=== PATIENT | male | born 1990 ===

== ENCOUNTER 2024-11-03 12:43 | Outpatient (CLI) | payer MEDICARE, SELFPAY ==
--- OUTSIDE RECORDS SUMMARY | 2024-10-11 09:17 | XMS_ITS | Encounter Summary ---
Author Organization [facility] Address [address] [id number] Care Team Providers Care Edge Cutting Machine Operator Name Role Phone Saul Mejia MD Primary Care Provider [phone] Reason for Referral * Consultation (Routine) - Authorized Specialty Diagnoses / Procedures Referred By Contact Referred To Contact Plastic Surgery / [facility] Diagnoses Decubitus ulcer of right ischium, stage IV (CMS/HCC) Noemí Ni MD [address] [place] [phone] Phone: tel: fax: Noemí Ni MD [address] [place] [phone] Phone: tel: fax: Referral ID Status Reason Start Date Expiration Date Visits Requested Visits Authorized [id number] Authorized Specialty Services Required 10/30/2024 05/01/2026 1 1 * Home Health (Routine) - Authorized Specialty Diagnoses / Procedures Referred By Contac t Referred To Contact Home Health Services / Plastic Surgery Diagnoses Decubitus ulcer of right ischium, stage IV (CMS/HCC) Noemí Ni MD [address] [place] [phone] Phone: tel: fax: Referral ID Status Reason Start Date Expiration Date Visits Requested Visits Authorized [id number] Authorized Specialty Services Required 10/27/2024 04/28/2026 999 999 * Home Health (Routine) - Authorized Specialty Diagnoses / Procedures Referred By Contac t Referred To Contact Home Health Services / Plastic Surgery Diagnoses Decubitus ulcer of right ischium, stage IV (CMS/HCC) Noemí Ni MD [address] [phone] Phone: tel: fax: Referral ID Status Reason Start Date Expiration Date Visits Requested Visits Authorized [id number] Authorized Specialty Services Required 10/26/2024 04/27/2026 999 999 * Home Health (Routine) - Authorized Specialty Diagnoses / Procedures Referred By Alonso t Referred To Contact Home Health Services Diagnoses Decubitus ulcer of right ischium, stage IV (CMS/HCC) Noemí Ni MD [address] [place] [phone] Phone: tel: fax: Referral ID Status Reason Start Date Expiration Date Visits Requested Visits Authorized [id number] Authorized Specialty Services Required 10/20/2024 2026 999 999 Reason for Visit * Auth/Cert (Routine) Specialty Diagnoses / Procedures Referred By Alonso t Referred To Contact Diagnoses Decubitus ulcer of right ischium, stage IV (CMS/HCC) Decubitus ulcer of right ischium, stage IV (CMS/HCC) [L89.314] Procedures [place] MUSCLE-SKIN FLAP,TRUNK [place] EXC ISCH PRES ULC BONE MYOCUT FLAP Debridement Pressure right ischium, fasciocutneous flap closure Noemí Ni MD [address] [place] [phone] Phone: tel: fax: [facility] [address] [place] [phone] Phone: tel: Referral ID Status Reason Start Date Expiration Date Visits Re quested Visits Authorized [id number] 1 1 Encounter Details Date Type Department Care Team (Late st Contact Info) Description 10/11/2024 9:17 AM EDT - 10/30/2024 4:07 PM EDT Hospital Encounter [facility] [address] [place] [address] Noemí Ni MD [address] [place] [phone] Decubitus ulcer of right ischium, stage IV (CMS/HCC) Discharge Disposition: Home-Health Care Svc Social History Tobacco Use Types Packs/Day Years Used Date Smoking Tobacco: Former Cigarettes 0.5 5 0 04/12/2006 - 04/12/2011 Passive Smoke Exposure: Never Smokeless Tobacco: Never Alcohol Use Standard Drinks/Week Comments Yes 0 (1 standard drink = 0.6 oz pur e alcohol) Occasional PHQ-2 Answer Date Recorded Patient Health Questionnaire-2 Score 0 07/01/2023 Housing Stability Vital Sign Answer Shiva e Recorded In the last 12 months, was t here a time when you were not able to pay the mortgage or rent on time? No 02/08/2023 Number of Places Lived in the Last Year Not on f ile 02/08/2023 In the last 12 months, was t here a time when you did not have a steady place to sleep or slept in a senior care (including now)? No 02/08/2023 Humiliation, Afraid, Rape, and Kick questionnair e Answer Date Recorded Within the last year, have y ou been afraid of your partner or ex-partner? No 10/12/2024 Within the last year, have y ou been humiliated or emotionally abused in other ways by your partner or ex-partner? No Within the last year, have y ou been kicked, hit, slapped, or otherwise physically hurt by your partner or ex-partner? No 10/12/2024 Within the last year, have y ou been raped or forced to have any kind of sexual activity by your partner or ex-partner? No 10/12/2024 Overall Financial Resource Strain (CARDIA) Answe r Date Recorded How hard is it for you to pa y for the very basics like food, housing, medical care, and heating? Not very hard 10/12/2024 Hunger Vital Sign Answer Date Recorded Within the past 12 months, y ou worried that your food would run out before you got the money to buy more. Never true 10/13/19 25 Within the past 12 months, t he food you bought just didn't last and you didn't have money to get more. Never true 10/12/2024 PRAPARE - Transportation Answer Date Re corded In the past 12 months, has l ack of transportation kept you from medical appointments or from getting medications? No 06/2024 In the past 12 months, has l ack of transportation kept you from meetings, work, or from getting things needed for daily living? No 10/12/2024 Housing Stability Vital Sign Answer Shiva e Recorded In the last 12 months, was t here a time when you were not able to pay the mortgage or rent on time? No 10/12/2024 In the past 12 months, how m any times have you moved where you were living? 0 10/12/2024 At any time in the past 12 m [facility], were you homeless or living in a senior care (including now)? No 10/12/2024 CAGE ASSESSMENT Answer Date Recorded Cage unable to access Not on file 08/25/2022 Cage max number of drinks Not on file 2022 Cage Beverages a week Not on file 08/25/2022 Have you ever felt you should CUT down on your d rinking? 0 08/25/2022 Have you been ANNOYED by people criticizing your drinking? 0 08/25/2022 Have you felt GUILTY about your drinking? 0 08/25/2022 Have you had a drink first t osito in the morning ([employer]) to steady your nerves or to get rid of a hangover? 0 08/25/2022 CAGE Questionnaire Score 0 023 Utilities Answer Date Recorded In the past 12 months has th e electric, gas, oil, or water company threatened to shut off services in your home? No 10/12/2024 PHQ-2A Answer Date Recorded Patient Health Questionnaire-2 Score 0 03/09/2023 Sex and Gender Information Value Date Recorded Sex Assigned at Not on file Legal Sex Male 8:00 PM EDT Gender Identity Not on file Sexual Orientation Not on file documented as of this encounter Last Filed Vital Signs Vital Sign Reading Time Taken Comments Blood Pressure 103/69 10/30/2024 7:50 AM EDT Pulse 97 10/30/2024 7:50 AM EDT Temperature 36.9 C (98.5 F) 10/30/2024 7:50 AM EDT Respiratory Rate 16 10/30/2024 7:50 AM EDT Oxygen Saturation 96% 10/30/2024 7:50 AM EDT Inhaled Oxygen Concentration - - Weight 86.6 kg (190 lb 14.7 oz) 10/30/2024 3:00 AM EDT Height 157.5 cm (5' 2 ) 10/11/2024 10:4 5 AM EDT Body Mass Index 34.92 10/11/2024 10:45 AM EDT documented in this encounter Functional Status * Are you deaf or do you have serious difficulty hearing? Answer Date of Assessment Author No 02/09/2023 5:28 PM EDT America Gil * Are you blind or do you have serious difficulty seeing, even when wearing glasses? Answer Date of Assessment Author No 02/09/2023 5:28 PM EDT America Gil * Do you have serious difficulty walking or climbing stairs? Answer Date of Assessment Author Yes 02/09/2023 5:28 PM EDT America Gil * Do you have serious difficulty dressing or bathing? Answer Date of Assessment Author No 02/09/2023 5:28 PM EDT America Gil * Because of a physical, mental, or emotional condition, do you have serious difficulty doing errandsalone such as visiting the doctor? Answer Date of Assessment Author Yes 02/09/2023 5:28 PM EDT America Gil * Calculated C-SSRS Risk Score (Lifetime/Recent) Answer Date of Assessment Author No Risk Indicated 10/29/2024 5:43 PM EDT Parul Perry * Question Answer Date of Assessment Author 1. Wish to be (Past 1 Month) No 025 5:43 PM EDT Parul Larios 2. Non-Specific Active Suici greyson Thoughts (Past 1 Month) No 10/29/2024 5:43 PM EDT Kiera Larios 6. Suicidal Behavior (Lifetime) No 5 5:43 PM EDT Parul Larios documented as of this encounter Mental Status * Because of a physical, mental, or emotional condition, do you have serious difficulty concentrating, remembering, or making decisions? (5 years old or older) Answer Entry Date Author No 02/09/2023 5:28 PM EDT America Gil documented in this encounter Discharge Instructions * Discharge Instructions* Kadi Galeano MD - 10/30/2024 7:59 AM EDT Discharge instructions Medications: - You should alternate taking Tylenol and ibuprofen every 3 hours for mild - moderate pain. Do not exceed 4,000mg tylenol total in 24 hours. Do not take ibuprofen if you are not supposed to take NSAIDs. - You have been prescribed pain medications to be taken as needed for severe pain. - You should take the stool softener prescribed as long as you are taking narcotics. - You may resume your previous medications unless otherwise instructed. Nutrition: - Drink plenty of fluids - You may resume your normal diet as tolerated, focusing on liquids to keep yourself hydrated. Activity: - Keep pressure off flap at all times. Do not lay on your right side. Dressing: - You should do twice daily dressing changes with wet-to-dry dressing to open areas and dry gauze/abd pads elsewhere. - Be diligent about hygiene and keep incisions clean and dry, especially after bowel movements. - You should try to keep your incisions as clean and dry as possible - You may shower. Let the soapy water run over your incisions. Do not scrub at your incisions. After you shower, pat your incisions dry with a clean towel. - Do NOT soak your incisions, or take a tub bath for 2 weeks. Potential Issues: - It is normal to have some pain and soreness, especially around the incisions - A small amount of clear drainage from the incision may be expected, call the office if the drainage becomes bloody, purulent (pus), or foul-smelling - Call the office if you start to have increased redness, drainage, swelling, or increased pain around your incision - Call the office if you have a fever greater than 101 F - Call the office if you have severe abdominal discomfort, nausea and vomiting, or feeling unwell Follow Up: - You will be contacted by the clinic for a follow up appointment on 11[facility]. Please contact your local EMS to arrange ambulance transport to this appointment. If you have any issues arranging this, please give us a call. documented in this encounter Medications at Time of Discharge bisacodyl (Dulcolax) 10 MG suppository Insert 1 suppository into the rectum every other day. 12 suppository 5 clindamycin (Clindagel) 1 % gel Apply 1 Application topically 2 (two) times a day. 30 g 1 4 lamoTRIgine (LaMICtal) 100 MG tablet Take 1 tablet by mouth daily. omeprazole (PriLOSEC) [address] capsule Take 1 capsule by mouth daily. Do not crush or chew. ondansetron ODT (Zofran-ODT) 4 MG disintegrating tablet Dissolve 1 tablet on the tongue every 6 hours as needed for nausea or vomiting. 20 tablet 5 oxybutynin XL (Ditropan-XL) 15 MG 24 hr tablet Take 1 tablet by mouth nightly. 2 documented as of this encounter Miscellaneous Notes * Nursing Note - Parul Larios - 10/30/2024 11:54 AM EDT This RN reviewed discharge paperwork with patient, patient expressed understanding. Patient given supplies as requested by . Meds to beds delivered to bedside, patient bathed, wounds cleansed and redressed. Patient awaiting ambulance transport. * Care Plan - Parul Larios - 10/30/2024 10:39 AM EDT Problem: Adult Inpatient Plan of Care Goal: Plan of Care Review Outcome: Adequate for Care Transition Flowsheets Taken 10/30/2024 003 by Terra Shaikh Progress: improving Taken 10/30/2024 0022 by Terra Shaikh Plan of Care Reviewed With: patient Goal: Patient-Specific Goal (Individualized) Outcome: Adequate for Care Transition Goal: Absence of Hospital-Acquired Illness or Injury Outcome: Adequate for Care Transition Intervention: Identify and Manage Fall Risk Flowsheets (Taken 10/30/2024 003 by Terra Shaikh) Safety Promotion/Fall Prevention: lighting adjusted activity supervised clutter-free environment maintained fall prevention program maintained safety round/check completed room organization consistent toileting scheduled Intervention: Prevent Skin Injury Flowsheets Taken 10/30/2024 0600 by Terra Shaikh Body Position: side-lying left Taken 10/30/2024 003 by Terra Shaikh Skin Protection: incontinence pads utilized Intervention: Prevent and Manage VTE (Venous Thromboembolism) Risk Flowsheets (Taken 10/30/2024 0756) VTE Prevention/Management: medication Intervention: Prevent Infection Flowsheets (Taken 10/30/2024 003 by Terra Shaikh) Infection Prevention: environmental surveillance performed equipment surfaces disinfected hand hygiene promoted rest/sleep promoted Goal: Optimal Comfort and Wellbeing Outcome: Adequate for Care Transition Intervention: Monitor Pain and Promote Comfort Flowsheets (Taken 10/29/2024 0405 by Yelena Deleon) Pain Management Interventions: care clustered position adjusted pillow support provided quiet environment facilitated rest Intervention: Provide Person-Centered Care Flowsheets (Taken 10/30/2024 003 by Terra Shaikh) Trust Relationship/Rapport: emotional support provided empathic listening provided reassurance provided thoughts/feelings acknowledged Goal: Readiness for Transition of Care Outcome: Adequate for Care Transition Intervention: Mutually Develop Transition Plan Flowsheets Taken 10/30/2024 1020 by Yahaira Beavers surgical processor Facility/Level of Care Needs: 1-Home or Self Care 4-[facility] S[facility] Equipment Needed After Discharge: (speciality air fluidized bed) other (see comments) Anticipated Changes Related to Illness: none Transportation Anticipated: medical transport Outpatient/Agency/Support Group Needs: DME homecare agency Transportation Concerns: none Concerns to be Addressed: discharge planning Patient/Family Anticipated Services at Transition: supportive employment case manager durable medical equipment home health care Patient/Family Anticipates Transition to: home with family Taken 10/12/2024 1327 by An Humphrey Equipment Currently Used at Home: wheelchair, manual Problem: Infection Goal: Absence of Infection Signs and Symptoms Outcome: Adequate for Care Transition Intervention: Prevent or Manage Infection Flowsheets (Taken 10/30/202434 by DTT P[employer]) Infection Management: aseptic technique maintained Fever Reduction/Comfort Measures: lightweight clothing lightweight bedding Isolation Precautions: precautions maintained Problem: Wound Goal: Optimal Coping Outcome: Adequate for Care Transition Intervention: Support Patient and Family Response Flowsheets (Taken 10/30/202434 by GeriXcalar [employer]) Supportive Measures: active listening utilized verbalization of feelings encouraged Family/Support System Care: involvement promoted Goal: Skin Health and Integrity Outcome: Adequate for Care Transition Intervention: Optimize Skin Protection Flowsheets Taken 10/30/2024 0600 by Markie Shaikhah Ama Head of Bed (HOB) Positioning: HOB at 15 degrees Taken 10/30/202434 by Neel [employer] Activity Management: activity adjusted per tolerance Pressure Reduction Devices: foam padding utilized heel offloading device utilized Taken 10/29/2024404 by Yelena Deleon Pressure Reduction Techniques: frequent weight shift encouraged heels elevated off bed positioned off wounds weight shift assistance provided Skin Protection: absorbent pad utilized/changed frequent weight shift encouraged weight shift assistance provided Goal: Optimal Wound Healing Outcome: Adequate for Care Transition Intervention: Promote Wound Healing Flowsheets (Taken 10/30/202434 by GeriXcalarMarkie5k Fans) Sleep/Rest Enhancement: awakenings minimized noise level reduced room darkened therapeutic touch utilized Problem: Skin Injury Risk Increased Goal: Skin Health and Integrity Outcome: Adequate for Care Transition Intervention: Optimize Skin Protection Flowsheets Taken 10/30/2024 0600 by Markie Shaikhah Ama Head of Bed (HOB) Positioning: HOB at 15 degrees Taken 10/30/202434 by GeriXcalarMarkieah Ama Activity Management: activity adjusted per tolerance Pressure Reduction Devices: foam padding utilized heel offloading device utilized Skin Protection: incontinence pads utilized Taken 10/29/20245 by Yelena Deleon Pressure Reduction Techniques: frequent weight shift encouraged heels elevated off bed positioned off wounds weight shift assistance provided Intervention: Promote and Optimize Oral Intake Flowsheets Taken 10/30/2024 003 by Terra Shaikh Oral Nutrition Promotion: rest periods promoted Taken 10/29/2024 0405 by Yelena Deleon Nutrition Interventions: meal set-up provided Problem: Fall Injury Risk Goal: Absence of Fall and Fall-Related Injury Outcome: Adequate for Care Transition Intervention: Identify and Manage Contributors Flowsheets (Taken 10/30/202434 by Terra Shaikh) Medication Review/Management: medications reviewed Self-Care Promotion: independence encouraged BADL personal routines maintained BADL personal objects within reach Intervention: Promote Injury-Free Environment Flowsheets (Taken 10/30/2024 003 by Terra Shaikh) Safety Promotion/Fall Prevention: lighting adjusted activity supervised clutter-free environment maintained fall prevention program maintained safety round/check completed room organization consistent toileting scheduled * Progress Notes - Yahaira Beavers RN - 10/30/2024 10:29 AM EDT Case Management Discharge Note Naga Padgett 34 y.o. male CSN: [id number] Admission: 10/11/2024 9:17 AM Primary Problem: Decubitus ulcer of right ischium, stage IV (CMS/HCC) Primary Parliamentary Counsel: Primary Caregiver: Family Assistance Available at Discharge: Availability of Care Givers (#Hours): 24 hours Family/Parliamentary Counsel(s) Willingness Assessed to care for patient at home: Yes Family/Parliamentary Counsel(s) Readiness Assessed to care for patient at home: Yes Housing Circumstances-Z Codes: Patient Referred to Financial or Community Resources: Discharge Facility/Level of Care Needs: Discharge Facility/Level of Care Needs: 1-Home or Self Care, 7-[facility] [place] Choice of Community Agency(s): Patient/Family Anticipated Services at Transition: Patient/Family Anticipated Services at Transition: supportive employment case manager, durable medical equipment, home health care DME/Equipment Needed after Discharge: Equipment Currently Used at Home: wheelchair, manual Equipment Needed After Discharge: other (see comments) (speciality air fluidized bed) Readmission Within the Last 30 Days: Medicare Documentation:per case management staff counsel. Follow-up: Noemí Ni MD [address] [facility] [phone] [facility], [facility]. (2142) [facility], [facility]. (2142) Follow up [facility] [phone] has accepted pt for wound care [facility] [phone] has accepted pt for wound care Follow up [facility], Vazquez with [facility] [phone]. [facility], Vazquez with [facility] [phone]. speciality bed Follow up Discharge Transportation: Transportation Anticipated: medical transport Transportation Home at Discharge: Medical Transport Has discharge transport been arranged?: Yes What day is the transport expected?: 10/30/24 What time is the transport expected?: 1400 Follow Up Transport: Transportation Needed to Follow up Appoinments: Medical Transport Additional Comments: Above agencies were informed patient to dc home today SW has arranged ambulance transport home. Pt will need to self schedule ambulance to follow up appointments per outpatient SW. Pt to dc to his mother's home today-[address] [place] [address] Dr Wilsonn, Ar Yahaira Beavers, RN * Vincent Victor - Reyes Gay RN - 10/30/2024 9:05 AM EDT Images from the original note were not included. [id number] Preventing a Surgical Site Infection A risk of any surgery is an infection at the surgical site. The surgical site is a cut the surgeon makes in the skin to do the surgery. Surgical site infections can range in type. It may be a minor skin infection. Or it may be severe and include tissue under the skin or other organs. In some cases,a severe infection can cause . The information below tells you: ? About surgical site infections. ? What hospitals do to prevent them. ? How they?re treated if they do occur. ? What you can do to prevent an infection. Hand washing reduces the risk of infection. What causes a surgical site infection? Germs are everywhere. They?re on your skin, in the air, and on things you touch. Many germs are good. Some are harmful. Surgical site infections occur when harmful germs enter your body through the incision in your skin. Some infections are caused by germs that are in the air or on objects. But most are caused by germs found on and in your own body. Who is at risk for a surgical site infection? Anyone can have a surgical site infection. Your risk is higher if you: ? Are an older adult. ? Have a weak immune system. ? Have other health conditions such as diabetes. ? Take certain medicines, such as steroids. ? Are a smoker. ? Have certain types of surgery, such as abdominal surgery. ? Have poor nutrition. ? Are very overweight. ? Have a surgery that lasts longer than 2 hours. What are the symptoms of a surgical site infection? An infection often shows up as skin redness, pain, and swelling around the incision that gets worse. Later, a cloudy or greenish-yellow fluid may come from the incision. The fluid may smell bad. The incision may pull apart or open up. You are likely to have a fever and may feel very ill. Symptoms can appear at any time. They may happen from hours to weeks after surgery. Implants such as an artificial knee or hip can become infected at any time after the surgery. How is a surgical site infection treated? ? A surgical site infection is treated with antibiotics. The type of medicine you get will depend on what may be causing the infection. Most serious wound infections need wound care. In some cases, surgery may be needed on the infected wound. ? An infected skin wound may be reopened and cleaned. A deep wound may need to be packed with gauze. The gauze is changed often until the wound starts to heal from the inside out. Your health care provider will decide the best way to treat your infection. ? If an infection occurs where an implant is placed, the implant may be removed. ? If you have an infection deeper in your body, you may need surgery to treat it. What hospitals do to prevent surgical site infections Many hospitals take these steps to help prevent surgical site infections: ? Handwashing. Before the surgery, your surgeon and all surgery staff scrub their hands and arms with an antiseptic soap. ? Clean skin. The site where your incision is made is carefully cleaned with an antiseptic solution. ? Sterile clothing and drapes. The surgical team wears medical uniforms. These are known as scrub suits. They wear long-sleeved surgical gowns, masks, caps, shoe covers, and sterile gloves. Your bodyis fully covered with a large sterile sheet (sterile drape). There is an opening in the sheet wherethe incision is made. ? Clean air. Operating rooms have special air filters. They use positive pressure airflow to prevent unfiltered air from entering the room. ? Careful use of antibiotics. Antibiotics are given no more than 60 minutes before the incision is made. They are generally stopped within 24 hours after surgery. This depends on the type of surgery.This helps kill germs but prevents problems that can occur when antibiotics are taken longer. ? Controlled blood sugar levels. Your blood sugar level may rise. This can be because of the stressof the surgery. Your blood sugar level is watched closely to make sure it stays within a normal range. High blood sugar delays wound healing. This increases the risk of infection. ? Controlled body temperature. A uulfa-gboh-xhliss temperature during or after surgery prevents oxygen from reaching the wound. This makes it harder for your body to fight infection. Hospitals may warm I.V. fluids, and provide warm-air blankets. Your temperature is watched throughout the surgery. ? Safe hair removal. Any hair that must be removed is clipped right before the incision, not shavedwith a razor. This prevents tiny nicks and cuts where germs can enter. ? Wound care. After surgery, a closed wound is covered with a sterile dressing for 1 to 2 days. Open wounds are packed with sterile gauze and covered with a sterile dressing. What you can do to prevent a surgical site infection ? Ask questions. Learn what your hospital is doing to prevent infection. ? If instructed, shower or bathe with plain soap the night before and the day of your surgery. Follow all instructions you're given. You may be asked to use a special cleanser that you don?t rinse off. ? If you smoke, stop as long as possible before and after the surgery. Ask your provider about waysto quit. ? Take antibiotics only when your provider tells you to. Using antibiotics when they?re not needed can create germs that are harder to kill. Finish the entire prescription of your antibiotics even ifyou feel better. ? Ask health care workers to clean their hands with plain soap and water or with an alcohol-based hand spray technician before and after caring for you. Don?t be afraid to remind them. ? After surgery, eat healthy foods. Care for your incision as directed by your health care team. When to contact your doctor Contact your provider or seek medical care right away if: ? The pain at the surgical site gets worse. ? A red streak, worse redness, or puffiness appears near the incision. ? Yellowish, cloudy, or bad-smelling fluid leaks from the incision. ? Your stitches dissolve before the wound heals. ? You have a fever of 100.4?? F ( 38??C ) or higher, or as advised by your provider. ? You have a tired feeling that doesn?t go away. Last Reviewed Date: 2024 00:00:00 ?? [id number] [employer]. All rights reserved. This information is not intended as a substitute for professional medical care. Always follow your healthcare professional's instructions. * [facility] - Reyes Gay RN - 10/30/2024 9:05 AM EDT Images from the original note were not included. [id number] Discharge Instructions: Changing Your Dressing You are going home with stitches, surgical livia, special strips of surgical tape, or surgical skin glue. These items were used to close your incision, help stop bleeding, and speed healing. It's important to follow your doctor's instructions for cleaning your incision. Below are some tips to help your incision heal. Home care ? Clean your work area: o Put pets in another room. o Clean your work area with soap and water. o Spread a clean cloth or paper towel over the surface. o Move away from the clean surface if you need to cough or sneeze. ? Gather your supplies. You'll need: o Packaged dressing for your wound. o Irrigation solutions (if prescribed by your doctor). o Pair of scissors (cleaned with soap and water). o Medical tape. o Disposable gloves (2 pairs). o Clean plastic trash bag (open it before you wash your hands). ? Wash your hands: o Use liquid soap. o Work up a good lather and scrub for 20 seconds. o Be sure to scrub between your fingers and under your nails. o Rinse with clean, running water. o Use a clean paper towel to dry your hands and turn off the faucet. ? Prepare your dressing supplies: o Peel back the edges of the dressing packages. Pour any irrigation solutions into solution cups. o Cut each piece of tape 4 inches longer than the dressing. ? Remove the old dressing: o Put on the first set of disposable gloves. o Loosen the tape on the dressing by pulling gently toward the incision. Remove the dressing 1 layer at a time. Put it in the plastic bag immediately. o Remove your gloves and put them in the plastic bag. Wash your hands. o Put on a new pair of gloves. ? Clean and dress the incision: o Irrigate and clean the incision and apply a new dressing as directed. o Put all used supplies in the plastic bag. Remove your gloves last and put them in the plastic bag. Seal the bag and put it in the trash. o Be sure to wash your hands again. Care for specific closures Follow these guidelines unless your doctor tells you otherwise: ? Stitches or livia. Once you no longer need to keep these dry, clean the wound daily, using the instructions listed above. First remove the bandage using clean hands. Then wash the area gently with soap and clean, running water. Use a wet cotton swab to loosen and remove any blood or crust that forms. After cleaning, put a thin layer of antibiotic ointment on if your doctor instructed you to do so. Then put on a new bandage. ? Skin glue. Don?t put liquid, ointment, or cream on your wound while the glue is in place. Avoid activities that cause heavy sweating. Protect the wound from sunlight. Don't scratch, rub, or pick atthe glue. Don't put tape directly over the glue. The glue should peel off within 5 to 10 days. ? Surgical tape. Keep the area dry. If it gets wet, blot the area dry with a clean towel. Surgical tape usually falls off within 7 to 10 days. If it has not fallen off after 10 days, contact your doctor before taking it off yourself. If you are told to remove the tape, it can be removed by pulling on it gently from the edge. For pieces that are stuck firmly, put mineral oil or petroleum jelly on a cotton ball. Gently rub the tape until it's removed. Follow-up care Follow up with your doctor to ask how long stitches or livia should be left in place. Be sure to return for suture or staple removal as directed. If tape closures were used, remove them yourself when your doctor tells you to, if they have not fallen off on their own. If skin glue was used, the glue will wear off by itself. Call your doctor if you have any questions or concerns about how to carefor your incision at home. When to seek medical care Call your doctor right away if you have: ? More pain, bleeding, redness, or foul-smelling discharge around the incision area. ? A fever of 100.4??F ( 38??C) or higher, or as directed by your doctor. ? Shaking chills. ? Vomiting or nausea that doesn?t go away. ? Numbness, coldness, or tingling around the incision area. ? Opening of the stitches or wound. ? Stitches or livia come apart or fall out. ? Surgical tape falls off before 7 days, or as directed by your doctor. Last Reviewed Date: 2024 00:00:00 ?? [id number] [employer]. All rights reserved. This information is not intended as a substitute for professional medical care. Always follow your healthcare professional's instructions. * [facility] - Reyes Gay RN - 10/30/2024 9:05 AM EDT Images from the original note were not included. [id number] Treating Pressure Injuries: Debridement The goal of treatment for pressure injuries is to create a healing environment. This may require debridement (removing or necrotic tissue) so new cells can form. Various types of debridement areavailable. These are done by healthcare providers and certified specialists. To control pain duringdebridement, pain- relieving medicines may be needed. tissue must be removed for the wound to heal properly. Debridement should only be done when there is good blood flow to the wound. Sharp debridement removes tissue with a scalpel, scissors, or other sharp instrument. Extensive removal may require surgery. Sharp debridement allows for precise removal of tissue and is the preferred method if you have an active infection. This technique can be painful, so it requires adequate pain control medicines. Extensive sharp debridement is done under anesthesia by a surgeon. During this process, the surgeon removes enough and damaged tissue until tissue with a good bleeding capillary base is found. Enzymatic debridement uses topical agents containing enzymes to dissolve tissue. They attack the fibrin and collagen of necrotic tissue and exudate. If eschar is present, tiny cuts may need to be made before applying the enzymes to help ensure their absorption. This ?cross-hatching? is done bya healthcare provider or specialist. Autolytic debridement uses the body?s own enzymes to break down necrotic tissue. Special dressings are used to keep the wound moist, allowing the necrotic skin to slowly separate from healthy tissue.Autolytic debridement can take up to several weeks but is less painful than other methods. It?s also selective in the tissue it removes. Autolytic debridement should not be used if you have an activeinfection. Biologic debridement is the use of sterile larvae (maggots) that produce powerful enzymes that liquefy and then ingest tissue. Mechanical (irrigation, hydrotherapy, ele-go-eymlk, wet-to-dry) debridement may be used to remove debris and tissue. Wet-to-dry involves applying a piece of gauze moistened with saline to the wound and letting it dry. The dried gauze is then removed, taking tissue and debris with it. This is not a favored method because it may remove healthy tissue as well as tissue. Wet-to-dry debridement can also be quite painful. Last Reviewed Date: 2023 00:00:00 ?? [id number] [employer]. All rights reserved. This information is not intended as a substitute for professional medical care. Always follow your healthcare professional's instructions. * Care Plan - Terra Shaikh - 10/30/2024 12:39 AM EDT Problem: Adult Inpatient Plan of Care Goal: Plan of Care Review 10/30/202434 by Terra Shaikh Flowsheets (Taken 10/30/202434) Progress: improving 10/30/202421 by Terra Shaikh Outcome: Ongoing, Progressing Flowsheets (Taken 10/30/202421) Progress: improving Plan of Care Reviewed With: patient Goal: Patient-Specific Goal (Individualized) 10/30/202434 by Terra Shaikh Flowsheets (Taken 10/30/202432) Patient/Family-Specific Goals (Include Timeframe): will be free from injury during the shift Individualized Care Needs: safety and comfort Anxieties, Fears or Concerns: will sleep well tonight 10/30/202421 by Terra Shaikh Outcome: Ongoing, Progressing Goal: Absence of Hospital-Acquired Illness or Injury Outcome: Ongoing, Progressing Intervention: Identify and Manage Fall Risk Flowsheets (Taken 10/30/202434) Safety Promotion/Fall Prevention: lighting adjusted activity supervised clutter-free environment maintained fall prevention program maintained safety round/check completed room organization consistent toileting scheduled Intervention: Prevent Skin Injury Flowsheets (Taken 10/30/202434) Body Position: education provided Skin Protection: incontinence pads utilized Intervention: Prevent and Manage VTE (Venous Thromboembolism) Risk Flowsheets (Taken 10/30/202434) VTE Prevention/Management: medication Intervention: Prevent Infection Flowsheets (Taken 10/30/202434) Infection Prevention: environmental surveillance performed equipment surfaces disinfected hand hygiene promoted rest/sleep promoted Goal: Optimal Comfort and Wellbeing Outcome: Ongoing, Progressing Intervention: Monitor Pain and Promote Comfort Flowsheets (Taken 10/30/202434) Pain Management Interventions: pillow support provided position adjusted Intervention: Provide Person-Centered Care Flowsheets (Taken 10/30/202434) Trust Relationship/Rapport: emotional support provided empathic listening provided reassurance provided thoughts/feelings acknowledged Goal: Readiness for Transition of Care Outcome: Ongoing, Progressing Problem: Infection Goal: Absence of Infection Signs and Symptoms Outcome: Ongoing, Progressing Intervention: Prevent or Manage Infection Flowsheets (Taken 10/30/202434) Infection Management: aseptic technique maintained Fever Reduction/Comfort Measures: lightweight clothing lightweight bedding Isolation Precautions: precautions maintained Problem: Wound Goal: Optimal Coping Outcome: Ongoing, Progressing Intervention: Support Patient and Family Response Flowsheets (Taken 10/30/202434) Supportive Measures: active listening utilized verbalization of feelings encouraged Family/Support System Care: involvement promoted Goal: Skin Health and Integrity Outcome: Ongoing, Progressing Intervention: Optimize Skin Protection Flowsheets (Taken 10/30/202434) Activity Management: activity adjusted per tolerance Pressure Reduction Devices: foam padding utilized heel offloading device utilized Head of Bed (HOB) Positioning: HOB elevated Goal: Optimal Wound Healing Outcome: Ongoing, Progressing Intervention: Promote Wound Healing Flowsheets (Taken 10/30/202434) Sleep/Rest Enhancement: awakenings minimized noise level reduced room darkened therapeutic touch utilized Problem: Skin Injury Risk Increased Goal: Skin Health and Integrity Outcome: Ongoing, Progressing Intervention: Optimize Skin Protection Flowsheets (Taken 10/30/202434) Activity Management: activity adjusted per tolerance Pressure Reduction Devices: foam padding utilized heel offloading device utilized Skin Protection: incontinence pads utilized Head of Bed (HOB) Positioning: HOB elevated Intervention: Promote and Optimize Oral Intake Flowsheets (Taken 10/30/202434) Oral Nutrition Promotion: rest periods promoted Problem: Fall Injury Risk Goal: Absence of Fall and Fall-Related Injury Outcome: Ongoing, Progressing Intervention: Identify and Manage Contributors Flowsheets (Taken 10/30/202434) Medication Review/Management: medications reviewed Self-Care Promotion: independence encouraged BADL personal routines maintained BADL personal objects within reach Intervention: Promote Injury-Free Environment Flowsheets (Taken 10/30/202434) Safety Promotion/Fall Prevention: lighting adjusted activity supervised clutter-free environment maintained fall prevention program maintained safety round/check completed room organization consistent toileting scheduled * Care Plan - Parul Larios - 10/29/2024 12:15 PM EDT Problem: Adult Inpatient Plan of Care Goal: Plan of Care Review Outcome: Ongoing, Progressing Flowsheets (Taken 10/29/2024 0405 by Yelena Deleon) Progress: improving Plan of Care Reviewed With: patient Goal: Patient-Specific Goal (Individualized) Outcome: Ongoing, Progressing Flowsheets (Taken 10/29/2024 1211) Patient/Family-Specific Goals (Include Timeframe): patient will remain free from falls over course of shift. patient will report adequate pain control over course of shift Individualized Care Needs: safety and pain control Anxieties, Fears or Concerns: none expressed Goal: Absence of Hospital-Acquired Illness or Injury Outcome: Ongoing, Progressing Intervention: Identify and Manage Fall Risk Flowsheets (Taken 10/29/2024 0600 by Yelena Deleon) Safety Promotion/Fall Prevention: activity supervised assistive device/personal items within reach clutter-free environment maintained fall prevention program maintained nonskid shoes/slippers when out of bed room organization consistent safety round/check completed Intervention: Prevent Skin Injury Flowsheets Taken 10/29/2024 0900 by Mary Whitt CNA Body Position: weight shifting Taken 10/29/2024 0405 by Yelena Deleon Skin Protection: incontinence pads utilized drying agents applied Intervention: Prevent and Manage VTE (Venous Thromboembolism) Risk Flowsheets (Taken 10/29/2024 0800) VTE Prevention/Management: medication Intervention: Prevent Infection Flowsheets (Taken 10/29/2024 0405 by Yelena Deleon) Infection Prevention: environmental surveillance performed hand hygiene promoted rest/sleep promoted single patient room provided Goal: Optimal Comfort and Wellbeing Outcome: Ongoing, Progressing Intervention: Monitor Pain and Promote Comfort Flowsheets (Taken 10/29/2024 040 by Yelena Deleon) Pain Management Interventions: care clustered position adjusted pillow support provided quiet environment facilitated rest Intervention: Provide Person-Centered Care Flowsheets (Taken 10/29/2024 0405 by Yelena Deleon) Trust Relationship/Rapport: care explained choices provided emotional support provided questions answered thoughts/feelings acknowledged Goal: Readiness for Transition of Care Outcome: Ongoing, Progressing Intervention: Mutually Develop Transition Plan Flowsheets (Taken 10/12/2024 1327 by An Humphrey) Equipment Currently Used at Home: wheelchair, manual * Care Plan - Parul Larios - 10/29/2024 12:14 PM EDT Problem: Adult Inpatient Plan of Care Goal: Plan of Care Review Outcome: Ongoing, Progressing Flowsheets (Taken 10/29/2024 0405 by Yelena Deleon) Progress: improving Plan of Care Reviewed With: patient Goal: Patient-Specific Goal (Individualized) Outcome: Ongoing, Progressing Flowsheets (Taken 10/29/2024 1211) Patient/Family-Specific Goals (Include Timeframe): patient will remain free from falls over course of shift. patient will report adequate pain control over course of shift Individualized Care Needs: safety and pain control Anxieties, Fears or Concerns: none expressed Goal: Absence of Hospital-Acquired Illness or Injury Outcome: Ongoing, Progressing Intervention: Identify and Manage Fall Risk Flowsheets (Taken 10/29/2024 0600 by Yelena Deleon) Safety Promotion/Fall Prevention: activity supervised assistive device/personal items within reach clutter-free environment maintained fall prevention program maintained nonskid shoes/slippers when out of bed room organization consistent safety round/check completed Intervention: Prevent Skin Injury Flowsheets Taken 10/29/2024 0900 by Mary Whitt CNA Body Position: weight shifting Taken 10/29/2024 0405 by Yelena Deleon Skin Protection: incontinence pads utilized drying agents applied Intervention: Prevent and Manage VTE (Venous Thromboembolism) Risk Flowsheets (Taken 10/29/2024 0800) VTE Prevention/Management: medication Intervention: Prevent Infection Flowsheets (Taken 10/29/2024 040 by Yelena Deleon) Infection Prevention: environmental surveillance performed hand hygiene promoted rest/sleep promoted single patient room provided Goal: Optimal Comfort and Wellbeing Outcome: Ongoing, Progressing Intervention: Monitor Pain and Promote Comfort Flowsheets (Taken 10/29/2024 0405 by Yelena Deleon) Pain Management Interventions: care clustered position adjusted pillow support provided quiet environment facilitated rest Intervention: Provide Person-Centered Care Flowsheets (Taken 10/29/2024 0405 by Yelena Deleon) Trust Relationship/Rapport: care explained choices provided emotional support provided questions answered thoughts/feelings acknowledged Goal: Readiness for Transition of Care Outcome: Ongoing, Progressing Intervention: Mutually Develop Transition Plan Flowsheets (Taken 10/12/2024 1327 by An Humphrey) Equipment Currently Used at Home: wheelchair, manual Problem: Surgery Nonspecified Goal: Absence of Bleeding Outcome: Ongoing, Progressing Intervention: Monitor and Manage Bleeding Flowsheets (Taken 10/29/2024 0405 by Yelena Deleon) Bleeding Management: dressing monitored Goal: Effective Bowel Elimination Outcome: Ongoing, Progressing Intervention: Enhance Bowel Motility and Elimination Flowsheets (Taken 10/29/2024 0405 by Yelena Deleon) Bowel Elimination Management: hygiene measures promoted relaxation techniques promoted Bowel Motility Enhancement: fluid intake encouraged oral intake encouraged Goal: Fluid and Electrolyte Balance Outcome: Ongoing, Progressing Intervention: Monitor and Manage Fluid and Electrolyte Balance Flowsheets (Taken 10/29/2024 0405 by Yelena Deleon) Fluid/Electrolyte Management: fluids provided Goal: Blood Glucose Level Within Target Range Outcome: Ongoing, Progressing Intervention: Optimize Glycemic Control Flowsheets (Taken 10/25/2024 1610 by Dallin Nevarez RN) Hypoglycemia Management: blood glucose monitored Goal: Absence of Infection Signs and Symptoms Outcome: Ongoing, Progressing Intervention: Prevent or Manage Infection Flowsheets Taken 10/29/2024 0600 by Yelena Deleon Isolation Precautions: precautions maintained Taken 10/29/2024 0405 by Yelena Deleon Infection Management: aseptic technique maintained Fever Reduction/Comfort Measures: lightweight clothing Problem: Infection Goal: Absence of Infection Signs and Symptoms Outcome: Ongoing, Progressing Intervention: Prevent or Manage Infection Flowsheets Taken 10/29/2024 0600 by Yelena Deleon Isolation Precautions: precautions maintained Taken 10/29/2024 0405 by Yelena Deleon Infection Management: aseptic technique maintained Fever Reduction/Comfort Measures: lightweight clothing Problem: Wound Goal: Optimal Coping Outcome: Ongoing, Progressing Intervention: Support Patient and Family Response Flowsheets (Taken 10/29/2024 0405 by Yelena Deleon) Supportive Measures: active listening utilized decision-making supported self-care encouraged verbalization of feelings encouraged Family/Support System Care: self-care encouraged support provided Goal: Skin Health and Integrity Outcome: Ongoing, Progressing Intervention: Optimize Skin Protection Flowsheets Taken 10/29/2024 0900 by Mary Whitt CNA Activity Management: activity adjusted per tolerance Taken 10/29/2024 0600 by Yelena Deleon Head of Bed (HOB) Positioning: HOB elevated Taken 10/29/2024 0405 by Yelena Deleon Pressure Reduction Techniques: frequent weight shift encouraged heels elevated off bed positioned off wounds weight shift assistance provided Pressure Reduction Devices: heel offloading device utilized positioning supports utilized foam padding utilized Skin Protection: absorbent pad utilized/changed frequent weight shift encouraged weight shift assistance provided Goal: Optimal Wound Healing Outcome: Ongoing, Progressing Intervention: Promote Wound Healing Flowsheets (Taken 10/29/2024404 by Yelena Deleon) Sleep/Rest Enhancement: awakenings minimized noise level reduced regular sleep/rest pattern promoted room darkened Problem: Skin Injury Risk Increased Goal: Skin Health and Integrity Outcome: Ongoing, Progressing Intervention: Optimize Skin Protection Flowsheets Taken 10/29/2024 09 by Mary Whitt CNA Activity Management: activity adjusted per tolerance Taken 10/29/2024 06 by Yelena Deleon Head of Bed (HOB) Positioning: HOB elevated Taken 10/29/2024404 by Yelena Deleon Pressure Reduction Techniques: frequent weight shift encouraged heels elevated off bed positioned off wounds weight shift assistance provided Pressure Reduction Devices: heel offloading device utilized positioning supports utilized foam padding utilized Skin Protection: incontinence pads utilized drying agents applied Intervention: Promote and Optimize Oral Intake Flowsheets (Taken 10/29/2024404 by Yelena Deleon) Oral Nutrition Promotion: rest periods promoted Nutrition Interventions: meal set-up provided Problem: Fall Injury Risk Goal: Absence of Fall and Fall-Related Injury Outcome: Ongoing, Progressing Intervention: Identify and Manage Contributors Flowsheets (Taken 10/29/2024404 by Yelena Deleon) Medication Review/Management: medications reviewed high-risk medications identified Self-Care Promotion: independence encouraged BADL personal objects within reach BADL personal routines maintained Intervention: Promote Injury-Free Environment Flowsheets (Taken 10/29/2024 06 by Yelena Deleon) Safety Promotion/Fall Prevention: activity supervised assistive device/personal items within reach clutter-free environment maintained fall prevention program maintained nonskid shoes/slippers when out of bed room organization consistent safety round/check completed * Care Plan - Yelena Deleon - 10/29/2024 4:05 AM EDT Problem: Adult Inpatient Plan of Care Goal: Plan of Care Review 10/29/2024404 by Yelena Deleon Flowsheets (Taken 10/29/2024404) Progress: improving Plan of Care Reviewed With: patient 10/29/2024404 by Yelena Deleon Outcome: Ongoing, Progressing Problem: Adult Inpatient Plan of Care Goal: Patient-Specific Goal (Individualized) 10/29/2024 0405 by Yelena Deleon Flowsheets (Taken 10/28/20241999) Patient/Family-Specific Goals (Include Timeframe): Patient will remain free from harm this shift Individualized Care Needs: Monitor dressing and wound care Anxieties, Fears or Concerns: None verbalized by patient 10/29/20245 by Yelena Deleon Outcome: Ongoing, Progressing Problem: Adult Inpatient Plan of Care Goal: Absence of Hospital-Acquired Illness or Injury Outcome: Ongoing, Progressing Intervention: Identify and Manage Fall Risk Flowsheets (Taken 10/29/2024 0200) Safety Promotion/Fall Prevention: activity supervised assistive device/personal items within reach clutter-free environment maintained fall prevention program maintained nonskid shoes/slippers when out of bed room organization consistent safety round/check completed Intervention: Prevent Skin Injury Flowsheets Taken 10/29/2024404 Skin Protection: incontinence pads utilized drying agents applied Taken 10/29/2024 020 Body Position: left side-lying Intervention: Prevent and Manage VTE (Venous Thromboembolism) Risk Flowsheets (Taken 10/29/2024 0000) VTE Prevention/Management: SCDs (sequential compression devices) off patient refused intervention Intervention: Prevent Infection Flowsheets (Taken 10/29/2024 0405) Infection Prevention: environmental surveillance performed hand hygiene promoted rest/sleep promoted single patient room provided Problem: Adult Inpatient Plan of Care Goal: Absence of Hospital-Acquired Illness or Injury Intervention: Prevent Skin Injury Flowsheets Taken 10/29/20245 Skin Protection: incontinence pads utilized drying agents applied Taken 10/29/2024 0200 Body Position: left side-lying Problem: Adult Inpatient Plan of Care Goal: Optimal Comfort and Wellbeing Intervention: Monitor Pain and Promote Comfort Flowsheets (Taken 10/29/20245) Pain Management Interventions: care clustered position adjusted pillow support provided quiet environment facilitated rest Problem: Surgery Nonspecified Goal: Absence of Bleeding Intervention: Monitor and Manage Bleeding Flowsheets (Taken 10/29/2024 040) Bleeding Management: dressing monitored * Care Plan - Aureliano Rose RN - 10/28/2024 11:35 AM EDT Problem: Adult Inpatient Plan of Care Goal: Plan of Care Review Flowsheets (Taken 10/28/20241128) Progress: improving Plan of Care Reviewed With: patient Goal: Patient-Specific Goal (Individualized) Outcome: Ongoing, Progressing Flowsheets (Taken 10/28/2024 08) Patient/Family-Specific Goals (Include Timeframe): Remain fall and injury free, able to manage painup to pt own level. Individualized Care Needs: safety and pain control Anxieties, Fears or Concerns: none Goal: Absence of Hospital-Acquired Illness or Injury Intervention: Identify and Manage Fall Risk Flowsheets (Taken 10/28/2024 0800) Safety Promotion/Fall Prevention: activity supervised assistive device/personal items within reach clutter-free environment maintained fall prevention program maintained lighting adjusted room organization consistent safety round/check completed Intervention: Prevent Skin Injury Flowsheets Taken 10/28/20241128 by Aureliano Rose RN Body Position: (pt able to turn himself, education provided) turned other (see comments) Taken 10/28/2024 0053 by Rica Wallace RN Skin Protection: incontinence pads utilized pectin skin barriers applied Intervention: Prevent and Manage VTE (Venous Thromboembolism) Risk Flowsheets (Taken 10/28/20241128) VTE Prevention/Management: medication Intervention: Prevent Infection Flowsheets (Taken 10/28/20241128) Infection Prevention: rest/sleep promoted hand hygiene promoted environmental surveillance performed Goal: Optimal Comfort and Wellbeing Outcome: Ongoing, Progressing Intervention: Monitor Pain and Promote Comfort Flowsheets (Taken 10/28/20241128) Pain Management Interventions: relaxation techniques promoted breathing exercises Problem: Infection Goal: Absence of Infection Signs and Symptoms Outcome: Ongoing, Progressing Intervention: Prevent or Manage Infection Flowsheets (Taken 10/28/20241128) Fever Reduction/Comfort Measures: lightweight clothing lightweight bedding Isolation Precautions: precautions maintained Problem: Wound Goal: Optimal Wound Healing Intervention: Promote Wound Healing Flowsheets (Taken 10/28/20241128) Sleep/Rest Enhancement: regular sleep/rest pattern promoted relaxation techniques promoted Problem: Fall Injury Risk Goal: Absence of Fall and Fall-Related Injury Intervention: Identify and Manage Contributors Flowsheets (Taken 10/28/20241128) Medication Review/Management: medications reviewed Self-Care Promotion: independence encouraged BADL personal routines maintained BADL personal objects within reach Intervention: Promote Injury-Free Environment Flowsheets (Taken 10/28/2024 0800) Safety Promotion/Fall Prevention: activity supervised assistive device/personal items within reach clutter-free environment maintained fall prevention program maintained lighting adjusted room organization consistent safety round/check completed * Care Plan - Rica Wallace RN - 10/28/2024 12:59 AM EDT Problem: Adult Inpatient Plan of Care Goal: Absence of Hospital-Acquired Illness or Injury Intervention: Identify and Manage Fall Risk Flowsheets (Taken 10/27/20241999) Safety Promotion/Fall Prevention: activity supervised assistive device/personal items within reach clutter-free environment maintained fall prevention program maintained mobility aid in reach lighting adjusted nonskid shoes/slippers when out of bed Intervention: Prevent Skin Injury Flowsheets (Taken 10/28/202452) Body Position: turned right Skin Protection: incontinence pads utilized pectin skin barriers applied Intervention: Prevent and Manage VTE (Venous Thromboembolism) Risk Flowsheets (Taken 10/27/20241999) VTE Prevention/Management: SCDs (sequential compression devices) off patient refused intervention previous patient education reinforced Intervention: Prevent Infection Flowsheets (Taken 10/28/202452) Infection Prevention: rest/sleep promoted equipment surfaces disinfected hand hygiene promoted environmental surveillance performed Goal: Optimal Comfort and Wellbeing Intervention: Provide Person-Centered Care Flowsheets (Taken 10/28/202452) Trust Relationship/Rapport: care explained choices provided emotional support provided empathic listening provided questions answered questions encouraged reassurance provided thoughts/feelings acknowledged Problem: Surgery Nonspecified Goal: Absence of Bleeding Intervention: Monitor and Manage Bleeding Flowsheets (Taken 10/28/202452) Bleeding Management: dressing monitored Goal: Effective Bowel Elimination Intervention: Enhance Bowel Motility and Elimination Flowsheets (Taken 10/28/202452) Bowel Elimination Management: hygiene measures promoted relaxation techniques promoted Bowel Motility Enhancement: fluid intake encouraged oral intake encouraged Goal: Fluid and Electrolyte Balance Intervention: Monitor and Manage Fluid and Electrolyte Balance Flowsheets (Taken 10/28/202452) Fluid/Electrolyte Management: fluids provided Goal: Absence of Infection Signs and Symptoms Intervention: Prevent or Manage Infection Flowsheets Taken 10/28/202452 Infection Management: aseptic technique maintained Fever Reduction/Comfort Measures: lightweight bedding lightweight clothing Taken 10/27/20241999 Isolation Precautions: precautions maintained Problem: Infection Goal: Absence of Infection Signs and Symptoms Intervention: Prevent or Manage Infection Flowsheets (Taken 10/28/202452) Infection Management: aseptic technique maintained Fever Reduction/Comfort Measures: lightweight bedding lightweight clothing Problem: Wound Goal: Optimal Coping Intervention: Support Patient and Family Response Flowsheets (Taken 10/28/202452) Supportive Measures: active listening utilized goal-setting facilitated problem-solving facilitated positive reinforcement provided self-care encouraged verbalization of feelings encouraged relaxation techniques promoted Family/Support System Care: involvement promoted self-care encouraged support provided Goal: Skin Health and Integrity Intervention: Optimize Skin Protection Flowsheets Taken 10/28/202452 Pressure Reduction Devices: foam padding utilized positioning supports utilized Skin Protection: frequent weight shift encouraged protective dressing applied skin barriers applied skin sealant/moisture barrier applied specialty mattress utilized absorbent pad utilized/changed Taken 10/27/20241999 Activity Management: activity adjusted per tolerance activity encouraged Goal: Optimal Wound Healing Intervention: Promote Wound Healing Flowsheets (Taken 10/28/202452) Sleep/Rest Enhancement: awakenings minimized consistent schedule promoted regular sleep/rest pattern promoted relaxation techniques promoted Problem: Skin Injury Risk Increased Goal: Skin Health and Integrity Intervention: Optimize Skin Protection Flowsheets Taken 10/28/202452 Pressure Reduction Devices: foam padding utilized positioning supports utilized Skin Protection: incontinence pads utilized pectin skin barriers applied Taken 10/27/20241999 Activity Management: activity adjusted per tolerance activity encouraged Head of Bed (HOB) Positioning: HOB elevated Intervention: Promote and Optimize Oral Intake Flowsheets (Taken 10/28/202452) Oral Nutrition Promotion: rest periods promoted Nutrition Interventions: meal set-up provided supplemental drinks provided Problem: Fall Injury Risk Goal: Absence of Fall and Fall-Related Injury Intervention: Identify and Manage Contributors Flowsheets (Taken 10/28/202452) Medication Review/Management: medications reviewed Self-Care Promotion: independence encouraged BADL personal objects within reach BADL personal routines maintained Intervention: Promote Injury-Free Environment Flowsheets (Taken 10/27/20241999) Safety Promotion/Fall Prevention: activity supervised assistive device/personal items within reach clutter-free environment maintained fall prevention program maintained mobility aid in reach lighting adjusted nonskid shoes/slippers when out of bed * Progress Notes - Shelley Ramirez RN - 10/27/2024 1:22 PM EDT Bradford Jean Baptiste [phone] has accepted pt for wound care. He knows [facility] has accepted pt, he will follow up with primary CM RN on Wednesday. * Care Plan - Leigh Sauer RN - 10/27/2024 12:58 PM EDT Problem: Adult Inpatient Plan of Care Goal: Plan of Care Review Outcome: Ongoing, Progressing Flowsheets Taken 10/27/2024 0512 by Jose Angel Garcia RN Plan of Care Reviewed With: patient Taken 10/25/2024 1610 by Dallin Nevarez RN Progress: improving Problem: Skin Injury Risk Increased Goal: Skin Health and Integrity Outcome: Ongoing, Progressing Problem: Fall Injury Risk Goal: Absence of Fall and Fall-Related Injury Outcome: Ongoing, Progressing * Care Plan - Jose Angel Garcia RN - 10/27/2024 5:12 AM EDT Problem: Adult Inpatient Plan of Care Goal: Plan of Care Review Outcome: Ongoing, Progressing Flowsheets (Taken 10/27/2024 0512) Plan of Care Reviewed With: patient Goal: Patient-Specific Goal (Individualized) Outcome: Ongoing, Progressing Goal: Absence of Hospital-Acquired Illness or Injury Outcome: Ongoing, Progressing Intervention: Identify and Manage Fall Risk Flowsheets (Taken 10/27/2024 0612) Safety Promotion/Fall Prevention: safety round/check completed clutter-free environment maintained lighting adjusted Intervention: Prevent Skin Injury Flowsheets (Taken 10/27/2024 0612) Body Position: turned left Skin Protection: incontinence pads utilized Intervention: Prevent and Manage VTE (Venous Thromboembolism) Risk Flowsheets (Taken 10/27/2024 0612) VTE Prevention/Management: medication Intervention: Prevent Infection Flowsheets (Taken 10/27/2024 06) Infection Prevention: hand hygiene promoted Goal: Optimal Comfort and Wellbeing Outcome: Ongoing, Progressing Intervention: Monitor Pain and Promote Comfort Flowsheets (Taken 10/27/2024 06) Pain Management Interventions: emotional support pillow support provided Goal: Readiness for Transition of Care Outcome: Ongoing, Progressing Problem: Surgery Nonspecified Goal: Absence of Bleeding Outcome: Ongoing, Progressing Goal: Effective Bowel Elimination Outcome: Ongoing, Progressing Goal: Fluid and Electrolyte Balance Outcome: Ongoing, Progressing Goal: Blood Glucose Level Within Target Range Outcome: Ongoing, Progressing Goal: Absence of Infection Signs and Symptoms Outcome: Ongoing, Progressing Problem: Infection Goal: Absence of Infection Signs and Symptoms Outcome: Ongoing, Progressing Problem: Wound Goal: Optimal Coping Outcome: Ongoing, Progressing Goal: Skin Health and Integrity Outcome: Ongoing, Progressing Goal: Optimal Wound Healing Outcome: Ongoing, Progressing Problem: Skin Injury Risk Increased Goal: Skin Health and Integrity Outcome: Ongoing, Progressing Problem: Fall Injury Risk Goal: Absence of Fall and Fall-Related Injury Outcome: Ongoing, Progressing * Progress Notes - An Humphrey P - 10/26/2024 3:18 PM EDT Case Management Adult Progress Note Naga Padgett 34 y.o. male CSN: [id number] Admission: 10/11/2024 9:17 AM Primary Problem: Decubitus ulcer of right ischium, stage IV (CMS/HCC) Anticipated Discharge Date: 10/30/24 Additional Comments: Pt will DC on 10/30/24 to his mothers address at [address] [place] [address] Eddi Ariza via ambulance, SW did not get ambulance time response by the time SW left for the day on 10/26/24. Specialty hospital bed will be delivered between 12-1 pm on 10/30/24 by Vazquez Callejas with [facility] [phone]. Pt was approved this date by insurance after family appeal to go to [facility], ptexpressed that he wished to pursue home with . RN CM sent wound care orders for [facility]. CM will continue to follow pt. An Humphrey, V BELT SKIVER, HOUSEHOLD PERSONAL ASSISTANT Social Work Senior Department of Case Management [facility] * Progress Notes - Kadi Galeano MD - 10/26/2024 1:52 PM EDT Images from the original note were not included. [facility] Department of Surgery Division of Plastic Surgery Surgery Progress Note 10/26/24 Naga Padgett Subjective Subjective: HPI NAEO. Resting comfortably in bed at time of rounds. Pain is controlled. Continues to tolerate diet.WV functioning appropriately. No acute concerns today. Review of Systems: Relevant review of systems was obtained as able and is negative unless stated above in HPI. Objective Objective: Vital signs: Vitals: 10/26/24 1100 BP: 127/80 Pulse: 94 Resp: Temp: 36.9 ??C (98.4 ??F) SpO2: 100% Physical Exam: Physical Exam Constitutional: General: He is not in acute distress. Appearance: He is not ill-appearing. HENT: Head: Normocephalic and atraumatic. Mouth/Throat: Mouth: Mucous membranes are moist. Eyes: Extraocular Movements: Extraocular movements intact. Cardiovascular: Rate and Rhythm: Normal rate and regular rhythm. Pulmonary: Effort: Pulmonary effort is normal. Abdominal: General: There is no distension. Genitourinary: Comments: Montejo in place with CYU Skin: General: Skin is warm and dry. Capillary Refill: Capillary refill takes less than 2 seconds. Comments: Right ischial and posterior thigh incisions with WV in place, functioning appropriately, c/d/I. Flap appears WWP, pink, cap refill 2sec. SATYA drain with SS output Neurological: Mental Status: He is alert and oriented to person, place, and time. Psychiatric: Mood and Affect: Mood normal. Intake/Output Summary (Last 24 hours) at 10/26/2024 1353 Last data filed at 10/26/2024 0600 Gross per 24 hour Intake -- Output 1590 ml Net -1590 ml Lines/Drains/Tubes: Patient Lines/Drains/Airways Status Active Airway None Output by Drain (mL) 10/24/24 0700 - 10/24/24 1859 10/24/24 1900 - 10/25/24 0659 10/25/24 0700 - 10/25/24 1859 10/25/24 1900 - 10/26/24 0659 10/26/24 0700 - 10/26/24 1353 Closed/Suction Drain 1 Right;Posterior Thigh Bulb 19 Fr. 0 20 2 5 Labs in last 18 hours: CBC WBC ?? Hb ?? Plt ?? Hct ?? ANC ?? INR ??, PTT ??, Anti-Xa ?? MCV ?? BMP Na ?? Cl ?? BUN ?? Glu ?? K ?? Co2 ?? Cr ?? Ca ?? iCa ?? Mg ??, Phos ?? Lactate ?? LFT AST ?? AlkPhos ?? T Prot ?? ALK ?? Bili ?? Alb ?? D.Bili ?? Lab Trends: H/H INR Cr Lactate No lab exists for component: LACTTEVEN Radiographic Interpretation: No relevant imaging to review. Medications reviewed. Vital signs reviewed. Labs reviewed. Assessment/Plan Assessment and Plan: Naga Padgett is a 34 y.o. male with history of spina bifida (is paraplegic and bed-bound) and Stage IV right ischial pressure injury who is now s/p right ischial pressure wound excision and posterior thigh rotation flap on 10/11/24. Plan: - Continue pressure offloading --Dolphin bed. Do not sit directly on the flap. We prefer for patient to offload from the right side by laying in left lateral decubitus position. - Diligent hygiene, especially after BM - Nutrition optimization. Boost TID - Continue Montejo - Continue doxycycline until SATYA drain comes out - PT/OT, placement Dispo: Continue Current Level of Care The patient will require a hospital bed for home use. Patient has a condition that requires positioning of the body in ways not feasible with a regular bed. The patient also requires frequent repositioning, which would not be sufficient with an ordinary bed. The patient has a caregiver to assist within the home. Patient has been treated with a course of conservative treatment for their wounds for the past 30 days and the home regiment is being directed by our clinic. Education and employment of frequent repositioning while also on a Low Air Loss mattress has been directed. We have treated the patient for infection and removed devitalized tissue when necessary. He has now since undergone flap reconstruction of his wound and requires continued pressure offloading. Home Health will be responsible for aiding with nutrition intake, proper offloading education and dressing changes which will include an occlusive border. The patient also manages incontinence with a montejo catheter. The patient lives with his mother and will be assisted by her. All other equipment has tried and failed or been ruled out and if not for the Group 3, the patient may not be able to stay at home any longer due to the complex need for pressure relief. Dispo: Continue Current Level of Care Kadi Galeano MD Cosigned by Noemí Ni MD at 10/29/2024 4:33 PM EDT Associated attestation - Noemí Ni MD - 10/29/2024 4:33 PM EDT I saw and evaluated the patient. I discussed the case with the resident/fellow and agree with the findings and plan as documented. * Progress Notes - An Humphrey - 10/26/2024 1:26 PM EDT Case Management Adult Progress Note Naga Padgett 34 y.o. male CSN: [id number] Admission: 10/11/2024 9:17 AM Primary Problem: Decubitus ulcer of right ischium, stage IV (CMS/HCC) Anticipated Discharge Date: TBD Additional Comments: JACK spoke with Vazquez with [facility] [phone] regarding specialty bed. Insurance is unable to cover specialty bed due to no open pressure wounds at this time. DIRK KRUEGER ordered hospital bed andwill order overlay. Still waiting on wound care instructions to be ordered/ written via MD. Update: Vazquez stated [facility] is willing to work with to have the pt set up with specialty bed. Vazquez working with his administration for specialty bed delivery next week. CM will need to follow up with Vazquez to confirm information. An Humphrey, V BELT SKIVER, HOUSEHOLD PERSONAL ASSISTANT Social Work Senior Department of Case Management [facility] * Progress Notes - Mimi Multani RN - 10/26/2024 12:59 PM EDT Case Management Adult Progress Note Naga Padgett 34 y.o. male CSN: [id number] Admission: 10/11/2024 9:17 AM Primary Problem: Decubitus ulcer of right ischium, stage IV (CMS/HCC) Anticipated Discharge Date: tbd Medically Ready for Discharge: Anticipated in 5+ Days Additional Comments CM contacted to assist with DME. Patient will need a hospital bed with and overlay. Team has been notified, but orders for the overlay has not been revealed to CM. [facility]. Once the Team decides on the type of overlay needed. CM can put through an order foe the overlay. Patient will need and ambulance at the time of discharge. CM will continue to follow. Mimi Multani RN * Care Plan - Leigh Sauer RN - 10/26/2024 11:08 AM EDT Problem: Adult Inpatient Plan of Care Goal: Plan of Care Review Outcome: Ongoing, Progressing Flowsheets Taken 10/26/2024 0443 by Jose Angel Garcia RN Plan of Care Reviewed With: patient Taken 10/25/2024 1610 by Dallin Nevarez RN Progress: improving Problem: Wound Goal: Optimal Coping Outcome: Ongoing, Progressing Problem: Pain Acute Goal: Optimal Pain Control and Function Outcome: Met * Consults - Gale Vernon RD - 10/26/2024 9:49 AM EDT Adult Nutrition Evaluation Note Naga Padgett 34 y.o. male CSN: [id number] Room/Bed 221/221A Nutrition evaluation type: follow-up Reason for evaluation: Hospital course: 34 y o M with PMH spinda bifida & stage 4 R ischial PI, admitted 10/11/24 s/p Right ischial pressure wound debridement and excision, Right posterior thigh fasciocutaneous rotation flap, & incisional wound vac placement. (10/20, 10/26): Wound care ongoing. Dispo noted. 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 Reported variable intake overall. Does eat snacks throughout the day and would like toreceive with trays. Denied difficulty chewing or swallowing. Denied unintentional wt loss. Does notthink that he has been receiving the Sukumar supplements. Finds it difficult to eat soup due to body positioning requirements, and would like to not receive. Only likes chocolate Boost; very interestedin trying Gelatein supplements to increase protein intake. Vitals and Basic Assessment: BP: 127/80 Temp: 36.9 ??C (98.4 ??F) Oxygen Therapy: None (Room air) O2 Delivery Method: Face tent Mountain Coma Scale Score: 15 Wu Scale Score: 14 Most Recent BM Date: 10/24/24 GI Symptoms: Other (Comment) Edema: Generalized Skin: wound vac, R ischium PI / surgical wound, Groin wounds CHAD ostomy for colon flushing Allergies: NKFA Medications: Current Scheduled Medications[4] Current Continuous Medications[5] Current PRN Medications[6] Meds were reviewed: Yes Labs: No lab exists for component: ALB No results found for: MG Lab Results Component Value Date ALT 33 11/22/2023 AST 16 11/22/2023 ALKPHOS 79 02/05/2023 BILITOT <0.2 11/22/2023 Lab Results Component Value Date ALBUMIN 3.6 11/22/2023 No results found for: PREALBUMIN Lab Results Component Value Date CRP 120.0 (H) 02/06/2023 -Date noted No results found for: HGBA1C No results found for: CHOL No results found for: HDL No results found for: LDLCALC No results found for: TRIG Anthropometrics: Height: 157.5 cm Weight: 86.8 kg IBW: 53.6 kg %IBW: 153.6 Adjusted Body Weight: 61.9 kg BMI: 35 Wt evaluation: Obese - Class 2 Weight History: Wt Readings from Last 30 Encounters: 10/14/24 86.8 kg (191 lb 5.8 oz) 08/25/24 83.5 kg (184 lb) 07/19/24 83.5 kg (184 lb) 06/22/24 83.9 kg (184 lb 15.5 oz) 03/22/24 83.9 kg (184 lb 15.5 oz) 01/26/24 83.9 kg (184 lb 15.5 oz) 12/31/23 83.9 kg (185 lb) 10/29/23 83.9 kg (184 lb 15.5 oz) 09/28/23 83.9 kg (184 lb 15.5 oz) 08/27/23 83.9 kg (185 lb) 07/29/23 83.9 kg (185 lb) 03/09/23 83.9 kg (185 lb) 02/23/23 83.9 kg (185 lb) 02/04/23 83.9 kg (184 lb 15.5 oz) 02/04/23 83.9 kg (185 lb) 12/29/22 83.9 kg (185 lb) 11/17/22 83.9 kg (185 lb) 10/06/22 83.9 kg (185 lb) 10/05/22 83.9 kg (185 lb) 09/11/22 83.9 kg (185 lb) 09/08/22 83.5 kg (184 lb) 08/25/22 83.9 kg (184 lb 15.5 oz) -No significant wt loss in review periods per EMR review Wt Trend: Date/Time Weight 10/14/24 03:09:25 86.8 kg (191 lb 5.8 oz) 10/12/24 0600 84 kg (185 lb 3 oz) 10/11/24 1045 83.9 kg (185 lb) 10/10/24 0849 83.9 kg (185 lb) -Continue to monitor trend for accuracy Estimated Needs: Kcal: 30-35 kcal/kg AdjBW (8137-8870 kcal/d) Pro: 1.5-2 g/kg AdjBW (93-124 g/d) Current Nutrition Intake: Diet: Regular Supplements: Boost VHC TID, Sukumar BID Intake: no po intake recorded since admit 15 days ago Nutrition Support: None at this time Diet Experience & Nutrition History: Diet Education: Will monitor Pertinent Home Medications: Prilosec Nutrition Focused Physical Exam: Physical exam performed on (date): 10/26/24 Temples (muscles): None Clavicle (muscle): None Shoulder (muscle): None Orbital (fat): None Triceps (fat): None Assessment of Malnutrition: Malnutrition Identified: No Nutrition Problem: Increased nutrient needs (protein) related to increased requirement for healing as evidenced by stage 4 PI requiring operative intervention. Status of Nutrition Diagnosis: Ongoing Nutrition Interventions and Recommendations: -Continue Regular diet as tolerated -Please record po intake in EMR -Changing Boost VHC TID to Boost Glucose Control TID (due to chocolate preference with dislike of VHC) -Continue Sukumar BID -Adding Gelatein Plus TID -Recommend MVI with minerals daily -Consider checking Zinc level & supplement if deficient -Recommend weekly weight monitoring Nutrition Monitoring and Goals: -Monitor tolerance and adequacy of po intake / enteral infusion, wt changes, bowel fxn, labs, skin integrity; and follow up per acuity -Pt will tolerate and consume >/= 75% of most meals & supplements (ongoing) Acuity Level: 2 Gale Vernon, SHABBIR, LD [1] Past Medical History: Diagnosis Date Acid reflux Anxiety Scoliosis Spina bifida 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) [2] Past Surgical History: Procedure Laterality Date BACK SURGERY spina bifida CREATION OF CUTANEOUS STOMA FOOT SURGERY LEG SURGERY MYRINGOTOMY W/ TUBES PRESSURE ULCER DEBRIDEMENT SHUNT PROCEDURE SPINE SURGERY Tether cord release VENTRICULOPERITONEAL SHUNT 2 revisions WOUND DEBRIDEMENT [3] Social History Tobacco Use Smoking status: Former Current packs/day: 0.00 Average packs/day: 0.5 packs/day for 5.0 years (2.5 ttl pk-yrs) Types: Cigarettes Start date: 04/12/2006 Quit date: 04/12/2011 Years since quittin.5 Passive exposure: Never Smokeless tobacco: Never Vaping Use Vaping status: Never Used Substance Use Topics Alcohol use: Yes Comment: Occasional Drug use: Never [4] bisacodyl, 10 mg, Rectal, Every other day doxycycline, 100 mg, Oral, BID enoxaparin, 40 mg, Subcutaneous, Daily lamoTRIgine, 100 mg, Oral, Nightly oxybutynin XL, 15 mg, Oral, Nightly pantoprazole, 40 mg, Oral, BID AC sodium chloride, 10 mL, Intravenous, q12h [5] [6] PRN medications: acetaminophen, melatonin, ondansetron ODT OR ondansetron OR ondansetron, oxyCODONE, [COMPLETED] Insert peripheral IV AND Saline lock IV AND sodium chloride AND sodium chloride * Care Plan - Jose Angel Garcia RN - 10/26/2024 4:45 AM EDT Problem: Adult Inpatient Plan of Care Goal: Plan of Care Review Outcome: Ongoing, Progressing Flowsheets (Taken 10/26/2024442) Plan of Care Reviewed With: patient Goal: Patient-Specific Goal (Individualized) Outcome: Ongoing, Progressing Goal: Absence of Hospital-Acquired Illness or Injury Outcome: Ongoing, Progressing Intervention: Identify and Manage Fall Risk Flowsheets (Taken 10/26/2024442) Safety Promotion/Fall Prevention: safety round/check completed fall prevention program maintained lighting adjusted clutter-free environment maintained Intervention: Prevent Skin Injury Flowsheets Taken 10/26/2024442 by Jose Angel Garcia RN Body Position: turned education provided Taken 10/25/2024 1610 by Dallin Nevarez RN Skin Protection: incontinence pads utilized Intervention: Prevent and Manage VTE (Venous Thromboembolism) Risk Flowsheets (Taken 10/26/2024442) VTE Prevention/Management: medication Intervention: Prevent Infection Flowsheets (Taken 10/26/2024442) Infection Prevention: hand hygiene promoted environmental surveillance performed Goal: Optimal Comfort and Wellbeing Outcome: Ongoing, Progressing Intervention: Monitor Pain and Promote Comfort Flowsheets (Taken 10/26/2024 0443) Pain Management Interventions: declines Goal: Readiness for Transition of Care Outcome: Ongoing, Progressing Problem: Pain Acute Goal: Optimal Pain Control and Function Outcome: Ongoing, Progressing Problem: Surgery Nonspecified Goal: Absence of Bleeding Outcome: Ongoing, Progressing Goal: Effective Bowel Elimination Outcome: Ongoing, Progressing Goal: Fluid and Electrolyte Balance Outcome: Ongoing, Progressing Goal: Blood Glucose Level Within Target Range Outcome: Ongoing, Progressing Goal: Absence of Infection Signs and Symptoms Outcome: Ongoing, Progressing Problem: Infection Goal: Absence of Infection Signs and Symptoms Outcome: Ongoing, Progressing Problem: Wound Goal: Optimal Coping Outcome: Ongoing, Progressing Goal: Skin Health and Integrity Outcome: Ongoing, Progressing Goal: Optimal Wound Healing Outcome: Ongoing, Progressing Problem: Skin Injury Risk Increased Goal: Skin Health and Integrity Outcome: Ongoing, Progressing Problem: Fall Injury Risk Goal: Absence of Fall and Fall-Related Injury Outcome: Ongoing, Progressing * Care Plan - Dallin Nevarez RN - 10/25/2024 4:21 PM EDT Problem: Adult Inpatient Plan of Care Goal: Plan of Care Review Outcome: Ongoing, Progressing Flowsheets (Taken 10/25/2024 1610) Progress: improving Plan of Care Reviewed With: patient Goal: Patient-Specific Goal (Individualized) Outcome: Ongoing, Progressing Flowsheets (Taken 10/25/2024 0800) Patient/Family-Specific Goals (Include Timeframe): pt will remain free of injuries throughout the shift Individualized Care Needs: safety Anxieties, Fears or Concerns: None stated Goal: Absence of Hospital-Acquired Illness or Injury Outcome: Ongoing, Progressing Intervention: Identify and Manage Fall Risk Flowsheets (Taken 10/25/2024 1610) Safety Promotion/Fall Prevention: clutter-free environment maintained fall prevention program maintained room organization consistent Intervention: Prevent Skin Injury Flowsheets Taken 10/25/2024 1610 by Dallin Nevarez RN Skin Protection: incontinence pads utilized Taken 10/25/2024 1415 by Sangeetha Keys Body Position: turned right Intervention: Prevent and Manage VTE (Venous Thromboembolism) Risk Flowsheets (Taken 10/25/2024 1200) VTE Prevention/Management: medication Intervention: Prevent Infection Flowsheets (Taken 10/25/2024 1610) Infection Prevention: environmental surveillance performed equipment surfaces disinfected hand hygiene promoted rest/sleep promoted single patient room provided Goal: Optimal Comfort and Wellbeing Outcome: Ongoing, Progressing Intervention: Monitor Pain and Promote Comfort Flowsheets (Taken 10/25/2024 1610) Pain Management Interventions: declines Intervention: Provide Person-Centered Care Flowsheets (Taken 10/25/2024 1610) Trust Relationship/Rapport: care explained choices provided emotional support provided empathic listening provided questions answered questions encouraged reassurance provided thoughts/feelings acknowledged Goal: Readiness for Transition of Care Outcome: Ongoing, Progressing Problem: Pain Acute Goal: Optimal Pain Control and Function Outcome: Ongoing, Progressing Intervention: Prevent or Manage Pain Flowsheets (Taken 10/25/2024 1610) Sensory Stimulation Regulation: care clustered quiet environment promoted Bowel Elimination Promotion: adequate fluid intake promoted privacy promoted Sleep/Rest Enhancement: awakenings minimized family presence promoted relaxation techniques promoted regular sleep/rest pattern promoted noise level reduced Medication Review/Management: medications reviewed Problem: Surgery Nonspecified Goal: Absence of Bleeding Outcome: Ongoing, Progressing Intervention: Monitor and Manage Bleeding Flowsheets (Taken 10/25/2024 1610) Bleeding Management: dressing monitored Goal: Effective Bowel Elimination Outcome: Ongoing, Progressing Intervention: Enhance Bowel Motility and Elimination Flowsheets (Taken 10/25/2024 1610) Bowel Elimination Management: hygiene measures promoted relaxation techniques promoted toileting offered sitting position facilitated Bowel Motility Enhancement: fluid intake encouraged oral intake encouraged Goal: Fluid and Electrolyte Balance Outcome: Ongoing, Progressing Intervention: Monitor and Manage Fluid and Electrolyte Balance Flowsheets (Taken 10/25/2024 1610) Fluid/Electrolyte Management: fluids provided Goal: Blood Glucose Level Within Target Range Outcome: Ongoing, Progressing Intervention: Optimize Glycemic Control Flowsheets (Taken 10/25/2024 1610) Hypoglycemia Management: blood glucose monitored Goal: Absence of Infection Signs and Symptoms Outcome: Ongoing, Progressing Intervention: Prevent or Manage Infection Flowsheets (Taken 10/25/2024 1610) Fever Reduction/Comfort Measures: fluid intake increased lightweight clothing Isolation Precautions: precautions maintained Goal: Anesthesia/Sedation Recovery Outcome: Met Goal: Optimal Pain Control and Function Outcome: Met Goal: Nausea and Vomiting Relief Outcome: Met Goal: Effective Urinary Elimination Outcome: Met Goal: Effective Oxygenation and Ventilation Outcome: Met Problem: Infection Goal: Absence of Infection Signs and Symptoms Outcome: Ongoing, Progressing Problem: Wound Goal: Optimal Coping Outcome: Ongoing, Progressing Intervention: Support Patient and Family Response Flowsheets (Taken 10/25/2024 1610) Supportive Measures: active listening utilized self-care encouraged self-reflection promoted positive reinforcement provided relaxation techniques promoted verbalization of feelings encouraged Family/Support System Care: involvement promoted support provided Goal: Skin Health and Integrity Outcome: Ongoing, Progressing Intervention: Optimize Skin Protection Flowsheets Taken 10/25/2024 1610 by Dallin Nevarez RN Activity Management: activity adjusted per tolerance Pressure Reduction Techniques: heels elevated off bed weight shift assistance provided Skin Protection: frequent weight shift encouraged absorbent pad utilized/changed incontinence pads utilized heel offloading device utilized pressure points protected pressure-redistributing mattress utilized skin sealant/moisture barrier applied weight shift assistance provided tubing/devices free from skin contact Taken 10/25/2024 0000 by Misty Walton RN Head of Bed (HOB) Positioning: HOB elevated Taken 10/23/2024 1333 by Leona Dickerson RN Pressure Reduction Devices: foam padding utilized specialty bed utilized Goal: Optimal Wound Healing Outcome: Ongoing, Progressing Intervention: Promote Wound Healing Flowsheets (Taken 10/25/2024 1610) Sleep/Rest Enhancement: awakenings minimized family presence promoted relaxation techniques promoted regular sleep/rest pattern promoted noise level reduced Problem: Fall Injury Risk Goal: Absence of Fall and Fall-Related Injury Outcome: Ongoing, Progressing Intervention: Identify and Manage Contributors Flowsheets (Taken 10/25/2024 1610) Medication Review/Management: medications reviewed Intervention: Promote Injury-Free Environment Flowsheets (Taken 10/25/2024 1610) Safety Promotion/Fall Prevention: clutter-free environment maintained fall prevention program maintained room organization consistent * Progress Notes - Eve Fernandez - 10/25/2024 2:57 PM EDT Occupational Therapy Re-Assessment/Discharge Summary Patient Name: Naga Padgett Today's Date: 10/25/2024 OT Discharge Recommendations: Home with 24 hour assistance Equipment Recommended: Hospital bed ([facility] access hospital) History Naga Padgett is 34 y.o. male admitted 10/11/2024 for work-up of Decubitus ulcer of right ischium, stage IV (CMS/HCC). Hospital Course 1. Decubitus ulcer of right ischium, stage IV (CMS/HCC) Procedures 10/11/2024 Procedure(s): Debridement Pressure right ischium, fasciocutneous flap closure Past Medical History Patient has a past medical history of Acid reflux, Anxiety, Scoliosis, Spina bifida, and Ulcerationof below knee amputation stump (CMS/HCC). Past Surgical History Patient has a past surgical history that includes shunt procedure; Creation of cutaneous stoma; LegSurgery; Back surgery; Foot surgery; Pressure ulcer debridement; Ventriculoperitoneal shunt; Wound debridement; Spine surgery; and Myringotomy w/ tubes. Precautions Medical Precautions: Fall precautions, Post-Surgical precautions Post-Surgical Precautions: Pressure Offloading: Dolphin bed. Do NOT sit directly on the flap. Prefer for patient to offload from the right side by laying in left lateral decubitus position Subjective Patient and RN agreeable to Occupational Therapy re-assessment and treatment session. Patient reports, I roll myself over when I need to change positions. Participants in Care Family/Caregiver Present: No Chief Chemist: Not Applicable Presentation Oxygen Therapy: None (Room air) Lines and Tubes: Closed/Suction Drain 1 Right;Posterior Thigh Bulb 19 Fr. (Active) Colostomy Umbilicus (Active) Urethral Catheter Non-latex;Temperature probe 16 Fr. (Active) Negative Pressure Wound Therapy Buttocks Right (Active) Pre-Session: Side lying right, Lines intact Pre-Session Comments: RN agreeable to therapy treatment. Post-Session: Side lying left, Lines intact, Call light in reach, RN notified Post-Session Comments: Patient positioned for comfort/pressure relief to maintain off-loading precautions with pillow and z-jimbo cushion support and all needs in reach. Home Living/Set-Up Lives With: (lives with each parent, alternates homes) Home Type: House (goes between each parent's houses (), dad has elevator, mom has chair lift) Home Adaptive Equipment: Wheelchair-manual Home Layout: Two level (can live on 1st floor in both homes. Ramp entry at mom's home, ramp throughgarage at dad's) Bathroom: Tub/Shower: Tub/Shower combo, Tub transfer bench Bathroom: Toilet: Standard Bathroom: Accessibility: Accessible Home Living Comments: father's house is more easily accessible than mother's home Prior Level of Function Receives Help From: Parent (able to transfer to w/c, commode, transfer bench independently. Dressesindependently.) Level of Mobility: Wheelchair/Scooter (paraplegic) Mobility [place]: Independent wheelchair propulsion History of Falls: No ADL Performance: Independent Patient/Family Goals Statement Patient agreeable to OT POC and current d/c recommendations. Objective Pain Patient did not report any pain. Delirium Screening RASS: Alert and calm Confusion Assessment Method-ICU (CAM-ICU/PCAM-ICU) Feature 3: Altered Level of Consciousness: Negative Cognition Overall Cognitive Status: Within Functional Limits Arousal/Alertness: Appropriate responses to stimuli Mood/Behavior: Alert Orientation Level: Oriented X4 Single Step Commands: Consistently, 100% of the time Multi-Step Commands: Consistently, 100% of the time Method of Communication: Verbal Right Upper Extremity Examination RUE ROM Assessment RUE Assessment: Within Functional Limits Manual Muscle Testing - RUE: Within functional limits Sensation Light Touch: Right Upper Extremity: Intact Left Upper Extremity Examination LUE ROM Assessment LUE Assessment: Within Functional Limits Manual Muscle Testing - LUE: Within functional limits Sensation Light Touch: Left Upper Extremity: Intact Right Lower Extremity Examination Manual Muscle Testing - RLE: (complete paraplegic) Sensation Light Touch: Right Lower Extremity: Absent Left Lower Extremity Examination Manual Muscle Testing: (complete paraplegic) Sensation Light Touch: Left Lower Extremity: Absent Bed Mobility Bed Mobility Exam: Rolling/Turning Level of Teton: Independent (rolling to patients right) Assistive Device: Bed rails Transfers Transfer Interventions: Patient currently NOT able to engage in these types of transfers d/t pressure off-loading precautions. Self-Care Interventions Self-Care Interventions: Patients is limited by mobility precautions limiting all out of bed activity. Patients plan is to return home where family will assist with ADL tasks as needed and as patients wound heels. Therapeutic Exercise (15 minutes) Patient completed the following HEP alternating between blue and black band. Therapist provided occasional cues for body mechanics however patient overall independent with task. Patient reports he has been doing exercises while in house. - Supine Bilateral Punches - 3 x daily - 1 sets - 10 reps - Supine Shoulder Horizontal Abduction with Resistance - 3 x daily - 1 sets - 10 reps - Supine Shoulder External Rotation with Resistance - 3 x daily - 1 sets - 10 reps - Reclined Elbow Flexion with Anchored Resistance - 3 x daily - 1 sets - 10 reps - Supine Triceps Extension with Resistance - 3 x daily - 1 sets - 10 reps Standardized Assessments [facility] 6-Click Daily Activities Help from Other: Don/Doff Regular Lower Body Clothings: A lot Help From Other: Bathing: A lot Help From Other: Toileting: Total Help From Other: Don/Doff Upper Body Clothings: Little Help From Other: Grooming: Little Help From Other: Eating Meals: None [facility] 6 Click - Daily Activities Score: 15 Assessment Patient was cooperative during Occupational Therapy reassessment and treatment session. Patient adhered to all precautions during bed mobility and upper extremity HEP. Patient is limited for the nextfour week by mobility restrictions and is unable to complete out of bed transfers. Patients family is going to provide assistance for ADL tasks as needed while patient is under mobility restrictions.Patient is safe to return with assist. OT to sign off. Please re- consult if changes occur. Thank you OT Findings: Impaired ADL performance, Impaired IADL performance, Decreased upper extremity strength, Decreased endurance/ventilation/gas exchange Evaluation/Treatment Tolerance: Other (Comment) (Patient limited by medical precautions - pressure off-loading restrictions) Rehab Potential: Good, to achieve stated therapy goals Barriers to Discharge: Comorbidities OT Recommendations Discharge Destination: Home with 24 hour assistance Discharge Equipment: Hospital bed ([facility] bed) Demonstrates Need for Referral to Another Service: Social work Plan Patient no longer demonstrates need for inpatient occupational therapy services. Patient to be discharged from occupational therapy. OT GOAL DETAILS DATE ASSESSED STATUS PROGRESS OT Goal 1: Patient/Family/Caregiver will be independent in bilateral upper extremity home exercise program to promote increased strength/activity tolerance required for engagement in higher level self-cares/mobility. OT Goal 1 Established Date: 10/12/24 OT Goal 1 Time Frame: 2 weeks 10/25/24 Goal met OT Goal 2: Patient will demonstrate appropriate off-loading measures to maintain pressure offloading precautions with stand-by assistance and AE as needed. OT Goal 2 Established Date: 10/12/24 OT Goal 2 Time Frame: 2 weeks 10/25/24 Goal met OT Goal 3: Patient will complete total body dressing with minimum assistance and AE as needed whilemaintaining precautions. OT Goal 3 Established Date: 10/12/24 OT Goal 3 Time Frame: 2 weeks 10/25/24 Goal not met, Goal discontinued Medical status inhibiting participation/progress OT Goal 4: Patient will complete sponge/bed level bathing with minimum assistance and AE as needed while maintaining precautions. OT Goal 4 Established Date: 10/12/24 OT Goal 4 Time Frame: 2 weeks 10/25/24 Goal met partially, Goal discontinued Medical status inhibiting participation/progress Written by Eve Fernandez on 10/25/24 at 3:07 PM. * Progress Notes - Mojgan Mejia - 10/25/2024 2:45 PM EDT Physical Therapy Re-Assessment/Discharge Summary Patient Name: Naga Pdagett Today's Date: 10/25/2024 PT Discharge Recommendations: Home with 24 hour assistance Equipment Recommended: Hospital bed (Specialty bed for wound care management) History Naga Padgett is 34 y.o. male admitted 10/11/2024 for work-up of Decubitus ulcer of right ischium, stage IV (CMS/HCC). Hospital Course 1. Decubitus ulcer of right ischium, stage IV (CMS/HCC) Procedures 10/11/2024 Procedure(s): Debridement Pressure right ischium, fasciocutneous flap closure Past Medical History Patient has a past medical history of Acid reflux, Anxiety, Scoliosis, Spina bifida, and Ulcerationof below knee amputation stump (CMS/HCC). Past Surgical History Patient has a past surgical history that includes shunt procedure; Creation of cutaneous stoma; LegSurgery; Back surgery; Foot surgery; Pressure ulcer debridement; Ventriculoperitoneal shunt; Wound debridement; Spine surgery; and Myringotomy w/ tubes. Precautions Medical Precautions: Fall precautions, Post-Surgical precautions Post-Surgical Precautions: Pressure Offloading: Dolphin bed. Do NOT sit directly on the flap. Prefer for patient to offload from the right side by laying in left lateral decubitus position Subjective Pt agreeable to session. Participants in Care Family/Caregiver Present: No Presentation Oxygen Therapy: None (Room air) Lines and Tubes: Telemetry Closed/Suction Drain 1 Right;Posterior Thigh Bulb 19 Fr. (Active) Colostomy Umbilicus (Active) Urethral Catheter Non-latex;Temperature probe 16 Fr. (Active) Negative Pressure Wound Therapy Buttocks Right (Active) Pre-Session: Side lying right, Lines intact Pre-Session Comments: RN agreeable to therapy treatment. Post-Session: Side lying left, Lines intact, Call light in reach, RN notified Post-Session Comments: Patient positioned for comfort/pressure relief to maintain off-loading precautions with pillow and z-jimbo cushion support and all needs in reach. Home Living/Set-Up Lives With: (lives with each parent, alternates homes) Home Type: House (goes between each parent's houses (), dad has elevator, mom has chair lift) Home Adaptive Equipment: Wheelchair-manual Home Layout: Two level (can live on 1st floor in both homes. Ramp entry at mom's home, ramp throughgarage at dad's) Bathroom: Tub/Shower: Tub/Shower combo, Tub transfer bench Bathroom: Toilet: Standard Bathroom: Accessibility: Accessible Home Living Comments: father's house is more easily accessible than mother's home Prior Level of Function Receives Help From: Parent (able to transfer to w/c, commode, transfer bench independently. Dressesindependently.) Level of Mobility: Wheelchair/Scooter (paraplegic) Mobility [place]: Independent wheelchair propulsion History of Falls: No ADL Performance: Independent Patient/Family Goals to get specialty bed Objective Pain Pt had no complaints of pain. Delirium Screening RASS: Alert and calm Confusion Assessment Method-ICU (CAM-ICU/PCAM-ICU) Feature 3: Altered Level of Consciousness: Negative Cognition Overall Cognitive Status: Within Functional Limits Arousal/Alertness: Appropriate responses to stimuli Mood/Behavior: Alert Orientation Level: Oriented X4 Single Step Commands: Consistently, 100% of the time Multi-Step Commands: Consistently, 100% of the time Method of Communication: Verbal Right Upper Extremity Examination RUE ROM Assessment RUE Assessment: Within Functional Limits Manual Muscle Testing - RUE: Within functional limits Sensation Light Touch: Right Upper Extremity: Intact Left Upper Extremity Examination LUE ROM Assessment LUE Assessment: Within Functional Limits Manual Muscle Testing - LUE: Within functional limits Sensation Light Touch: Left Upper Extremity: Intact Right Lower Extremity Examination Manual Muscle Testing - RLE: (complete paraplegic) Sensation Light Touch: Right Lower Extremity: Absent Left Lower Extremity Examination Manual Muscle Testing: (complete paraplegic) Sensation Light Touch: Left Lower Extremity: Absent Bed Mobility Bed Mobility Exam: Rolling/Turning Level of [place]: Independent (rolling to patients right) Balance Balance Interventions: Unable to assess as patient is limited to bed mobility only. Therapeutic Activity (20 minutes) Pt participated in therapeutic activities including bed mobility. Pt able to roll independently andfunctions at baseline with bed mobility along with adherence to post-surgical flap precautions. Pt tolerated PROM to LLE to maintain range of motion and joint integrity in order to increase range to avoid further contractures. Movements included gastroc stretch x3 reps with 30 second holds, hip abduction/adduction and hip and knee flexion/extension x10 reps. Standardized Assessments [facility] 6-Clicks Mobility Assessment Difficulty patient has turning over in bed (including adjusting bedclothes, sheets, and blankets)?:None Difficulty patient has sitting down on and standing up from a chair with arms (wheelchair, bedside commode, etc.)?: Unable Difficulty patient has moving from lying on back to sitting on the side of the bed?: Unable How much help does the patient need moving to and from a bed to a chair (including a wheelchair)?: Unable How much help does the patient need to walk in hospital room?: Unable How much help does the patient need climbing 3-5 steps with a railing?: Unable [facility] 6-Clicks Mobility Assessment Total : 9 Assessment Pt participated in PT reassessment. Based upon standardized testing, functional level at time of evaluation, clinical judgment, and patient's baseline level of functioning no further skilled inpatient PT needs were identified. Patient demonstrates independence to bed mobility and adherence to flap precautions. Pt plans to discharge home w/ assistance and utilization of specialty bed for wound care management. Pt unable to participate in active transfers 2/2 to flap precautions. Please re-consult should pt experience a change in medical status. PT signing off. Impairments: Impaired locomotion, Impaired balance, Impaired functional mobility/transfers, Impaired gait dynamics/performance, Decreased strength, Impaired sensation/sensory processing, Decreased range of motion, Impaired muscle tone, Impaired motor cordination/control Activity Limitations: Inability to sit independently, Inability to ambulate community distances, Inability to ambulate independently, Inability to ambulate household distances, Inability to transfer independently, Inability to complete ADLs independently Activity Tolerance: Endurance does not limit participation in activity Evaluation/Treatment Tolerance: Treatment limited secondary to medical complications (Comment) (Flap precautions) PT Recommendations Discharge Destination: Home with 24 hour assistance Discharge Equipment: Hospital bed (Specialty bed for wound care management) Plan Patient no longer demonstrates need for inpatient physical therapy services. Patient to be discharged from physical therapy. Goals PT GOAL DETAILS DATE ASSESSED STATUS PROGRESS PT Goal 1: patient and family to be I with discharge recommendations and precautions PT Goal 1 Established Date: 10/12/24 PT Goal 1 Time Frame: 2 weeks 10/25/24 Goal met PT Goal 2: patient to perform rolling bilaterally with independence PT Goal 2 Established Date: 10/12/24 PT Goal 2 Time Frame: 2 weeks 10/25/24 Goal met PT Goal 3: patient to transfer sup<>sit with min A, maintaining offloading precautions to R posterior thigh flap PT Goal 3 Established Date: 10/12/24 PT Goal 3 Time Frame: 2 weeks Goal discontinued (pt unable to participate in transfers for the next4 weeks) Unable to make needed progress Written by Mojgan Mejia on 10/25/24 at 2:59 PM. Cosigned by Deedee Godoy at 10/25/2024 3:12 PM EDT Associated attestation - Deedee Godoy - 10/25/2024 3:12 PM EDT As the supervising therapist, I was present during the entire PT treatment and have reviewed and agree with this document written by the student therapist for this patient on this date/time. Deedee Godoy, PT * Progress Notes - Yahaira Beavers RN - 10/25/2024 11:23 AM EDT Vazquez with [facility] will visit patient and his family bedside today at [facility]. He stated speciality bed will be delivered to patient's home early next week. CM inquired with Dr Galeano with [facility] if patient can dc home initially with a hospital bed/gel overlay low air loss mattress to use until speciality bed delivered. Awaiting response, in a procedure. * Progress Notes - Kadi Galeano MD - 10/25/2024 8:06 AM EDT Images from the original note were not included. [facility] Department of Surgery Division of Plastic Surgery Surgery Progress Note 10/25/24 Naga Padgett Subjective Subjective: HPI NAEO. Resting comfortably in bed at time of rounds. Pain is controlled. Tolerating diet. Exchanged Montejo yesterday without issue. Still awaiting status if family appeal to insurance for SNF vs approval for home specialty bed. Review of Systems: Relevant review of systems was obtained as able and is negative unless stated above in HPI. Objective Objective: Vital signs: Vitals: 10/25/24 0400 BP: Pulse: Resp: 16 Temp: SpO2: Physical Exam: Physical Exam Constitutional: General: He is not in acute distress. Appearance: He is not ill-appearing. HENT: Head: Normocephalic and atraumatic. Mouth/Throat: Mouth: Mucous membranes are moist. Eyes: Extraocular Movements: Extraocular movements intact. Cardiovascular: Rate and Rhythm: Normal rate and regular rhythm. Pulmonary: Effort: Pulmonary effort is normal. Abdominal: General: There is no distension. Genitourinary: Comments: Montejo in place with CYU Skin: General: Skin is warm and dry. Capillary Refill: Capillary refill takes less than 2 seconds. Comments: Right ischial and posterior thigh incisions with WV in place, functioning appropriately, c/d/I. Flap appears WWP, pink, cap refill 2sec. SATYA drain with SS output Neurological: Mental Status: He is alert and oriented to person, place, and time. Psychiatric: Mood and Affect: Mood normal. Intake/Output Summary (Last 24 hours) at 10/25/2024 0807 Last data filed at 10/25/2024 0600 Gross per 24 hour Intake -- Output 1470 ml Net -1470 ml Lines/Drains/Tubes: Patient Lines/Drains/Airways Status Active Airway None Output by Drain (mL) 10/23/24 0700 - 10/23/24 1859 10/23/24 1900 - 10/24/24 0659 10/24/24 0700 - 10/24/24 1859 10/24/24 1900 - 10/25/24 0659 10/25/24 0700 - 10/25/24 0807 Closed/Suction Drain 1 Right;Posterior Thigh Bulb 19 Fr. 30 0 20 Labs in last 18 hours: CBC WBC ?? Hb ?? Plt ?? Hct ?? ANC ?? INR ??, PTT ??, Anti-Xa ?? MCV ?? BMP Na ?? Cl ?? BUN ?? Glu ?? K ?? Co2 ?? Cr ?? Ca ?? iCa ?? Mg ??, Phos ?? Lactate ?? LFT AST ?? AlkPhos ?? T Prot ?? ALK ?? Bili ?? Alb ?? D.Bili ?? Lab Trends: H/H INR Cr Results from last 7 days Lab Units 10/19/24 0443 CREATININE mg/dL 0.62* Lactate No lab exists for component: LACTTEVEN Radiographic Interpretation: No relevant imaging to review. Medications reviewed. Vital signs reviewed. Labs reviewed. Assessment/Plan Assessment and Plan: Naga Padgett is a 34 y.o. male with history of spina bifida (is paraplegic and bed-bound) and Stage IV right ischial pressure injury who is now s/p right ischial pressure wound excision and posterior thigh rotation flap on 10/11/24. Plan: - Continue pressure offloading --Dolphin bed. Do not sit directly on the flap. We prefer for patient to offload from the right side by laying in left lateral decubitus position. - Diligent hygiene, especially after BM - Nutrition optimization. Boost TID - Continue Montejo - Continue doxycycline until SATYA drain comes out - PT/OT, placement Dispo: Continue Current Level of Care The patient will require a hospital bed for home use. Patient has a condition that requires positioning of the body in ways not feasible with a regular bed. The patient also requires frequent repositioning, which would not be sufficient with an ordinary bed. The patient has a caregiver to assist within the home. Patient has been treated with a course of conservative treatment for their wounds for the past 30 days and the home regiment is being directed by our clinic. Education and employment of frequent repositioning while also on a Low Air Loss mattress has been directed. We have treated the patient for infection and removed devitalized tissue when necessary. He has now since undergone flap reconstruction of his wound and requires continued pressure offloading. Home Health will be responsible for aiding with nutrition intake, proper offloading education and dressing changes which will include an occlusive border. The patient also manages incontinence with a montejo catheter. The patient lives with his mother and will be assisted by her. All other equipment has tried and failed or been ruled out and if not for the Group 3, the patient may not be able to stay at home any longer due to the complex need for pressure relief. Kadi Galeano MD Cosigned by Noemí Ni MD at 10/29/2024 4:32 PM EDT Associated attestation - Noemí Ni MD - 10/29/2024 4:32 PM EDT I saw and evaluated the patient. I discussed the case with the resident/fellow and agree with the findings and plan as documented. * Care Plan - Misty Walton RN - 10/25/2024 1:25 AM EDT Problem: Adult Inpatient Plan of Care Goal: Plan of Care Review Outcome: Ongoing, Progressing Flowsheets (Taken 10/24/2024 1343 by Jayleen Nobles RN) Plan of Care Reviewed With: patient Problem: Adult Inpatient Plan of Care Goal: Patient-Specific Goal (Individualized) Outcome: Ongoing, Progressing * Progress Notes - An Humphrey - 10/24/2024 2:32 PM EDT Case Management Adult Progress Note Naga Padgett 34 y.o. male CSN: [id number] Admission: 10/11/2024 9:17 AM Primary Problem: Decubitus ulcer of right ischium, stage IV (CMS/HCC) Anticipated Discharge Date: TBD Additional Comments: Pt is MR to DC this date. Pt was approved for the [facility] hospital bed by Vazquez Callejas [phone]. Vazquez is to be in contact with pt and pt mother regarding [facility] hospital bed. SW provided pt and family with denial letter that stated the fax number to submit a written appeal. Family insisted that they would fax the letter this date to . According to MD it may be appropriate for pt to DC without WV. CM will continue to follow as safe DC plan is in process. No further SW concerns identified at this time. SW will monitor pt's progress and will follow up with DC planning and needs as appropriate. An Humphrey, V BELT SKIVER, HOUSEHOLD PERSONAL ASSISTANT Social Work Senior Department of Case Management [facility] * Care Plan - Jayleen Nobles RN - 10/24/2024 1:47 PM EDT Problem: Adult Inpatient Plan of Care Goal: Plan of Care Review Outcome: Ongoing, Progressing Flowsheets (Taken 10/24/2024 1343) Progress: improving Plan of Care Reviewed With: patient Goal: Patient-Specific Goal (Individualized) Outcome: Ongoing, Progressing Goal: Absence of Hospital-Acquired Illness or Injury Outcome: Ongoing, Progressing Goal: Optimal Comfort and Wellbeing Outcome: Ongoing, Progressing Goal: Readiness for Transition of Care Outcome: Ongoing, Progressing Problem: Pain Acute Goal: Optimal Pain Control and Function Outcome: Ongoing, Progressing Problem: Surgery Nonspecified Goal: Absence of Bleeding Outcome: Ongoing, Progressing Goal: Effective Bowel Elimination Outcome: Ongoing, Progressing Goal: Fluid and Electrolyte Balance Outcome: Ongoing, Progressing Goal: Blood Glucose Level Within Target Range Outcome: Ongoing, Progressing Goal: Absence of Infection Signs and Symptoms Outcome: Ongoing, Progressing Goal: Anesthesia/Sedation Recovery Outcome: Ongoing, Progressing Goal: Optimal Pain Control and Function Outcome: Ongoing, Progressing Goal: Nausea and Vomiting Relief Outcome: Ongoing, Progressing Goal: Effective Urinary Elimination Outcome: Ongoing, Progressing Goal: Effective Oxygenation and Ventilation Outcome: Ongoing, Progressing Problem: Mobility Impairment Goal: Optimal Mobility Outcome: Ongoing, Progressing Problem: Infection Goal: Absence of Infection Signs and Symptoms Outcome: Ongoing, Progressing Problem: Wound Goal: Optimal Coping Outcome: Ongoing, Progressing Goal: Skin Health and Integrity Outcome: Ongoing, Progressing Goal: Optimal Wound Healing Outcome: Ongoing, Progressing Problem: Skin Injury Risk Increased Goal: Skin Health and Integrity Outcome: Ongoing, Progressing Problem: Fall Injury Risk Goal: Absence of Fall and Fall-Related Injury Outcome: Ongoing, Progressing * Progress Notes - Kadi Galeano MD - 10/24/2024 7:38 AM EDT Images from the original note were not included. [facility] Department of Surgery Division of Plastic Surgery Surgery Progress Note 10/24/24 Naga Padgett Subjective Subjective: HPI NAEO. Resting comfortably in bed. Pain is controlled. WV continues to function appropriately. Tolerating diet, denies n/v. No acute complaints. Review of Systems: Relevant review of systems was obtained as able and is negative unless stated above in HPI. Objective Objective: Vital signs: Vitals: 10/24/24 0419 BP: 113/72 Pulse: 89 Resp: Temp: 36.9 ??C (98.4 ??F) SpO2: 95% Physical Exam: Physical Exam Constitutional: General: He is not in acute distress. Appearance: He is not ill-appearing. HENT: Head: Normocephalic and atraumatic. Mouth/Throat: Mouth: Mucous membranes are moist. Eyes: Extraocular Movements: Extraocular movements intact. Cardiovascular: Rate and Rhythm: Normal rate and regular rhythm. Pulmonary: Effort: Pulmonary effort is normal. Abdominal: General: There is no distension. Genitourinary: Comments: Montejo in place with CYU Skin: General: Skin is warm and dry. Capillary Refill: Capillary refill takes less than 2 seconds. Comments: Right ischial and posterior thigh incisions with WV in place, functioning appropriately, c/d/I. Flap appears WWP, pink, cap refill 2sec. SATYA drain with SS output Neurological: Mental Status: He is alert and oriented to person, place, and time. Psychiatric: Mood and Affect: Mood normal. Intake/Output Summary (Last 24 hours) at 10/24/2024 0738 Last data filed at 10/24/2024 0700 Gross per 24 hour Intake -- Output 3580 ml Net -3580 ml Lines/Drains/Tubes: Patient Lines/Drains/Airways Status Active Airway None Output by Drain (mL) 10/22/24 0700 - 10/22/24 1859 10/22/24 1900 - 10/23/24 0659 10/23/24 0700 - 10/23/24 1859 10/23/24 1900 - 10/24/24 0659 10/24/24 0700 - 10/24/24 0738 Closed/Suction Drain 1 Right;Posterior Thigh Bulb 19 Fr. 30 Labs in last 18 hours: CBC WBC ?? Hb ?? Plt ?? Hct ?? ANC ?? INR ??, PTT ??, Anti-Xa ?? MCV ?? BMP Na ?? Cl ?? BUN ?? Glu ?? K ?? Co2 ?? Cr ?? Ca ?? iCa ?? Mg ??, Phos ?? Lactate ?? LFT AST ?? AlkPhos ?? T Prot ?? ALK ?? Bili ?? Alb ?? D.Bili ?? Lab Trends: H/H INR Cr Results from last 7 days Lab Units 10/19/24 0443 10/18/24 0000 10/17/24 0958 CREATININE mg/dL 0.62* 0.73 0.60* Lactate No lab exists for component: LACTTEVEN Radiographic Interpretation: No relevant imaging to review. Medications reviewed. Vital signs reviewed. Labs reviewed. Assessment/Plan Assessment and Plan: Plan: Naga Padgett is a 34 y.o. male with history of spina bifida and Stage IV right ischial pressure injury who is now s/p right ischial pressure wound excision and posterior thigh rotation flap on 10/11/24. Plan: - Continue pressure offloading --[place] bed. Do not sit directly on the flap. We prefer for patient to offload from the right side by laying in left lateral decubitus position. - Diligent hygiene, especially after BM - Nutrition optimization. Boost TID - Continue Montejo - Continue doxycycline until SATYA drain comes out - PT/OT, placement Dispo: Continue Current Level of Care The patient will require a hospital bed for home use. Patient has a condition that requires positioning of the body in ways not feasible with a regular bed. The patient also requires frequent repositioning, which would not be sufficient with an ordinary bed. The patient has a caregiver to assist within the home. Kadi Galeano MD Cosigned by Noemí Ni MD at 10/29/2024 4:32 PM EDT Associated attestation - Noemí Ni MD - 10/29/2024 4:32 PM EDT I discussed the case with the resident/fellow and agree with the findings and plan as documented. * Care Plan - Misty Walton RN - 10/24/2024 1:02 AM EDT Problem: Adult Inpatient Plan of Care Goal: Plan of Care Review Outcome: Ongoing, Progressing Flowsheets (Taken 10/24/2024 0102) Progress: improving Plan of Care Reviewed With: patient Problem: Adult Inpatient Plan of Care Goal: Patient-Specific Goal (Individualized) Outcome: Ongoing, Progressing The patient will remain free from falls during hospitalization by using the call light for all ambulation and having bed alarms and non-slip socks in place throughout shift. * Care Plan - Vic Deshpande RN - 10/23/2024 5:45 PM EDT Problem: Adult Inpatient Plan of Care Goal: Plan of Care Review Outcome: Ongoing, Progressing Goal: Patient-Specific Goal (Individualized) Outcome: Ongoing, Progressing Goal: Absence of Hospital-Acquired Illness or Injury Outcome: Ongoing, Progressing Goal: Optimal Comfort and Wellbeing Outcome: Ongoing, Progressing Goal: Readiness for Transition of Care Outcome: Ongoing, Progressing Problem: Pain Acute Goal: Optimal Pain Control and Function Outcome: Ongoing, Progressing Problem: Surgery Nonspecified Goal: Absence of Bleeding Outcome: Ongoing, Progressing Goal: Effective Bowel Elimination Outcome: Ongoing, Progressing Goal: Fluid and Electrolyte Balance Outcome: Ongoing, Progressing Goal: Blood Glucose Level Within Target Range Outcome: Ongoing, Progressing Goal: Absence of Infection Signs and Symptoms Outcome: Ongoing, Progressing Goal: Anesthesia/Sedation Recovery Outcome: Ongoing, Progressing Goal: Optimal Pain Control and Function Outcome: Ongoing, Progressing Goal: Nausea and Vomiting Relief Outcome: Ongoing, Progressing Goal: Effective Urinary Elimination Outcome: Ongoing, Progressing Goal: Effective Oxygenation and Ventilation Outcome: Ongoing, Progressing Problem: Mobility Impairment Goal: Optimal Mobility Outcome: Ongoing, Progressing Problem: Infection Goal: Absence of Infection Signs and Symptoms Outcome: Ongoing, Progressing Problem: Wound Goal: Optimal Coping Outcome: Ongoing, Progressing Goal: Skin Health and Integrity Outcome: Ongoing, Progressing Goal: Optimal Wound Healing Outcome: Ongoing, Progressing Problem: Skin Injury Risk Increased Goal: Skin Health and Integrity Outcome: Ongoing, Progressing Problem: Fall Injury Risk Goal: Absence of Fall and Fall-Related Injury Outcome: Ongoing, Progressing * Progress Notes - An Humphrey - 10/23/2024 3:00 PM EDT Case Management Adult Progress Note Naga Padgett 34 y.o. male CSN: [id number] Admission: 10/11/2024 9:17 AM Primary Problem: Decubitus ulcer of right ischium, stage IV (CMS/HCC) Anticipated Discharge Date: TBD Additional Comments: Pt is MR to DC this date. Family wishes to complete family appeal for pt to go to [facility]. JACK provided pt mother with the denial letter and information for mother to begin family appeal. Jack spoke with ptand asked if pt felt comfortable DC home with family. Pt stated he was agreeable to DC home. JACK expanded referrals for as pt will DC to his mothers address [address] [place] [address] [place], [place]. [facility]. Mother began appeal process by talk to [employer] License number [id number] and then [employer] License number [id number] who instructed pt mother to write a written appeal. Pt mother stated she would write the written appeal this date and either submit it this evening or in the morning. JACK has begun preparing for pt to DC home this week, in preparation if family appeal is not overturned. JACK and DIRK KRUEGER reached out to first call provider for clarification if SATYA drain would be removed before DC and confirmation of plan regarding [place]. DIRK KRUEGER sent progress notes and referral for a Dolphin Bed to [facility]. RN CM sent referral to [facility] for WV incase pt is to DC home with WV. No further SW concerns identified at this time. SW will monitor pt's progress and will follow up with DC planning and needs as appropriate. An Humphrey, V BELT SKIVER, HOUSEHOLD PERSONAL ASSISTANT Social Work Senior Department of Case Management [facility] * Care Plan - Leona Dickerson RN - 10/23/2024 1:34 PM EDT Problem: Wound Goal: Skin Health and Integrity Outcome: Ongoing, Progressing Goal: Optimal Wound Healing Outcome: Ongoing, Progressing Intervention: Promote Wound Healing Note: Patient evaluated by WOCN, individualized orders placed and care plan interventions placed, see wound care note for further details. Problem: Skin Injury Risk Increased Goal: Skin Health and Integrity Outcome: Ongoing, Progressing Intervention: Optimize Skin Protection Flowsheets (Taken 10/23/2024 1333) Pressure Reduction Techniques: pressure points protected Pressure Reduction Devices: foam padding utilized specialty bed utilized * Progress Notes - Leona Dickerson RN - 10/23/2024 12:19 PM EDT Images from the original note were not included. Wound Care Consult Visit Date: 10/23/2024 Patient Name: Naga Padgett Date of : 1990 Admit Date: 10/11/2024 Reason for Consult: IP Wound Orders (From admission, onward) Start Ordered 10/20/24 1058 Wound ostomy eval and treat Once Comments: Pt has groin wounds, feels like mepilex ag isnt working. Would polymem be better. Appreciate advice. thx Question: Instructions: Answer: Prior to sending evaluation & treat order, place wound/ostomy LDA, complete a wound/ostomy assessment, and consider taking a photograph to document. 10/20/24 1102 10/12/24 1426 Wound ostomy eval and treat 5 Wounds Associated Once Comments: For eval and treatment of groin skin Question Answer Comment Reason for consult: Wound/pressure injury Reason for consult: Ostomy Reason for consult: Other Comment: hidradenitis in groin Instructions: Prior to sending evaluation & treat order, place wound/ostomy LDA, complete a wound/ostomy assessment, and consider taking a photograph to document. 10/12/24 1427 Wound History: Patient with history of spina bifida and Stage IV right ischial pressure injury who is now s/p right ischial pressure wound excision and posterior thigh rotation flap on 10/11/24. Wound Assessment: Wound 01/26/24 Groin (Active) Date First Assessed/Time First Assessed: 01/26/24 0929 Hand Hygiene Completed: Yes Location: Groin Wound Description (Comments): Left groin Assessments 10/23/2024 10:31 AM Wound Image Wound Assessment Red;Granulation Margins Well-defined edges Amy-Wound Assessment Ignacio Shape irregular, full thickness skin loss Drainage Description Serous Drainage Amount Moderate Treatments Cleansed Dressing Foam Dressing Changed Changed Dressing Status Dressing Changed State of Healing Early/partial granulation Non-staged Wound Description Full thickness Active Orders Date Order Priority Status Authorizing Provider 10/23/24 1217 Apply/Change Wound Dressing 2 Wounds Associated Routine Active Noemí Ni MD - Dressing Type: Other Dressings - Dressing Type: Silver dressing - Dressing Type: Foam Dressing - Foam Dressing: Polymem - Other: Other (Comment) - Other dressing (comment):: Groin-cleanse with chlorhexidine soap, pat dry, apply polymem foam dressing, change daily or PRN soiling or saturation. Wound Team Summary Assessment: Patient turned with assist x 1. Groin assessed as above. Wounds appear decreased in overall size and depth from previous assessment. Mother states the mepilex ag becamemalodorous with use, would like additional options. Foam dressing switched to polymem, change dailyand PRN. Wound Team Plan: Does not require wound care follow up at this time, please re- consult wound care with new concerns. Leona Dickerson RN 10/23/2024 12:19 PM * Progress Notes - Kadi Galeano MD - 10/23/2024 8:56 AM EDT Images from the original note were not included. [facility] Department of Surgery Division of Plastic Surgery Surgery Progress Note 10/23/24 Naga Padgett Subjective Subjective: HPI NAEO. Resting comfortably in bed at time of rounds. Pain is controlled. Continues to tolerate diet,denies n/v. WV continues to function appropriately. States has not heard any news from family appeal to insurance over the weekend. No acute complaints today. Review of Systems: Relevant review of systems was obtained as able and is negative unless stated above in HPI. Objective Objective: Vital signs: Vitals: 10/23/24 0753 BP: 120/74 Pulse: 101 Resp: 18 Temp: SpO2: 98% Physical Exam: Physical Exam Constitutional: General: He is not in acute distress. Appearance: He is not ill-appearing. HENT: Head: Normocephalic and atraumatic. Mouth/Throat: Mouth: Mucous membranes are moist. Eyes: Extraocular Movements: Extraocular movements intact. Cardiovascular: Rate and Rhythm: Normal rate and regular rhythm. Pulmonary: Effort: Pulmonary effort is normal. Abdominal: General: There is no distension. Genitourinary: Comments: Montejo in place with CYU Skin: General: Skin is warm and dry. Capillary Refill: Capillary refill takes less than 2 seconds. Comments: Right ischial and posterior thigh incisions with WV in place, functioning appropriately, c/d/I. Flap appears WWP, pink, cap refill 2sec. SATYA drain with SS output Neurological: Mental Status: He is alert and oriented to person, place, and time. Psychiatric: Mood and Affect: Mood normal. Intake/Output Summary (Last 24 hours) at 10/23/2024 0857 Last data filed at 10/23/2024 0753 Gross per 24 hour Intake -- Output 2800 ml Net -2800 ml Lines/Drains/Tubes: Patient Lines/Drains/Airways Status Active Airway None Output by Drain (mL) 10/21/24 07 - 10/21/24 1859 10/21/24 190 - 10/22/24 0659 10/22/24 0700 - 10/22/24 1859 10/22/24 190 - 10/23/24 0659 10/23/24 0700 - 10/23/24 0857 Closed/Suction Drain 1 Right;Posterior Thigh Bulb 19 Fr. 17.5 Labs in last 18 hours: CBC WBC ?? Hb ?? Plt ?? Hct ?? ANC ?? INR ??, PTT ??, Anti-Xa ?? MCV ?? BMP Na ?? Cl ?? BUN ?? Glu ?? K ?? Co2 ?? Cr ?? Ca ?? iCa ?? Mg ??, Phos ?? Lactate ?? LFT AST ?? AlkPhos ?? T Prot ?? ALK ?? Bili ?? Alb ?? D.Bili ?? Lab Trends: H/H INR Cr Results from last 7 days Lab Units 10/19/24 0443 10/18/24 0000 10/17/24 0958 CREATININE mg/dL 0.62* 0.73 0.60* Lactate No lab exists for component: LACTTEVEN Radiographic Interpretation: No relevant imaging to review. Medications reviewed. Vital signs reviewed. Labs reviewed. Assessment/Plan Assessment and Plan: Naga Padgett is a 34 y.o. male with history of spina bifida and Stage IV right ischial pressure injury who is now s/p right ischial pressure wound excision and posterior thigh rotation flap on 10/11/24. Plan: - Continue pressure offloading --Dolphin bed. Do not sit directly on the flap. We prefer for patient to offload from the right side by laying in left lateral decubitus position. - Diligent hygiene, especially after BM - Nutrition optimization. Boost TID - Continue Montejo - Continue doxycycline until SATYA drain comes out - PT/OT, placement Dispo: Continue Current Level of Care The patient will require a hospital bed for home use. Patient has a condition that requires positioning of the body in ways not feasible with a regular bed. The patient also requires frequent repositioning, which would not be sufficient with an ordinary bed. The patient has a caregiver to assist within the home. Kadi Galeano MD Cosigned by Noemí Ni MD at 10/29/2024 4:32 PM EDT Associated attestation - Noemí Ni MD - 10/29/2024 4:32 PM EDT I discussed the case with the resident/fellow and agree with the findings and plan as documented. * Progress Notes - Ernie Gregory H - 10/22/2024 9:04 AM EDT Images from the original note were not included. [facility] Department of Surgery Division of Plastic Surgery Surgery Progress Note 10/22/24 Naga Padgett Subjective: NAEO. Resting comfortably in bed at time of rounds. Pain is controlled. Tolerating diet, denies n/v. WV remains functioning appropriately. No acute complaints today. Review of Systems: Relevant review of systems was obtained as able and is negative unless stated above in HPI. Objective Objective: Vital signs: Vitals: 10/22/24 0736 BP: 129/79 Pulse: 110 Resp: 18 Temp: 36.6 ??C (97.9 ??F) SpO2: 96% Physical Exam: Physical Exam Constitutional: General: He is not in acute distress. Appearance: He is not ill-appearing. HENT: Head: Normocephalic and atraumatic. Mouth/Throat: Mouth: Mucous membranes are moist. Eyes: Extraocular Movements: Extraocular movements intact. Cardiovascular: Rate and Rhythm: Normal rate and regular rhythm. Pulmonary: Effort: Pulmonary effort is normal. Abdominal: General: There is no distension. Genitourinary: Comments: Montejo in place with CYU Skin: General: Skin is warm and dry. Capillary Refill: Capillary refill takes less than 2 seconds. Comments: Right ischial and posterior thigh incisions with WV in place, functioning appropriately, c/d/I. Flap appears WWP, pink, cap refill 2sec. SATYA drain with SS output Neurological: Mental Status: He is alert and oriented to person, place, and time. Psychiatric: Mood and Affect: Mood normal. Intake/Output Summary (Last 24 hours) at 10/22/2024 0904 Last data filed at 10/22/2024 0600 Gross per 24 hour Intake 550 ml Output 2117.5 ml Net -1567.5 ml Lines/Drains/Tubes: Patient Lines/Drains/Airways Status Active Airway None Output by Drain (mL) 10/20/24 0700 - 10/20/24 1859 10/20/24 1900 - 10/21/24 0659 10/21/24 0700 - 10/21/24 1859 10/21/24 1900 - 10/22/24 0659 10/22/24 0700 - 10/22/24 0904 Closed/Suction Drain 1 Right;Posterior Thigh Bulb 19 Fr. 30 10 17.5 Labs in last 18 hours: CBC WBC ?? Hb ?? Plt ?? Hct ?? ANC ?? INR ??, PTT ??, Anti-Xa ?? MCV ?? BMP Na ?? Cl ?? BUN ?? Glu ?? K ?? Co2 ?? Cr ?? Ca ?? iCa ?? Mg ??, Phos ?? Lactate ?? LFT AST ?? AlkPhos ?? T Prot ?? ALK ?? Bili ?? Alb ?? D.Bili ?? Lab Trends: H/H INR Cr Results from last 7 days Lab Units 10/19/24 0443 10/18/24 0000 10/17/24 0958 CREATININE mg/dL 0.62* 0.73 0.60* Lactate No lab exists for component: LACTTEVEN Radiographic Interpretation: No relevant imaging to review. Medications reviewed. Vital signs reviewed. Labs reviewed. Assessment and Plan: Naga Padgett is a 34 y.o. male with history of spina bifida and Stage IV right ischial pressure injury who is now s/p right ischial pressure wound excision and posterior thigh rotation flap on 10/11/24. Plan: - [facility]. Do not sit directly on the flap. We prefer for patient to offload from the right side by laying in left lateral decubitus position. - Diligent hygiene, especially after BM - Nutrition optimization. Boost TID - Continue Montejo - Continue doxycycline until SATYA drain comes out - PT/OT, placement Dispo: Continue Current Level of Care Gregory Klein MS3 Cosigned by Noemí Ni MD at 10/29/2024 4:32 PM EDT Associated attestation - Noemí Ni MD - 10/29/2024 4:32 PM EDT I saw and evaluated the patient. I discussed the case with the resident/fellow and agree with the findings and plan as documented. * Care Plan - Elma Tapia - 10/22/2024 7:33 AM EDT Problem: Adult Inpatient Plan of Care Goal: Plan of Care Review 10/22/2024732 by Elma Tapia Outcome: Ongoing, Progressing 10/22/2024732 by Elma Tapia Outcome: Ongoing, Progressing Goal: Patient-Specific Goal (Individualized) 10/22/2024732 by Elma Tapia Outcome: Ongoing, Progressing 10/22/2024732 by Elma Tapia Outcome: Ongoing, Progressing Goal: Absence of Hospital-Acquired Illness or Injury 10/22/2024732 by Elma Tapia Outcome: Ongoing, Progressing 10/22/2024732 by Elma Tapia Outcome: Ongoing, Progressing Goal: Optimal Comfort and Wellbeing 10/22/2024732 by Elma Tapia Outcome: Ongoing, Progressing 10/22/2024732 by Elma Tapia Outcome: Ongoing, Progressing Goal: Readiness for Transition of Care 10/22/2024732 by Elma Tapia Outcome: Ongoing, Progressing 10/22/2024732 by Elma Tapia Outcome: Ongoing, Progressing Problem: Pain Acute Goal: Optimal Pain Control and Function 10/22/2024732 by Elma Tapia Outcome: Ongoing, Progressing 10/22/2024732 by Elma Tapia Outcome: Ongoing, Progressing Problem: Surgery Nonspecified Goal: Absence of Bleeding 10/22/2024732 by Elma Tapia Outcome: Ongoing, Progressing 10/22/2024732 by Elma Tapia Outcome: Ongoing, Progressing Goal: Effective Bowel Elimination 10/22/2024732 by Elma Tapia Outcome: Ongoing, Progressing 10/22/2024732 by Elma Tapia Outcome: Ongoing, Progressing Goal: Fluid and Electrolyte Balance 10/22/2024732 by Elma Tapia Outcome: Ongoing, Progressing 10/22/2024732 by Elma Tapia Outcome: Ongoing, Progressing Goal: Blood Glucose Level Within Target Range 10/22/2024732 by Elma Tapia Outcome: Ongoing, Progressing 10/22/2024732 by Elma Tapia Outcome: Ongoing, Progressing Goal: Absence of Infection Signs and Symptoms 10/22/2024732 by Elma Tapia Outcome: Ongoing, Progressing 10/22/2024732 by Elma Tapia Outcome: Ongoing, Progressing Goal: Anesthesia/Sedation Recovery 10/22/2024732 by Elma Tapia Outcome: Ongoing, Progressing 10/22/2024732 by Elma Tapia Outcome: Ongoing, Progressing Goal: Optimal Pain Control and Function 10/22/2024732 by Elma Tapia Outcome: Ongoing, Progressing 10/22/2024732 by Elma Tapia Outcome: Ongoing, Progressing Goal: Nausea and Vomiting Relief 10/22/2024732 by Elma Tapia Outcome: Ongoing, Progressing 10/22/2024732 by Elma Tapia Outcome: Ongoing, Progressing Goal: Effective Urinary Elimination 10/22/2024732 by Elma Tapia Outcome: Ongoing, Progressing 10/22/2024732 by Elma Tapia Outcome: Ongoing, Progressing Goal: Effective Oxygenation and Ventilation 10/22/2024732 by Elma Tapia Outcome: Ongoing, Progressing 10/22/2024732 by Elma Tapia Outcome: Ongoing, Progressing Problem: Mobility Impairment Goal: Optimal Mobility 10/22/2024732 by Elma Tapia Outcome: Ongoing, Progressing 10/22/2024732 by Elma Tapia Outcome: Ongoing, Progressing Problem: Infection Goal: Absence of Infection Signs and Symptoms 10/22/2024732 by Elma Tapia Outcome: Ongoing, Progressing 10/22/2024732 by Elma Tapia Outcome: Ongoing, Progressing Problem: Wound Goal: Optimal Coping Outcome: Ongoing, Progressing Goal: Skin Health and Integrity Outcome: Ongoing, Progressing Goal: Optimal Wound Healing Outcome: Ongoing, Progressing Problem: Skin Injury Risk Increased Goal: Skin Health and Integrity Outcome: Ongoing, Progressing Problem: Fall Injury Risk Goal: Absence of Fall and Fall-Related Injury Outcome: Ongoing, Progressing * Care Plan - Tyrone Murphy RN - 10/21/2024 10:50 PM EDT Problem: Adult Inpatient Plan of Care Goal: Plan of Care Review Outcome: Ongoing, Progressing Flowsheets (Taken 10/21/20242247) Plan of Care Reviewed With: patient Goal: Patient-Specific Goal (Individualized) Outcome: Ongoing, Progressing Goal: Absence of Hospital-Acquired Illness or Injury Outcome: Ongoing, Progressing Goal: Optimal Comfort and Wellbeing Outcome: Ongoing, Progressing Goal: Readiness for Transition of Care Outcome: Ongoing, Progressing Problem: Pain Acute Goal: Optimal Pain Control and Function Outcome: Ongoing, Progressing Problem: Surgery Nonspecified Goal: Absence of Bleeding Outcome: Ongoing, Progressing Goal: Effective Bowel Elimination Outcome: Ongoing, Progressing Intervention: Enhance Bowel Motility and Elimination Flowsheets (Taken 10/21/20242247) Bowel Elimination Management: adaptive equipment provided hygiene measures promoted sitting position facilitated toileting offered Bowel Motility Enhancement: ambulation promoted fluid intake encouraged oral intake encouraged Goal: Fluid and Electrolyte Balance Outcome: Ongoing, Progressing Goal: Blood Glucose Level Within Target Range Outcome: Ongoing, Progressing Goal: Absence of Infection Signs and Symptoms Outcome: Ongoing, Progressing Goal: Anesthesia/Sedation Recovery Outcome: Ongoing, Progressing Goal: Optimal Pain Control and Function Outcome: Ongoing, Progressing Goal: Nausea and Vomiting Relief Outcome: Ongoing, Progressing Goal: Effective Urinary Elimination Outcome: Ongoing, Progressing Goal: Effective Oxygenation and Ventilation Outcome: Ongoing, Progressing Problem: Mobility Impairment Goal: Optimal Mobility Outcome: Ongoing, Progressing Problem: Infection Goal: Absence of Infection Signs and Symptoms Outcome: Ongoing, Progressing Problem: Wound Goal: Optimal Coping Outcome: Ongoing, Progressing Goal: Skin Health and Integrity Outcome: Ongoing, Progressing Goal: Optimal Wound Healing Outcome: Ongoing, Progressing Problem: Skin Injury Risk Increased Goal: Skin Health and Integrity Outcome: Ongoing, Progressing Intervention: Optimize Skin Protection Flowsheets (Taken 10/21/20242247) Activity Management: activity adjusted per tolerance activity encouraged activity minimized ambulated in room Problem: Fall Injury Risk Goal: Absence of Fall and Fall-Related Injury Outcome: Ongoing, Progressing * Care Plan - Elma Tapia - 10/21/2024 7:53 AM EDT Problem: Adult Inpatient Plan of Care Goal: Plan of Care Review Outcome: Ongoing, Progressing Goal: Patient-Specific Goal (Individualized) Outcome: Ongoing, Progressing Goal: Absence of Hospital-Acquired Illness or Injury Outcome: Ongoing, Progressing Goal: Optimal Comfort and Wellbeing Outcome: Ongoing, Progressing Goal: Readiness for Transition of Care Outcome: Ongoing, Progressing Problem: Pain Acute Goal: Optimal Pain Control and Function Outcome: Ongoing, Progressing Problem: Surgery Nonspecified Goal: Absence of Bleeding Outcome: Ongoing, Progressing Goal: Effective Bowel Elimination Outcome: Ongoing, Progressing Goal: Fluid and Electrolyte Balance Outcome: Ongoing, Progressing Goal: Blood Glucose Level Within Target Range Outcome: Ongoing, Progressing Goal: Absence of Infection Signs and Symptoms Outcome: Ongoing, Progressing Goal: Anesthesia/Sedation Recovery Outcome: Ongoing, Progressing Goal: Optimal Pain Control and Function Outcome: Ongoing, Progressing Goal: Nausea and Vomiting Relief Outcome: Ongoing, Progressing Goal: Effective Urinary Elimination Outcome: Ongoing, Progressing Goal: Effective Oxygenation and Ventilation Outcome: Ongoing, Progressing Problem: Mobility Impairment Goal: Optimal Mobility Outcome: Ongoing, Progressing Problem: Infection Goal: Absence of Infection Signs and Symptoms Outcome: Ongoing, Progressing Problem: Wound Goal: Optimal Coping Outcome: Ongoing, Progressing Goal: Skin Health and Integrity Outcome: Ongoing, Progressing Goal: Optimal Wound Healing Outcome: Ongoing, Progressing Problem: Skin Injury Risk Increased Goal: Skin Health and Integrity Outcome: Ongoing, Progressing Problem: Fall Injury Risk Goal: Absence of Fall and Fall-Related Injury Outcome: Ongoing, Progressing * Progress Notes - Kd Covarrubias MD - 10/21/2024 6:43 AM EDT Images from the original note were not included. [facility] Department of Surgery Division of Plastic Surgery Surgery Progress Note 10/21/24 Naga Padgett Subjective: NAEO. Resting comfortably in bed at time of rounds. Pain is controlled. Tolerating diet, denies n/v. WV remains functioning appropriately. No acute complaints today. Review of Systems: Relevant review of systems was obtained as able and is negative unless stated above in HPI. Objective Objective: Vital signs: Vitals: 10/21/24 0404 BP: 112/72 Pulse: 103 Resp: 16 Temp: 36.9 ??C (98.4 ??F) SpO2: 91% Physical Exam: Physical Exam Constitutional: General: He is not in acute distress. Appearance: He is not ill-appearing. HENT: Head: Normocephalic and atraumatic. Mouth/Throat: Mouth: Mucous membranes are moist. Eyes: Extraocular Movements: Extraocular movements intact. Cardiovascular: Rate and Rhythm: Normal rate and regular rhythm. Pulmonary: Effort: Pulmonary effort is normal. Abdominal: General: There is no distension. Genitourinary: Comments: Montejo in place with CYU Skin: General: Skin is warm and dry. Capillary Refill: Capillary refill takes less than 2 seconds. Comments: Right ischial and posterior thigh incisions with WV in place, functioning appropriately, c/d/I. Flap appears WWP, pink, cap refill 2sec. SATYA drain with SS output Neurological: Mental Status: He is alert and oriented to person, place, and time. Psychiatric: Mood and Affect: Mood normal. Intake/Output Summary (Last 24 hours) at 10/21/2024 0643 Last data filed at 10/21/2024 0643 Gross per 24 hour Intake 240 ml Output 2440 ml Net -2200 ml Lines/Drains/Tubes: Patient Lines/Drains/Airways Status Active Airway None Output by Drain (mL) 10/19/24 0700 - 10/19/24 1859 10/19/24 190 - 10/20/24 0659 10/20/24 0700 - 10/20/24 1859 10/20/24 190 - 10/21/24 0643 Closed/Suction Drain 1 Right;Posterior Thigh Bulb 19 Fr. 0 10 30 10 Labs in last 18 hours: CBC WBC ?? Hb ?? Plt ?? Hct ?? ANC ?? INR ??, PTT ??, Anti-Xa ?? MCV ?? BMP Na ?? Cl ?? BUN ?? Glu ?? K ?? Co2 ?? Cr ?? Ca ?? iCa ?? Mg ??, Phos ?? Lactate ?? LFT AST ?? AlkPhos ?? T Prot ?? ALK ?? Bili ?? Alb ?? D.Bili ?? Lab Trends: H/H INR Cr Results from last 7 days Lab Units 10/19/24 0443 10/18/24 0000 10/17/24 0958 CREATININE mg/dL 0.62* 0.73 0.60* Lactate No lab exists for component: LACTTEVEN Radiographic Interpretation: No relevant imaging to review. Medications reviewed. Vital signs reviewed. Labs reviewed. Assessment and Plan: Naga Padgett is a 34 y.o. male with history of spina bifida and Stage IV right ischial pressure injury who is now s/p right ischial pressure wound excision and posterior thigh rotation flap on 10/11/24. Plan: - Continue pressure offloading --Dolphin bed. Do not sit directly on the flap. We prefer for patient to offload from the right side by laying in left lateral decubitus position. - Diligent hygiene, especially after BM - Nutrition optimization. Boost TID - Continue Montejo - Continue doxycycline until SATYA drain comes out - PT/OT, placement Dispo: Continue Current Level of Care Kd Covarrubias MD Plastic and Reconstructive Surgery, PGY-1 P: [phone] Cosigned by Noemí Ni MD at 10/29/2024 4:31 PM EDT Associated attestation - Noemí Ni MD - 10/29/2024 4:31 PM EDT I saw and evaluated the patient. I discussed the case with the resident/fellow and agree with the findings and plan as documented. * Care Plan - La Ray RN - 10/20/2024 9:00 PM EDT Problem: Adult Inpatient Plan of Care Goal: Plan of Care Review Flowsheets (Taken 10/20/2024 2100) Progress: improving Plan of Care Reviewed With: patient Intervention: Prevent Skin Injury Flowsheets Taken 10/21/2024 0038 Skin Protection: incontinence pads utilized Taken 10/20/2024 2230 Body Position: left turned legs elevated Outcome: Ongoing, Progressing Intervention: Prevent Infection Flowsheets (Taken 10/20/20242099) Infection Prevention: environmental surveillance performed equipment surfaces disinfected hand hygiene promoted rest/sleep promoted single patient room provided Outcome: Ongoing, Progressing Problem: Adult Inpatient Plan of Care Goal: Absence of Hospital-Acquired Illness or Injury Intervention: Prevent Skin Injury Flowsheets Taken 10/21/2024 0038 Skin Protection: incontinence pads utilized Taken 10/20/2024 2230 Body Position: left turned legs elevated Outcome: Ongoing, Progressing Intervention: Prevent Infection Flowsheets (Taken 10/20/20242099) Infection Prevention: environmental surveillance performed equipment surfaces disinfected hand hygiene promoted rest/sleep promoted single patient room provided Outcome: Ongoing, Progressing Problem: Mobility Impairment Goal: Optimal Mobility Intervention: Optimize Mobility Flowsheets (Taken 10/20/20242099) Activity Management: activity adjusted per tolerance activity encouraged education provided Positioning/Transfer Devices: pillows repositioning sheet Outcome: Ongoing, Progressing Problem: Wound Goal: Optimal Wound Healing Intervention: Promote Wound Healing Flowsheets (Taken 10/20/20242099) Sleep/Rest Enhancement: awakenings minimized noise level reduced regular sleep/rest pattern promoted relaxation techniques promoted room darkened Outcome: Ongoing, Progressing Problem: Fall Injury Risk Goal: Absence of Fall and Fall-Related Injury Intervention: Identify and Manage Contributors Flowsheets (Taken 10/20/20242099) Medication Review/Management: medications reviewed Self-Care Promotion: adaptive equipment use encouraged Outcome: Ongoing, Progressing Intervention: Promote Injury-Free Environment Flowsheets (Taken 10/20/20242099) Safety Promotion/Fall Prevention: clutter-free environment maintained fall prevention program maintained lighting adjusted room organization consistent safety round/check completed Outcome: Ongoing, Progressing * Progress Notes - An Humphrey P - 10/20/2024 3:50 PM EDT Case Management Adult Progress Note Naga Padgett 34 y.o. male CSN: [id number] Admission: 10/11/2024 9:17 AM Primary Problem: Decubitus ulcer of right ischium, stage IV (CMS/HCC) Family spoke with Ibrahima, license number [id number], phone [phone] whom stated that pt insurance authorization was still pending. JACK encouraged family to make an appeal at 6:00 pm after the P2P. An Humphrey, V BELT SKIVER, HOUSEHOLD PERSONAL ASSISTANT Social Work Senior Department of Case Management [facility] * Care Plan - Jayleen Nobles RN - 10/20/2024 2:46 PM EDT Problem: Adult Inpatient Plan of Care Goal: Plan of Care Review Outcome: Ongoing, Progressing Flowsheets Taken 10/20/2024 1446 Plan of Care Reviewed With: patient parent Taken 10/19/2024 1255 Progress: improving Goal: Patient-Specific Goal (Individualized) Outcome: Ongoing, Progressing Goal: Absence of Hospital-Acquired Illness or Injury Outcome: Ongoing, Progressing Goal: Optimal Comfort and Wellbeing Outcome: Ongoing, Progressing Goal: Readiness for Transition of Care Outcome: Ongoing, Progressing Problem: Pain Acute Goal: Optimal Pain Control and Function Outcome: Ongoing, Progressing Problem: Surgery Nonspecified Goal: Absence of Bleeding Outcome: Ongoing, Progressing Goal: Effective Bowel Elimination Outcome: Ongoing, Progressing Goal: Fluid and Electrolyte Balance Outcome: Ongoing, Progressing Goal: Blood Glucose Level Within Target Range Outcome: Ongoing, Progressing Goal: Absence of Infection Signs and Symptoms Outcome: Ongoing, Progressing Goal: Anesthesia/Sedation Recovery Outcome: Ongoing, Progressing Goal: Optimal Pain Control and Function Outcome: Ongoing, Progressing Goal: Nausea and Vomiting Relief Outcome: Ongoing, Progressing Goal: Effective Urinary Elimination Outcome: Ongoing, Progressing Goal: Effective Oxygenation and Ventilation Outcome: Ongoing, Progressing * Progress Notes - An Humphrey - 10/20/2024 2:45 PM EDT Case Management Adult Progress Note Naga Padgett 34 y.o. male CSN: [id number] Admission: 10/11/2024 9:17 AM Primary Problem: Decubitus ulcer of right ischium, stage IV (CMS/HCC) Anticipated Discharge Date: TBD Additional Comments: According to MD's pt is MR to DC to [facility]. Pt was denied by insurance for [facility]. JACK informed family andfamily wishes to do a Family Appeal regarding the pt going to [facility]. JACK, EVANS RN, and post acute care nurse rn spoke with family at bedside to explain the family appeal process and assist with questions regarding the denial. Family stated they would be making a family appeal. RN EVANS sent out referrals via careport for PT/OT and nursing this date. JACK call Merrick Frazier with [employer] [phone] regarding pt wound care and had to leave a message. JACK updated MD's regarding family conversation. JACK will monitor pt's progress and will follow up with DC planning and needs as appropriate. Update: JACK faxed over pt demographics, H&P, wound care consult, surgery progress notes, and Charley Sin at [phone]. An Humphrey, V BELT SKIVER, HOUSEHOLD PERSONAL ASSISTANT Social Work Senior Department of Case Management [facility] * Consults - Gale Vernon RD - 10/20/2024 2:16 PM EDT Adult Nutrition Evaluation Note Naga Padgett 34 y.o. male CSN: [id number] Room/Bed 221/221A Nutrition evaluation type: follow-up Reason for evaluation: Hospital course: 34 y o M with H spinda bifida & stage 4 R ischial PI, admitted 10/11/24 s/p Right ischial pressure wound debridement and excision, Right posterior thigh fasciocutaneous rotation flap, & incisional wound vac placement. (10/20): Wound care ongoing. Dispo noted. Past medical/ surgical history: Past Medical History[1], hidradenitis (bilateral groin) Surgical History[2] Social history: Social History[3] Additional comments: 10/20: Another member of medical team with pt. Vitals and Basic Assessment: BP: (!) 141/93 Temp: 37 ??C (98.6 ??F) Oxygen Therapy: None (Room air) O2 Delivery Method: Face tent Paul Coma Scale Score: 15 Wu Scale Score: 15 Most Recent BM Date: 10/19/24 GI Symptoms: Nausea Edema: Right lower extremity, Left lower extremity Skin: wound vac, R ischium PI / surgical wound, Groin wounds CHAD ostomy for colon flushing Allergies: NKFA Medications: Current Scheduled Medications[4] Current Continuous Medications[5] Current PRN Medications[6] Meds were reviewed: Yes Labs: Results from last 7 days Lab Units 10/19/24 0443 10/18/24 0000 10/17/24 0958 CREATININE mg/dL 0.62* 0.73 0.60* EGFR mL/min/1.73m*2 128.6 122.4 129.9 No results found for: MG Lab Results Component Value Date ALT 33 11/22/2023 AST 16 11/22/2023 ALKPHOS 79 02/05/2023 BILITOT <0.2 11/22/2023 Lab Results Component Value Date ALBUMIN 3.6 11/22/2023 No results found for: PREALBUMIN Lab Results Component Value Date CRP 120.0 (H) 02/06/2023 No results found for: HGBA1C No results found for: CHOL No results found for: HDL No results found for: LDLCALC No results found for: TRIG Anthropometrics: Height: 157.5 cm Weight: 86.8 kg IBW: 53.6 kg %IBW: 153.6 Adjusted Body Weight: 61.9 kg BMI: 35 Wt evaluation: Obese - Class 2 Weight History: Wt Readings from Last 30 Encounters: 10/14/24 86.8 kg (191 lb 5.8 oz) 08/25/24 83.5 kg (184 lb) 07/19/24 83.5 kg (184 lb) 06/22/24 83.9 kg (184 lb 15.5 oz) 03/22/24 83.9 kg (184 lb 15.5 oz) 01/26/24 83.9 kg (184 lb 15.5 oz) 12/31/23 83.9 kg (185 lb) 10/29/23 83.9 kg (184 lb 15.5 oz) 09/28/23 83.9 kg (184 lb 15.5 oz) 08/27/23 83.9 kg (185 lb) 07/29/23 83.9 kg (185 lb) 03/09/23 83.9 kg (185 lb) 02/23/23 83.9 kg (185 lb) 02/04/23 83.9 kg (184 lb 15.5 oz) 02/04/23 83.9 kg (185 lb) 12/29/22 83.9 kg (185 lb) 11/17/22 83.9 kg (185 lb) 10/06/22 83.9 kg (185 lb) 10/05/22 83.9 kg (185 lb) 09/11/22 83.9 kg (185 lb) 09/08/22 83.5 kg (184 lb) 08/25/22 83.9 kg (184 lb 15.5 oz) -No significant wt loss in review periods per EMR review Wt Trend: Date/Time Weight 10/14/24 03:09:25 86.8 kg (191 lb 5.8 oz) 10/12/24 0600 84 kg (185 lb 3 oz) 10/11/24 1045 83.9 kg (185 lb) 10/10/24 0849 83.9 kg (185 lb) -Continue to monitor trend for accuracy Estimated Needs: Kcal: 30-35 kcal/kg AdjBW (3898-2133 kcal/d) Pro: 1.5-2 g/kg AdjBW (93-124 g/d) Current Nutrition Intake: Diet: Regular Supplements: Boost VHC TID, Sukumar BID Intake: no po intake recorded since admit 9 days ago Nutrition Support: None at this time Diet Experience & Nutrition History: Diet Education: Will monitor Pertinent Home Medications: Prilosec Nutrition Focused Physical Exam: Physical exam performed on (date): pending Assessment of Malnutrition: Nutrition Problem: Increased nutrient needs (protein) related to increased requirement for healing as evidenced by stage 4 PI requiring operative intervention. Status of Nutrition Diagnosis: Ongoing Nutrition Interventions and Recommendations: -Continue Regular diet as tolerated -Please record po intake in EMR -Continue Boost C TID -Continue Sukumar BID -Recommend MVI with minerals daily -Consider checking Zinc level & supplement if deficient -Recommend weekly weight monitoring Nutrition Monitoring and Goals: -Monitor tolerance and adequacy of po intake / enteral infusion, wt changes, bowel fxn, labs, skin integrity; and follow up per acuity -Pt will tolerate and consume >/= 75% of most meals & supplements (ongoing) -NFPE on follow up Acuity Level: 3 Gale Vernon, SHABBIR, LD [1] Past Medical History: Diagnosis Date Acid reflux Anxiety Scoliosis Spina bifida 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) [2] Past Surgical History: Procedure Laterality Date BACK SURGERY spina bifida CREATION OF CUTANEOUS STOMA FOOT SURGERY LEG SURGERY MYRINGOTOMY W/ TUBES PRESSURE ULCER DEBRIDEMENT SHUNT PROCEDURE SPINE SURGERY Tether cord release VENTRICULOPERITONEAL SHUNT 2 revisions WOUND DEBRIDEMENT [3] Social History Tobacco Use Smoking status: Former Current packs/day: 0.00 Average packs/day: 0.5 packs/day for 5.0 years (2.5 ttl pk-yrs) Types: Cigarettes Start date: 04/12/2006 Quit date: 04/12/2011 Years since quittin.5 Passive exposure: Never Smokeless tobacco: Never Vaping Use Vaping status: Never Used Substance Use Topics Alcohol use: Yes Comment: Occasional Drug use: Never [4] bisacodyl, 10 mg, Rectal, Every other day doxycycline, 100 mg, Oral, BID enoxaparin, 40 mg, Subcutaneous, Daily erythromycin, 1 Application, Left Eye, q6h JOSUÉ lamoTRIgine, 100 mg, Oral, Nightly mupirocin, 1 Application, Each Nostril, BID oxybutynin XL, 10 mg, Oral, Nightly pantoprazole, 40 mg, Oral, BID AC sodium chloride, 10 mL, Intravenous, q12h [5] [6] PRN medications: acetaminophen, melatonin, ondansetron ODT OR ondansetron OR ondansetron, oxyCODONE, [COMPLETED] Insert peripheral IV AND Saline lock IV AND sodium chloride AND sodium chloride * Progress Notes - Shelley Ramirez RN - 10/20/2024 1:53 PM EDT Referral for HH PT/OT+SN sent to agencies via [facility] for acceptance. * Procedures - Kd Covarrubias MD - 10/20/2024 8:04 AM EDTAssociated Order(s): Wound Vac Placement Post-Procedure Diagnose(s): Decubitus ulcer of right ischium, stage IV (CMS/HCC) Wound Vac Placement Performed by: Kd Covarrubias MD Authorized by: Noemí Ni MD Consent: Consent obtained: Verbal Consent given by: Patient Time out performed at: 10/20/2024 6:04 AM DME Vac: No Procedure details: Foam Removed (Pieces): 2 Foam Placed (Pieces): 2 Length (cm): 35 Width (cm): 15 Depth (cm): 0 Calc Area (square cm): 525 Foam Applied: Silver Foam Therapy: Continuous Pressure (mmHg): 125 Patient tolerance of procedure: Tolerated well, no immediate complications Cosigned by Noemí Ni MD at 10/29/2024 4:33 PM EDT Associated attestation - Noemí Ni MD - 10/29/2024 4:33 PM EDT I was present for the entirety of the procedure(s). * Progress Notes - Kd Covarrubias MD - 10/20/2024 8:01 AM EDT Images from the original note were not included. [facility] Department of Surgery Division of Plastic Surgery Surgery Progress Note 10/20/24 Naga Padgett Subjective: NAEO. Resting comfortably in bed at time of rounds. Pain is controlled. Tolerating diet, denies n/v. WV remains functioning appropriately. No acute complaints today. We discussed finding a time to plan placement with his parents sometime this afternoon. Review of Systems: Relevant review of systems was obtained as able and is negative unless stated above in HPI. Objective Objective: Vital signs: Vitals: 10/20/24 0734 BP: 123/79 Pulse: 106 Resp: 18 Temp: 36.8 ??C (98.2 ??F) SpO2: 98% Physical Exam: Physical Exam Constitutional: General: He is not in acute distress. Appearance: He is not ill-appearing. HENT: Head: Normocephalic and atraumatic. Mouth/Throat: Mouth: Mucous membranes are moist. Eyes: Extraocular Movements: Extraocular movements intact. Cardiovascular: Rate and Rhythm: Normal rate and regular rhythm. Pulmonary: Effort: Pulmonary effort is normal. Abdominal: General: There is no distension. Genitourinary: Comments: Montejo in place with CYU Skin: General: Skin is warm and dry. Capillary Refill: Capillary refill takes less than 2 seconds. Comments: Right ischial and posterior thigh incisions with WV in place, functioning appropriately, c/d/I. Flap appears WWP, pink, cap refill 2sec. SATYA drain with SS output Neurological: Mental Status: He is alert and oriented to person, place, and time. Psychiatric: Mood and Affect: Mood normal. Intake/Output Summary (Last 24 hours) at 10/20/2024 0801 Last data filed at 10/20/2024 0352 Gross per 24 hour Intake -- Output 3317 ml Net -3317 ml Lines/Drains/Tubes: Patient Lines/Drains/Airways Status Active Airway None Output by Drain (mL) 10/18/24 0700 - 10/18/24 1859 10/18/24 1900 - 10/19/24 0659 10/19/24 07 - 10/19/24 1859 10/19/24 1900 - 10/20/24 0659 10/20/24 0700 - 10/20/24 0801 Closed/Suction Drain 1 Right;Posterior Thigh Bulb 19 Fr. 20 10 Labs in last 18 hours: CBC WBC ?? Hb ?? Plt ?? Hct ?? ANC ?? INR ??, PTT ??, Anti-Xa ?? MCV ?? BMP Na ?? Cl ?? BUN ?? Glu ?? K ?? Co2 ?? Cr ?? Ca ?? iCa ?? Mg ??, Phos ?? Lactate ?? LFT AST ?? AlkPhos ?? T Prot ?? ALK ?? Bili ?? Alb ?? D.Bili ?? Lab Trends: H/H INR Cr Results from last 7 days Lab Units 10/19/24 0443 10/18/24 0000 10/17/24 0958 CREATININE mg/dL 0.62* 0.73 0.60* Lactate No lab exists for component: LACTTEVEN Radiographic Interpretation: No relevant imaging to review. Medications reviewed. Vital signs reviewed. Labs reviewed. Assessment and Plan: Naga Padgett is a 34 y.o. male with history of spina bifida and Stage IV right ischial pressure injury who is now s/p right ischial pressure wound excision and posterior thigh rotation flap on 10/11/24. Plan: - Continue pressure offloading --Dolphin bed. Do not sit directly on the flap. We prefer for patient to offload from the right side by laying in left lateral decubitus position. - Diligent hygiene, especially after BM - Nutrition optimization. Boost TID - Continue Montejo - Continue doxycycline until SATYA drain comes out - PT/OT, placement Dispo: Continue Current Level of Care Kd Covarrubias MD Plastic and Reconstructive Surgery, PGY-1 P: [phone] Cosigned by Noemí Ni MD at 10/22/2024 5:04 PM EDT Associated attestation - Noemí Ni MD - 10/22/2024 5:04 PM EDT I saw and evaluated the patient. I discussed the case with the resident/fellow and agree with the findings and plan as documented. * Care Plan - Sue Oseguera RN - 10/20/2024 2:36 AM EDT Problem: Adult Inpatient Plan of Care Goal: Plan of Care Review Outcome: Ongoing, Progressing Flowsheets (Taken 10/20/2024 0236) Plan of Care Reviewed With: patient Goal: Patient-Specific Goal (Individualized) Outcome: Ongoing, Progressing Goal: Absence of Hospital-Acquired Illness or Injury Outcome: Ongoing, Progressing Goal: Optimal Comfort and Wellbeing Outcome: Ongoing, Progressing Goal: Readiness for Transition of Care Outcome: Ongoing, Progressing Problem: Pain Acute Goal: Optimal Pain Control and Function Outcome: Ongoing, Progressing Problem: Surgery Nonspecified Goal: Absence of Bleeding Outcome: Ongoing, Progressing Goal: Effective Bowel Elimination Outcome: Ongoing, Progressing Goal: Fluid and Electrolyte Balance Outcome: Ongoing, Progressing Goal: Blood Glucose Level Within Target Range Outcome: Ongoing, Progressing Goal: Absence of Infection Signs and Symptoms Outcome: Ongoing, Progressing Goal: Anesthesia/Sedation Recovery Outcome: Ongoing, Progressing Goal: Optimal Pain Control and Function Outcome: Ongoing, Progressing Goal: Nausea and Vomiting Relief Outcome: Ongoing, Progressing Goal: Effective Urinary Elimination Outcome: Ongoing, Progressing Goal: Effective Oxygenation and Ventilation Outcome: Ongoing, Progressing Problem: Mobility Impairment Goal: Optimal Mobility Outcome: Ongoing, Progressing Problem: Infection Goal: Absence of Infection Signs and Symptoms Outcome: Ongoing, Progressing Problem: Wound Goal: Optimal Coping Outcome: Ongoing, Progressing Goal: Skin Health and Integrity Outcome: Ongoing, Progressing Goal: Optimal Wound Healing Outcome: Ongoing, Progressing Problem: Skin Injury Risk Increased Goal: Skin Health and Integrity Outcome: Ongoing, Progressing Problem: Fall Injury Risk Goal: Absence of Fall and Fall-Related Injury Outcome: Ongoing, Progressing * Progress Notes - An Humphrey - 10/19/2024 2:04 PM EDT Case Management Adult Progress Note Naga Padgett 34 y.o. male CSN: [id number] Admission: 10/11/2024 9:17 AM Primary Problem: Decubitus ulcer of right ischium, stage IV (CMS/HCC) Anticipated Discharge Date: TBD Additional Comments: JACK spoke with MDs this date who indicate that the pt is medically stable for DC. Awaiting insuranceauthorization approval, JACK contacted Katherine Reyes for [facility] [phone] whom states authorization is still pending. Tentative plan to meet with MD's and pt and family tomorrow. No further JACK concerns identified at this time. JACK will monitor pt's progress and will follow up with DC planning and needs as appropriate. An Humphrey, V BELT SKIVER, HOUSEHOLD PERSONAL ASSISTANT Social Work Senior Department of Case Management [facility] * Care Plan - Jayleen Nobles RN - 10/19/2024 12:55 PM EDT Problem: Adult Inpatient Plan of Care Goal: Plan of Care Review Outcome: Ongoing, Progressing Flowsheets (Taken 10/19/2024 1255) Progress: improving Plan of Care Reviewed With: patient parent Goal: Patient-Specific Goal (Individualized) Outcome: Ongoing, Progressing Goal: Absence of Hospital-Acquired Illness or Injury Outcome: Ongoing, Progressing Goal: Optimal Comfort and Wellbeing Outcome: Ongoing, Progressing Goal: Readiness for Transition of Care Outcome: Ongoing, Progressing Problem: Pain Acute Goal: Optimal Pain Control and Function Outcome: Ongoing, Progressing Problem: Surgery Nonspecified Goal: Absence of Bleeding Outcome: Ongoing, Progressing Goal: Effective Bowel Elimination Outcome: Ongoing, Progressing Goal: Fluid and Electrolyte Balance Outcome: Ongoing, Progressing Goal: Blood Glucose Level Within Target Range Outcome: Ongoing, Progressing Goal: Absence of Infection Signs and Symptoms Outcome: Ongoing, Progressing Goal: Anesthesia/Sedation Recovery Outcome: Ongoing, Progressing Goal: Optimal Pain Control and Function Outcome: Ongoing, Progressing Goal: Nausea and Vomiting Relief Outcome: Ongoing, Progressing Goal: Effective Urinary Elimination Outcome: Ongoing, Progressing Goal: Effective Oxygenation and Ventilation Outcome: Ongoing, Progressing Problem: Mobility Impairment Goal: Optimal Mobility Outcome: Ongoing, Progressing Problem: Infection Goal: Absence of Infection Signs and Symptoms Outcome: Ongoing, Progressing Problem: Wound Goal: Optimal Coping Outcome: Ongoing, Progressing Goal: Skin Health and Integrity Outcome: Ongoing, Progressing Goal: Optimal Wound Healing Outcome: Ongoing, Progressing Problem: Skin Injury Risk Increased Goal: Skin Health and Integrity Outcome: Ongoing, Progressing * Progress Notes - Morris Houser - 10/19/2024 7:45 AM EDT Images from the original note were not included. [facility] Department of Surgery Division of Plastic Surgery Surgery Progress Note 10/19/24 Naga Padgett Subjective Subjective: HPI NAEO. Resting comfortably in bed at time of rounds. Pain is controlled. Tolerating diet, denies n/v. WV remains functioning appropriately. No acute complaints today. We discussed finding a time to plan placement with his parents sometime today or tomorrow. Review of Systems: Relevant review of systems was obtained as able and is negative unless stated above in HPI. Objective Objective: Vital signs: Vitals: 10/19/24 0731 BP: 111/67 Pulse: (!) 117 Resp: Temp: 37 ??C (98.6 ??F) SpO2: 98% Physical Exam: Physical Exam Constitutional: General: He is not in acute distress. Appearance: He is not ill-appearing. HENT: Head: Normocephalic and atraumatic. Mouth/Throat: Mouth: Mucous membranes are moist. Eyes: Extraocular Movements: Extraocular movements intact. Cardiovascular: Rate and Rhythm: Normal rate and regular rhythm. Pulmonary: Effort: Pulmonary effort is normal. Abdominal: General: There is no distension. Genitourinary: Comments: Montejo in place with CYU Skin: General: Skin is warm and dry. Capillary Refill: Capillary refill takes less than 2 seconds. Comments: Right ischial and posterior thigh incisions with WV in place, functioning appropriately, c/d/I. Flap appears WWP, pink, cap refill 2sec. SATYA drain with 20 ml SS output Neurological: Mental Status: He is alert and oriented to person, place, and time. Psychiatric: Mood and Affect: Mood normal. Intake/Output Summary (Last 24 hours) at 10/19/2024 0745 Last data filed at 10/19/2024 0700 Gross per 24 hour Intake -- Output 2595 ml Net -2595 ml Lines/Drains/Tubes: Patient Lines/Drains/Airways Status Active Airway None Output by Drain (mL) 10/17/24 07 - 10/17/24 18510/17/24 1900 - 10/18/24 0659 10/18/24 07 - 10/18/24 1859 10/18/24 190 - 10/19/24 0659 10/19/24 07 - 10/19/24 0745 Closed/Suction Drain 1 Right;Posterior Thigh Bulb 19 Fr. 15 20 20 Labs in last 18 hours: CBC WBC ?? Hb ?? Plt ?? Hct ?? ANC ?? INR ??, PTT ??, Anti-Xa ?? MCV ?? BMP Na ?? Cl ?? BUN ?? Glu ?? K ?? Co2 ?? Cr 0.62 (L) Ca ?? iCa ?? Mg ??, Phos ?? Lactate ?? LFT AST ?? AlkPhos ?? T Prot ?? ALK ?? Bili ?? Alb ?? D.Bili ?? Lab Trends: H/H INR Cr Results from last 7 days Lab Units 10/19/24 0443 10/18/24 0000 10/17/24 0958 CREATININE mg/dL 0.62* 0.73 0.60* Lactate No lab exists for component: LACTTEVEN Radiographic Interpretation: No relevant imaging to review. Medications reviewed. Vital signs reviewed. Labs reviewed. Assessment/Plan Assessment and Plan: Naga Padgett is a 34 y.o. male with history of spina bifida and Stage IV right ischial pressure injury who is now s/p right ischial pressure wound excision and posterior thigh rotation flap on 10/11/24. Plan: - Continue pressure offloading --Dolphin bed. Do not sit directly on the flap. We prefer for patient to offload from the right side by laying in left lateral decubitus position. - Diligent hygiene, especially after BM - Nutrition optimization. Boost TID - Continue Montejo - Continue doxycycline until SATYA drain comes out - PT/OT, placement Dispo: Continue Current Level of Care Morris Houser Cosigned by Noemí Ni MD at 10/22/2024 5:03 PM EDT Associated attestation - Noemí Ni MD - 10/22/2024 5:03 PM EDT I saw and evaluated the patient. I discussed the case with the resident/fellow and agree with the findings and plan as documented. * Care Plan - Sue Oseguera RN - 10/19/2024 6:52 AM EDT Problem: Adult Inpatient Plan of Care Goal: Plan of Care Review Outcome: Ongoing, Progressing Flowsheets (Taken 10/19/2024 0652) Plan of Care Reviewed With: patient Goal: Patient-Specific Goal (Individualized) Outcome: Ongoing, Progressing Goal: Absence of Hospital-Acquired Illness or Injury Outcome: Ongoing, Progressing Goal: Optimal Comfort and Wellbeing Outcome: Ongoing, Progressing Goal: Readiness for Transition of Care Outcome: Ongoing, Progressing Problem: Pain Acute Goal: Optimal Pain Control and Function Outcome: Ongoing, Progressing Problem: Surgery Nonspecified Goal: Absence of Bleeding Outcome: Ongoing, Progressing Goal: Effective Bowel Elimination Outcome: Ongoing, Progressing Goal: Fluid and Electrolyte Balance Outcome: Ongoing, Progressing Goal: Blood Glucose Level Within Target Range Outcome: Ongoing, Progressing Goal: Absence of Infection Signs and Symptoms Outcome: Ongoing, Progressing Goal: Anesthesia/Sedation Recovery Outcome: Ongoing, Progressing Goal: Optimal Pain Control and Function Outcome: Ongoing, Progressing Goal: Nausea and Vomiting Relief Outcome: Ongoing, Progressing Goal: Effective Urinary Elimination Outcome: Ongoing, Progressing Goal: Effective Oxygenation and Ventilation Outcome: Ongoing, Progressing Problem: Mobility Impairment Goal: Optimal Mobility Outcome: Ongoing, Progressing Problem: Infection Goal: Absence of Infection Signs and Symptoms Outcome: Ongoing, Progressing Problem: Wound Goal: Optimal Coping Outcome: Ongoing, Progressing Goal: Skin Health and Integrity Outcome: Ongoing, Progressing Goal: Optimal Wound Healing Outcome: Ongoing, Progressing Problem: Skin Injury Risk Increased Goal: Skin Health and Integrity Outcome: Ongoing, Progressing * Progress Notes - Kadi Galeano MD - 10/18/2024 10:30 AM EDT Images from the original note were not included. [facility] Department of Surgery Division of Plastic Surgery Surgery Progress Note 10/18/24 Naga Padgett Subjective Subjective: HPI NAEO. Resting comfortably in bed at time of rounds. Pain is controlled. Tolerating diet, denies n/v. WV remains functioning appropriately. No acute complaints today. Review of Systems: Relevant review of systems was obtained as able and is negative unless stated above in HPI. Objective Objective: Vital signs: Vitals: 10/18/24 0748 BP: (!) 96/48 Pulse: 107 Resp: 18 Temp: 36.8 ??C (98.2 ??F) SpO2: 95% Physical Exam: Physical Exam Constitutional: General: He is not in acute distress. Appearance: He is not ill-appearing. HENT: Head: Normocephalic and atraumatic. Mouth/Throat: Mouth: Mucous membranes are moist. Eyes: Extraocular Movements: Extraocular movements intact. Cardiovascular: Rate and Rhythm: Normal rate and regular rhythm. Pulmonary: Effort: Pulmonary effort is normal. Abdominal: General: There is no distension. Genitourinary: Comments: Montejo in place with CYU Skin: General: Skin is warm and dry. Capillary Refill: Capillary refill takes less than 2 seconds. Comments: Right ischial and posterior thigh incisions with WV in place, functioning appropriately, c/d/I. Flap appears WWP, pink, cap refill 2sec. SATYA drain with SS output Neurological: Mental Status: He is alert and oriented to person, place, and time. Psychiatric: Mood and Affect: Mood normal. Intake/Output Summary (Last 24 hours) at 10/18/2024 1030 Last data filed at 10/18/2024 0645 Gross per 24 hour Intake 360 ml Output 2020 ml Net -1660 ml Lines/Drains/Tubes: Patient Lines/Drains/Airways Status Active Airway None Output by Drain (mL) 10/16/24 07 - 10/16/24 1859 10/16/24 1900 - 10/17/24 0659 10/17/24 07 - 10/17/24 1859 10/17/24 1900 - 10/18/24 0659 10/18/24 07 - 10/18/24 1030 Closed/Suction Drain 1 Right;Posterior Thigh Bulb 19 Fr. 20 20 15 20 Labs in last 18 hours: CBC WBC ?? Hb ?? Plt ?? Hct ?? ANC ?? INR ??, PTT ??, Anti-Xa ?? MCV ?? BMP Na ?? Cl ?? BUN ?? Glu ?? K ?? Co2 ?? Cr 0.73 Ca ?? iCa ?? Mg ??, Phos ?? Lactate ?? LFT AST ?? AlkPhos ?? T Prot ?? ALK ?? Bili ?? Alb ?? D.Bili ?? Lab Trends: H/H INR Cr Results from last 7 days Lab Units 10/18/24 0000 10/17/24 0958 10/15/24 0424 CREATININE mg/dL 0.73 0.60* 0.65* Lactate No lab exists for component: LACTTEVEN Radiographic Interpretation: No relevant imaging to review. Medications reviewed. Vital signs reviewed. Labs reviewed. Assessment/Plan Assessment and Plan: Naga Padgett is a 34 y.o. male with history of spina bifida and Stage IV right ischial pressure injury who is now s/p right ischial pressure wound excision and posterior thigh rotation flap on 10/11/24. Plan: - Continue pressure offloading --Dolphin bed. Do not sit directly on the flap. We prefer for patient to offload from the right side by laying in left lateral decubitus position. - Diligent hygiene, especially after BM - Nutrition optimization. Boost TID - Continue Montejo - Discontinue Vanc. Switch to doxy. Keep until SATYA drain comes out - PT/OT, placement Dispo: Continue Current Level of Care Kadi Galeano MD Cosigned by Noemí Ni MD at 10/22/2024 5:03 PM EDT Associated attestation - Noemí Ni MD - 10/22/2024 5:03 PM EDT I saw and evaluated the patient. I discussed the case with the resident/fellow and agree with the findings and plan as documented. * Care Plan - Vic Deshpande RN - 10/18/2024 9:46 AM EDT Problem: Adult Inpatient Plan of Care Goal: Plan of Care Review Outcome: Ongoing, Progressing Goal: Patient-Specific Goal (Individualized) Outcome: Ongoing, Progressing Goal: Absence of Hospital-Acquired Illness or Injury Outcome: Ongoing, Progressing Goal: Optimal Comfort and Wellbeing Outcome: Ongoing, Progressing Goal: Readiness for Transition of Care Outcome: Ongoing, Progressing Problem: Pain Acute Goal: Optimal Pain Control and Function Outcome: Ongoing, Progressing Problem: Surgery Nonspecified Goal: Absence of Bleeding Outcome: Ongoing, Progressing Goal: Effective Bowel Elimination Outcome: Ongoing, Progressing Goal: Fluid and Electrolyte Balance Outcome: Ongoing, Progressing Goal: Blood Glucose Level Within Target Range Outcome: Ongoing, Progressing Goal: Absence of Infection Signs and Symptoms Outcome: Ongoing, Progressing Goal: Anesthesia/Sedation Recovery Outcome: Ongoing, Progressing Goal: Optimal Pain Control and Function Outcome: Ongoing, Progressing Goal: Nausea and Vomiting Relief Outcome: Ongoing, Progressing Goal: Effective Urinary Elimination Outcome: Ongoing, Progressing Goal: Effective Oxygenation and Ventilation Outcome: Ongoing, Progressing Problem: Mobility Impairment Goal: Optimal Mobility Outcome: Ongoing, Progressing Problem: Infection Goal: Absence of Infection Signs and Symptoms Outcome: Ongoing, Progressing Problem: Wound Goal: Optimal Coping Outcome: Ongoing, Progressing Goal: Skin Health and Integrity Outcome: Ongoing, Progressing Goal: Optimal Wound Healing Outcome: Ongoing, Progressing * Query Clarification Note - Noemí Ni MD - 10/18/2024 9:05 AM EDT Physician Clarification Based on the below clinical indicators, please provide the most appropriate diagnosis reflecting the patient's functional status: []Paraplegia Please specify: []Complete []Incomplete []Reduced/impaired/decreased functional mobility [x]Other (please specify) Spina bifida This documentation will become part of the patient's medical record. * Query Clarification Note - Noemí Ni MD - 10/18/2024 9:04 AM EDT Physician Clarification Please review below and specify the depth of the excisional debridement. Please check the appropriate choice. []Skin [x]Subcutaneous Tissue and Fascia []Muscle []Joint []Tendons []Bones []Bursa & Ligaments []Other (please list sites) This documentation will become part of the patient's medical record. * Care Plan - Sue Oseguera RN - 10/18/2024 5:37 AM EDT Problem: Adult Inpatient Plan of Care Goal: Plan of Care Review Outcome: Ongoing, Progressing Flowsheets (Taken 10/18/2024 0537) Plan of Care Reviewed With: patient Goal: Patient-Specific Goal (Individualized) Outcome: Ongoing, Progressing Goal: Absence of Hospital-Acquired Illness or Injury Outcome: Ongoing, Progressing Goal: Optimal Comfort and Wellbeing Outcome: Ongoing, Progressing Goal: Readiness for Transition of Care Outcome: Ongoing, Progressing Problem: Pain Acute Goal: Optimal Pain Control and Function Outcome: Ongoing, Progressing Problem: Surgery Nonspecified Goal: Absence of Bleeding Outcome: Ongoing, Progressing Goal: Effective Bowel Elimination Outcome: Ongoing, Progressing Goal: Fluid and Electrolyte Balance Outcome: Ongoing, Progressing Goal: Blood Glucose Level Within Target Range Outcome: Ongoing, Progressing Goal: Absence of Infection Signs and Symptoms Outcome: Ongoing, Progressing Goal: Anesthesia/Sedation Recovery Outcome: Ongoing, Progressing Goal: Optimal Pain Control and Function Outcome: Ongoing, Progressing Goal: Nausea and Vomiting Relief Outcome: Ongoing, Progressing Goal: Effective Urinary Elimination Outcome: Ongoing, Progressing Goal: Effective Oxygenation and Ventilation Outcome: Ongoing, Progressing Problem: Mobility Impairment Goal: Optimal Mobility Outcome: Ongoing, Progressing Problem: Infection Goal: Absence of Infection Signs and Symptoms Outcome: Ongoing, Progressing Problem: Wound Goal: Optimal Coping Outcome: Ongoing, Progressing Goal: Skin Health and Integrity Outcome: Ongoing, Progressing Goal: Optimal Wound Healing Outcome: Ongoing, Progressing * Procedures - Surya Koehler RN - 10/17/2024 10:56 PM EDTAssociated Order(s): Insert peripheral IV Insert peripheral IV Performed by: Surya Koehler RN Authorized by: Noemí Ni MD Hand hygiene: Hand hygiene performed prior to insertion Inserted using aseptic techniques: Yes Preparation: Skin prepped with chg Orientation: Left and upper Location: Arm Catheter placed: Peripheral IV Catheter size: 20g/2.00in Line Technique: Ultrasound Guidance Number of attempts: 1 IV flushes: Without difficulty and positive blood return noted and IV luer locked Patient tolerance: Patient tolerated the procedure well and there were no complications Patient comfort measures used: Distraction and position of comfort IV site covered with: Transparent semipermeable dressing * Progress Notes - An Humphrey - 10/17/2024 3:19 PM EDT Case Management Adult Progress Note Naga Padgett 34 y.o. male CSN: [id number] Admission: 10/11/2024 9:17 AM Primary Problem: Decubitus ulcer of right ischium, stage IV (CMS/HCC) Anticipated Discharge Date: TBD Additional Comments: Pt is MR to DC to a facility this date. [facility] [phone], JACK asked [facility] to begin authorization. [facility] unable to accept the patient. SW will follow up with pt and family at a later date. No further SW concerns identified at this time. SW will monitor pt's progress and will follow up with DC planning and needs as appropriate. An Humphrey, V BELT SKIVER, HOUSEHOLD PERSONAL ASSISTANT Social Work Senior Department of Case Management [facility] * Progress Notes - Ivania Amaya, PT - 10/17/2024 11:30 AM EDT PHYSICAL THERAPY TREATMENT PATIENT DATA Patient Name Naga Padgett Session Date 10/17/2024 Total Treatment Time 24 min PT Discharge Recommendations LTACH Equipment Recommendations Defer to facility PRECAUTIONS Weight Bearing Precautions (if applicable) ROM Restrictions (if applicable) Medical Precautions Medical Precautions: Fall precautions, Post-Surgical precautions Post-Surgical Precautions: Pressure Offloading: Dolphin bed. Do NOT sit directly on the flap. Prefer for patient to offload from the right side by laying in left lateral decubitus position HOME LIVING/SET-UP Lives With (lives with each parent, alternates homes) Home Type House (goes between each parent's houses (), dad has elevator, mom has chair lift) Home Equipment Wheelchair-manual Home Layout Two level (can live on 1st floor in both homes. Ramp entry at mom's home, ramp through garage at dad's) Bathroom Layout Tub/Shower combo, Tub transfer bench Standard Accessible Additional Comments father's house is more easily accessible than mother's home PRIOR LEVEL OF FUNCTION Receives help from Parent (able to transfer to w/c, commode, transfer bench independently. Dresses independently.) Level of Mobility Wheelchair/Scooter (paraplegic) Mobility Teton Independent wheelchair propulsion History of Falls No ADL Performance Independent PRESENTATION Oxygen None (Room air) Lines and Tubes Closed/Suction Drain 1 Right;Posterior Thigh Bulb 19 Fr. (Active) Colostomy Umbilicus (Active) Urethral Catheter (Active) Negative Pressure Wound Therapy Buttocks Right (Active) Peripheral IV 10/16/24 Left;Posterior;Proximal Forearm (Active) Pre-Session Side lying right, Lines intact RN agreeable to therapy treatment. Post-Session Side lying left, Lines intact, Call light in reach, RN notified Patient positioned forcomfort/pressure relief to maintain off-loading precautions with pillow and z-jimbo cushion support and all needs in reach. Bracing (if applicable) SUBJECTIVE PARTICIPANTS IN CARE Patient/Caregiver Comments Patient agreeable to therapy treatment. Reports he's already had a wound vac change due to leaking. Visitors Present No Chief Chemist (if applicable) N/A OBJECTIVE Vital Signs Pre-Session Heart Rate (BPM) 117 O2 Saturation (%) 98 Blood Pressure (mmHg) 140 / 72 (95) PAIN No reports of pain. I'm paralyzed. DELIRIUM SCREENING Chavis Agitation Sedation Scale (RASS): Alert and calm Confusion Assessment Method-ICU (CAM-ICU/PCAM-ICU) Feature 3: Altered Level of Consciousness: Negative INTERVENTIONS THERAPEUTIC ACTIVITY Treatment Minutes 24 Interventions Patient participated in PT interventions targeting strength, endurance, and range of motion to improve functional mobility and activity. See bed mobility sections for details. Additional time required for line management and room set-up for safe mobility. Patient monitored for signs of intolerance to activity throughout session. BED MOBILITY Level of Teton Physical/Non- physical Assist Adaptive Equipment Utilized Rolling/ Turning Minimum assist (75% patient effort) Additional assist utilized for safety, Verbal Cues, Set-up required Bed rails, Other (drawsheet) Scooting/ Bridging Supine to Sit Sit to Supine Interventions Patient reports he's ready to change position in bed and was assisted to roll from right sidelying to left sidelying. TRANSFERS Level of Teton Physical/Non- physical Assist Adaptive Equipment Utilized Sit to Stand Stand to sit Bed to Chair Toilet Transfer Shower Transfer Interventions Patient reported being able to complete sit < > sit transfers independently at baseline. Patient currently NOT able to engage in these types of transfers d/t pressure off-loading precautions. BALANCE Interventions Unable to assess as patient is limited to bed mobility only. Postural Appearance Level of Teton Balance Support Interventions Static Sit Dynamic Sit Static Stand Dynamic Stand AMBULATION Level of Teton Distance Adaptive Equipment Utilized Ambulation Comments Patient is non-ambulatory at baseline. THERAPEUTIC EXERCISE Interventions Patient's left leg with knee flexion contracture, but PT passively stretched available range at knee/ankle. No ROM to RLE due to flap/precautions. ASSESSMENT Patient's mobility remains limited by his non weight bearing precautions while flap heals. Patient demonstrates good upper body strength and able to assist with turning and pressure relief in bed. No new changes/complaints. PT RECOMMENDATIONS Discharge Destination LTACH Discharge Equipment Defer to facility PLAN Continue with established PT plan of care 1 - 3 times per week to progress towards PT goals. PT GOALS PT GOAL DETAILS Goal Established Date Time Frame Goal Status PT Goal 1: patient and family to be I with discharge recommendations and precautions 10/12/24 2 weeks PT Goal 2: patient to perform rolling bilaterally with independence 10/12/24 2 weeks PT Goal 3: patient to transfer sup<>sit with min A, maintaining offloading precautions to R posterior thigh flap 10/12/24 2 weeks Written by Ivania Amaya PT on 10/17/24 at 12:51 PM. * Progress Notes - Magalis Grant E - 10/17/2024 11:29 AM EDT Occupational Therapy Treatment Patient Name: Naga Padgett Today's Date: 10/17/2024 OT Discharge Recommendations: LTACH Equipment Recommended: Defer to facility Subjective I have been using the blue and black therabands. Participants in Care Family/Caregiver Present: No Chief Chemist: Not Applicable Presentation Oxygen Therapy: None (Room air) Lines and Tubes: Wound vac, Surgical drains, Urinary catheter, Intravenous access (SATYA drain, colostomy) Pre-Session: Side lying right, Lines intact Pre-Session Comments: RN agreeable to therapy treatment. Post-Session: Side lying left, Lines intact, Call light in reach, RN notified Post-Session Comments: Patient positioned for comfort/pressure relief to maintain off-loading precautions with pillow and z-jimbo cushion support and all needs in reach. Precautions Medical Precautions: Fall precautions, Post-Surgical precautions Post-Surgical Precautions: Pressure Offloading: Dolphin bed. Do NOT sit directly on the flap. Prefer for patient to offload from the right side by laying in left lateral decubitus position Objective Pain Pt denied pain. Delirium Screening Chavis Agitation Sedation Scale (RASS): Alert and calm Confusion Assessment Method-ICU (CAM-ICU/PCAM-ICU) Feature 3: Altered Level of Consciousness: Negative Cognition Cognition Overall Cognitive Status: Within Functional Limits Arousal/Alertness: Appropriate responses to stimuli Mood/Behavior: Alert Orientation Level: Oriented X4 Single Step Commands: Consistently, 100% of the time Multi-Step Commands: Consistently, 100% of the time Method of Communication: Verbal Safety Judgment: Good awareness of safety precautions Awareness of Errors: Good awareness of errors made Deficit Awareness: Fully aware of deficits Attention Span: Appears intact Bed Mobility Bed Mobility Interventions: Patient reports he's ready to change position in bed and was assisted to roll from right sidelying to left sidelying. Bed Mobility Exam: Rolling/Turning Level of Teton: Minimum assist (75% patient effort) Physical/Nonphysical Assist: Additional assist utilized for safety, Verbal Cues, Set-up required Transfers Transfer Interventions: Patient reported being able to complete sit < > sit transfers independently at baseline. Patient currently NOT able to engage in these types of transfers d/t pressure off-loading precautions. Self-Care Interventions Self Care/Home Management (ADLs) Time Entry: 8 Pt benefited from skilled occupational therapy interventions including: Monitoring of vitals to ensure activity tolerance (VSS) MIN verbal, visual, and tactile cues to facilitate improved body mechanics and safety during functional tasks at bed level Provision of increased time frames to support optimal level of pt participation Task/activity modification with grading as needed to achieve safety while also providing appropriate functional challenge Skilled organization and management of medical lines/tubes to reduce fall risk with mobility aspects of ADLs Environmental set-up to ensure safety and accessibility to all needed areas of treatment space Re-educated pt on sacrum offloading precautions, pt aware and adhering throughout session Educated pt on process of acute care therapy and post acute therapy process, pt receptive UE Dressing UE Dressing Level of Assistance: Setup, Modified independent UE Dressing Where Assessed: Bed level UE Dressing Interventions: While semi-reclined in bed, pt donned a hospital gown with setup-mod I. Pt required min cues for correctly threading his BUE through the gown holes. Toileting Toileting Level of Assistance: Dependent, Minimum assistance, Minimal verbal cues Where Assessed: Other (Comment) (simulated during functional bed mobility, rolling) Toileting Interventions: In prep for toileting activities and transfers, pt practiced functionally rolling from right to left in bed with min assist + min cues for initiating and carrying out log rolling. Pt declined assist with toileting hygiene- nurse in room earlier assisting pt with pericare. Pt unable to progress to EOB, chair, or wheelchair due to sacrum offloading precautions. Therapeutic Exercise (15 minutes) Patient engaged in the following therapeutic exercises to maintain joint integrity, provide proprioceptive input to joints, improve body mechanics, and to promote postural/BUE strengthening. While semi-reclined in bed, pt performed bilateral shoulder adduction/abduction, bilateral elbow flexion/extension, bilateral shoulder external rotation x10-12 reps using both the blue and black therabands for resistance. OT provided cues for proper technique and explanation for how these exercises facilitate strengthening and positively impact functional mobility/ADL participation. Assessment On this date, pt demonstrated good functional improvement during OT session, with ability to engagein ADL preparatory routines (functional bed mobility, BUE HEP, UB dressing) with min assist-mod I, increased time, min cues, use of bed railing, and rest breaks. Pt remains limited by symptoms consistent with sacrum offloading precautions, fatigue, BLE weakness/sensory deficits, poor skin integrity, imbalance, decreased activity endurance. This negatively impacts safety and independence with self-care execution. With this in mind, OT will continue to follow while hospitalized but pt is currently most appropriate for LTACH upon discharge. While pt remains hospitalized, OT will provide skilled t herapy services for the purpose of improving functional status, decreasing caregiver level of burden, and increasing quality of life. OT Recommendations Discharge Destination: LTACH Discharge Equipment: Defer to facility Plan Continue with established OT plan of care 2-5x/week to progress towards functional OT goals. Goals OT GOAL DETAILS Goal Established Date Time Frame Goal Status OT Goal 1: Patient/Family/Caregiver will be independent in bilateral upper extremity home exercise program to promote increased strength/activity tolerance required for engagement in higher level self-cares/mobility. 10/12/24 2 weeks OT Goal 2: Patient will demonstrate appropriate off-loading measures to maintain pressure offloading precautions with stand-by assistance and AE as needed. 10/12/24 2 weeks OT Goal 3: Patient will complete total body dressing with minimum assistance and AE as needed whilemaintaining precautions. 10/12/24 2 weeks OT Goal 4: Patient will complete sponge/bed level bathing with minimum assistance and AE as needed while maintaining precautions. 10/12/24 2 weeks Written by Magalis Grant on 10/17/24 at 1:42 PM. * Progress Notes - Kadi Galeano MD - 10/17/2024 7:41 AM EDT Images from the original note were not included. [facility] Department of Surgery Division of Plastic Surgery Surgery Progress Note 10/17/24 Naga Padgett Subjective Subjective: HPI NAEO. Resting comfortably in bed at time of rounds. Pain is controlled. WV changed yesterday due topersistent leak, now functioning appropriately. Tolerating diet, denies n/v. No acute complaints today. Review of Systems: Relevant review of systems was obtained as able and is negative unless stated above in HPI. Objective Objective: Vital signs: Vitals: 10/17/24 0737 BP: 100/63 Pulse: 108 Resp: Temp: SpO2: Physical Exam: Physical Exam Constitutional: General: He is not in acute distress. Appearance: He is not ill-appearing. HENT: Head: Normocephalic and atraumatic. Mouth/Throat: Mouth: Mucous membranes are moist. Eyes: Extraocular Movements: Extraocular movements intact. Cardiovascular: Rate and Rhythm: Normal rate and regular rhythm. Pulmonary: Effort: Pulmonary effort is normal. Abdominal: General: There is no distension. Genitourinary: Comments: Montejo in place with CYU Skin: General: Skin is warm and dry. Capillary Refill: Capillary refill takes less than 2 seconds. Comments: Right ischial and posterior thigh incisions with WV in place, functioning appropriately, c/d/I. Flap appears WWP, pink, cap refill 2sec. SATYA drain with SS output Neurological: Mental Status: He is alert and oriented to person, place, and time. Psychiatric: Mood and Affect: Mood normal. Intake/Output Summary (Last 24 hours) at 10/17/2024 0741 Last data filed at 10/17/2024 0356 Gross per 24 hour Intake 250 ml Output 5215 ml Net -4965 ml Lines/Drains/Tubes: Patient Lines/Drains/Airways Status Active Airway None Output by Drain (mL) 10/15/24 07 - 10/15/24 1859 10/15/24 1900 - 10/16/24 0659 10/16/24 07 - 10/16/24 1859 10/16/24 1900 - 10/17/24 0659 10/17/24 07 - 10/17/24 0741 Closed/Suction Drain 1 Right;Posterior Thigh Bulb 19 Fr. 30 40 20 20 Labs in last 18 hours: CBC WBC ?? Hb ?? Plt ?? Hct ?? ANC ?? INR ??, PTT ??, Anti-Xa ?? MCV ?? BMP Na ?? Cl ?? BUN ?? Glu ?? K ?? Co2 ?? Cr ?? Ca ?? iCa ?? Mg ??, Phos ?? Lactate ?? LFT AST ?? AlkPhos ?? T Prot ?? ALK ?? Bili ?? Alb ?? D.Bili ?? Lab Trends: H/H INR Cr Results from last 7 days Lab Units 10/15/24 0424 10/14/24 0424 10/13/24 0438 CREATININE mg/dL 0.65* 0.61* 0.70 Lactate No lab exists for component: LACTTEVEN Radiographic Interpretation: No relevant imaging to review. Medications reviewed. Vital signs reviewed. Labs reviewed. Assessment/Plan Assessment and Plan: Naga Padgett is a 34 y.o. male with history of spina bifida and Stage IV right ischial pressure injury who is now s/p right ischial pressure wound excision and posterior thigh rotation flap on 10/11/24. Plan: - Continue pressure offloading --Dolphin bed. Do not sit directly on the flap. We prefer for patient to offload from the right side by laying in left lateral decubitus position. - Diligent hygiene, especially after BM - Nutrition optimization. Boost TID - Continue Montejo - F/u culture susceptibilities. Continue Vanc - PT/OT, placement Dispo: Continue Current Level of Care Kadi Galeano MD Cosigned by Noemí Ni MD at 10/22/2024 5:03 PM EDT Associated attestation - Noemí Ni MD - 10/22/2024 5:03 PM EDT I saw and evaluated the patient. I discussed the case with the resident/fellow and agree with the findings and plan as documented. * Hospital Course - Kadi Galeano MD - 10/17/2024 1:54 AM EDT Naga Padgett is a 34 y.o. male with PMH of spina bifida, hidradenitis suppurativa, and stage IV right ischial pressure injury who presented for scheduled surgery with Dr. Ni on 10/11. Procedures performed included right ischial wound debridement and excision, right posterior thigh fasciocutaneous rotation flap, and incisional wound vac placement. The patient tolerated the procedure well and was subsequently extubated and transferred to the floor for recovery and monitoring. During his stay nutrition was optimized, ensured pressure offloading to promote flap healing, and he was treated with Vancomycin and transitioned to doxycycline for bacterial coverage and completed his antibiotic course. The patient's hospital course was uncomplicated and it was felt that the patient had reached maximal benefit from hospitalization. They were deemed appropriate for discharge to home with home health with specialty hospital bed for pressure offloading and assistance with urinary catheter management during the post- operative period. Montejo catheter was exchanged on 10/30/24. On the day of discharge the patient's pain was controlled on oral medications, passing flatus, and tolerating oral intake. The patient was discharged on 10/30/24 to home with home health and will return to clinic with Dr. Ni in 2-4 weeks. * Care Plan - Mary Jose RN - 10/16/2024 7:15 PM EDT Problem: Adult Inpatient Plan of Care Goal: Plan of Care Review Outcome: Ongoing, Progressing Goal: Patient-Specific Goal (Individualized) Outcome: Ongoing, Progressing Goal: Absence of Hospital-Acquired Illness or Injury Outcome: Ongoing, Progressing Goal: Optimal Comfort and Wellbeing Outcome: Ongoing, Progressing Goal: Readiness for Transition of Care Outcome: Ongoing, Progressing Problem: Pain Acute Goal: Optimal Pain Control and Function Outcome: Ongoing, Progressing Problem: Surgery Nonspecified Goal: Absence of Bleeding Outcome: Ongoing, Progressing Goal: Effective Bowel Elimination Outcome: Ongoing, Progressing Goal: Fluid and Electrolyte Balance Outcome: Ongoing, Progressing Goal: Blood Glucose Level Within Target Range Outcome: Ongoing, Progressing Goal: Absence of Infection Signs and Symptoms Outcome: Ongoing, Progressing Goal: Anesthesia/Sedation Recovery Outcome: Ongoing, Progressing Goal: Optimal Pain Control and Function Outcome: Ongoing, Progressing Goal: Nausea and Vomiting Relief Outcome: Ongoing, Progressing Goal: Effective Urinary Elimination Outcome: Ongoing, Progressing Goal: Effective Oxygenation and Ventilation Outcome: Ongoing, Progressing Problem: Mobility Impairment Goal: Optimal Mobility Outcome: Ongoing, Progressing Problem: Infection Goal: Absence of Infection Signs and Symptoms Outcome: Ongoing, Progressing Problem: Wound Goal: Optimal Coping Outcome: Ongoing, Progressing Goal: Skin Health and Integrity Outcome: Ongoing, Progressing Goal: Optimal Wound Healing Outcome: Ongoing, Progressing * Care Plan - Leona Dickerson RN - 10/16/2024 4:16 PM EDT Problem: Wound Goal: Optimal Coping Outcome: Ongoing, Progressing Intervention: Support Patient and Family Response Flowsheets (Taken 10/16/2024 1615) Supportive Measures: active listening utilized Goal: Skin Health and Integrity Outcome: Ongoing, Progressing Intervention: Optimize Skin Protection Flowsheets (Taken 10/16/2024 1615) Skin Protection: specialty mattress utilized absorbent pad utilized/changed Goal: Optimal Wound Healing Outcome: Ongoing, Progressing Intervention: Promote Wound Healing Flowsheets (Taken 10/16/2024 1615) Sleep/Rest Enhancement: other (see comments) Note: Patient evaluated by WOCN, individualized orders placed and care plan interventions placed, see wound care note for further details. * Progress Notes - Leona Dickerson RN - 10/16/2024 4:03 PM EDT Images from the original note were not included. Wound Care Consult Visit Date: 10/16/2024 Patient Name: Naga Padgett Date of : 1990 Admit Date: 10/11/2024 Reason for Consult: IP Wound Orders (From admission, onward) Start Ordered 10/12/24 1426 Wound ostomy eval and treat 5 Wounds Associated Once Comments: For eval and treatment of groin skin Question Answer Comment Reason for consult: Wound/pressure injury Reason for consult: Ostomy Reason for consult: Other Comment: hidradenitis in groin Instructions: Prior to sending evaluation & treat order, place wound/ostomy LDA, complete a wound/ostomy assessment, and consider taking a photograph to document. 10/12/24 1427 Wound History: Per chart review patient with spina bifida, Hidradenitis Suppurativa and Stage IV right ischial pressure injury s/p debridement and flap 10/11. Patient states he has seen a dermatologistfor HS and has tried topical clindamycin gel, states it did not help, has been applying zinc ointment with menthol at home and satisfied with results. Wound Assessment: Wound 01/26/24 Groin (Active) Date First Assessed/Time First Assessed: 01/26/24 0929 Hand Hygiene Completed: Yes Location: Groin Wound Description (Comments): Right groin Assessments 10/16/2024 11:57 AM Wound Image Wound Assessment Red;Granulation Margins Well-defined edges Amy-Wound Assessment Clean;Intact Shape irregular, full thickness skin loss with red, moist granulation tissue Drainage Description Serous Drainage Amount Small Treatments Cleansed Dressing Open to air Dressing Status Open to air State of Healing Early/partial granulation Non-staged Wound Description Full thickness Active Orders Date Order Priority Status Authorizing Provider 10/16/24 0904 Apply/Change Wound Dressing 2 Wounds Associated Routine Active Noemí Ni MD - Dressing Type: Other Dressings - Dressing Type: Silver dressing - Other: Other (Comment) - Other dressing (comment):: Groin-cleanse with chlorhexidine soap, pat dry, apply mepilex ag foam dressing, change daily or PRN soiling or saturation. Wound Team Summary Assessment: Groin assessed as above, wounds appear clean with red, moist granulation tissue. Mom and patient state they have struggled with drainage control, keeping the area clean. They have been changing dressings multiple times a day and cleansing the area at the time of dressing changes. Recommendation placed for chlorhexidine cleanser and antimicrobial foam dressing. Wound Team Plan: Wound care will follow up at regular intervals while inpatient; bedside nursing tofollow wound care recommendations as ordered and please re- consult sooner for new changes or concerns prior to follow up. Leona Dickerson RN 10/16/2024 4:03 PM * Care Plan - Yen Painting RN - 10/16/2024 3:53 PM EDT Problem: Adult Inpatient Plan of Care Goal: Plan of Care Review Outcome: Ongoing, Progressing Flowsheets (Taken 10/15/2024 1012 by Bernardo Pacheco, RN) Plan of Care Reviewed With: patient Goal: Patient-Specific Goal (Individualized) Outcome: Ongoing, Progressing Goal: Absence of Hospital-Acquired Illness or Injury Outcome: Ongoing, Progressing Goal: Optimal Comfort and Wellbeing Outcome: Ongoing, Progressing Goal: Readiness for Transition of Care Outcome: Ongoing, Progressing Problem: Pain Acute Goal: Optimal Pain Control and Function Outcome: Ongoing, Progressing Problem: Surgery Nonspecified Goal: Absence of Bleeding Outcome: Ongoing, Progressing Goal: Effective Bowel Elimination Outcome: Ongoing, Progressing Goal: Fluid and Electrolyte Balance Outcome: Ongoing, Progressing Goal: Blood Glucose Level Within Target Range Outcome: Ongoing, Progressing Goal: Absence of Infection Signs and Symptoms Outcome: Ongoing, Progressing Goal: Anesthesia/Sedation Recovery Outcome: Ongoing, Progressing Goal: Optimal Pain Control and Function Outcome: Ongoing, Progressing Goal: Nausea and Vomiting Relief Outcome: Ongoing, Progressing Goal: Effective Urinary Elimination Outcome: Ongoing, Progressing Goal: Effective Oxygenation and Ventilation Outcome: Ongoing, Progressing Problem: Mobility Impairment Goal: Optimal Mobility Outcome: Ongoing, Progressing Problem: Infection Goal: Absence of Infection Signs and Symptoms Outcome: Ongoing, Progressing * Consults - Gale Vernon RD - 10/16/2024 1:33 PM EDT Adult Nutrition Evaluation Note Naga Padgett 34 y.o. male CSN: [id number] Room/Bed 221/221A Nutrition evaluation type: assessment Reason for evaluation: Wound Hospital course: 34 y o M with PMH spinda bifida & stage 4 R ischial PI, admitted 10/11/24 s/p Right ischial pressure wound debridement and excision, Right posterior thigh fasciocutaneous rotation flap, & incisional wound vac placement. Past medical/ surgical history: Past Medical History[1], hidradenitis (bilateral groin) Surgical History[2] Social history: Social History[3] Additional comments: 10/16: Per notes, tolerating diet though finds it difficult to eat while positioned on his side. Vitals and Basic Assessment: BP: (!) 151/85 Temp: 36.5 ??C (97.7 ??F) Oxygen Therapy: None (Room air) O2 Delivery Method: Face tent Paul Coma Scale Score: 15 Wu Scale Score: 15 Most Recent BM Date: 10/13/24 GI Symptoms: Nausea Skin: wound vac, R ischium PI / surgical wound, Groin wounds Ostomy output: 10/15: 0 mL, 10/14: no record Allergies: NKFA Medications: Current Scheduled Medications[4] Current Continuous Medications[5] Current PRN Medications[6] Meds were reviewed: Yes Labs: Results from last 7 days Lab Units 10/15/24 0424 10/14/24 0424 10/13/24 0438 10/11/24 1657 SODIUM mmol/L -- -- -- 137 POTASSIUM mmol/L -- -- -- 4.7 CHLORIDE mmol/L -- -- -- 106 CO2 mmol/L -- -- -- 19* BUN mg/dL -- -- -- 11 CREATININE mg/dL 0.65* 0.61* 0.70 0.66* EGFR mL/min/1.73m*2 126.8 129.3 124.0 126.2 GLUCOSE mg/dL -- -- -- 114* CALCIUM mg/dL -- -- -- 8.5* No results found for: MG Lab Results Component Value Date ALT 33 11/22/2023 AST 16 11/22/2023 ALKPHOS 79 02/05/2023 BILITOT <0.2 11/22/2023 Lab Results Component Value Date ALBUMIN 3.6 11/22/2023 No results found for: PREALBUMIN Lab Results Component Value Date CRP 120.0 (H) 02/06/2023 No results found for: HGBA1C No results found for: CHOL No results found for: HDL No results found for: LDLCALC No results found for: TRIG Anthropometrics: Height: 157.5 cm Weight: 86.8 kg IBW: 53.6 kg %IBW: 153.6 Adjusted Body Weight: 61.9 kg BMI: 35 Wt evaluation: Obese - Class 2 Weight History: Wt Readings from Last 30 Encounters: 10/14/24 86.8 kg (191 lb 5.8 oz) 08/25/24 83.5 kg (184 lb) 07/19/24 83.5 kg (184 lb) 06/22/24 83.9 kg (184 lb 15.5 oz) 03/22/24 83.9 kg (184 lb 15.5 oz) 01/26/24 83.9 kg (184 lb 15.5 oz) 12/31/23 83.9 kg (185 lb) 10/29/23 83.9 kg (184 lb 15.5 oz) 09/28/23 83.9 kg (184 lb 15.5 oz) 08/27/23 83.9 kg (185 lb) 07/29/23 83.9 kg (185 lb) 03/09/23 83.9 kg (185 lb) 02/23/23 83.9 kg (185 lb) 02/04/23 83.9 kg (184 lb 15.5 oz) 02/04/23 83.9 kg (185 lb) 12/29/22 83.9 kg (185 lb) 11/17/22 83.9 kg (185 lb) 10/06/22 83.9 kg (185 lb) 10/05/22 83.9 kg (185 lb) 09/11/22 83.9 kg (185 lb) 09/08/22 83.5 kg (184 lb) 08/25/22 83.9 kg (184 lb 15.5 oz) -No significant wt loss in review periods per EMR review Wt Trend: Date/Time Weight 10/14/24 03:09:25 86.8 kg (191 lb 5.8 oz) 10/12/24 0600 84 kg (185 lb 3 oz) 10/11/24 1045 83.9 kg (185 lb) 10/10/24 0849 83.9 kg (185 lb) -Continue to monitor trend for accuracy Estimated Needs: Kcal: 30-35 kcal/kg AdjBW (3765-9034 kcal/d) Pro: 1.5-2 g/kg AdjBW (93-124 g/d) Current Nutrition Intake: Diet: Regular Supplements: Boost [facility] TID Intake: no po intake recorded since admit 5 days ago Nutrition Support: None at this time Diet Experience & Nutrition History: Diet Education: Will monitor Pertinent Home Medications: Prilosec Nutrition Focused Physical Exam: Physical exam performed on (date): pending Assessment of Malnutrition: Nutrition Problem: Increased nutrient needs (protein) related to increased requirement for healing as evidenced by stage 4 PI requiring operative intervention. Status of Nutrition Diagnosis: New Nutrition Interventions and Recommendations: -Continue Regular diet as tolerated -Please record po intake in EMR -Continue Boost [facility] TID -Adding Sukumar BID -Recommend MVI with minerals daily -Consider checking Zinc level & supplement if deficient -Recommend weekly weight monitoring Nutrition Monitoring and Goals: -Monitor tolerance and adequacy of po intake / enteral infusion, wt changes, bowel fxn, labs, skin integrity; and follow up per acuity -Pt will tolerate and consume >/= 75% of most meals & supplements -NFPE on follow up Acuity Level: 3 Gale Vernon, RD, LD [1] Past Medical History: Diagnosis Date Acid reflux Anxiety Scoliosis Spina bifida 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) [2] Past Surgical History: Procedure Laterality Date BACK SURGERY spina bifida CREATION OF CUTANEOUS STOMA FOOT SURGERY LEG SURGERY MYRINGOTOMY W/ TUBES PRESSURE ULCER DEBRIDEMENT SHUNT PROCEDURE SPINE SURGERY Tether cord release VENTRICULOPERITONEAL SHUNT 2 revisions WOUND DEBRIDEMENT [3] Social History Tobacco Use Smoking status: Former Current packs/day: 0.00 Average packs/day: 0.5 packs/day for 5.0 years (2.5 ttl pk-yrs) Types: Cigarettes Start date: 04/12/2006 Quit date: 04/12/2011 Years since quittin.5 Passive exposure: Never Smokeless tobacco: Never Vaping Use Vaping status: Never Used Substance Use Topics Alcohol use: Yes Comment: Occasional Drug use: Never [4] acetaminophen, 1,000 mg, Oral, q6h JOSUÉ bisacodyl, 10 mg, Rectal, Every other day diphenhydrAMINE, 25 mg, Intravenous, q12h And vancomycin, 1,250 mg, Intravenous, q12h enoxaparin, 40 mg, Subcutaneous, Daily erythromycin, 1 Application, Left Eye, q6h JOSUÉ lamoTRIgine, 100 mg, Oral, Nightly mupirocin, 1 Application, Each Nostril, BID oxybutynin XL, 10 mg, Oral, Nightly pantoprazole, 40 mg, Oral, BID AC sodium chloride, 10 mL, Intravenous, q12h [5] [6] PRN medications: melatonin, ondansetron ODT OR ondansetron OR ondansetron, oxyCODONE, [COMPLETED] Insert peripheral IV AND Saline lock IV AND sodium chloride AND sodium chloride * Progress Notes - An Humphrey P - 10/16/2024 12:40 PM EDT Case Management Adult Progress Note Naga Padgett 34 y.o. male CSN: [id number] Admission: 10/11/2024 9:17 AM Primary Problem: Decubitus ulcer of right ischium, stage IV (CMS/HCC) Anticipated Discharge Date: TBD Additional Comments: Pt is MR to DC this date to Swing bed unit. Pt was not accepted by LTACH as pt does not meet the criteria for LTACH. SW made referrals this date via careport to swing bed units. No further SW concerns identified at this time. SW will monitor pt's progress and will follow up with DC planning and needs as appropriate. An Humphrey, V BELT SKIVER, HOUSEHOLD PERSONAL ASSISTANT Social Work Senior Department of Case Management [facility] * Progress Notes - Kadi Galeano MD - 10/16/2024 9:28 AM EDT Images from the original note were not included. [facility] Department of Surgery Division of Plastic Surgery Surgery Progress Note 10/16/24 Naga Proctorson Subjective Subjective: HPI NAEO. Resting comfortably in bed at time of rounds. States he is not sleeping well. Tolerating diet, denies n/v. Having BM. WV functioning appropriately. No acute complaints. Review of Systems: Relevant review of systems was obtained as able and is negative unless stated above in HPI. Objective Objective: Vital signs: Vitals: 10/16/24 0741 BP: 115/76 Pulse: 108 Resp: 18 Temp: 36.9 ??C (98.5 ??F) SpO2: 96% Physical Exam: Physical Exam Expand All Collapse All [facility] Department of Surgery Division of Plastic Surgery Surgery Progress Note 10/14/24 Naga Padgett Subjective: HPI NAEO. Pain is controlled. UOP appropriate via Montejo. He has been compliant with pressure offloading. Finds it difficult to eat on his side. Denies n/v. No acute complaints. Review of Systems: Relevant review of systems was obtained as able and is negative unless stated above in HPI. Objective[]Expand by Default Objective: Vital signs: Vitals: 10/14/24 1153 BP: 129/81 Pulse: (!) 111 Resp: Temp: 36.6 ??C (97.9 ??F) SpO2: 97% Physical Exam: Physical Exam Constitutional: General: He is not in acute distress. Appearance: He is not ill-appearing. HENT: Head: Normocephalic and atraumatic. Mouth/Throat: Mouth: Mucous membranes are moist. Eyes: Extraocular Movements: Extraocular movements intact. Cardiovascular: Rate and Rhythm: Normal rate and regular rhythm. Pulmonary: Effort: Pulmonary effort is normal. Abdominal: General: There is no distension. Genitourinary: Comments: Montejo in place with CYU Skin: General: Skin is warm and dry. Capillary Refill: Capillary refill takes less than 2 seconds. Comments: Right ischial and posterior thigh incisions with WV in place, functioning appropriately, c/d/I. Flap appears WWP, pink, cap refill 2sec. SATYA drain with SS output Neurological: Mental Status: He is alert and oriented to person, place, and time. Psychiatric: Mood and Affect: Mood normal. Intake/Output Summary (Last 24 hours) at 10/16/2024 0928 Last data filed at 10/16/2024 0800 Gross per 24 hour Intake 250 ml Output 3515 ml Net -3265 ml Lines/Drains/Tubes: Patient Lines/Drains/Airways Status Active Airway None Output by Drain (mL) 10/14/24 07 - 10/14/24 18510/14/24 190 - 10/15/24 0659 10/15/24 07 - 10/15/24 1859 10/15/24 1900 - 10/16/24 0659 10/16/24 07 - 10/16/24 0928 Closed/Suction Drain 1 Right;Posterior Thigh Bulb 19 Fr. 75 30 40 20 Labs in last 18 hours: CBC WBC ?? Hb ?? Plt ?? Hct ?? ANC ?? INR ??, PTT ??, Anti-Xa ?? MCV ?? BMP Na ?? Cl ?? BUN ?? Glu ?? K ?? Co2 ?? Cr ?? Ca ?? iCa ?? Mg ??, Phos ?? Lactate ?? LFT AST ?? AlkPhos ?? T Prot ?? ALK ?? Bili ?? Alb ?? D.Bili ?? Lab Trends: H/H INR Cr Results from last 7 days Lab Units 10/15/24 0424 10/14/24 0424 10/13/24 0438 CREATININE mg/dL 0.65* 0.61* 0.70 Lactate No lab exists for component: LACTTEVEN Radiographic Interpretation: No relevant imaging to review. Medications reviewed. Vital signs reviewed. Labs reviewed. Assessment/Plan Assessment and Plan: Naga Padgett is a 34 y.o. male with history of spina bifida and Stage IV right ischial pressure injury who is now s/p right ischial pressure wound excision and posterior thigh rotation flap on 10/11/24. Plan: - Continue pressure offloading --Dolphin bed. Do not sit directly on the flap. We prefer for patient to offload from the right side by laying in left lateral decubitus position. - Diligent hygiene, especially after BM - Nutrition optimization. Boost TID - Continue Montejo - F/u culture susceptibilities. Continue Vanc - PT/OT, placement Dispo: Continue Current Level of Care Kadi Galeano MD Cosigned by Noemí Ni MD at 10/22/2024 5:02 PM EDT Associated attestation - Noemí Ni MD - 10/22/2024 5:02 PM EDT I discussed the case with the resident/fellow and agree with the findings and plan as documented. * Progress Notes - Denis Mora, PharmD - 10/16/2024 8:31 AM EDT Images from the original note were not included. Pharmacokinetic Consult - Therapeutic Drug Monitoring HPI and Hospital Course: Naga Padgett is a 34 y.o. male who continues vancomycin for Corynebacterium in OR cultures from R ischial excision. Pharmacy was consulted for management of vancomycin. Steady-state levels were obtained to assess safety and efficacy of current dosing regimen. Dose History: Antimicrobials Glycopeptides Disp Start End vancomycin in NS (Vancocin) IVPB 1,250 mg -- 10/14/2024 -- 1,250 mg, Intravenous, Every 12 hours @ 100 mL/hr, Premedicate with IV Benadryl 15 minutes prior tovancomycin administration. Linked Group 1: Placed in And Linked Group Microbiology: Results Procedure Component Value Units Date/Time Anaerobic Culture [[id number]] Collected: 10/11/24 1427 Order Status: Completed Specimen: Tissue from Buttock, Right Updated: 10/15/24 1443 Culture No anaerobes isolated Tissue Culture and Gram Stain [[id number]] (Abnormal) (Susceptibility) Collected: 10/11/24 1427 Order Status: Completed Specimen: Tissue from Buttock, Right Updated: 10/14/24 1308 Culture Light Growth Corynebacterium striatum group Comment: This isolate has been identified using the FDA Approved MALDI [employer] CA System The organism value for this result has been updated. These results have been appended to the previously preliminary verified report. Gram Stain Result No organisms seen No polymorphonuclear leukocytes seen Susceptibility Corynebacterium striatum group ETEST Erythromycin 3.0 Resistant [1] Gentamicin 0.50 Susceptible [1] Penicillin G 8.0 Resistant [1] Vancomycin 0.50 Susceptible [1] [1] Test not FDA approved. Results for research use only. Renal Function: Serum creatinine: 0.65 mg/dL (L) 10/15/24 0424 Estimated creatinine clearance: 125 mL/min (A) Pharmacokinetic Evaluation Current Regimen 1250 mg Q12H C1 (peak, drawn) 22.3 mcg/mL C2 (trough, drawn) 10.9 mcg/mL Ke 0.121 hr -1 T ?? 5.7 hr Cmax, actual 29.2 mcg/mL Ctrough, actual 9.5 mcg/mL Vd 48.3 L (0.56 L/kg) AUC 427 mg.hr/L Assessment and Plan: AUC of 427 is considered therapeutic (goal 400-600). Recommend to continue vancomycin 1250 mg IV Q12H, infused over 150 minutes with diphenhydramine pre-medication for previous history of hypersensitivity reaction. Would suggest obtaining CBC, BMP at least 2 - 3 times weekly while admitted to assess renal function (SCr/BUN/UOP). Repeat levels to be determined pending clinical course. Adjust antimicrobial therapy as appropriate pending cultures and sensitivities. Pharmacist will continue to monitor therapy with primary service. Denis Mora, EmaniD, MS, [facility] Critical Care Clinical Pharmacist, Specialty Surgery * Care Plan - Mary Jose RN - 10/15/2024 7:25 PM EDT Problem: Adult Inpatient Plan of Care Goal: Plan of Care Review Outcome: Ongoing, Progressing Goal: Patient-Specific Goal (Individualized) Outcome: Ongoing, Progressing Goal: Absence of Hospital-Acquired Illness or Injury Outcome: Ongoing, Progressing Goal: Optimal Comfort and Wellbeing Outcome: Ongoing, Progressing Goal: Readiness for Transition of Care Outcome: Ongoing, Progressing Problem: Pain Acute Goal: Optimal Pain Control and Function Outcome: Ongoing, Progressing Problem: Surgery Nonspecified Goal: Absence of Bleeding Outcome: Ongoing, Progressing Goal: Effective Bowel Elimination Outcome: Ongoing, Progressing Goal: Fluid and Electrolyte Balance Outcome: Ongoing, Progressing Goal: Blood Glucose Level Within Target Range Outcome: Ongoing, Progressing Goal: Absence of Infection Signs and Symptoms Outcome: Ongoing, Progressing Goal: Anesthesia/Sedation Recovery Outcome: Ongoing, Progressing Goal: Optimal Pain Control and Function Outcome: Ongoing, Progressing Goal: Nausea and Vomiting Relief Outcome: Ongoing, Progressing Goal: Effective Urinary Elimination Outcome: Ongoing, Progressing Goal: Effective Oxygenation and Ventilation Outcome: Ongoing, Progressing Problem: Mobility Impairment Goal: Optimal Mobility Outcome: Ongoing, Progressing Problem: Infection Goal: Absence of Infection Signs and Symptoms Outcome: Ongoing, Progressing * Progress Notes - Gregory Klein - 10/15/2024 10:46 AM EDT Images from the original note were not included. [facility] Department of Surgery Division of Plastic Surgery Surgery Progress Note 10/15/24 Naga Padgett Subjective: HPI Wound Vac had a leak overnight and was repaired. Pain is controlled. UOP appropriate via Montejo. He reports no further issues with excessive bowel movements. He has been compliant with pressure offloading. Finds it difficult to eat on his side. Denies n/v. No acute complaints. Review of Systems: Relevant review of systems was obtained as able and is negative unless stated above in HPI. Objective Objective: Vital signs: Vitals: 10/15/24 0703 BP: 116/63 Pulse: 105 Resp: Temp: 36.9 ??C (98.5 ??F) SpO2: 97% Physical Exam: Constitutional: General: He is not in acute distress. Appearance: He is not ill-appearing. HENT: Head: Normocephalic and atraumatic. Mouth/Throat: Mouth: Mucous membranes are moist. Eyes: Extraocular Movements: Extraocular movements intact. Cardiovascular: Rate and Rhythm: Normal rate and regular rhythm. Pulmonary: Effort: Pulmonary effort is normal. Abdominal: General: There is no distension. Genitourinary: Comments: Montejo in place with CYU Skin: General: Skin is warm and dry. Capillary Refill: Capillary refill takes less than 2 seconds. Comments: Right ischial and posterior thigh incisions with WV in place, functioning appropriately, c/d/I. Flap appears WWP, pink, cap refill 2sec. SATYA drain with 75cc SS output Neurological: Mental Status: He is alert and oriented to person, place, and time. Psychiatric: Mood and Affect: Mood normal. Intake/Output Summary (Last 24 hours) at 10/15/2024 1050 Last data filed at 10/15/2024 0900 Gross per 24 hour Intake 750 ml Output 3675 ml Net -2925 ml Lines/Drains/Tubes: Patient Lines/Drains/Airways Status Active Airway None Output by Drain (mL) 10/13/24 07 - 10/13/24 18510/13/24 1900 - 10/14/24 0659 10/14/24 07 - 10/14/24 1859 10/14/24 1900 - 10/15/24 0659 10/15/24 07 - 10/15/24 1050 Closed/Suction Drain 1 Right;Posterior Thigh Bulb 19 Fr. 60 75 Labs in last 18 hours: CBC WBC ?? Hb ?? Plt ?? Hct ?? ANC ?? INR ??, PTT ??, Anti-Xa ?? MCV ?? BMP Na ?? Cl ?? BUN ?? Glu ?? K ?? Co2 ?? Cr 0.65 (L) Ca ?? iCa ?? Mg ??, Phos ?? Lactate ?? LFT AST ?? AlkPhos ?? T Prot ?? ALK ?? Bili ?? Alb ?? D.Bili ?? Lab Trends: H/H INR Cr Results from last 7 days Lab Units 10/15/24 0424 10/14/24 0424 10/13/24 0438 CREATININE mg/dL 0.65* 0.61* 0.70 Lactate No lab exists for component: LACTTEVEN Vancomycin trough and peak plasma concentrations were both at subtherapeutic levels at 8.6 micrograms/mL and 14.6 micrograms/mL respectively. Culture of debrided tissue returned positive for Corynebacterium striatum with Erythromycin and Penicillin G resistance and Gentamicin and Vancomycin susceptibility. Radiographic Interpretation: No relevant imaging to review. Medications reviewed. Vital signs reviewed. Labs reviewed. Assessment/Plan Assessment and Plan: Naga Padgett is a 34 y.o. male with history of spina bifida and Stage IV right ischial pressure injury who is now four days s/p right ischial pressure ulcer excision and posterior thigh rotation flap on 10/11/24. Plan: - Continue pressure offloading --Dolphin bed. Do not sit directly on the flap. We prefer for patient to offload from the right side by laying in left lateral decubitus position. - Diligent hygiene, especially after BM - Nutrition optimization. Boost TID - Continue Montejo - Continue Vancomycin, if f/u peak and trough plasma concentration remain at subtherapeutic levels,increase dosage to 1500 mg (~17.28 mg/kg) - PT/OT, placement Dispo: Continue Current Level of Care Gregory Klein Patient seen and discussed with attending physician Dr. Ni who agrees with the previously described assessment and plan. Gerry Ernie [facility] M3 Cosigned by Noemí Ni MD at 10/22/2024 5:02 PM EDT Associated attestation - Noemí Ni MD - 10/22/2024 5:02 PM EDT I saw and evaluated the patient. I discussed the case with the resident/fellow and agree with the findings and plan as documented. * Care Plan - Bernardo Pacheco RN - 10/15/2024 10:12 AM EDT Problem: Adult Inpatient Plan of Care Goal: Plan of Care Review Outcome: Ongoing, Progressing Flowsheets (Taken 10/15/2024 1012) Plan of Care Reviewed With: patient Goal: Patient-Specific Goal (Individualized) Outcome: Ongoing, Progressing Goal: Absence of Hospital-Acquired Illness or Injury Outcome: Ongoing, Progressing Goal: Optimal Comfort and Wellbeing Outcome: Ongoing, Progressing Goal: Readiness for Transition of Care Outcome: Ongoing, Progressing Problem: Pain Acute Goal: Optimal Pain Control and Function Outcome: Ongoing, Progressing Problem: Surgery Nonspecified Goal: Absence of Bleeding Outcome: Ongoing, Progressing Goal: Effective Bowel Elimination Outcome: Ongoing, Progressing Goal: Fluid and Electrolyte Balance Outcome: Ongoing, Progressing Goal: Blood Glucose Level Within Target Range Outcome: Ongoing, Progressing Goal: Absence of Infection Signs and Symptoms Outcome: Ongoing, Progressing Goal: Anesthesia/Sedation Recovery Outcome: Ongoing, Progressing Goal: Optimal Pain Control and Function Outcome: Ongoing, Progressing Goal: Nausea and Vomiting Relief Outcome: Ongoing, Progressing Goal: Effective Urinary Elimination Outcome: Ongoing, Progressing Goal: Effective Oxygenation and Ventilation Outcome: Ongoing, Progressing Problem: Mobility Impairment Goal: Optimal Mobility Outcome: Ongoing, Progressing Problem: Infection Goal: Absence of Infection Signs and Symptoms Outcome: Ongoing, Progressing * Care Plan - Mary Jose RN - 10/14/2024 7:54 PM EDT Problem: Adult Inpatient Plan of Care Goal: Plan of Care Review Outcome: Ongoing, Progressing Goal: Patient-Specific Goal (Individualized) Outcome: Ongoing, Progressing Goal: Absence of Hospital-Acquired Illness or Injury Outcome: Ongoing, Progressing Goal: Optimal Comfort and Wellbeing Outcome: Ongoing, Progressing Goal: Readiness for Transition of Care Outcome: Ongoing, Progressing Problem: Pain Acute Goal: Optimal Pain Control and Function Outcome: Ongoing, Progressing Problem: Surgery Nonspecified Goal: Absence of Bleeding Outcome: Ongoing, Progressing Goal: Effective Bowel Elimination Outcome: Ongoing, Progressing Goal: Fluid and Electrolyte Balance Outcome: Ongoing, Progressing Goal: Blood Glucose Level Within Target Range Outcome: Ongoing, Progressing Goal: Absence of Infection Signs and Symptoms Outcome: Ongoing, Progressing Goal: Anesthesia/Sedation Recovery Outcome: Ongoing, Progressing Goal: Optimal Pain Control and Function Outcome: Ongoing, Progressing Goal: Nausea and Vomiting Relief Outcome: Ongoing, Progressing Goal: Effective Urinary Elimination Outcome: Ongoing, Progressing Goal: Effective Oxygenation and Ventilation Outcome: Ongoing, Progressing Problem: Mobility Impairment Goal: Optimal Mobility Outcome: Ongoing, Progressing Problem: Infection Goal: Absence of Infection Signs and Symptoms Outcome: Ongoing, Progressing * Care Plan - Vic Deshpande RN - 10/14/2024 6:58 PM EDT Problem: Adult Inpatient Plan of Care Goal: Plan of Care Review Outcome: Ongoing, Progressing Goal: Patient-Specific Goal (Individualized) Outcome: Ongoing, Progressing Goal: Absence of Hospital-Acquired Illness or Injury Outcome: Ongoing, Progressing Goal: Optimal Comfort and Wellbeing Outcome: Ongoing, Progressing Goal: Readiness for Transition of Care Outcome: Ongoing, Progressing Problem: Pain Acute Goal: Optimal Pain Control and Function Outcome: Ongoing, Progressing Problem: Surgery Nonspecified Goal: Absence of Bleeding Outcome: Ongoing, Progressing Goal: Effective Bowel Elimination Outcome: Ongoing, Progressing Goal: Fluid and Electrolyte Balance Outcome: Ongoing, Progressing Goal: Blood Glucose Level Within Target Range Outcome: Ongoing, Progressing Goal: Absence of Infection Signs and Symptoms Outcome: Ongoing, Progressing Goal: Anesthesia/Sedation Recovery Outcome: Ongoing, Progressing Goal: Optimal Pain Control and Function Outcome: Ongoing, Progressing Goal: Nausea and Vomiting Relief Outcome: Ongoing, Progressing Goal: Effective Urinary Elimination Outcome: Ongoing, Progressing Goal: Effective Oxygenation and Ventilation Outcome: Ongoing, Progressing Problem: Mobility Impairment Goal: Optimal Mobility Outcome: Ongoing, Progressing Problem: Infection Goal: Absence of Infection Signs and Symptoms Outcome: Ongoing, Progressing * Progress Notes - Kd Covarrubias MD - 10/14/2024 12:38 PM EDT Images from the original note were not included. [facility] Department of Surgery Division of Plastic Surgery Surgery Progress Note 10/14/24 Naga Padgett Subjective: HPI NAEO. Pain is controlled. UOP appropriate via Montejo. He has been compliant with pressure offloading. Finds it difficult to eat on his side. Denies n/v. No acute complaints. Review of Systems: Relevant review of systems was obtained as able and is negative unless stated above in HPI. Objective Objective: Vital signs: Vitals: 10/14/24 1153 BP: 129/81 Pulse: (!) 111 Resp: Temp: 36.6 ??C (97.9 ??F) SpO2: 97% Physical Exam: Physical Exam Constitutional: General: He is not in acute distress. Appearance: He is not ill-appearing. HENT: Head: Normocephalic and atraumatic. Mouth/Throat: Mouth: Mucous membranes are moist. Eyes: Extraocular Movements: Extraocular movements intact. Cardiovascular: Rate and Rhythm: Normal rate and regular rhythm. Pulmonary: Effort: Pulmonary effort is normal. Abdominal: General: There is no distension. Genitourinary: Comments: Montejo in place with CYU Skin: General: Skin is warm and dry. Capillary Refill: Capillary refill takes less than 2 seconds. Comments: Right ischial and posterior thigh incisions with WV in place, functioning appropriately, c/d/I. Flap appears WWP, pink, cap refill 2sec. SATYA drain with 60cc SS output Neurological: Mental Status: He is alert and oriented to person, place, and time. Psychiatric: Mood and Affect: Mood normal. Intake/Output Summary (Last 24 hours) at 10/14/2024 1238 Last data filed at 10/14/2024 1232 Gross per 24 hour Intake -- Output 3150 ml Net -3150 ml Lines/Drains/Tubes: Patient Lines/Drains/Airways Status Active Airway None Output by Drain (mL) 10/12/24 07 - 10/12/24 1859 10/12/24 1900 - 10/13/24 0659 10/13/24 07 - 10/13/24 18510/13/24 1900 - 10/14/24 0659 10/14/24 07 - 10/14/24 1238 Closed/Suction Drain 1 Right;Posterior Thigh Bulb 19 Fr. 20 25 60 Labs in last 18 hours: CBC WBC ?? Hb ?? Plt ?? Hct ?? ANC ?? INR ??, PTT ??, Anti-Xa ?? MCV ?? BMP Na ?? Cl ?? BUN ?? Glu ?? K ?? Co2 ?? Cr 0.61 (L) Ca ?? iCa ?? Mg ??, Phos ?? Lactate ?? LFT AST ?? AlkPhos ?? T Prot ?? ALK ?? Bili ?? Alb ?? D.Bili ?? Lab Trends: H/H INR Cr Results from last 7 days Lab Units 10/14/24 0424 10/13/24 0438 10/11/24 1657 CREATININE mg/dL 0.61* 0.70 0.66* Lactate No lab exists for component: LACTTEVEN Radiographic Interpretation: No relevant imaging to review. Medications reviewed. Vital signs reviewed. Labs reviewed. Assessment/Plan Assessment and Plan: Naga Padgett is a 34 y.o. male with history of spina bifida and Stage IV right ischial pressure injury who is now s/p right ischial pressure wound excision and posterior thigh rotation flap on 10/11/24. Plan: - Continue pressure offloading --Dolphin bed. Do not sit directly on the flap. We prefer for patient to offload from the right side by laying in left lateral decubitus position. - Diligent hygiene, especially after BM - Nutrition optimization. Boost TID - Continue Montejo - F/u culture susceptibilities. Continue Vanc - PT/OT, placement Dispo: Continue Current Level of Care Morris Houser Patient seen and discussed with attending physician Dr. Ni who agrees with the previously described assessment and plan. Kd Covarrubias MD Plastic and Reconstructive Surgery PGY-1 Cosigned by Noemí Ni MD at 10/22/2024 5:02 PM EDT Associated attestation - Noemí Ni MD - 10/22/2024 5:02 PM EDT I saw and evaluated the patient. I discussed the case with the resident/fellow and agree with the findings and plan as documented. * Care Plan - Dunia Lobo RN - 10/14/2024 12:20 AM EDT Problem: Adult Inpatient Plan of Care Goal: Plan of Care Review Outcome: Ongoing, Progressing Flowsheets (Taken 10/13/2024 0955 by Pranav Burgos, DIRK) Plan of Care Reviewed With: patient Problem: Adult Inpatient Plan of Care Goal: Patient-Specific Goal (Individualized) Outcome: Ongoing, Progressing Flowsheets (Taken 10/14/2024 001) Patient/Family-Specific Goals (Include Timeframe): patient will remain free from harm during the shift Individualized Care Needs: safety Anxieties, Fears or Concerns: none stated Problem: Adult Inpatient Plan of Care Goal: Absence of Hospital-Acquired Illness or Injury Outcome: Ongoing, Progressing Intervention: Identify and Manage Fall Risk Flowsheets (Taken 10/14/202414) Safety Promotion/Fall Prevention: fall prevention program maintained lighting adjusted safety round/check completed assistive device/personal items within reach Note: Ensure call is within reach. Bed exit alarm activated all the time. Intervention: Prevent Skin Injury Flowsheets (Taken 10/14/202414) Body Position: heels elevated foot of bed elevated turned left Skin Protection: incontinence pads utilized skin sealant/moisture barrier applied Intervention: Prevent and Manage VTE (Venous Thromboembolism) Risk Flowsheets (Taken 10/14/202414) VTE Prevention/Management: bilateral lower extremity SCDs (sequential compression devices) on previous patient education reinforced Problem: Pain Acute Goal: Optimal Pain Control and Function Intervention: Optimize Psychosocial Wellbeing Flowsheets (Taken 10/14/202414) Supportive Measures: active listening utilized relaxation techniques promoted verbalization of feelings encouraged Problem: Mobility Impairment Goal: Optimal Mobility Intervention: Optimize Mobility Flowsheets (Taken 10/14/202414) Activity Management: activity adjusted per tolerance Positioning/Transfer Devices: pillows * Progress Notes - Divina Calzada, PharmD - 10/13/2024 9:24 PM EDT Pharmacokinetic Consult - Therapeutic Drug Monitoring HPI and Hospital Course: Naga Padgett is a 34 y.o. male presenting with Stage IV right ischial pressure injury requiring OR 10/11 for R ischium debridement, flap, and wound vac placement who was started on IV vancomycin for SSTI/surgical prophylaxis. Pharmacy was consulted for management of vancomycin. Levels were obtained to assess safety and efficacy of current dosing regimen. Dose History: Recent Vancomycin Admin vancomycin HCl (Vancocin) 750 mg in sodium chloride 0.9% 250 mL IVPB (vial adapter required) (mg) 750 mg New Bag 10/13/24 1445 750 mg New Bag 0018 750 mg New Bag 10/12/24 1321 750 mg New Bag 10/11/24 2307 vancomycin in NS (Vancocin) IVPB 1,250 mg (mg) 1,250 mg New Bag 10/11/24 1103 Creatinine, Plasma (mg/dL) Date/Time Value 10/13/2024 0438 0.70 10/11/2024 1657 0.66 (L) 11/22/2023 1354 0.72 (L) 05/04/2023 1151 0.70 (L) 02/07/2023 0542 0.80 Estimated Creatinine Clearance: 125 mL/min (by C-G formula based on SCr of 0.7 mg/dL). Vancomycin Pharmacokinetic Evaluation: Current Dose: 750 mg IV Q12 hr infused over 120 min Date/Time of Most Recent Dose: 10/13/24 1445 C1 random (ug/mL): 14.6 mcg/mL C2 trough (ug/mL): 8.6 mcg/mL Vancomycin ke (hr ^-1): 0.1418 Vancomycin half-life (hr): 4.9 Cmax, actual (ug/mL): 19.34 Ctrough, actual (ug/mL): 4.69 Vancomycin Vd (L): Vancomycin Vd (L/kg): Steady state Vd : 41.298 Steady state Vd : 0.492 Vancomycin AUC 24hr (mg??hr/L): 255 Recommended TDD: 2941 mg New Total Daily Dose (mg): 1250 mg IV q12h infused over 150 min New predicted vancomycin Peak: 31.17 New predicted vancomycin Trough: 8.1 New predicted vancomycin AUC: 424 Assessment and Recommendations: 1. Levels drawn inappropriately due to delay in scheduled dosing secondary to loss of IV access 2. Recommend adjusting current regimen to vancomycin 1250 mg IV every 12 hours. Of note, patient has a history of vancomycin infusion reaction (formerly Cuco's syndrome), requiring premedication with IV Benadryl 25mg prior to the dose and prolonged infusion period. With dose increase and timing change, the next Benadryl dose timing was adjusted for 15 minutes prior to vancomycin administration.Additionally, vancomycin to now to be infused over 150 minutes. 3) Monitor renal function (SCr and BUN) and UOP at least 2-3x/week or more frequently if renal function changes. 4) Obtain repeat vancomycin levels (trough & peak to calculate AUC) around the 4th dose of new regimen or sooner if renal function changes. Pharmacy will continue to follow, Submitted by: Divina Calzada, Kenn 10/13/2024 9:25 PM * Procedures - Day, Cande Smith, RN - 10/13/2024 2:06 PM EDTAssociated Order(s): Insert peripheral IV Insert peripheral IV Performed by: Cande Alcazar RN Authorized by: Noemí Ni MD Hand hygiene: Hand hygiene performed prior to insertion Inserted using aseptic techniques: Yes Preparation: Skin prepped with chg Orientation: Right and upper Location: Arm Catheter placed: Peripheral IV Catheter size: 20g/2.00in Line Technique: Ultrasound Guidance Number of attempts: 2 IV flushes: Without difficulty and positive blood return noted and IV luer locked Patient tolerance: Patient tolerated the procedure well, age appropriate response and there were nocomplications IV site covered with: Transparent semipermeable dressing Education provided to: Patient * Progress Notes - Kalani Byrd RN - 10/13/2024 10:44 AM EDT Contacted by primary team that patient medically ready for referral Ltac referral sent, primary cm to f/u on Wednesday. * Progress Notes - Kadi Galeano MD - 10/13/2024 10:23 AM EDT Images from the original note were not included. [facility] Department of Surgery Division of Plastic Surgery Surgery Progress Note 10/13/24 Naga Padgett Subjective Subjective: HPI NAEO. Pain is controlled. UOP appropriate via Montejo. BM x4 yesterday with suppository. Reports somediscomfort with dolphin bed, but has been compliant with pressure offloading. Finds it difficult toeat on his side. Denies n/v. No acute complaints. Review of Systems: Relevant review of systems was obtained as able and is negative unless stated above in HPI. Objective Objective: Vital signs: Vitals: 10/13/24 0723 BP: (!) 148/72 Pulse: 106 Resp: Temp: 37.1 ??C (98.8 ??F) SpO2: 95% Physical Exam: Physical Exam Constitutional: General: He is not in acute distress. Appearance: He is not ill-appearing. HENT: Head: Normocephalic and atraumatic. Mouth/Throat: Mouth: Mucous membranes are moist. Eyes: Extraocular Movements: Extraocular movements intact. Cardiovascular: Rate and Rhythm: Normal rate and regular rhythm. Pulmonary: Effort: Pulmonary effort is normal. Abdominal: General: There is no distension. Genitourinary: Comments: Montejo in place with CYU Skin: General: Skin is warm and dry. Capillary Refill: Capillary refill takes less than 2 seconds. Comments: Right ischial and posterior thigh incisions with WV in place, functioning appropriately, c/d/I. Flap appears WWP, pink, cap refill 2sec Neurological: Mental Status: He is alert and oriented to person, place, and time. Psychiatric: Mood and Affect: Mood normal. Intake/Output Summary (Last 24 hours) at 10/13/2024 1024 Last data filed at 10/13/2024 0455 Gross per 24 hour Intake 650 ml Output 1345 ml Net -695 ml Lines/Drains/Tubes: Patient Lines/Drains/Airways Status Active Airway None Output by Drain (mL) 10/11/24 07 - 10/11/24 1859 10/11/24 1900 - 10/12/24 0659 10/12/24 07 - 10/12/24 1859 10/12/24 1900 - 10/13/24 0659 10/13/24 0700 - 10/13/24 1024 Closed/Suction Drain 1 Right;Posterior Thigh Bulb 19 Fr. 30 30 20 25 Labs in last 18 hours: CBC WBC ?? Hb ?? Plt ?? Hct ?? ANC ?? INR ??, PTT ??, Anti-Xa ?? MCV ?? BMP Na ?? Cl ?? BUN ?? Glu ?? K ?? Co2 ?? Cr 0.70 Ca ?? iCa ?? Mg ??, Phos ?? Lactate ?? LFT AST ?? AlkPhos ?? T Prot ?? ALK ?? Bili ?? Alb ?? D.Bili ?? Lab Trends: H/H INR Cr Results from last 7 days Lab Units 10/13/24 0438 10/11/24 1657 CREATININE mg/dL 0.70 0.66* Lactate No lab exists for component: LACTTEVEN Radiographic Interpretation: No relevant imaging to review. Medications reviewed. Vital signs reviewed. Labs reviewed. Assessment/Plan Assessment and Plan: Naga Padgett is a 34 y.o. male with history of spina bifida and Stage IV right ischial pressure injury who is now s/p right ischial pressure wound excision and posterior thigh rotation flap on 10/11/24. Plan: - Continue pressure offloading --Dolphin bed. Do not sit directly on the flap. We prefer for patient to offload from the right side by laying in left lateral decubitus position. - Diligent hygiene, especially after BM - Nutrition optimization. Boost TID - Continue Montejo - F/u culture susceptibilities. Continue Vanc - PT/OT, placement Dispo: Continue Current Level of Care Kadi Galeano MD Cosigned by Noemí Ni MD at 10/15/2024 3:56 PM EDT Associated attestation - Noemí Ni MD - 10/15/2024 3:56 PM EDT I saw and evaluated the patient. I discussed the case with the resident/fellow and agree with the findings and plan as documented. * Care Plan - Pranav Burgos RN - 10/13/2024 9:57 AM EDT Problem: Adult Inpatient Plan of Care Goal: Plan of Care Review Outcome: Ongoing, Progressing Flowsheets (Taken 10/13/2024 0955) Plan of Care Reviewed With: patient Goal: Patient-Specific Goal (Individualized) Outcome: Ongoing, Progressing Flowsheets (Taken 10/13/2024 0800) Patient/Family-Specific Goals (Include Timeframe): pt will turn q2h at least Individualized Care Needs: safety Anxieties, Fears or Concerns: none Goal: Absence of Hospital-Acquired Illness or Injury Outcome: Ongoing, Progressing Intervention: Identify and Manage Fall Risk Flowsheets (Taken 10/13/2024 08) Safety Promotion/Fall Prevention: activity supervised Intervention: Prevent Skin Injury Flowsheets Taken 10/13/2024 09 Skin Protection: incontinence pads utilized protective footwear used Taken 10/13/2024 08 Body Position: turned left Intervention: Prevent and Manage VTE (Venous Thromboembolism) Risk Flowsheets (Taken 10/13/2024 08) VTE Prevention/Management: bilateral SCDs (sequential compression devices) on Intervention: Prevent Infection Flowsheets (Taken 10/13/2024 09) Infection Prevention: cohorting utilized environmental surveillance performed equipment surfaces disinfected hand hygiene promoted personal protective equipment utilized single patient room provided visitors restricted/screened rest/sleep promoted * Care Plan - La Ray RN - 10/12/2024 8:30 PM EDT Problem: Adult Inpatient Plan of Care Goal: Absence of Hospital-Acquired Illness or Injury 10/13/2024 033 by La Ray RN Intervention: Identify and Manage Fall Risk Flowsheets (Taken 10/13/2024 033) Safety Promotion/Fall Prevention: activity supervised assistive device/personal items within reach clutter-free environment maintained fall prevention program maintained room organization consistent safety round/check completed Outcome: Ongoing, Progressing 10/13/2024 032 by La Ray RN Problem: Surgery Nonspecified Goal: Effective Bowel Elimination 10/13/2024333 by La Ray RN Outcome: Ongoing, Progressing * Progress Notes - Lucas Aragon - 10/12/2024 2:46 PM EDT Physical Therapy Evaluation Patient Name: Naga Padgett Today's Date: 10/12/2024 PT Discharge Recommendations: LTACH Equipment Recommended: Defer to facility History Naga Padgett is 34 y.o. male admitted 10/11/2024 for work-up of Decubitus ulcer of right ischium, stage IV (CMS/HCC). Problem List Active Hospital Problems Diagnosis Date Noted Spina bifida 10/11/2024 Gastroesophageal reflux disease 10/11/2024 Decubitus ulcer of right ischium, stage IV ([facility] 02/04/2023 Procedures 10/11/2024 Procedure(s): Debridement Pressure right ischium, fasciocutneous flap closure Past Medical History Patient has a past medical history of Acid reflux, Anxiety, Scoliosis, Spina bifida, and Ulcerationof below knee amputation stump ([facility]). Past Surgical History Patient has a past surgical history that includes shunt procedure; Creation of cutaneous stoma; LegSurgery; Back surgery; Foot surgery; Pressure ulcer debridement; Ventriculoperitoneal shunt; Wound debridement; Spine surgery; and Myringotomy w/ tubes. Precautions Medical Precautions: GMG - Do not sit directly on the flap. Per plastics note from 10/12: We prefer for patient to offload from the right side by laying in left lateral decubitus position. Subjective Patient agreeable to PT evaluation. Parent present in room and reports patient is unable to currently utilize wheelchair with current restrictions and will require additional equipment and therapy support. Participants in Care Family/Caregiver Present: Yes Family/Caregiver: Mother Chief Chemist: Not Applicable Presentation Oxygen Therapy: None (Room air) Lines and Tubes: Intravenous access, Telemetry, Wound vac Pre-Session: Supine, Lines intact Post-Session: Supine, Lines intact, Call light in reach, RN notified, SCDs applied Post-Session Comments: patient positioned maintaining precautions, supported on pillows, lines intact, and RN aware Home Living/Set-up Lives With: (lives with each parent, alternates homes) Home Type: House (goes between each parent's houses (), dad has elevator, mom has chair lift) Home Adaptive Equipment: Wheelchair-manual Home Layout: Two level (can live on 1st floor in both homes. Ramp entry at mom's home, ramp throughgarage at dad's) Bathroom: Tub/Shower: Tub/Shower combo, Tub transfer bench Bathroom: Toilet: Standard Bathroom: Accessibility: Accessible Home Living Comments: father's house is more easily accessible than mother's home Prior Level of Function Receives Help From: Parent (able to transfer to w/c, commode, transfer bench independently. Dressesindependently.) Level of Mobility: Wheelchair/Scooter (paraplegic) Mobility [place]eton: Independent wheelchair propulsion History of Falls: No ADL Performance: Independent Patient/Family Goals family requesting specialty bed for wound care Objective Pain Patient has absent sensation from abdomen>legs and reports no pain during session Delirium Screening Chavis Agitation Sedation Scale (RASS): Alert and calm Confusion Assessment Method-ICU (CAM-ICU/PCAM-ICU) Feature 1: Acute Onset or Fluctuating Course: Negative Feature 3: Altered Level of Consciousness: Negative Overall CAM-ICU/PCAM-ICU: Negative Cognition Overall Cognitive Status: Within Functional Limits Arousal/Alertness: Appropriate responses to stimuli Mood/Behavior: Alert Orientation Level: Oriented X4 Single Step Commands: Consistently Multi-Step Commands: Consistently Method of Communication: Verbal Vision - Basic Assessment Baseline Vision: Glasses distance Right Upper Extremity Examination RUE Assessment: Within Functional Limits Manual Muscle Testing - RUE: Within functional limits Sensation Light Touch: Right Upper Extremity: Intact Left Upper Extremity Examination LUE ROM Assessment LUE Assessment: Within Functional Limits Manual Muscle Testing - LUE Manual Muscle Testing - LUE: Within functional limits Sensation Light Touch: Left Upper Extremity: Intact Right Lower Extremity Examination Manual Muscle Testing - RLE Manual Muscle Testing - RLE: (complete paraplegic) Sensation Light Touch: Right Lower Extremity: Absent Left Lower Extremity Examination Manual Muscle Testing: (complete paraplegic) Sensation Light Touch: Left Lower Extremity: Absent Bed Mobility Bed Mobility Exam: Rolling/Turning Level of Teton: Minimum assist (75% patient effort) Physical/Nonphysical Assist: Additional assist utilized for safety, Nonverbal cues (demo/gestures),Verbal Cues, Set-up required Assistive Device: Bed rails Bed Mobility Exam: Scooting/Bridging Level of Teton: Moderate assist (50% patient's effort) Physical/Nonphysical Assist: Additional assist utilized for safety, Verbal Cues, Set-up required, Nonverbal cues (demo/gestures) Assistive Device: (draw sheet) Transfers Transfer Interventions: unable to sit directly on flap, transfers not indicated based on medical precautions Standardized Assessments Standardized Assessments Standardized Assessments: AMPA 6-Clicks Mobility Assessment AMPA 6-Clicks Mobility Assessment Difficulty patient has turning over in bed (including adjusting bedclothes, sheets, and blankets)?:A little Difficulty patient has sitting down on and standing up from a chair with arms (wheelchair, bedside commode, etc.)?: Unable Difficulty patient has moving from lying on back to sitting on the side of the bed?: Unable How much help does the patient need moving to and from a bed to a chair (including a wheelchair)?: Unable How much help does the patient need to walk in hospital room?: Unable How much help does the patient need climbing 3-5 steps with a railing?: Unable [facility] 6-Clicks Mobility Assessment Total : 8 No data recorded Assessment Patient is significantly limited from baseline functional mobility 2/2 to medical precautions afterprocedure. Patient would benefit from LTACH for primary medical management and additional therapy services as indicated. Patient is currently requiring min A x 2 for rolling and mod A x 2 for scooting to HOB, indicating need for additional therapy services while hospitalized. Patient is currently unable to utilize home equipment safely to promote wound healing with medical precautions and will require follow up medical care and management at an LTACH facility. PT to support bed mobility and transfer goals, maintaining precautions, while hospitalized and will provide ongoing therapy support as indicated. Impairments: Impaired locomotion, Impaired balance, Impaired functional mobility/transfers, Impaired gait dynamics/performance, Decreased strength, Impaired sensation/sensory processing, Decreased range of motion, Impaired muscle tone, Impaired motor cordination/control Activity Limitations: Inability to sit independently, Inability to ambulate community distances, Inability to ambulate independently, Inability to ambulate household distances, Inability to transfer independently, Inability to complete ADLs independently Participation Restrictions: Self-care, Home management, Work, Community leisure Evaluation/Treatment Tolerance: Treatment limited secondary to medical complications (Comment) Diagnosis: decreased functional mobility Barriers to Discharge: Comorbidities Eval Complexity History Profile: 3 or more personal factors and/or comorbidities Clinical Presentation: Evolving clinical presentation with changing characteristics Clinical Decision Making: Moderate complexity PT Recommendations Discharge Destination: LTACH Discharge Equipment: Defer to facility Plan Planned PT Interventions Bed mobility training, Strengthening, Stretching, Caregiver training, ROM, Transfer training (patient currently under precautions limiting sitting on flap and impacting transfers) PT Frequency 1 - 3 times per week PT Duration 2 weeks Goals PT GOAL DETAILS Time Frame PT Goal 1: patient and family to be I with discharge recommendations and precautions 2 weeks PT Goal 2: patient to perform rolling bilaterally with independence 2 weeks PT Goal 3: patient to transfer sup<>sit with min A, maintaining offloading precautions to R posterior thigh flap 2 weeks Written by Lucas Aragon on 10/12/24 at 2:46 PM. * Progress Notes - Jada Beavers - 10/12/2024 2:25 PM EDT Occupational Therapy Evaluation Patient Name: Naga Padgett Today's Date: 10/12/2024 OT Discharge Recommendations: LTACH Equipment Recommended: Defer to facility History Naga Padgett is 34 y.o. male admitted 10/11/2024 for work-up of Decubitus ulcer of right ischium, stage IV (CMS/HCC). Hospital Course 1. Decubitus ulcer of right ischium, stage IV (CMS/HCC) Procedures 10/11/2024 Procedure(s): Debridement Pressure right ischium, fasciocutneous flap closure Past Medical History Patient has a past medical history of Acid reflux, Anxiety, Scoliosis, Spina bifida, and Ulcerationof below knee amputation stump (CMS/HCC). Past Surgical History Patient has a past surgical history that includes shunt procedure; Creation of cutaneous stoma; LegSurgery; Back surgery; Foot surgery; Pressure ulcer debridement; Ventriculoperitoneal shunt; Wound debridement; Spine surgery; and Myringotomy w/ tubes. Precautions Medical Precautions: Fall precautions, Post-Surgical precautions Post-Surgical Precautions: Pressure Offloading: Dolphin bed. Do NOT sit directly on the flap. Prefer for patient to offload from the right side by laying in left lateral decubitus position Subjective Patient agreeable to OT initial evaluation/session. Participants in Care Family/Caregiver Present: Yes Family/Caregiver: Mother Chief Chemist: Not Applicable Presentation Oxygen Therapy: None (Room air) Lines and Tubes: Telemetry Closed/Suction Drain 1 Right;Posterior Thigh Bulb 19 Fr. (Active) Colostomy Umbilicus (Active) Urethral Catheter (Active) Negative Pressure Wound Therapy Buttocks Right (Active) Peripheral IV 10/11/24 Right Antecubital (Active) Pre-Session: Supine, Head of bed elevated, Lines intact Pre-Session Comments: RN agreeable to initial evaluation. Post-Session: Side lying left, Head of bed elevated, Lines intact, SCDs applied, Call light in reach, RN notified Post-Session Comments: Patient positioned for comfort/pressure relief to maintain off-loading precautions with pillow supports and all needs in reach. Home Living/Set-Up Lives With: (lives with each parent, alternates homes) Home Type: House (goes between each parent's houses (), dad has elevator, mom has chair lift) Home Adaptive Equipment: Wheelchair-manual Home Layout: Two level (can live on 1st floor in both homes. Ramp entry at mom's home, ramp throughgarage at dad's) Bathroom: Tub/Shower: Tub/Shower combo, Tub transfer bench Bathroom: Toilet: Standard Bathroom: Accessibility: Accessible Home Living Comments: father's house is more easily accessible than mother's home Prior Level of Function Receives Help From: Parent (able to transfer to w/c, commode, transfer bench independently. Dressesindependently.) Level of Mobility: Wheelchair/Scooter (paraplegic) Mobility Teton: Independent wheelchair propulsion History of Falls: No ADL Performance: Independent Patient/Family Goals Patient agreeable to OT POC and current d/c recommendations. Objective Pain Patient reported no pain nor demonstrated signs/symptoms of pain during session. Delirium Screening Chavis Agitation Sedation Scale (RASS): Alert and calm Confusion Assessment Method-ICU (CAM-ICU/PCAM-ICU) Feature 1: Acute Onset or Fluctuating Course: Negative Feature 3: Altered Level of Consciousness: Negative Overall CAM-ICU/PCAM-ICU: Negative Cognition Overall Cognitive Status: Within Functional Limits Arousal/Alertness: Appropriate responses to stimuli Mood/Behavior: Alert Orientation Level: Oriented X4 Single Step Commands: Consistently, 100% of the time Multi-Step Commands: Consistently, 100% of the time Method of Communication: Verbal Safety Judgment: Good awareness of safety precautions Awareness of Errors: Good awareness of errors made Deficit Awareness: Fully aware of deficits Attention Span: Appears intact, Attends with cues to redirect Problem Solving: Able to problem solve independently Perseveration: Not present Vision - Assessment Baseline Vision: Glasses distance Patient Visual Report: Patient reported no concerns regarding vision at this time. Right Upper Extremity Examination RUE Assessment: Within Functional Limits Manual Muscle Testing - RUE: Within functional limits Light Touch: Right Upper Extremity: Intact Left Upper Extremity Examination LUE Assessment: Within Functional Limits Manual Muscle Testing - LUE: Within functional limits Light Touch: Left Upper Extremity: Intact Right Lower Extremity Examination Manual Muscle Testing - RLE: (complete paraplegic) Light Touch: Right Lower Extremity: Absent Left Lower Extremity Examination Manual Muscle Testing - LLE: (complete paraplegic) Light Touch: Left Lower Extremity: Absent Perception/Coordination Perception Initiation: Appears intact Motor Planning: Appears intact Coordination Movements are Fluid and Coordinated: Yes Fine Motor Coordination Examination Left Hand, Manipulation of Objects: Normal performance Right Hand, Manipulation of Objects: Normal performance Bed Mobility Bed Mobility Exam: Rolling/Turning Level of Teton: Minimum assist (75% patient effort) Physical/Nonphysical Assist: Set-up required, Verbal Cues, Nonverbal cues (demo/gestures), Minimal cues, 1 person + 1 person to manage equipment Assistive Device: Bed rails, Other (draw sheet) Bed Mobility Exam: Scooting/Bridging Level of Teton: Moderate assist (50% patient's effort) Physical/Nonphysical Assist: Set-up required, Verbal Cues, Nonverbal cues (demo/gestures), Minimal cues, Additional assist utilized for safety Assistive Device: Other (draw sheet) Bed Mobility Exam: Supine to Sit Level of Teton: Unable to perform (d/t pressure offloading precautions - no sitting on flap) Transfers Transfer Interventions: Patient reported being able to complete sit < > sit transfers independently at baseline. Patient currently NOT able to engage in these types of transfers d/t pressure off-loading precautions. Functional Mobility Ambulation Comments: Patient is non-ambulatory at baseline. Self-Care Interventions Self Care/Home Management (ADLs) Time Entry: 25 Self_Care Interventions: In addition to OT initial evaluation (15 minutes), OT facilitated patient engagement in sequential task training emphasizing functional transitions required for increased performance in higher level BADLs/IADLs. Refer to the above sections for patient performance and levelsof assistance required for aspects of mobility completed on this date. Of note, increased time required for: appropriate room set-up via environmental modifications to optimize patient safety and accessibility to all areas of treatment spaces, skilled management of medical lines/tubes, vital monitoring, task modification/grading activity to provide functional challenge and promote success , provision of pacing/rest breaks, BADL retraining, linen/chux change, verbal and tactile cues to facilitate sequencing and proper body mechanics during functional tasks, patienteducation, caregiver/family education, and staff education (RN/Tech/TEAM in regards to patient safety/vitals/mobility during session). Patient Education: To optimize patient safety while inpatient and at time of discharge, OT providedpatient and caregiver/family education regarding: role of OT within POC, progression of therapy, discharge recommendations, precautions, BADL retraining, work simplification, energy conservation, adaptive techniques, adaptive equipment, fall prevention, and caregiver safety. Of note, the patient and caregiver/family verbalized understanding. Patient, however, would continue to benefit from additional education to promote increased carryover of provided information. Refer to below sections for additional self-care interventions completed during session. Feeding Feeding Level of Assistance: Independent Feeding Where Assessed: Bed level (with HOB elevated) Feeding Interventions: Patient IND with container management and bringing drink to mouth. Grooming Grooming Level of Assistance: SBA Grooming Interventions: Anticipated level of assistance/performance per clinical judgement in off-loaded position. Bathing UE Bathing Level of Assistance: Minimum assistance LE Bathing Level of Assistance: Maximum assistance Bathing Interventions: Anticipated level of assistance/performance per clinical judgement at bed level d/t medical precautions. UE Dressing UE Dressing Level of Assistance: Minimum assistance UE Dressing Interventions: Anticipated level of assistance/performance per clinical judgement at bed level d/t medical precautions. Lower Extremity Dressing Pants Level of Assistance: Dependent Sock Level of Assistance: Dependent Shoe Level of Assistance: Dependent LE Dressing Interventions: Anticipated level of assistance/performance per clinical judgement at bed level d/t medical precautions. Toileting Toileting Level of Assistance: Dependent Toileting Interventions: Anticipated level of assistance/performance per clinical judgement at bed level d/t medical precautions. Patient self-caths and completes bowel regimen with set-up independently at baseline. Nursing is providing DEP assist for toileting routines/regimens at this time. Therapeutic Exercise (19 minutes) OT created personalized HEP and educated patient on AROM UE exercises with resistance bands (blue and black level provided; exercises completed with blue level resistance band) to promote increased strength and activity tolerance required for increased performance within engaging in higher level BADLs. OT then engaged patient in bilateral UE AROM exercises in semi-supine/reclined with HOB elevated position while being off-loaded to maintain precautions and emphasizing appropriate performance/movement for each presented exercises for patient safety. Patient performed 1 x 5 repetitions of each exercise listed below. Patient encouraged to perform prescribed HEP exercises 2-3 times a day as tolerated. Patient actively engaged throughout presented exercises and verbalized understanding. Patient would continue to benefit from further education on presented items to promote carryover of provided education. Refer to below sections for additional details (access code/frequencies) regarding prescribed HEP. Written HEP handout/printout provided for visual reference. Access Code: [email or web address] URL: [email or web address] Date: 10/12/2024 Exercises - Supine Bilateral Punches - 3 x daily - 1 sets - 10 reps - Supine Shoulder Horizontal Abduction with Resistance - 3 x daily - 1 sets - 10 reps - Supine Shoulder External Rotation with Resistance - 3 x daily - 1 sets - 10 reps - Reclined Elbow Flexion with Anchored Resistance - 3 x daily - 1 sets - 10 reps - Supine Triceps Extension with Resistance - 3 x daily - 1 sets - 10 reps Standardized Assessments [facility] 6-Click Daily Activities Help from Other: Don/Doff Regular Lower Body Clothings: A lot Help From Other: Bathing: A lot Help From Other: Toileting: Total Help From Other: Don/Doff Upper Body Clothings: A lot Help From Other: Grooming: Little Help From Other: Eating Meals: None [facility] 6 Click - Daily Activities Score: 14 Assessment Initial evaluation limited on this date to bed level d/t post-surgical precautions (pressure offloading: Dolphin bed. Do NOT sit directly on the flap. Prefer for patient to offload from the right side by laying in left lateral decubitus position). Patient, however tolerated presented tasks well (including prescribed HEP) and engaged in bed mobility with MIN to MOD assist +1 for safety/line management. Varied levels of assistance required for presented self- cares; refer to self-care section for additional details. Patient presented with impaired occupational performances within completing BADL/IADL safely, functional transfers, balance, activity tolerance, and self-limiting factors includingfatigue impacting their current level of performance and ability to engage in occupations with fullindependence. OT anticipates that patient will require increased levels of assistance for higher level BADLs/IADLs including: total body dressing, toileting, bathing/showering, meal preparation, etc). Given patient's current wound care needs/medical management, restrictions, mobility and BADL/IADL impairments, the patient would be unsafe to return home if they were to need to have quick access toexit routes within their home, to the bathroom if experiencing bowel/bladder urgency, and with other home safety scenarios. Patient is currently most appropriate for LTACH placement with rehabilitation services and would continue to benefit from skilled OT services to promote increased independencewithin desired occupations, return to prior level of function, decrease caregiver stress, reduce risk of falls/potential readmission, and to promote a safe discharge when medically appropriate. OT Findings: Impaired ADL performance, Impaired IADL performance, Decreased upper extremity strength, Decreased endurance/ventilation/gas exchange Evaluation/Treatment Tolerance: (Patient limited by medical precautions - pressure off-loading restrictions) Rehab Potential: Good, to achieve stated therapy goals Barriers to Discharge: Comorbidities Demonstrates Need for Referral to Another Service: Social work Eval Complexity Occupational Profile: Expanded review of medical/therapy records and additional review of physical,cognitive, or psychosocial history Performance Deficits: Activities of daily living (ADLs), Instrumental activities of daily living (IADLs), Leisure, Body functions, Body structures, Motor skills, Habits, Routines, Roles, Personal, Physical Clinical Decision Making: Moderate Overall Eval complexity: Moderate OT Recommendations Discharge Destination: LTACH Discharge Equipment: Defer to facility Plan Continue with established OT plan of care 1-3/wk to progress towards OT POC goals. Planned OT Interventions ADL retraining, IADL retraining, Balance training, Bed mobility Training, Neuromuscular re-education, Strengthening, Transfer training, Caregiver education OT Frequency 1 - 3 times per week OT Duration 2 weeks Goals OT GOAL DETAILS Time Frame OT Goal 1: Patient/Family/Caregiver will be independent in bilateral upper extremity home exercise program to promote increased strength/activity tolerance required for engagement in higher level self-cares/mobility. 2 weeks OT Goal 2: Patient will demonstrate appropriate off-loading measures to maintain pressure offloading precautions with stand-by assistance and AE as needed. 2 weeks OT Goal 3: Patient will complete total body dressing with minimum assistance and AE as needed whilemaintaining precautions. 2 weeks OT Goal 4: Patient will complete sponge/bed level bathing with minimum assistance and AE as needed while maintaining precautions. 2 weeks Written by Jada Beavers on 10/12/24 at 3:34 PM. * Progress Notes - An Humphrey P - 10/12/2024 1:33 PM EDT Case Management Adult Initial Progress Note Naga Padgett 34 y.o. male CSN: [id number] Admission: 10/11/2024 9:17 AM Primary Problem: Decubitus ulcer of right ischium, stage IV (CMS/HCC) Arts And Crafts Instructor reviewed chart and spoke with the patients mother to complete this Initial Case Management Assessment. PCP: Saul Mejia MD Emergency Contact: Extended Emergency Contact Information Primary Emergency Contact: Nelly Padgett Mobile Relation: Mother Preferred language: Uzbek Chief Chemist needed? No Insurance: Primary Visit Coverage Payer Plan Sponsor Code Group Number Group Name [facility] MEDICARE [facility] [employer] AD[employer]ANT[employer] [id number] Primary Visit Coverage Subscriber Subscriber ID Subscriber Name Subscriber SSN Subscriber Address [id number] NAGA PADGETT Elan [id number] [place] [address] Patient information: Primary Caregiver: Family Support System: Immediate family Daily Living Activities: Functional Status: Maximum assistance Living Arrangements: Family Type of Residence: Private residence, Multi Level (elevator in home) [address] [place] [address] Current DME: Equipment Currently Used at Home: wheelchair, manual Income Information: Income Source: Government aid (SSDI) Income/Expense Information: Income meets expenses Anticipated Discharge Date: TBD Patient's Discharge Goal: Agreeable to Rehab pending PT/OT eval Assistance Available at Discharge: Family Discharge Transport: Family Follow Up Transport: Family Home Health / Home Infusion / Outpatient Dialysis Services: N/A Living Will/Advance Directive/Power of Multiple Cut Off Saw Operator /Guardian: Social Drivers of Health Food Insecurity: No Food Insecurity (10/12/2024) Hunger Vital Sign Worried About Running Out of Food in the Last Year: Never true Ran Out of Food in the Last Year: Never true Alcohol Use: Low Risk (08/25/2022) CAGE ASSESSMENT Cage unable to access: Not on file Cage max number of drinks: Not on file Cage Beverages a week: Not on file Cage Questionnaire cut down: 0 Cage questionnaire annoyed: 0 Cage questionnaire guilty: 0 Cage questionnaire eye traffic sergeant: 0 Cage Overall score: 0 Housing Stability: Low Risk (10/12/2024) Housing Stability Vital Sign Unable to Pay for Housing in the Last Year: No Number of Times Moved in the Last Year: 0 Homeless in the Last Year: No Tobacco Use: Medium Risk (10/11/2024) Patient History Smoking Tobacco Use: Former Smokeless Tobacco Use: Never Passive Exposure: Never Transportation Needs: No Transportation Needs (10/12/2024) PRAPARE - Transportation Lack of Transportation (Medical): No Lack of Transportation (Non-Medical): No Depression: At risk (09/19/2024) Received from [facility] PHQ-2 Patient Health Questionnaire-9 Score: 5 Utilities: Not At Risk (10/12/2024) Utilities Threatened with loss of utilities: No Stress: Not on file (02/16/2024) Intimate Partner Violence: Not At Risk (10/12/2024) Humiliation, Afraid, Rape, and Kick questionnaire Fear of Current or Ex-Partner: No Emotionally Abused: No Physically Abused: No Sexually Abused: No Physical Activity: Not on file Social Connections: Unknown (01/18/2023) Received from [facility] Family and Community Support Help with Day-to-Day Activities: Not on file Lonely or Isolated: Not on file Financial Resource Strain: Low Risk (10/12/2024) Overall Financial Resource Strain (CARDIA) Difficulty of Paying Living Expenses: Not very hard Additional Comments: SW spoke with MDs this date re: pt's plan of care. According to MDs, this pt is not medically stable for DC this date and is not anticipated to be stable within 72 hrs. Pt lives with his mother at time and his father at times. Address listed in chart is his fathers home in which has an elevator in the home. Both homes WC accessible. Pt uses WC at baseline. Pt requires assistance with ADLS. Pt hastransportation and assistance upon DC. No further SW concerns identified at this time. SW will monitor pt's progress and will follow up with DC planning and needs as appropriate. An Humphrey, V BELT SKIVER, HOUSEHOLD PERSONAL ASSISTANT Social Work Senior Department of Case Management [facility] * Care Plan - Mary Gamez RN - 10/12/2024 9:52 AM EDT Problem: Adult Inpatient Plan of Care Goal: Plan of Care Review Outcome: Ongoing, Progressing Goal: Patient-Specific Goal (Individualized) Outcome: Ongoing, Progressing Goal: Absence of Hospital-Acquired Illness or Injury Outcome: Ongoing, Progressing Goal: Optimal Comfort and Wellbeing Outcome: Ongoing, Progressing Goal: Readiness for Transition of Care Outcome: Ongoing, Progressing Problem: Pain Acute Goal: Optimal Pain Control and Function Outcome: Ongoing, Progressing Problem: Surgery Nonspecified Goal: Absence of Bleeding Outcome: Ongoing, Progressing Goal: Effective Bowel Elimination Outcome: Ongoing, Progressing Goal: Fluid and Electrolyte Balance Outcome: Ongoing, Progressing Goal: Blood Glucose Level Within Target Range Outcome: Ongoing, Progressing Goal: Absence of Infection Signs and Symptoms Outcome: Ongoing, Progressing Goal: Anesthesia/Sedation Recovery Outcome: Ongoing, Progressing Goal: Optimal Pain Control and Function Outcome: Ongoing, Progressing Goal: Nausea and Vomiting Relief Outcome: Ongoing, Progressing Goal: Effective Urinary Elimination Outcome: Ongoing, Progressing Goal: Effective Oxygenation and Ventilation Outcome: Ongoing, Progressing * Progress Notes - Kadi Galeano MD - 10/12/2024 7:05 AM EDT Images from the original note were not included. [facility] Department of Surgery Division of Plastic Surgery Surgery Progress Note 10/12/24 Naga Padgett Subjective Subjective: HPI NAEO. Pain is controlled. Tolerating diet, denies n/v. Has been offloading pressure from flap and sleeping on left side. WV functioning appropriately. Afebrile, VSS. No acute complaints today. Review of Systems: Relevant review of systems was obtained as able and is negative unless stated above in HPI. Objective Objective: Vital signs: Vitals: 10/12/24 0600 BP: Pulse: Resp: Temp: SpO2: 95% Physical Exam: Physical Exam Constitutional: General: He is not in acute distress. Appearance: He is not ill-appearing. HENT: Head: Normocephalic and atraumatic. Mouth/Throat: Mouth: Mucous membranes are moist. Eyes: Extraocular Movements: Extraocular movements intact. Cardiovascular: Rate and Rhythm: Normal rate and regular rhythm. Pulmonary: Effort: Pulmonary effort is normal. Abdominal: General: There is no distension. Skin: General: Skin is warm and dry. Capillary Refill: Capillary refill takes less than 2 seconds. Comments: Left ischial and posterior thigh incisional WV in place, functioning appropriately. Flap is WWP, pink, cap refill 2sec. SATYA in place with SS output Neurological: General: No focal deficit present. Mental Status: He is alert. Intake/Output Summary (Last 24 hours) at 10/12/2024 0705 Last data filed at 10/12/2024 0600 Gross per 24 hour Intake 1750 ml Output 2785 ml Net -1035 ml Lines/Drains/Tubes: Patient Lines/Drains/Airways Status Active Airway None Output by Drain (mL) 10/10/24 07 - 10/10/24 1859 10/10/24 190 - 10/11/24 0659 10/11/24699 - 10/11/24 18510/11/24 190 - 10/12/24 0659 10/12/24 07 - 10/12/24 0705 Closed/Suction Drain 1 Right;Posterior Thigh Bulb 19 Fr. 30 30 Labs in last 18 hours: CBC WBC ?? Hb ?? Plt ?? Hct ?? ANC ?? INR ??, PTT ??, Anti-Xa ?? MCV ?? BMP Na 137 Cl 106 BUN 11 Glu 114 (H) K 4.7 Co2 19 (L) Cr 0.66 (L) Ca 8.5 (L) iCa ?? Mg ??, Phos ?? Lactate ?? LFT AST ?? AlkPhos ?? T Prot ?? ALK ?? Bili ?? Alb ?? D.Bili ?? Lab Trends: H/H INR Cr Results from last 7 days Lab Units 10/11/24 1657 CREATININE mg/dL 0.66* Lactate No lab exists for component: LACTTEVEN Radiographic Interpretation: No relevant imaging to review. Medications reviewed. Vital signs reviewed. Labs reviewed. Assessment/Plan Assessment and Plan: Naga Padgett is a 34 y.o. male with history of spina bifida and Stage IV right ischial pressure injury who is now s/p right ischial pressure wound excision and posterior thigh rotation flap on 10/11/24. Plan: - Continue pressure offloading --Dolphin bed. Do not sit directly on the flap. We prefer for patient to offload from the right side by laying in left lateral decubitus position. - Nutrition optimization - Continue [place] - PT/OT, placement Dispo: Continue Current Level of Care Kadi Galeano MD Cosigned by Noemí Ni MD at 10/15/2024 3:56 PM EDT Associated attestation - Noemí Ni MD - 10/15/2024 3:56 PM EDT I saw and evaluated the patient. I discussed the case with the resident/fellow and agree with the findings and plan as documented. * Significant Event - Kadi Galeano MD - 10/11/2024 6:29 PM EDT Images from the original note were not included. [facility] Department of Surgery Division of Plastic Surgery Post Operative Check: Subjective: Procedure: Right ischial pressure wound debridement, right posterior thigh rotation flap Patient currently reports pain is controlled. He is eager to eat. No acute complaints. Pain Control: [facility] Objective: Vitals: Visit Vitals BP (!) 133/94 (BP Location: Left arm, Patient Position: Lying) Pulse 91 Temp 36.7 ??C (98 ??F) (Oral) Resp 13 IN/Out: Intake/Output Summary (Last 24 hours) at 10/11/2024 1830 Last data filed at 10/11/2024 1543 Gross per 24 hour Intake 1000 ml Output 0 ml Net 1000 ml Physical Exam: General: alert, oriented, NAD HEENT: NC, AT, EOMI CV: Appears well perfused Pulmonary: Normal effort Skin: Right gluteal and posterior thigh incision with WV in place, functioning appropriately. SATYA inplace with sanguinous output : [place] in place Incisions: covered LTD: PIVx2, SATYA, WV, [place] Labs: WBC ?? Hgb ?? PLT ?? HCT ?? INR ?? PTT ?? antiXa ?? Na 137 Cl 106 BUN 11 Gluc 114 (H) K 4.7 CO2 19 (L) Creat 0.66 (L) Ca 8.5 (L) iCa ?? Mg ?? Phos ?? pH ?? pCO2 ?? pO2 ?? SPO2 ?? FIO2 ?? HCO3 ?? BE ?? Lactate ?? Assessment and Plan: Naga Padgett is a 34 y.o. male with history of spina bifida and Stage IV right ischial pressure injury now s/p right ischial wound debridement and posterior thigh rotation flap on 10/11/24. Diet Status: regular Anticoagulation/DVT ppx: SCDs Pain management: [facility] Level of care: Continue Current Level of Care I have answered and addressed all issues and concerns from the patient and nursing staff. I have notified senior resident/attending bank credit card collection clerk with any issues or concerns. * Progress Notes - Gale Moody PharmD - 10/11/2024 5:50 PM EDT Pharmacokinetic Consult - Therapeutic Drug Monitoring HPI and Hospital Course: Naga Padgett is a 34 y.o. male presenting with Stage IV right ischial pressure injury requiring OR 10/11 for R ischium debridement, flap, and wound vac placement who was started on IV vancomycin for SSTI/surgical prophylaxis. Pharmacy was consulted for management of vancomycin. Assessment Avoiding population based dosing - expect creatinine to not be accurate marker due to immobility atbaseline. Anticipate 750 mg q12 should achieve AUC 450 based on previous levels (previously in 2022was on 1500mg Q12H with similar creatinine and vancomycin trough 22.5, peak 58.3). Plan 1. Loading dose not required. Patient received vancomycin 1250mg x1 pre-op on 10/11 at 1103. 2. Recommend initiating vancomycin 750mg IV Q12H for a total daily dose of 1500 mg and predicted AUC of 450. Of note, patient has a history of vancomycin infusion reaction (formerly Cuco's syndrome), requiring premedication with IV Benadryl 25mg prior to the dose and prolonged infusion period. 3. Monitor renal function (Scr and BUN) and UOP at least 2-3x/week or more frequently if renal function changes. 4. Obtain vancomycin levels around the 4th dose of new regimen if therapy is to be continued. Pharmacy will continue to follow. Submitted by: Gale Moody PharmD, [facility] 10/11/2024 5:47 PM * Anesthesia PACU Signout - Brendon Lopez DO - 10/11/2024 4:33 PM EDT Images from the original note were not included. Anesthesia PACU Signout Patient location during evaluation: PACU Patient participation: complete - patient participated Level of consciousness: baseline and awake Pain management: adequate (pain score 0-3) Airway patency: natural airway Hydration status: acceptable PONV: none Cardiovascular status: acceptable and hemodynamically stable Respiratory status: acceptable, spontaneous ventilation, unassisted and nonlabored ventilation Discharge Disposition: admit to inpatient unit 10/11/2024 3:40 PM 10/11/2024 3:45 PM 10/11/2024 3:50 PM 10/11/2024 3:55 PM 10/11/2024 4:00 PM 10/11/2024 4:15 PM 10/11/2024 4:30 PM Vitals Systolic 105 110 120 134 142 130 144 Diastolic 63 63 78 98 98 95 104 Heart Rate 87 92 104 108 98 96 89 Temp 36.3 C 36.7 C Resp 15 18 21 18 19 13 16 Cosigned by Nicole Curry MD at 10/11/2024 5:15 PM EDT Associated attestation - Nicole Curry MD - 10/11/2024 5:15 PM EDT Agree with above assessment and evaluation from resident/INBOUND CUSTOMER SERVICE AGENT. * Op Note - Noemí Ni MD - 10/11/2024 12:56 PM EDT Operative Note Date: 10/11/24 Location: [facility] OR Name: Naga Padgett, : 1990, Diagnoses: Pre-op Diagnosis Decubitus ulcer of right ischium, stage IV (CMS/HCC) Post-op Diagnosis Decubitus ulcer of right ischium, stage IV (CMS/HCC) Procedure(s): Right ischial pressure wound debridement and excision Right posterior thigh fasciocutaneous rotation flap Incisional wound vac placement Attending Surgeon(s): * Noemí Ni - Primary Service Line Layer(s): * Neil Whitley MD - Resident - Assisting * Kadi Galeano MD - Resident - Assisting Anesthesia: General ASA: III Blood Administration: Blood Product Administration History None Estimated Blood Loss: Minimal Drains: Closed/Suction Drain 1 Right;Posterior Thigh Bulb 19 Fr. (Active) Site Description Clean;Dry 10/13/24 08 Dressing Status Open to air 10/13/24 08 Drainage Appearance Bloody 10/13/24 08 Status To bulb suction 10/13/24 08 Output (mL) 25 mL 10/13/24 0455 Colostomy Umbilicus (Active) Stomal Appliance Other (Comment) 10/11/24 2100 Site Assessment Clean;Intact;Ignacio 10/13/24 1600 Peristomal Assessment Clean;Intact 10/13/24 1600 Urethral Catheter (Active) Site Assessment Clean;Skin intact 10/13/24 08 CAUTI: Collection Container Standard drainage bag 10/13/24 08 CAUTI: Securement Method Securing device (Describe) 10/13/24 08 CAUTI: Specimen Collection Port Covered with Alcohol Cap Yes 10/13/24 08 CAUTI: Urinary Catheter Necessity Yes, meets criteria 10/13/24799 CAUTI: Urinary Catheter Necessity Reasons Assist healing open sacral/perineal wounds or [id number]/04/25 08 Output (mL) 700 mL 10/13/24 0322 Specimen: Specimens ID Source Frozen? 1 Buttock, Right No Description: 1) Right Ischial Pessure Ulcer - Permanent A Buttock, Right Description: A) Right Ischial Pessure Ulcer Findings: see narrative Indications: Naga Padgett is an 34 y.o. male who is having surgery for Decubitus ulcer of right ischium, stage IV (CMS/HCC). Narrative: HISTORY: The patient is a 34-year-old spina bifida male with a nonhealing right ischial pressure ulcer. After slow healing with aggressive wound care and off loading, the patient elects to undergo wound excision and flap closure. The risks, benefits and complications were discussed including bleeding, infection, scarring, pain, delayed healing, seroma, hematoma, need for off loading and potential for additional surgery. Consent was obtained preoperatively. PROCEDURE: The patient was met in the preoperative holding area and his right side was marked. All questions were answered. He was then brought to the operating room, and after the induction of general endotracheal anesthesia, he was placed in the prone position with chest rolls and pillows. His buttocks and right posterior thigh were prepped with Betadine and draped in a sterile fashion. A time-out was performed performed in agreement with Anesthesia, Surgery and Nursing. He was given intravenous antibiotics. The surface of the pressure ulcer and all undermining was painted with methylene blue. We excised the skin edges and all visible tissues stained with methylene blue. The ischium was visible in the base of the wound and was covered with a viable layer of granulation tissue. There were no bony prominences. The dimensions were 6x6x3 cm with 7 cm of undermining superiorly. The wound was thoroughly irrigated. Meticulous hemostasis was obtained electrocautery. We designed a posterior thigh flap centered along the midpoint between the ischium and trochanter. The skin, subcutaneous tissue and underlying muscle fascia was incised and the flap was elevated in a distal to proximal fashion. The larger vessels were clipped. The distal end of the flap was used to fill all space. The buried portion was de-epithelialized with normal bleeding. A 19 italian fluted drain was placed under the flapexiting from a separate stab incision in the distal thigh. The flap was inset with 2-0 PDS sutures.The dermis was closed with buried 3-0 monocryl sutures. The skin at the ulcer defect was closed with interrupted 2-0 nylon horizontal mattress and simple sutures. The flap closure in the thigh was closed with buried 2-0 PDS sutures 2-0 nylon horizontal mattress sutures in the skin. An incisional wound vac was applied with adaptic and a split silver sponge. Suction was applied andthere was a good seal. Dry dressings were applied. The patient was returned to the supine position. He was extubated in the operating room and brought to the recovery room stable condition. Sponge and instrument counts were correct. I was the attending surgeon and was scrubbed throughout the entire case. Complications: None; patient tolerated the procedure well. Submitted by: Noemí Ni MD - 10/13/2024 * Brief Op Note - Kadi Galeano MD - 10/11/2024 12:56 PM EDT Date: 10/11/24 Location: [facility] OR Name: Naga Padgett, : 1990, Diagnoses: Pre-op Diagnosis Decubitus ulcer of right ischium, stage IV (CMS/HCC) Post-op Diagnosis Decubitus ulcer of right ischium, stage IV (CMS/HCC) Procedure(s): Right ischial pressure wound debridement and excision Right posterior thigh fasciocutaneous rotation flap Incisional wound vac placement Attending Surgeon(s): * Noemí Ni - Primary Service Line Layer(s): * Neil Whitley MD - Resident - Assisting * Kadi Galeano MD - Resident - Assisting Anesthesia: General ASA: III Blood Administration: Blood Product Administration History None Estimated Blood Loss: 100mL Drains: Closed/Suction Drain 1 Right;Posterior Thigh Bulb 19 Fr. (Active) Site Description Clean;Dry 10/11/24 1540 Dressing Status Clean;Dry;Intact 10/11/24 1540 Drainage Appearance Bloody 10/11/24 1540 Specimen: Specimens ID Source Frozen? 1 Buttock, Right No Description: 1) Right Ischial Pessure Ulcer - Permanent A Buttock, Right Description: A) Right Ischial Pessure Ulcer Findings: Right ischial pressure wound with healthy granulation tissue at base with exposed bone, approximately 6cm x 6cm x 3cm with 5cm tunnel Complications: None; patient tolerated the procedure well. Submitted by: Kadi Galeano MD - 10/11/2024 Cosigned by Noemí Ni MD at 10/15/2024 3:56 PM EDT Associated attestation - Noemí Ni MD - 10/15/2024 3:56 PM EDT I was present for the entirety of the procedure(s). * H&P - Kadi Galeano MD - 10/11/2024 11:58 AM EDT Subjective Chief complaint Ischial pressure injury History Of Present Illness Naga Padgett is a 34 y.o. male with history of spina bifida presenting for follow up for a right ischial stage IV pressure ulcer. His parents have been packing the wound with Nugauze dressings and Marnie and Mesalt at the undermined portion, and covering with a dry dressing. They change hisdressings three times daily. They have noted copious serous drainage especially at night time. Theydeny any purulence or exudate drainage from the wound, nor do they note surrounding redness. No fever and no chills. He continues to offload as much as possible, in bed most of the day on his stomach. He has a wheelchair with appropriate padding. He has been maintaining protein and vitamin C in his diet as well. In addition, he has hidradenitis in his groin bilaterally that has been managed with local wound care. He does not currently follow with a certified medical technician. He has no additional concerns at this time. Medical/Surgical/Social/Family History I have reviewed and updated the patient history. Immunizations Not reviewed Allergies Vancomycin, Sulfa drugs, and Latex Medications Current Medications[1] Objective Review of Systems A 14-point ROS was performed and is negative except as mentioned in HPI. Physical Exam Constitutional: General: He is not in acute distress. Appearance: He is not ill-appearing. HENT: Head: Normocephalic and atraumatic. Mouth/Throat: Mouth: Mucous membranes are moist. Eyes: Extraocular Movements: Extraocular movements intact. Cardiovascular: Rate and Rhythm: Normal rate and regular rhythm. Pulmonary: Effort: Pulmonary effort is normal. Abdominal: General: There is no distension. Skin: General: Skin is warm and dry. Capillary Refill: Capillary refill takes less than 2 seconds. Comments: right ischial ulcer with healthy wound bed with granulation tissue. Minimal drainage, no odor. Undermining (6cm) in 12 o clock direction of the wound with white macerated tissue at wound edges. No areas of necrosis or eschar. Neurological: Mental Status: He is alert and oriented to person, place, and time. Last Recorded Vitals Blood pressure (!) 158/101, pulse 110, temperature 37 ??C (98.6 ??F), temperature source Oral, height 1.575 m (5' 2 ), weight 83.9 kg (185 lb), SpO2 98%. Results Review {Vanishing Link Review Results :[id number] I have reviewed the latest lab and imaging results. Assessment & Plan Decubitus ulcer of right ischium, stage IV (CMS/HCC) Spina bifida Gastroesophageal reflux disease Naga Padgett is a 34 y.o. male with history of spina bifida and Stage IV right ischial pressure injury presenting for scheduled surgery. Plan: - To OR for right ischial would debridement and flap coverage - Consent obtained and in chart - All questions answered to patient satisfaction [1] Current Facility-Administered Medications Medication Dose Route Frequency Provider Last Rate Last Admin sodium chloride 0.9 % flush 10 mL 10 mL Intravenous q12h Noemí Ni MD And sodium chloride 0.9 % flush 10 mL 10 mL Intravenous PRN Noemí Ni MD vancomycin in NS (Vancocin) IVPB 1,250 mg 15 mg/kg Intravenous Once Noemí Ni MD 100 mL/hr at 10/11/24 1103 1,250 mg at 10/11/24 1103 Cosigned by Noemí Ni MD at 10/15/2024 3:56 PM EDT Associated attestation - Noemí Ni MD - 10/15/2024 3:56 PM EDT I saw and evaluated the patient with the resident/fellow. I discussed the case with the resident/fellow and agree with the findings and plan as documented. * Melba Parisi RN - 10/10/2024 8:59 AM EDT Images from the original note were not included. 40 Bathing Before Surgery Basic instructions ? You need to bathe with Hibiclens (chlorhexidine) before surgery. This will clean your skin and remove germs that live on the skin. This reduces your risk of infection after surgery. ? You can buy Hibiclens at most drug stores. ? You need to bathe with Hibiclens twice before surgery - once the night before surgery and again the morning of surgery. ? Do not use Hibiclens on your hair or anywhere above the neck. ? You should not shave with a razor or use hair removal creams near the surgery site for 4 days before surgery. Night before surgery If you take a shower or tub bath: 1. Wash with regular soap and water and rinse off. 2. You may wash your hair the night before or the morning of surgery. Shampoo and rinse as usual. 3. Pour 1 ounce (2 tablespoons) of Hibiclens on a clean washcloth. Wash the area where you will be having your surgery first. Then wash the rest of the body, leaving the groin area until last. 4. Allow the Hibiclens to stay on the skin for 5 minutes, then rinse off completely. 5. Use a clean towel to dry off. 6. Put on clean clothing and be sure to have clean sheets on your bed. ? If you take a bed bath: 1. Wash with regular soap and water and rinse off. 2. Place 1 ounce (2 tablespoons) of Hibiclens solution in a wash basin of clean water. Wash the area where you will be having surgery first. 3. Then wash the rest of the body. Leave the groin area until last. 4. Allow the Hibiclens to stay on the skin for 5 minutes. Then rinse off completely. 5. Use a clean towel to dry off. 6. Put on clean clothing. Be sure to have clean sheets on your bed. Morning of surgery ? Repeat the above steps. You are now ready for surgery with the cleanest possible skin! If you develop a skin problem between now and your surgery, please tell your doctor as soon as possible! * Vincent Moreno, Melba Vitale RN - 10/10/2024 8:59 AM EDT Images from the original note were not included. 1072 Patient Surgery Guide The doctors and staff of [facility] would like to welcome you, your family, and friends to [facility]. We offer access to more than 1,500 doctors from many specialty areas. Our goal is to provide high-quality, patient- centered care throughout your experience. We have a team approach tosurgery, and you and your family are an important part of our team. Surgeons, surgical nurses, anesthesiologists, dietitians, social workers, pharmacists, and others will work with you to decide the best plan of care for you. We understand surgery is a stressful time. This information will help you be more comfortable with [facility] and the surgical process. This information provides an overview answering many of yourquestions. But if you have further questions, please ask your doctor or nurse. Preoperative Anesthesia Clinic Your doctor may ask you to go to the Preoperative Anesthesia Clinic before your surgery. This visitallows us to evaluate your overall health and reduce the chance of delays or cancellation on the day of surgery. Please bring a complete list of the medicines your currently take. Bring any recent test reports you may have, including blood work, EKG, X-rays. Bring the results of any recent heart evaluation, including doctor?s notes and test reports. If you are not scheduled for a Preoperative Anesthesia Clinic visit, a nurse will call you to go over your health history and give you information about your surgery. It is very important you speak to a nurse before your surgery. The Preoperative Anesthesia Clinic is located on the first floor of the [facility] near the Pharmacy and main clinic entrance. We are open Wednesday-Wednesday from 8 a.m. to 4:30 p.m. A clinic sales account representative can be reached at [phone]. Parking is available in the [facility] garage on [address] or in the [facility] garage located at [address] [place] [address], directly across [facility] from [facility]. The day before surgery You will receive a phone call telling you what time you need to arrive at the hospital for surgery.If you miss the call, please call one of the following numbers (depending on where your surgery is scheduled): ? [facility]: [phone] or [phone] ? [facility]: [phone] or [phone] The day of surgery ? Arrive on time to avoid delays or cancellation. ? Park in the [facility] parking garage located at [address] It is directly across [facility] from the medical campus. ? If you are scheduled for surgery at [facility], take the hospital garage elevator to Level C, then cross the concourse bridge to the Surgery Waiting Room to register for your surgery. [facility] is located down the first hallway to the right at the end of the concourse bridge. If you need help crossing the concourse, you may pickling grader the patient golf cart shuttle directlyto the right of the elevators on Level C. ? If you are scheduled for surgery at the [facility], take the garage elevator to Level A and catch the free shuttle to the hospital. (Be careful not to take the [facility] shuttle - there is an ambassador there who can help you.) Exit the shuttle at the first shuttle stop, then proceed to the registration desk to the right of the entrance. ? Registration staff will take your insurance information and confirm your name, birthday, address and other information. When you arrive After you register, we will take you to the preoperative area. Here the nurses will get you ready for surgery. Visitors are limited in the preoperative area. Nurses will: ? Allow you to change into a hospital gown. ? Check your arm band for your name and birthday. Your arm band will be checked many times throughout your stay at [facility] to ensure your safety. ? Go over your health history. ? Review your medicines and allergies. ? Check your temperature, blood pressure, heart rate, height and weight. ? Start an IV. ? Tell you what to expect during your stay at the hospital. During surgery Your family and friends will be directed to the Surgery Waiting Room. There they will receive regular updates during your surgery. Your doctor will talk to them after your surgery. A contact clerk is available in the waiting room to help family and visitors. Space is limited, so please limit the number of people who come with you for your surgery. After surgery We will take you to a special area called the Post-Anesthesia Care Unit, or ?PACU.? There nurses will take care of you as you recover from surgery. Most patients will stay in the PACU for about 1-2 hours. Some people might need to stay longer. During this time the doctors and nurses will: ? Keep your pain level as low as possible. ? Help keep you from being sick to your stomach. ? Make sure you are warm and comfortable. ? Update your family on how you are doing. The anesthesia doctor will decide when you can go home or to your room. If you are going home after surgery: A nurse will give you and your family instructions on how to care for yourself when you go home. You will also get written instructions. This information will tell you how to schedule a follow-up appointment if an appointment is not scheduled before you leave, and how to contact your surgeon. If you are staying in the hospital after surgery: You will stay in the PACU until you are assigned a room. Your family and friends may visit you once you get to your hospital room. Parents of children or caregivers of special needs patients may remain in the preoperative area forthe entire time. They will be allowed in the PACU as soon as possible after the operation. At home ? Plan to go straight home to rest when you leave the hospital. If you wish, your medicines to takehome can be brought to your room before you leave. ? Follow your doctor?s instructions about rest, what to eat, what you can and cannot do, which medicines to take and when you may return to your normal activities. ? Be sure to keep your follow-up appointment with your doctor. You should be scheduled for a clinicappointment before you leave the hospital. Special reminders If you take insulin or other medicine for diabetes, the doctor will tell you what dose to take before your surgery. This will probably be different from your normal dose. Please bring your insulin with you on the day of surgery. If you are taking a blood thinner (for example: Coumadin, Plavix, aspirin, etc.), please tell your surgeon and anesthesia doctor. For all other medicines, you will receive instructions during your Anesthesia Preoperative Clinic visit or phone screening. Updates from the operating room It is important to protect your privacy when you are in the hospital. We also want to make it easy for your family to find out how you are doing while you are in surgery. To do this, on the day of your surgery a nurse will ask you to choose a password and share it with just one family member or friend. This password will then be put on your chart. When your family member calls to check on your condition, he or she must give the password to the nurse. The nurse will look on your chart to make sure it is the correct password and then give the person information on your condition. If you have any questions about this process, please ask. Our mission is to give you the very best care, including protecting your privacy. Feel better faster You should take walks if possible and do plenty of deep breathing. This will help you feel better more quickly after surgery. Walking and deep breathing help prevent blood clots and pneumonia and mayhelp ease any muscle soreness. Surgery do's ? Be sure to bring your current insurance card and a picture ID. ? Please bring copies of the following,if you have them: living will, health care surrogate, power of nurse navigator or guardianship papers. ? Bring a responsible adult to drive you home (or ride with you in a taxi) if you are having outpatient surgery. ? Plan to have someone stay with you at home for 24 hours after your surgery. ? Bring a list of your current medicines, including how much you take and when you take it. You mayalso just bring the medicines (in their original containers) with you. ? Tell your doctor about any allergies you have to medicines or food. ? Wear comfortable, loose-fitting clothes and low-heeled shoes. ? Bring a case to store glasses, contact lenses or dentures during surgery. Label the containers with your name. ? Pack an overnight bag that includes personal care items, such as a toothbrush and lotion, if you are staying in the hospital. ? Bring a parent or guardian if you are younger than 18. ? Bring a favorite toy or blanket for children having surgery. Surgery don'ts ? Starting at midnight, don?t eat anything on the day of your surgery. ? Don?t drink anything after midnight (unless told otherwise by your doctor or nurse) the day before your surgery. ? Don?t smoke, use smokeless tobacco, eat mints or chew gum after midnight the day of your surgery. ? Don?t drink alcohol 24 hours before your surgery. ? Don?t wear makeup, jewelry (including body piercing) or nail [place]. ? Don?t bring money or valuables to the hospital. ? Don?t drive a motor vehicle for 24 hours after your surgery. ? Don?t make important decisions or sign any legal documents for 24 hours after your surgery. ? Don?t drink alcohol or take medicine not prescribed by your doctor for 24 hours after your surgery. Need to cancel? If you decide not to have surgery or if you need to cancel because of a fever, a breathing or viralillness, or a family emergency, please call your surgeon?s office and the Preoperative Anesthesia Clinic at [phone] or [phone]. If it is the day of surgery, call the location where you are scheduled to have your surgery: [facility] at [phone] or [phone] [facility] at [phone] or [phone]. For more information Visit [email or web address] or call [phone] or [phone]. [facility] does not discriminate. [facility] complies with applicable Federal civil rights laws and does not discriminate on the basis of race, color, national origin, age, disability, or sex. * [facility] - Melba Moreno RN - 10/10/2024 8:59 AM EDT Images from the original note were not included. 489 Map to [facility] Facilities Directions Easy directions to and from I-75/[address]-64 (from [address]) Directions from I-75/I-64 to the HealthCare Parking Garage: ? From [address], turn right off the exit ramp onto [address] ([place] [address]/[place] [address]) toward [place]. ? In 4.1 miles, turn left onto [address] (at the [place]). ? In a half-mile, turn right onto [address] ? In .3 miles, turn right onto [address] (just past the [employer] gas station). Garage entrance is on the left. ? Important: This garage address will change to Alivia Fernandez on October 10, 2024. Directions from HealthCare Parking Garage to I-75/I-64: ? Turn left out of the garage onto [address]. ? Turn left onto [address]. ? In .3 miles, turn left down [address] ? In a half-mile, turn right onto [address] (at the [employer] gas station). ? In 4.1 miles, merge onto I-64 /[address]-75 (near the [facility]). Parking Any patients or visitors of [facility] can park in the following areas: ? [facility] Parking Garage (main garage): [address] (Levels A-F) ? [facility] Garage: [address] (Levels 1-6) ? [facility] Cancer lot: Located off [employer] (limited parking for [facility] outpatients only). Upon Your Arrival ? Patients and visitors going to [facility] and [facility] may walk across the pedway, located at Level C of the main parking garage ([address] or take the free shuttle from Level A. Golf carts are available on the pedway. ? Patients and visitors going to all other hospital pavilions are encouraged to take a free shuttleat Level A of the main garage. ? Emergency Department (ED) patients in need of immediate treatment may be dropped off at the ED entrance at the 15-minute dropoff area. Vehicles in this lot must be moved to the main hospital garage after 15 minutes. The ED may also be accessed via the pedway off [facility] garage on Level C. If you need a shuttle to the ED, one can be called for you at Level A of the main garage or contact any of the information desks, . Additional Information For additional information, please visit our information desks located throughout [facility]. Information desks have additional maps and resources. Information desks are located at the main entrances of: [facility] (first floor and ground floor), [facility], [facility], [facility] CC, [facility], [facility] (first and third floor), and [facility]. Informationdesk number: [phone]. Important Addresses [address] [place] [address] ? [facility] ? [facility] A ? [facility] G ([facility]) ? Emergency Department [address] ? [facility] H ? [facility] CC ([facility]) ? [facility] WH ([facility]) ? [facility] [address] [facility] ? [facility] [address] [facility] ? [facility] [address] [facility] ? [facility] ? [facility] * PAT Phone Note - Melba Moreno RN - 10/10/2024 8:59 AM EDT HPI Naga Padgett is a 34 y.o. male who presents with Pre-op Diagnosis * Decubitus ulcer of right ischium, stage IV (CMS/HCC) [L89.314] now scheduled for Debridement Pressure right ischium, fasciocutneous flap closure (Right). Date scheduled is 10/11/2024. 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) [1] Family History Problem Relation Name Age of Onset Cancer Mother Nelly Padgett Heart disease Father Daron Padgett Hypertension Father Daron Padgett Cancer Father Daron Padgett Anesthesia problems Neg Hx [1] Social History Tobacco Use Smoking status: Former Current packs/day: 0.00 Average packs/day: 0.5 packs/day for 5.0 years (2.5 ttl pk-yrs) Types: Cigarettes Start date: 04/12/2006 Quit date: 04/12/2011 Years since quittin.5 Passive exposure: Never Smokeless tobacco: Never Vaping Use Vaping status: Never Used Substance Use Topics Alcohol use: Yes Comment: Occasional Drug use: Never [1] Past Surgical History: Procedure Laterality Date BACK SURGERY spina bifida CREATION OF CUTANEOUS STOMA FOOT SURGERY LEG SURGERY MYRINGOTOMY W/ TUBES PRESSURE ULCER DEBRIDEMENT SHUNT PROCEDURE SPINE SURGERY Tether cord release VENTRICULOPERITONEAL SHUNT 2 revisions WOUND DEBRIDEMENT [1] Allergies Allergen Reactions Vancomycin Itching, Swelling and Rash Vancomycin Infusion Reaction: tolerated 01/2023 with extended infusion and pre- medication with diphenhydramine Sulfa Drugs Hives Latex Rash [1] No current facility-administered medications for this encounter. Current Outpatient Medications: atomoxetine, Take 1 capsule by mouth 1 time each day. lamoTRIgine, Take 1 tablet by mouth nightly. omeprazole OTC, Take 1 tablet by mouth daily. Do not crush, chew, or split. oxybutynin XL, Take 1 tablet by mouth nightly. amphetamine-dextroamphetamine, Take 1 tablet (10 mg) by mouth 2 (two) times a day. amphetamine-dextroamphetamine XR, 1 capsule (20 mg). clindamycin, Apply 1 Application topically 2 (two) times a day. (Patient not taking: Reported on 10/10/2024) ferrous sulfate, Take 1 tablet (324 mg) by mouth 1 (one) time each day with breakfast. Do not crush, chew, or split. (Patient not taking: Reported on 10/10/2024) hydrocortisone, Apply 1 Application topically 1 (one) time each day. (Patient not taking: Reported on 10/10/2024) ketoconazole, Apply 1 Application topically 1 (one) time each day. (Patient not taking: Reported on10/10/2024) * Preprocedure Instructions - Melba Moreno RN - 10/10/2024 8:58 AM EDT Home Medication Instructions Current Medications Medication Instructions atomoxetine (Strattera) 40 MG capsule Take as needed lamoTRIgine (LaMICtal) 100 MG tablet Take night before surgery omeprazole OTC (PriLOSEC OTC) 20 MG EC tablet Take night before surgery oxybutynin XL (Ditropan-XL) 15 MG 24 hr tablet Take night before surgery General Preoperative Instructions You will be called the business day before surgery with your arrival time. No food, no thick or dark liquids after midnight the night before the surgery. Please drink CLEAR LIQUIDS-meaning water, Gatorade/Pedialyte, or apple juice, until 2 hours prior to arrival time surgery day. Please avoid the reds and purples on the Gatorade/Pedialyte. No alcohol or smoking prior to surgery Arrive on time to avoid delays Parking/Registration procedure explained You MUST have a responsible adult available for transport to and from hospital Visitation policy for the day of surgery reviewed Bring insurance card, photo ID, along with power of nurse navigator, guardianship or advanced directives if applicable Do not bring money, jewelry or other valuables Hibiclens bathing instructions reviewed if applicable Notify surgeon of fever, illness, any changes or if you decide not to have surgery Registration will be on the first floor of [facility]) at the end of the bridge from the parking garage, the hallway on the RIGHT. Parking Garage Address: [address] [place] [address] Av. documented in this encounter Plan of Treatment Upcoming Encounters Date Type Department Care Team (Late st Contact Info) Description 11/15/2024 10:40 AM EDT Office Visit [facility] [address] [facility] 5th Floor [address], [address] [place] [address] Noemí Ni MD [address] [phone] Pending Results Name Type Priority Associated Diagnoses Date /Time AFB Culture, Non Respiratory Source and Acid Fast Stain Microbiology Routine Decubitus ulcer of right ischium, stage IV (CMS/HCC) 10/11/2024 2:27 PM EDT Fungal Culture, Tissue and [facility] Microbiology Routine Decubitus ulcer of right ischium, stage IV (CMS/HCC) 10/11/2024 2:27 PM EDT Scheduled Referrals Name Type Priority Associated Diagnoses Order Schedule Discharge Ambulatory referral to [facility] Outpatient Referral Routine Decubitus ulcer of right ischium, stage IV (CMS/HCC) 1 Occurrences starting 10/20/2024 until 04/23/2026 Discharge Ambulatory referral to NON [facility] Outpatient Referral Routine Decubitus ulcer of right ischium, stage IV (CMS/HCC) 1 Occurrences starting 10/26/2024 until 04/29/2026 Discharge Ambulatory referral to NON [facility] Outpatient Referral Routine Decubitus ulcer of right ischium, stage IV (CMS/HCC) 1 Occurrences starting 10/27/2024 until 04/30/2026 Discharge Ambulatory referral to [facility] Outpatient Referral Routine Decubitus ulcer of right ischium, stage IV (CMS/HCC) 1 Occurrences starting 10/30/2024 until 05/03/2026 documented as of this encounter Procedures Procedure Name Priority Date/Time Associated Diagnosis Comments WOUND OSTOMY EVAL AND TREAT Routine 10/20/2024 11:02 AM EDT [place] NEG PRESSURE WOUND THERAPY NON DME >50 SQ CM Routine 10/20/2024 8:04 AM EDT Decubitus ulcer of right ischium, stage IV (CMS/HCC) CREATININE, PLASMA Routine 10/19/2024 4: 43 AM EDT CREATININE, PLASMA Routine 10/18/2024 12 :00 AM EDT INSERT PERIPHERAL IV Routine 10/17/2024 10:56 PM EDT CREATININE, PLASMA Routine 10/17/2024 9: 58 AM EDT VANCOMYCIN, PEAK, PLASMA Timed 10/16/2024 4:48 AM EDT VANCOMYCIN, TROUGH, PLASMA Timed 10/15/2024 11:52 PM EDT CREATININE, PLASMA Routine 10/15/2024 4: 24 AM EDT CREATININE, PLASMA Routine 10/14/2024 4: 24 AM EDT VANCOMYCIN, PEAK, PLASMA Timed 10/13/2024 6:44 PM EDT INSERT PERIPHERAL IV STAT 10/13/2024 2:06 PM EDT VANCOMYCIN, TROUGH, PLASMA Timed 10/13/2024 10:28 AM EDT CREATININE, PLASMA Routine 10/13/2024 4: 38 AM EDT WOUND OSTOMY EVAL AND TREAT Routine 10/12/2024 2:27 PM EDT MULTI DRUG RESISTANCE TEST Routine 10/11/2024 5:24 PM EDT BASIC METABOLIC PANEL, PLASMA STAT 10/11/2024 4:57 PM EDT FUNGAL CULTURE, TISSUE AND CHI Routine 10/11/2024 2:27 PM EDT Decubitus ulcer of right ischium, stage IV (CMS/HCC) AFB CULTURE, NON RESPIRATORY SOURCE AND ACID FAST STAIN Routine 10/11/2024 2:27 PM EDT Decubitus ulcer of right ischium, stage IV (CMS/HCC) TISSUE CULTURE AND GRAM STAIN Routine 10/11/2024 2:27 PM EDT Decubitus ulcer of right ischium, stage IV (CMS/HCC) ANAEROBIC CULTURE Routine 10/11/2024 2:2 7 PM EDT Decubitus ulcer of right ischium, stage IV (CMS/HCC) SURGICAL PATHOLOGY EXAM Routine 10/11/2024 2:23 PM EDT Decubitus ulcer of right ischium, stage IV (CMS/HCC) DEBRIDEMENT, PRESSURE ULCER 10/11/2024 11:59 AM EDT Decubitus ulcer of right ischium, stage IV (CMS/HCC) Special Needs methylene blue, rongeur, dolphin bed, 10 flat SATYA drains documented in this encounter Results * [place] NEG PRESSURE WOUND THERAPY NON DME >50 SQ CM (10/20/2024 8:04 AM EDT) Narrative Noemí Ni MD - 10/20/2024 8:04 AM EDT Noemí Ni MD 10/29/2024 4:33 PM Wound Vac Placement Performed by: Kd Covarrubias MD Authorized by: Noemí Ni MD Consent: Consent obtained: Verbal Consent given by: Patient Time out performed at: 10/20/2024 6:04 AM DME Vac: No Procedure details: Foam Removed (Pieces): 2 Foam Placed (Pieces): 2 Length (cm): 35 Width (cm): 15 Depth (cm): 0 Calc Area (square cm): 525 Foam Applied: Silver Foam Therapy: Continuous Pressure (mmHg): 125 Patient tolerance of procedure: Tolerated well, no immediate complications us Noemí Ni MD IN CLINIC/BEDSIDE ORDERABLES Fin al Result * (ABNORMAL) Creatinine, Plasma (10/19/2024 4:43 AM EDT) Creatinine, Plasma 0.62(L) 0.70 - 1.20 mg/dL 10/19/2024 5:52 AM EDT [facility] eGFRcr 128.6 mL/min/1.7 3m*2 10/19/2024 5:52 AM EDT [facility] Comment:Reported eGFRcr in m L/min/1.73m2 is based the CKD-EPI 2020 equation that does not use a race coefficient. Blood Venous blood specimen / Unknown Venipuncture / Unknown 10/19/2024 4:43 AM EDT 10/19/2024 4:51 AM EDT us Noemí Ni MD LAB BLOOD ORDERABLES Final Resul t [facility] [address] [place] [address] * Creatinine, Plasma (10/18/2024 12:00 AM EDT) Creatinine, Plasma 0.73 0.70 - 1.20 mg/dL 10/18/2024 12:34 AM EDT [facility] eGFRcr 122.4 mL/min/1.7 3m*2 10/18/2024 12:34 AM EDT [facility] Comment:Reported eGFRcr in m L/min/1.73m2 is based the CKD-EPI 2020 equation that does not use a race coefficient. Blood Venous blood specimen / Unknown Venipuncture / Unknown 10/18/2024 12:00 AM EDT 10/18/2024 12:04 AM EDT Noemí Ni MD LAB BLOOD ORDERABLES Final Resul t [facility] [address] [place] [address] * PERIPHERAL IV (SMARTFORM LINK) (10/17/2024 10:56 PM EDT) Narrative Surya Koehler RN - 10/17/2024 10:56 PM EDT Surya Koehler RN 10/17/2024 10:57 PM Insert peripheral IV Performed by: Surya Koehler RN Authorized by: Noemí Ni MD Hand hygiene: Hand hygiene performed prior to insertion Inserted using aseptic techniques: Yes Preparation: Skin prepped with chg Orientation: Left and upper Location: Arm Catheter placed: Peripheral IV Catheter size: 20g/2.00in Line Technique: Ultrasound Guidance Number of attempts: 1 IV flushes: Without difficulty and positive blood return noted and IV luer locked Patient tolerance: Patient tolerated the procedure well and there were no complications Patient comfort measures used: Distraction and position of comfort IV site covered with: Transparent semipermeable dressing us Noemí Ni MD IV THERAPY ORDERABLES Final Resu lt * (ABNORMAL) Creatinine, Plasma (10/17/2024 9:58 AM EDT) Creatinine, Plasma 0.60(L) 0.70 - 1.20 mg/dL 10/17/2024 10:57 AM EDT [facility] eGFRcr 129.9 mL/min/1.7 3m*2 10/17/2024 10:57 AM EDT [facility] Comment:Reported eGFRcr in m L/min/1.73m2 is based the CKD-EPI 2020 equation that does not use a race coefficient. Blood Venous blood specimen / Unknown Venipuncture / Unknown 10/17/2024 9:58 AM EDT 10/17/2024 10:05 AM EDT us Noemí Ni MD LAB BLOOD ORDERABLES Final Resul t [facility] [address] [place] [address] * Vancomycin, Peak, Plasma Please draw ~2 hours after 0030 dose of vancomycin finishes infusing. Consider obtaining level via peripheral stick. If peripheral stick is not feasible, please ensure that line is flushed well prior to drawing level. Than... (10/16/2024 4:48 AM EDT) Vancomycin, Peak, Plasma 22.3 20.0 - 40.0 ug/mL 10/16/2024 5:38 AM EDT [facility] Blood Venous blood specimen / Unknown Venipuncture / Unknown 10/16/2024 4:48 AM EDT 10/16/2024 5:10 AM EDT Narrative [facility] - 10/16/2024 5:38 AM EDT Therapeutic Peak level: 20-40ug/mL Supra-therapeutic Peak level: >40 ug/mL us Noemí Ni MD LAB BLOOD ORDERABLES Final Resul t Performing Organization Address [facility] Co de Phone Number [facility] [address] [place] [address] * Vancomycin, Trough, Plasma Please draw ~30 minutes prior to dose due at 0030 on 10/16. Please do NOT hold dose awaiting level to return. Consider obtaining level via peripheral stick. If peripheral stick is not feasible, please ensure that line is ... (10/15/2024 11:52 PM EDT) Vancomycin, Trough, Plasma 10.9 10.0 - 20.0 ug/mL 10/16/2024 12:31 AM EDT [facility] Blood Venous blood specimen / Unknown Venipuncture / Unknown 10/15/2024 11:52 PM EDT 10/15/2024 11:59 PM EDT Narrative [facility] - 10/16/2024 12:31 AM EDT Therapeutic Trough level: 10-20ug/mL Supra-therapeutic Trough level: >20 ug/mL us Noemí Ni MD LAB BLOOD ORDERABLES Final Resul t [facility] [address] [place] [address] * (ABNORMAL) Creatinine, Plasma (10/15/2024 4:24 AM EDT) Creatinine, Plasma 0.65(L) 0.70 - 1.20 mg/dL 10/15/2024 5:35 AM EDT [facility] eGFRcr 126.8 mL/min/1.7 3m*2 10/15/2024 5:35 AM EDT [facility] Comment:Reported eGFRcr in m L/min/1.73m2 is based the CKD-EPI 2020 equation that does not use a race coefficient. Blood Venous blood specimen / Unknown Venipuncture / Unknown 10/15/2024 4:24 AM EDT 10/15/2024 5:06 AM EDT us Noemí Ni MD LAB BLOOD ORDERABLES Final Resul t Performing Organization Address [facility] Co de Phone Number [facility] [address] [place] [address] * (ABNORMAL) Creatinine, Plasma (10/14/2024 4:24 AM EDT) Creatinine, Plasma 0.61(L) 0.70 - 1.20 mg/dL 10/14/2024 5:11 AM EDT [facility] eGFRcr 129.3 mL/min/1.7 3m*2 10/14/2024 5:11 AM EDT [facility] Comment:Reported eGFRcr in m L/min/1.73m2 is based the CKD-EPI 2020 equation that does not use a race coefficient. Blood Venous blood specimen / Unknown Venipuncture / Unknown 10/14/2024 4:24 AM EDT 10/14/2024 4:43 AM EDT Result Bobbi Ni MD LAB BLOOD ORDERABLES Final Resul t Performing Organization Address City/[facility]/ZIP Co de Phone Number [facility] [address] [place] [address] * (ABNORMAL) Vancomycin, Peak, Plasma Please draw ~2 hours after 1100 dose of vancomycin finishes infusing. Consider obtaining level via peripheral stick. If peripheral stick is not feasible, please ensure that line is flushed well prior to drawing level. Than... (10/13/2024 6:44 PM EDT) Vancomycin, Peak, Plasma 14.6(L) 20.0 - 40.0 ug/mL 10/13/2024 7:19 PM EDT [facility] Blood Venous blood specimen / Unknown Venipuncture / Unknown 10/13/2024 6:44 PM EDT 10/13/2024 6:48 PM EDT Narrative [facility] - 10/13/2024 7:19 PM EDT Therapeutic Peak level: 20-40ug/mL Supra-therapeutic Peak level: >40 ug/mL Noemí Ni MD LAB BLOOD ORDERABLES Final Resul t [facility] [address] [place] [address] * PERIPHERAL IV (SMARTFORM LINK) (10/13/2024 2:06 PM EDT) Narrative Cande Alcazar RN - 10/13/2024 2:06 PM EDT Cande Alcazar RN 10/13/2024 2:06 PM Insert peripheral IV Performed by: Cande Alcazar, RN Authorized by: Noemí Ni MD Hand hygiene: Hand hygiene performed prior to insertion Inserted using aseptic techniques: Yes Preparation: Skin prepped with chg Orientation: Right and upper Location: Arm Catheter placed: Peripheral IV Catheter size: 20g/2.00in Line Technique: Ultrasound Guidance Number of attempts: 2 IV flushes: Without difficulty and positive blood return noted and IV luer locked Patient tolerance: Patient tolerated the procedure well, age appropriate response and there were no complications IV site covered with: Transparent semipermeable dressing Education provided to: Patient us Noemí Ni MD IV THERAPY ORDERABLES Final Resu lt * (ABNORMAL) Vancomycin, Trough, Plasma Please draw ~30 minutes prior to dose due at 1100 on 10/13. Please do NOT hold dose awaiting level to return. Consider obtaining level via peripheral stick. If peripheral stick is not feasible, please ensure that line is ... (10/13/2024 10:28 AM EDT) Vancomycin, Trough, Plasma 8.6(L) 10.0 - 20.0 ug/mL 10/13/2024 11:13 AM EDT [facility] Blood Venous blood specimen / Unknown Venipuncture / Unknown 10/13/2024 10:28 AM EDT 10/13/2024 10:44 AM EDT Narrative [facility] - 10/13/2024 11:13 AM EDT Therapeutic Trough level: 10-20ug/mL Supra-therapeutic Trough level: >20 ug/mL us Noemí Ni MD LAB BLOOD ORDERABLES Final Resul t Performing Organization Address [facility] Co de Phone Number [facility] [address] [place] [address] * Creatinine, Plasma (10/13/2024 4:38 AM EDT) Creatinine, Plasma 0.70 0.70 - 1.20 mg/dL 10/13/2024 6:20 AM EDT [facility] eGFRcr 124.0 mL/min/1.7 3m*2 10/13/2024 6:20 AM EDT [facility] Comment:Reported eGFRcr in m L/min/1.73m2 is based the CKD-EPI 2020 equation that does not use a race coefficient. Blood Venous blood specimen / Unknown Venipuncture / Unknown 10/13/2024 4:38 AM EDT 10/13/2024 5:53 AM EDT us Noemí Ni MD LAB BLOOD ORDERABLES Final Resul t [facility] [address] [place] [address] * Multi Drug Resistance Test (10/11/2024 5:24 PM EDT) Culture No growth at day 1 10/12/2024 6:51 PM EDT [facility] Swab (Nares and Amy Rectal) 10/11/2024 5:24 PM EDT 10/11/2024 5:24 PM EDT Narrative [facility] - 10/12/2024 6:51 PM EDT This test was developed and its performance characteristics determined by the [facility]. Although the media is FDA-approved, it is not FDA-approved for all specimen types submitted. The FDA has determined that such clearance or approval is not necessary. This test is used for surveillance purposes. It should not be regarded as investigational or for research. The [facility] is certified under the Clinical Laboratory Improvement Amendments of 1988 (CLIA-88) as qualified to perform high complexity clinical laboratory testing. us Noemí Ni MD LAB MICROBIOLOGY - GENERAL ORDER SABA Final Result [facility] [address] [place] [address] * (ABNORMAL) Basic metabolic panel (10/11/2024 4:57 PM EDT) Glucose, Plasma 114(H) 74 - 99 mg/dL 10/11/2024 5:45 PM EDT [facility] BUN, Plasma 11 7 - 21 mg/dL 10/11/2024 5:45 PM EDT [facility] Creatinine, Plasma 0.66(L) 0.70 - 1.20 mg/dL 10/11/2024 5:45 PM EDT [facility] BUN/Creatinine Ratio 17 10/11/2024 5:45 PM EDT [facility] Sodium, Plasma 137 136 - 145 mmol/L 10/11/2024 5:45 PM EDT [facility] Potassium, Plasma 4.7 3.6 - 4.9 mmol/L 10/11/2024 5:45 PM EDT [facility] Chloride, Plasma 106 97 - 107 mmol/L 10/11/2024 5:45 PM EDT [facility] CO2, Plasma 19(L) 22 - 29 mmol/L 10/11/2024 5:45 PM EDT [facility] Anion Gap 12 6 - 16 mmol/L 10/11/2024 5:45 PM EDT [facility] Total Calcium, Plasma 8.5(L) 8.9 - 10.2 mg/dL 10/11/2024 5:45 PM EDT [facility] eGFRcr 126.2 mL/min/1.7 3m*2 10/11/2024 5:45 PM EDT [facility] Comment:Reported eGFRcr in m L/min/1.73m2 is based the CKD-EPI 2020 equation that does not use a race coefficient. Blood Venous blood specimen / Unknown Venipuncture / Unknown 10/11/2024 4:57 PM EDT 10/11/2024 5:17 PM EDT us Noemí Ni MD LAB BLOOD ORDERABLES Final Resul t [facility] [address] [place] [address] * (ABNORMAL) Tissue Culture and Gram Stain (10/11/2024 2:27 PM EDT) Culture Light Growth 10/14/2024 1:08 PM EDT [facility] Culture Corynebacterium striatum group(A) 10/14/2024 1:08 PM EDT [facility] Comment: This isolate has been identified using the FDA Approved [employer] System The organism value for this result has been updated. These results have been appended to the previously preliminary verified report. Gram Stain Result No organisms seen 10/14/2024 1:08 PM EDT [facility] Gram Stain Result No polymorphonuclear leukocytes seen 10/14/2024 1:08 PM EDT [facility] Tissue Structure of right buttock / Unknown 10/11/2024 2:27 PM EDT 10/11/2024 2:43 PM EDT Comment:Pre-op diagnosis: Decubitus ulcer of right ischium, stage IV (CMS/HCC) [L89.314] Narrative Organism Antibiotic Method Susceptibility Corynebacterium striatum group Erythromycin ETEST 3.0 ug/ml: Resistant Comment:Test not FDA approved. Results for research use only. Corynebacterium striatum group Gentamicin ETEST 0.50 ug/ml: Susceptible Comment:Test not FDA approved. Results for research use only. Corynebacterium striatum group Penicillin G ETEST 8.0 ug/ml: Resistant Comment:Test not FDA approved. Results for research use only. Corynebacterium striatum group Vancomycin ETEST 0.50 ug/ml: Susceptible Comment:Test not FDA approved. Results for research use only. Noemí Ni MD LAB MICROBIOLOGY - GENERAL ORDER SABA Final Result Performing Organization Address [facility] Co de Phone Number [facility] [address] [place] [address] * Anaerobic Culture (10/11/2024 2:27 PM EDT) Culture No anaerobes isolated 10/15/2024 2:43 PM EDT [facility] Tissue Structure of right buttock / Unknown 10/11/2024 2:27 PM EDT 10/11/2024 2:43 PM EDT Comment:Pre-op diagnosis: Decubitus ulcer of right ischium, stage IV (CMS/HCC) [L89.314] Noemí Ni MD LAB MICROBIOLOGY - GENERAL ORDER SABA Final Result Performing Organization Address [facility] [place] [address] * Surgical Pathology Exam (10/11/2024 2:23 PM EDT) Case Report Surgical Pathology Case: [id number] Authorizing Provider: Noemí Ni MD Collected: 10/11/2024 1423 Ordering Location: [facility] OPERATING RO[facility] Received: 10/11/2024 1442 Pathologist: Luanne Liriano MD Specimen: Buttock, Right, 1) Right Ischial Pessure Ulcer - Permanent 10/16/2024 3:35 PM EDT [facility] Final Diagnosis A. RIGHT ISCHIAL PESSURE ULCER, DEBRIDEMENT: - ULCERATED SKIN, GRANULATION TISSUE, AND FIBROSIS. 10/16/2024 3:35 PM EDT [facility] at 1535 EDT Clinical Information Decubitus ulcer of right ischium, stage IV (CMS/HCC) [L89.314] 10/16/2024 3:35 PM EDT [facility] Gross Description A. 1) RIGHT ISCHIAL PESSURE ULCER - PERMANENT Received fresh and subsequently placed in formalin labeled Right Ischial Pessure Ulcer is an aggregate of skin and soft tissue measuring 6.4 x 4.5 x 1.7 cm. The skin surface is adams-pink with areas that are brown-carter and roughened. Lacing Presser sections are submitted in cassette A1. Cold Time: <1m Eileen Alexandra 10/16/2024 3:35 PM EDT [facility] Tissue Structure of right buttock / Unknown 10/11/2024 2:23 PM EDT 10/11/2024 2:42 PM EDT Comment:Pre-op diagnosis: Decubitus ulcer of right ischium, stage IV (CMS/HCC) [L89.314] us Noemí Ni MD LAB PATHOLOGY ORDERABLES Final R esult [facility] [address] [place] [address] documented in this encounter Visit Diagnoses Diagnosis Decubitus ulcer of right ischium, stage IV (CMS/HCC)- Primary Spina bifida Gastroesophageal reflux disease Esophageal reflux documented in this encounter Admitting Diagnoses Diagnosis Decubitus ulcer of right ischium, stage IV (CMS/HCC) documented in this encounter Administered Medications Inactive Administered Medications - up to 3 most recent administrations Medication Order MAR Action Action Date Dose Rate Site acetaminophen (Tylenol) tablet 1,000 mg 1,000 mg, Oral, Every 6 hours scheduled, First dose (after last modification) on Wed10/11/24 at 1800, Until Discontinued, Routine, Recovery(Phase II-Outpatient)/On Unit(Inpatient) Given 10/16/2024 12:32 PM EDT 1,000 mg Given 10/15/2024 12:15 PM EDT 1,000 mg Given 10/14/2024 11:29 PM EDT 1,000 mg acetaminophen (Tylenol) tablet 650 mg 650 mg, Oral, Every 6 hours PRN, Starting on Wed10/16/24 at 2237, Until Wed10/30/24 at 1807, Routine, moderate pain, headaches Given 10/16/2024 11:15 PM EDT 650 mg bisacodyl (Dulcolax) EC tablet 5 mg 5 mg, Oral, Once, 1 dose, On Maria C 10/12/24 at 1000, Routine, Recovery(Phase II-Outpatient)/On Unit(Inpatient) Given 10/12/2024 11:06 AM EDT 5 mg bisacodyl (Dulcolax) suppository 10 mg 10 mg, Rectal, Every other day, First dose on Maria C 10/12/24 at 1645, Until Discontinued, Routine Given 10/28/2024 4:51 PM EDT 10 mg Given 10/26/2024 8:18 PM EDT 10 mg Given 10/24/2024 3:54 PM EDT 10 mg bisacodyl (Dulcolax) suppository 10 mg 10 mg, Rectal, Once, 1 dose, On 10/21/24 at 1500, Routine Given 10/21/2024 2:17 PM EDT 10 mg eukheriaff-xuiolgasuiami-hxmlmdoz 50-325-40 MG per tablet 1 tablet 1 tablet, Oral, Every 4 hours PRN, Starting on Wed10/11/24 at 1617, Until Wed10/12/24 at 1520, Routine, Recovery (Phase I only), headaches Given 10/11/2024 4:24 PM EDT 1 tablet diphenhydrAMINE (Benadryl) injection 25 mg 25 mg, Intravenous, Once, 1 dose, On Wed10/11/24 at 1145, STAT, Holding - Preprocedure Given 10/11/2024 11:03 AM EDT 25 mg diphenhydrAMINE (Benadryl) injection 25 mg 25 mg, Intravenous, Every 12 hours, First dose on Wed10/11/24 at 2245, Until Discontinued, Routine Given 10/13/2024 11:03 AM EDT 25 mg Given 10/12/2024 10:29 PM EDT 25 mg Given 10/12/2024 11:06 AM EDT 25 mg diphenhydrAMINE (Benadryl) injection 25 mg 25 mg, Intravenous, Every 12 hours, First dose (after last modification) on 10/14/24 at 0015, Until Discontinued, Routine Given 10/17/2024 11:35 PM EDT 25 mg Given 10/16/2024 11:15 PM EDT 25 mg Given 10/16/2024 12:32 PM EDT 25 mg doxycycline (Vibra-Tabs) tablet 100 mg 100 mg, Oral, 2 times daily, First dose on Wed10/18/24 at 1130, Until Discontinued, Routine Given 10/27/2024 8:30 AM EDT 100 mg Given 10/26/2024 8:18 PM EDT 100 mg Given 10/26/2024 8:21 AM EDT 100 mg enoxaparin (Lovenox) syringe 40 mg 40 mg, Subcutaneous, Daily, First dose on Maria C 10/12/24 at 1500, Until Discontinued, Routine, Recovery(Phase II-Outpatient)/On Unit(Inpatient) Given 10/30/2024 7:49 AM EDT 40 mg Ri ght Upper Arm (Back) Given 10/29/2024 8:31 AM EDT 40 mg Ri ght Upper Arm (Back) Given 10/28/2024 8:43 AM EDT 40 mg Ri ght Upper Arm (Back) erythromycin (Romycin) 5 MG/GM ophthalmic ointment 1 Application Left Eye, Every 6 hours scheduled, First dose on Wed10/11/24 at 1830, Until Discontinued, Routine Given 10/22/2024 5:25 PM EDT 1 Application Given 10/22/2024 11:13 AM EDT 1 Application Given 10/21/2024 5:22 PM EDT 1 Application lamoTRIgine (LaMICtal) tablet 100 mg 100 mg, Oral, Nightly, First dose on Wed10/11/24 at 2100, Until Discontinued, Routine, Recovery(Phase II-Outpatient)/On Unit(Inpatient) Given 10/29/2024 9:16 PM EDT 100 mg Given 10/28/2024 8:48 PM EDT 100 mg Given 10/27/2024 9:49 PM EDT 100 mg melatonin tablet 3 mg 3 mg, Oral, Nightly PRN, Starting on 10/15/24 at 1215, Until 10/30/24 at 1807, Routine, sleep mupirocin (Bactroban) 2 % ointment 1 Application Each Nostril, 2 times daily, 10 doses, First dose on Wed10/14/24 at 1415, Last dose on Wed10/18/24 at 2100, Routine Given 10/18/2024 8:44 AM EDT 1 Applic ation Given 10/17/2024 8:27 PM EDT 1 Application Given 10/17/2024 9:06 AM EDT 1 Application mupirocin (Bactroban) 2 % ointment 1 Application Each Nostril, 2 times daily, 10 doses, First dose on Wed10/19/24 at 1115, Last dose on Wed10/23/24 at 2100, Routine Given 10/23/2024 9:24 AM EDT 1 Application Given 10/22/2024 8:24 PM EDT 1 Application Given 10/22/2024 8:22 AM EDT 1 Application ondansetron (Zofran) 4 MG/5ML solution 4 mg 4 mg, Oral, Every 6 hours PRN, Starting on Wed10/11/24 at 1559, Until Wed10/30/24 at 1807, Routine, Recovery(Phase II-Outpatient)/On Unit(Inpatient), nausea, vomiting ondansetron (Zofran) injection 4 mg 4 mg, Intravenous, Every 6 hours PRN, Starting on Wed10/11/24 at 1559, Until Wed10/30/24 at 1807, Routine, Recovery(Phase II-Outpatient)/On Unit(Inpatient), vomiting, nausea ondansetron ODT (Zofran-ODT) disintegrating tablet 4 mg 4 mg, Oral, Every 6 hours PRN, Starting on Wed10/11/24 at 1559, Until Wed10/30/24 at 1807, Routine, Recovery(Phase II-Outpatient)/On Unit(Inpatient), nausea, vomiting Given 10/15/2024 7:38 PM EDT 4 mg Given 10/13/2024 6:40 PM EDT 4 mg oxybutynin XL (Ditropan-XL) 24 hr tablet 10 mg 10 mg, Oral, Nightly, First dose on Wed10/11/24 at 2345, Until Discontinued, Routine, Recovery(Phase II-Outpatient)/On Unit(Inpatient) Given 10/22/2024 8:24 PM EDT 10 mg Given 10/21/2024 9:19 PM EDT 10 mg Given 10/20/2024 9:09 PM EDT 10 mg oxybutynin XL (Ditropan-XL) 24 hr tablet 15 mg 15 mg, Oral, Nightly, First dose (after last modification) on Wed10/23/24 at 2100, Until Discontinued, Routine, Recovery(Phase II-Outpatient)/On Unit(Inpatient) Given 10/29/2024 9:16 PM EDT 15 mg Given 10/28/2024 8:48 PM EDT 15 mg Given 10/27/2024 9:49 PM EDT 15 mg pantoprazole (Protonix) EC tablet 40 mg 40 mg, Oral, 2 times daily before meals, First dose on Wed10/16/24 at 1700, Until Discontinued, Routine Given 10/30/2024 7:49 AM EDT 40 mg Given 10/29/2024 4:49 PM EDT 40 mg Given 10/29/2024 8:31 AM EDT 40 mg Povidone-Iodine 5 % swab solution 1 Application Nasal, Once, 1 dose, On Wed10/11/24 at 1130, Routine Given 10/11/2024 10:56 AM EDT 1 Application sodium chloride 0.9 % flush 10 mL 10 mL, Intravenous, Every 12 hours, First dose on Wed10/11/24 at 1130, Until Discontinued, Routine, Holding - Preprocedure Given 10/12/2024 10:58 AM EDT 10 mL Given 10/11/2024 11:45 PM EDT 10 mL sodium chloride 0.9 % flush 10 mL 10 mL, Intravenous, Every 12 hours, First dose on Wed10/11/24 at 1700, Until Discontinued, Routine, Recovery(Phase II-Outpatient)/On Unit(Inpatient) Given 10/23/2024 5:12 PM EDT 10 mL Given 10/22/2024 6:19 AM EDT 10 mL Given 10/21/2024 4:55 AM EDT 10 mL vancomycin HCl (Vancocin) 750 mg in sodium chloride 0.9% 250 mL IVPB (vial adapter required) 750 mg, Intravenous, Every 12 hours, First dose on Wed10/11/24 at 2300, Until Discontinued, at 137.5 mL/hr, Routine New Bag 10/13/2024 2:45 PM EDT 750 mg 137.5 mL/h r New Bag 10/13/2024 12:18 AM EDT 750 mg 137.5 mL/hr New Bag 10/12/2024 1:21 PM EDT 750 mg 137.5 mL/hr vancomycin in NS (Vancocin) IVPB 1,250 mg 1,250 mg (rounded from 1,252.5 mg = 15 mg/kg 83.5 kg), Intravenous, Once, 1 dose, On Wed10/11/24 at 1130, at 100 mL/hr, STAT New Bag 10/11/2024 11:03 AM EDT 1,250 mg 100 mL/hr vancomycin in NS (Vancocin) IVPB 1,250 mg 1,250 mg, Intravenous, Every 12 hours, First dose (after last modification) on Wed10/14/24 at 0030, Until Discontinued, at 100 mL/hr, Routine New Bag 10/17/2024 11:56 PM EDT 1,250 mg 100 mL/hr New Bag 10/16/2024 11:31 PM EDT 1,250 mg 100 mL/hr New Bag 10/16/2024 12:30 PM EDT 1,250 mg 100 mL/hr documented in this encounter Active and Recently Administered Medications Times are shown in EDT. Scheduled Medication Order 10/28/2024 10/29/2024 10/30/2024 bisacodyl (Dulcolax) suppository 10 mg 10 mg, Rectal, Every other day, First dose on Maria C 10/12/24 at 1645, Until Discontinued, Routine 1651 (Given - Provider: Arueliano Rose RN) 1645 (Canceled Entry - Provider: Parul Larios) enoxaparin (Lovenox) syringe 40 mg 40 mg, Subcutaneous, Daily, First dose on Maria C 10/12/24 at 1500, Until Discontinued, Routine, Recovery(Phase II-Outpatient)/On Unit(Inpatient) 0843 (Given - Provider: Aureliano Rose RN) 0831 (Given - Provider: Parul Larios) 0749 (Given - Provider: Parul Larios) lamoTRIgine (LaMICtal) tablet 100 mg 100 mg, Oral, Nightly, First dose on Wed10/11/24 at 2100, Until Discontinued, Routine, Recovery(Phase II-Outpatient)/On Unit(Inpatient) 2047 (Given - Provider: Yelena Deleon) 2115 (Given - Provider: Terra Shaikh) oxybutynin XL (Ditropan-XL) 24 hr tablet 15 mg 15 mg, Oral, Nightly, First dose (after last modification) on Wed10/23/24 at 2100, Until Discontinued, Routine, Recovery(Phase II-Outpatient)/On Unit(Inpatient) 2047 (Given - Provider: Yelena Deleon) 2115 (Given - Provider: Terra Shaikh) pantoprazole (Protonix) EC tablet 40 mg 40 mg, Oral, 2 times daily before meals, First dose on Wed10/16/24 at 1700, Until Discontinued, Routine 0843 (Given - Provider: Aureliano Rose RN)1651 (Given - Provider: Aureliano Rose RN) 0831 (Given - Provider: Parul Larios)1649 (Given - Provider: Parul Larios) 0749 (Given - Provider: Parul Larios)1700 (Canceled Entry - Provider: Automatic Discharge Provider - Comment: Automatically canceled at discontinue of medication order) PRN Medication Order 10/28/2024 10/29/2024 10/30/2024 acetaminophen (Tylenol) tablet 650 mg 650 mg, Oral, Every 6 hours PRN, Starting on Wed10/16/24 at 2237, Until Wed10/30/24 at 1807, Routine, moderate pain, headaches melatonin tablet 3 mg 3 mg, Oral, Nightly PRN, Starting on Wed10/15/24 at 1215, Until Wed10/30/24 at 1807, Routine, sleep ondansetron (Zofran) 4 MG/5ML solution 4 mg(Linked Group 1) 4 mg, Oral, Every 6 hours PRN, Starting on Wed10/11/24 at 1559, Until Wed10/30/24 at 1807, Routine, Recovery(Phase II-Outpatient)/On Unit(Inpatient), nausea, vomiting ondansetron (Zofran) injection 4 mg(Linked Group 1) 4 mg, Intravenous, Every 6 hours PRN, Starting on Wed10/11/24 at 1559, Until Wed10/30/24 at 1807, Routine, Recovery(Phase II-Outpatient)/On Unit(Inpatient), vomiting, nausea ondansetron ODT (Zofran-ODT) disintegrating tablet 4 mg(Linked Group 1) 4 mg, Oral, Every 6 hours PRN, Starting on Wed10/11/24 at 1559, Until Wed10/30/24 at 1807, Routine, Recovery(Phase II-Outpatient)/On Unit(Inpatient), nausea, vomiting Linked Groups Order Group 1: ondansetron ODT (Zofran-ODT) disintegrating tablet 4 mgJump to med 4 mg, Oral, Every 6 hours PRN, Starting on Wed10/11/24 at 1559, Until Wed10/30/24 at 1807, Routine, Recovery(Phase II-Outpatient)/On Unit(Inpatient), nausea, vomiting Or ondansetron (Zofran) injection 4 mgJump to med 4 mg, Intravenous, Every 6 hours PRN, Starting on Wed10/11/24 at 1559, Until Wed10/30/24 at 1807, Routine, Recovery(Phase II-Outpatient)/On Unit(Inpatient), vomiting, nausea Or ondansetron (Zofran) 4 MG/5ML solution 4 mgJump to med 4 mg, Oral, Every 6 hours PRN, Starting on Wed10/11/24 at 1559, Until Wed10/30/24 at 1807, Routine, Recovery(Phase II-Outpatient)/On Unit(Inpatient), nausea, vomiting documented in this encounter Additional Health Concerns Infection Onset Date Last Indicated Resolved Time 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
--- OUTSIDE RECORDS SUMMARY | 2024-10-11 09:17 | XMS_ITS | Encounter Summary ---
Author Organization [facility] Address [address] [id number] Care Team Providers Care Communications Programmer Name Role Phone Saul Mejia MD Primary Care Provider [phone] Reason for Referral * Consultation (Routine) - Authorized Specialty Diagnoses / Procedures Referred By Contact Referred To Contact Plastic Surgery / [facility] Diagnoses Decubitus ulcer of right ischium, stage IV (CMS/HCC) Noemí Ni MD [address] [place] [phone] Phone: tel: fax: Noemí Ni MD [address] [place] [phone] Phone: tel: fax: Referral ID Status Reason Start Date Expiration Date Visits Requested Visits Authorized [id number] Authorized Specialty Services Required 10/30/2024 05/01/2026 1 1 * Home Health (Routine) - Authorized Specialty Diagnoses / Procedures Referred By Contac t Referred To Contact Home Health Services / Plastic Surgery Diagnoses Decubitus ulcer of right ischium, stage IV (CMS/HCC) Noemí Ni MD [address] [place] [phone] Phone: tel: fax: Referral ID Status Reason Start Date Expiration Date Visits Requested Visits Authorized [id number] Authorized Specialty Services Required 10/27/2024 04/28/2026 999 999 * Home Health (Routine) - Authorized Specialty Diagnoses / Procedures Referred By Contac t Referred To Contact Home Health Services / Plastic Surgery Diagnoses Decubitus ulcer of right ischium, stage IV (CMS/HCC) Noemí Ni MD [address] [address] Phone: tel: fax: Referral ID Status Reason Start Date Expiration Date Visits Requested Visits Authorized [id number] Authorized Specialty Services Required 10/26/2024 04/27/2026 999 999 * Home Health (Routine) - Authorized Specialty Diagnoses / Procedures Referred By Alonso t Referred To Contact Home Health Services Diagnoses Decubitus ulcer of right ischium, stage IV (CMS/HCC) Noemí Ni MD [address] [place] [phone] Phone: tel: fax: Referral ID Status Reason Start Date Expiration Date Visits Requested Visits Authorized [id number] Authorized Specialty Services Required 10/20/2024 2026 999 999 Reason for Visit * Auth/Cert (Routine) Specialty Diagnoses / Procedures Referred By Alonso t Referred To Contact Diagnoses Decubitus ulcer of right ischium, stage IV (CMS/HCC) Decubitus ulcer of right ischium, stage IV (CMS/HCC) [L89.314] Procedures [place] MUSCLE-SKIN FLAP,TRUNK [place] EXC ISCH PRES ULC BONE MYOCUT FLAP Debridement Pressure right ischium, fasciocutneous flap closure Noemí Ni MD [address] [place] [phone] Phone: tel: fax: [facility] A OPERATING ROOM [address] [place] [phone] Phone: tel: Referral ID Status Reason Start Date Expiration Date Visits Re quested Visits Authorized [id number] 1 1 Encounter Details Date Type Department Care Team (Late st Contact Info) Description 10/11/2024 9:17 AM EDT - 10/30/2024 4:07 PM EDT Hospital Encounter [facility] Inpatient [address] [place] [address] Noemí Ni MD [address] [place] [phone] Decubitus ulcer of right ischium, stage IV [...] place to sleep or slept in a intermediate (including now)? No 02/08/2023 Humiliation, Afraid, Rape, [...] any time in the past 12 m [facility], were you homeless or living in a intermediate (including now)? No 10/12/2024 CAGE ASSESSMENT Answer [...] drink first t osito in the morning (EYE-INDUSTRIAL CHEMIST) to steady your nerves or to get [...] Assessment Author No 02/09/2023 5:28 PM EDT Ameirca Gil * Do you have serious difficulty [...] Flowsheets Taken 10/30/2024 1020 by Yahaira Beavers test operator Facility/Level of Care Needs: 1-Home or Self Care 7-Idkr-Gkurop Care Svc Equipment Needed After Discharge: (speciality air fluidized bed) other (see comments) Anticipated Changes Related to Illness: none Transportation Anticipated: medical transport Outpatient/Agency/Support Group Needs: DME homecare agency Transportation Concerns: none Concerns to be Addressed: discharge planning Patient/Family Anticipated Services at Transition: top case assembler durable medical equipment home health care Patient/Family Anticipates Transition to: home with family Taken 10/12/2024 1327 by An Humphrey Equipment Currently Used at Home: wheelchair, manual Problem: Infection Goal: Absence of Infection Signs and Symptoms Outcome: Adequate for Care Transition Intervention: Prevent or Manage Infection Flowsheets (Taken 10/30/202434 by Must See [place] [employer]) Infection Management: aseptic technique maintained Fever Reduction/Comfort Measures: lightweight clothing lightweight bedding Isolation Precautions: precautions maintained Problem: Wound Goal: Optimal Coping Outcome: Adequate for Care Transition Intervention: Support Patient and Family Response Flowsheets (Taken 10/30/202434 by GeriRed Ambiental [employer]) Supportive Measures: active listening utilized verbalization of feelings encouraged Family/Support System Care: involvement promoted Goal: Skin Health and Integrity Outcome: Adequate for Care Transition Intervention: Optimize Skin Protection Flowsheets Taken 10/30/2024 0600 by Markie Shaikhah Ama Head of Bed (HOB) Positioning: HOB at 15 degrees Taken 10/30/202434 by Neel [employer] Activity Management: activity adjusted per tolerance Pressure [...] Promote Wound Healing Flowsheets (Taken 10/30/202434 by GeriRed [employer]ient[employer]) Sleep/Rest Enhancement: awakenings minimized noise level reduced room darkened therapeutic touch utilized Problem: Skin Injury Risk Increased Goal: Skin Health and Integrity Outcome: Adequate for Care Transition Intervention: Optimize Skin Protection Flowsheets Taken 10/30/2024 0600 by Markie Shaikhah Ama Head of Bed (HOB) Positioning: HOB at 15 degrees Taken 10/30/202434 by GeriRed AmbientalMarkieah Ama Activity Management: activity adjusted per tolerance [...] Note Naga Padgett 34 y.o. male CSN: [id number] Admission: 10/11/2024 9:17 AM Primary Problem: Decubitus ulcer of right ischium, stage IV (CMS/HCC) Primary Automatic Engraver: Primary Caregiver: Family Assistance Available at Discharge: Availability of Care Givers (#Hours): 24 hours Family/Automatic Engraver(s) Willingness Assessed to care for patient at home: Yes Family/Automatic Engraver(s) Readiness Assessed to care for patient at home: Yes Housing Circumstances-Z Codes: Patient Referred to Financial or Community Resources: Discharge Facility/Level of Care Needs: Discharge Facility/Level of Care Needs: 1-Home or Self Care, 5-[facility] Patient's Choice of Community Agency(s): Patient/Family Anticipated Services at Transition: Patient/Family Anticipated Services at Transition: top case assembler, durable medical equipment, home health care DME/Equipment Needed after Discharge: Equipment Currently Used at Home: wheelchair, manual Equipment Needed After Discharge: other (see comments) (speciality air fluidized bed) Readmission Within the Last 30 Days: Medicare Documentation:per case management staff readiness officer. Follow-up: Noemí Ni MD [address] [facility] [phone] [facility]. (2142) [facility]. (2142) Follow up [facility] [phone] has accepted pt for wound care [facility] [phone] has accepted pt for wound care Follow up [facility], Vazquez with [facility] [phone]. [facility], Vazquez with [facility] [phone]. speciality bed Follow up Discharge Transportation: Transportation [...] Pt to dc to his mother's home today-[address] [place] [address] Dr Wilsonn, Az Yahaira Beavers, RN * Vincent Victor - Reyes Gay RN - 10/30/2024 9:05 AM EDT Images from the original note were not included. [address]78 Preventing a Surgical Site Infection A risk [...] of infection. ? Controlled body temperature. A uoamf-qyiw-wbovxi temperature during or after surgery prevents oxygen [...] and water or with an alcohol-based hand cellular tower climber before and after caring for you. Don?t [...] away. Last Reviewed Date: 2024 00:00:00 ?? [phone] [employer]. All rights reserved. This information is not intended as a substitute for professional medical care. Always follow your healthcare professional's instructions. * [facility] Reyes Gay RN - 10/30/2024 9:05 AM EDT Images from the original note were not included. 01002 Discharge Instructions: Changing Your Dressing You are [...] doctor. Last Reviewed Date: 2024 00:00:00 ?? [id number] [employer]. All rights reserved. This information is not intended as a substitute for professional medical care. Always follow your healthcare professional's instructions. * [facility] - Reyes Gay RN - 10/30/2024 9:05 AM EDT Images from the original note were not included. [address]128 Treating Pressure Injuries: Debridement The goal of [...] and then ingest tissue. Mechanical (irrigation, hydrotherapy, yjw-hm-qtqzm, wet-to-dry) debridement may be used to remove [...] painful. Last Reviewed Date: 2023 00:00:00 ?? 2427-2224 [employer]. All rights reserved. This information is not [...] Note Naga Padgett 34 y.o. male CSN: [id number] Admission: 10/11/2024 9:17 AM Primary Problem: Decubitus ulcer of right ischium, stage IV (CMS/HCC) Anticipated Discharge Date: 10/30/24 Additional Comments: Pt will DC on 10/30/24 to his mothers address at [address] [place] [address] Eddi Ariza via ambulance, SW did not get ambulance time response by the time SW left for the day on 10/26/24. Specialty hospital bed will be delivered between 12-1 pm on 10/30/24 by Vazquez Callejas with [facility] [phone]. Pt was approved this date by insurance after family appeal to go to [facility], ptexpressed that he wished to pursue home with . RN CM sent wound care orders for [facility]. CM will continue to follow pt. An Humphrey, FRONT DESK MONITOR, WASTEWATER TREATMENT PLANT SUPERVISOR Social Work Senior Department of Case Management [facility] * Progress Notes - Kadi Galeano MD - 10/26/2024 1:52 PM EDT Images from the original note were not included. [facility] Department of Surgery Division of Plastic Surgery [...] Note Naga Padgett 34 y.o. male CSN: [id number] Admission: 10/11/2024 9:17 AM Primary Problem: Decubitus ulcer of right ischium, stage IV (CMS/HCC) Anticipated Discharge Date: TBD Additional Comments: JACK spoke with Vazquez with [facility] [phone] regarding specialty bed. Insurance is unable to [...] with Vazquez to confirm information. An Humphrey, FRONT DESK MONITOR, WASTEWATER TREATMENT PLANT SUPERVISOR Social Work Senior Department of Case Management [facility] * Progress Notes - Mimi Multani RN - 10/26/2024 12:59 PM EDT Case Management Adult Progress Note Naga Padgett 34 y.o. male CSN: [id number] Admission: 10/11/2024 9:17 AM Primary Problem: Decubitus ulcer of right ischium, stage IV (CMS/HCC) Anticipated Discharge Date: tbd Medically Ready for Discharge: Anticipated in 5+ Days Additional Comments CM contacted to assist with DME. Patient will need a hospital bed with and overlay. Team has been notified, but orders for the overlay has not been revealed to CM. [facility]erral sent to [facility]. Once the Team decides on [...] Note Naga Padgett 34 y.o. 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 male [...] positions. Participants in Care Family/Caregiver Present: No Rehab Nurse: Not Applicable Presentation Oxygen Therapy: None (Room [...] Dressesindependently.) Level of Mobility: Wheelchair/Scooter (paraplegic) Mobility [place]: Independent wheelchair propulsion History of Falls: No [...] Mobility Bed Mobility Exam: Rolling/Turning Level of [place]: Independent (rolling to patients right) Assistive Device: [...] 1 sets - 10 reps Standardized Assessments [facility] 6-Click Daily Activities Help from Other: Don/Doff Regular Lower Body Clothings: A lot Help From Other: Bathing: A lot Help From Other: Toileting: Total Help From Other: Don/Doff Upper Body Clothings: Little Help From Other: Grooming: Little Help From Other: Eating Meals: None [facility] 6 Click - Daily Activities Score: [...] 24 hour assistance Discharge Equipment: Hospital bed ([facility] bed) Demonstrates Need for Referral to Another [...] Physical Therapy Re-Assessment/Discharge Summary Patient Name: Naga Padgett Today's Date: 10/25/2024 PT Discharge Recommendations: Home [...] Dressesindependently.) Level of Mobility: Wheelchair/Scooter (paraplegic) Mobility [place]: Independent wheelchair propulsion History of Falls: No [...] Mobility Bed Mobility Exam: Rolling/Turning Level of [place]: Independent (rolling to patients right) Balance Balance [...] and knee flexion/extension x10 reps. Standardized Assessments [facility] 6-Clicks Mobility Assessment Difficulty patient has turning [...] climbing 3-5 steps with a railing?: Unable [facility] 6-Clicks Mobility Assessment Total : 9 Assessment [...] patient and his family bedside today at [facility]. He stated speciality bed will be delivered [...] from the original note were not included. [facility] Department of Surgery Division of Plastic Surgery [...] Note Naga Padgett 34 y.o. male CSN: [id number] Admission: 10/11/2024 9:17 AM Primary Problem: Decubitus ulcer of right ischium, stage IV (CMS/HCC) Anticipated Discharge Date: TBD Additional Comments: Pt is MR to DC this date. Pt was approved for the [facility] bed by Vazquez Callejas [phone]. Vazquez is to be in contact with pt and pt mother regarding [facility] bed. SW provided pt and family with [...] planning and needs as appropriate. An Humphrey, FRONT DESK MONITOR, WASTEWATER TREATMENT PLANT SUPERVISOR Social Work Senior Department of Case Management [facility] * Care Plan - Jayleen Nobles RN [...] from the original note were not included. [facility] Department of Surgery Division of Plastic Surgery [...] on 10/11/24. Plan: - Continue pressure offloading --[facility] bed. Do not sit directly on the [...] Note Naga Padgett 34 y.o. male CSN: [id number] Admission: 10/11/2024 9:17 AM Primary Problem: Decubitus ulcer of right ischium, stage IV (CMS/HCC) Anticipated Discharge Date: TBD Additional Comments: Pt is MR to DC this date. Family wishes to complete family appeal for pt to go to [facility]. JACK provided pt mother with the denial letter and information for mother to begin family appeal. Jack spoke with ptand asked if pt felt comfortable DC home with family. Pt stated he was agreeable to DC home. JACK expanded referrals for as pt will DC to his mothers address [address] [place] [address] [place]. [facility]. Mother began appeal process by talk to [employer] License number [id number] and then [employer] License number [id number] who instructed pt mother to write a [...] [employer] [employer]. RN CM sent referral to [facility] for [place] incase pt is to DC home with [place]. No further SW concerns identified at this time. SW will monitor pt's progress and will follow up with DC planning and needs as appropriate. An Humphrey, FRONT DESK MONITOR, WASTEWATER TREATMENT PLANT SUPERVISOR Social Work Senior Department of Case Management [facility] * Care Plan - Leona Dickerson RN [...] Assessment Red;Granulation Margins Well-defined edges Amy-Wound Assessment [place] Shape irregular, full thickness skin loss Drainage [...] from the original note were not included. [facility] Department of Surgery Division of Plastic Surgery [...] from the original note were not included. [facility] Department of Surgery Division of Plastic Surgery [...] on 10/11/24. Plan: - Continue pressure offloading --[place] hospital bed. Do not sit directly on [...] from the original note were not included. [facility] Department of Surgery Division of Plastic [...] Note Naga Padgett 34 y.o. male CSN: [id number] Admission: 10/11/2024 9:17 AM Primary Problem: Decubitus ulcer of right ischium, stage IV (CMS/HCC) Family spoke with Ibrahima, license number [id number], phone [phone] whom stated that pt insurance authorization was still pending. JACK encouraged family to make an appeal at 6:00 pm after the P2P. An Humphrey, FRONT DESK MONITOR, WASTEWATER TREATMENT PLANT SUPERVISOR Social Work Senior Department of Case Management [facility] * Care Plan - Jayleen Nobles RN [...] Note Naga Padgett 34 y.o. male CSN: [id number] Admission: 10/11/2024 9:17 AM Primary Problem: Decubitus ulcer of right ischium, stage IV (CMS/HCC) Anticipated Discharge Date: TBD Additional Comments: According to MD's pt is MR to DC to [facility]. Pt was denied by insurance for [facility]. JACK informed family andfamily wishes to do a Family Appeal regarding the pt going to [facility]. JACK, EVANS RN, and post acute in home caregiver spoke with family at bedside to explain the family appeal process and assist with questions regarding the denial. Family stated they would be making a family appeal. RN EVANS sent out referrals via careport for PT/OT and nursing this date. JACK call Merrick Frazier with [employer] [phone] regarding pt wound care and had to leave a message. JACK updated MD's regarding family conversation. JACK will monitor pt's progress and will follow up with DC planning and needs as appropriate. Update: JACK faxed over pt demographics, H&P, wound care consult, surgery progress notes, and Charley Sin at [phone]. An Humphrey, FRONT DESK MONITOR, WASTEWATER TREATMENT PLANT SUPERVISOR Social Work Senior Department of Case Management [facility] * Consults - Gale Vernon RD - 10/20/2024 2:16 PM EDT Adult Nutrition Evaluation Note Naga Padgett 34 y.o. male CSN: [id number] Room/Bed 221/221A Nutrition evaluation type: follow-up Reason [...] accuracy Estimated Needs: Kcal: 30-35 kcal/kg AdjBW (4986-1613 kcal/d) Pro: 1.5-2 g/kg AdjBW (93-124 g/d) [...] for HH PT/OT+SN sent to agencies via [facility] for acceptance. * Procedures - Kd [...] from the original note were not included. [facility] Department of Surgery Division of Plastic Surgery [...] Note Naga Padgett 34 y.o. male CSN: [id number] Admission: 10/11/2024 9:17 AM Primary Problem: Decubitus ulcer of right ischium, stage IV (CMS/HCC) Anticipated Discharge Date: TBD Additional Comments: JACK spoke with MDs this date who indicate that the pt is medically stable for DC. Awaiting insuranceauthorization approval, JACK contacted Katherine Reyes for [facility] [phone] whom states authorization is still pending. Tentative plan to meet with MD's and pt and family tomorrow. No further JACK concerns identified at this time. JACK will monitor pt's progress and will follow up with DC planning and needs as appropriate. An Humphrey, FRONT DESK MONITOR, WASTEWATER TREATMENT PLANT SUPERVISOR Social Work Senior Department of Case Management [facility] * Care Plan - Jayleen Nobles RN [...] from the original note were not included. [facility] Department of Surgery Division of Plastic Surgery [...] from the original note were not included. [facility] Department of Surgery Division of Plastic Surgery [...] Note Naga Padgett 34 y.o. male CSN: [id number] Admission: 10/11/2024 9:17 AM Primary Problem: Decubitus ulcer of right ischium, stage IV (CMS/HCC) Anticipated Discharge Date: TBD Additional Comments: Pt is MR to DC to a facility this date. [facility],Katherine Liaison [phone], JACK asked [facility] to begin authorization. [facility] unable to accept the patient. SW will follow up with pt and family at a later date. No further SW concerns identified at this time. SW will monitor pt's progress and will follow up with DC planning and needs as appropriate. An Humphrey, FRONT DESK MONITOR, WASTEWATER TREATMENT PLANT SUPERVISOR Social Work Senior Department of Case Management [facility] * Progress Notes - Ivania Amaya, PT [...] independently.) Level of Mobility Wheelchair/Scooter (paraplegic) Mobility [place] Independent wheelchair propulsion History of Falls No [...] change due to leaking. Visitors Present No Rehab Nurse (if applicable) N/A OBJECTIVE Vital Signs Pre-Session [...] activity throughout session. BED MOBILITY Level of [place] Physical/Non- physical Assist Adaptive Equipment Utilized Rolling/ Turning Minimum assist (75% patient effort) Additional assist utilized for safety, Verbal Cues, Set-up required Bed rails, Other (drawsheet) Scooting/ Bridging Supine to Sit Sit to Supine Interventions Patient reports he's ready to change position in bed and was assisted to roll from right sidelying to left sidelying. TRANSFERS Level of [place] Physical/Non- physical Assist Adaptive Equipment Utilized Sit [...] bed mobility only. Postural Appearance Level of [place] Balance Support Interventions Static Sit Dynamic Sit Static Stand Dynamic Stand AMBULATION Level of [place] Distance Adaptive Equipment Utilized Ambulation Comments Patient [...] therabands. Participants in Care Family/Caregiver Present: No Rehab Nurse: Not Applicable Presentation Oxygen Therapy: None (Room [...] sidelying. Bed Mobility Exam: Rolling/Turning Level of [place]: Minimum assist (75% patient effort) Physical/Nonphysical Assist: [...] from the original note were not included. [facility] Department of Surgery Division of Plastic Surgery [...] Date Order Priority Status Authorizing Provider 10/16/24 7564 Apply/Change Wound Dressing 2 Wounds Associated Routine [...] Note Naga Padgett 34 y.o. male CSN: [id number] Room/Bed 221/221A Nutrition evaluation type: assessment Reason [...] accuracy Estimated Needs: Kcal: 30-35 kcal/kg AdjBW (5058-6387 kcal/d) Pro: 1.5-2 g/kg AdjBW (93-124 g/d) Current Nutrition Intake: Diet: Regular Supplements: Boost [facility] TID Intake: no po intake recorded since [...] record po intake in EMR -Continue Boost [facility] TID -Adding Sukumar BID -Recommend MVI with [...] Note Naga Padgett 34 y.o. male CSN: [id number] Admission: 10/11/2024 9:17 AM Primary Problem: Decubitus [...] planning and needs as appropriate. An Humphrey, FRONT DESK MONITOR, WASTEWATER TREATMENT PLANT SUPERVISOR Social Work Senior Department of Case Management [facility] * Progress Notes - Kadi Galeano MD - 10/16/2024 9:28 AM EDT Images from the original note were not included. [facility] Department of Surgery Division of Plastic Surgery [...] Exam: Physical Exam Expand All Collapse All [facility] Department of Surgery Division of Plastic Surgery [...] Procedure Component Value Units Date/Time Anaerobic Culture [[id number]] Collected: 10/11/24 1427 Order Status: Completed Specimen: Tissue from Buttock, Right Updated: 10/15/24 1443 Culture No anaerobes isolated Tissue Culture and Gram Stain [[id number]] (Abnormal) (Susceptibility) Collected: 10/11/24 1427 Order Status: Completed Specimen: Tissue from Buttock, Right Updated: 10/14/24 1308 Culture Light Growth Corynebacterium striatum group Comment: This isolate has been identified using the FDA Approved MALDI [place] SPARKyper [place] System The organism value for this [...] with primary service. Denis Mora, EmaniD, MS, [facility] Critical Care Clinical Pharmacist, Specialty Surgery * [...] from the original note were not included. [facility] Department of Surgery Division of Plastic Surgery [...] previously described assessment and plan. Gerry Ernie [facility] M3 Cosigned by Noemí Ni MD at [...] from the original note were not included. [facility] Department of Surgery Division of Plastic Surgery [...] from the original note were not included. [facility] Department of Surgery Division of Plastic Surgery [...] Decubitus ulcer of right ischium, stage IV ([facility]) 02/04/2023 Procedures 10/11/2024 Procedure(s): Debridement Pressure right ischium, fasciocutneous flap closure Past Medical History Patient has a past medical history of Acid reflux, Anxiety, Scoliosis, Spina bifida, and Ulcerationof below knee amputation stump ([facility]). Past Surgical History Patient has a past [...] in Care Family/Caregiver Present: Yes Family/Caregiver: Mother Rehab Nurse: Not Applicable Presentation Oxygen Therapy: None (Room [...] Dressesindependently.) Level of Mobility: Wheelchair/Scooter (paraplegic) Mobility [place]: Independent wheelchair propulsion History of Falls: No [...] Mobility Bed Mobility Exam: Rolling/Turning Level of [place]: Minimum assist (75% patient effort) Physical/Nonphysical Assist: Additional assist utilized for safety, Nonverbal cues (demo/gestures),Verbal Cues, Set-up required Assistive Device: Bed rails Bed Mobility Exam: Scooting/Bridging Level of [place]: Moderate assist (50% patient's effort) Physical/Nonphysical Assist: [...] climbing 3-5 steps with a railing?: Unable [facility] 6-Clicks Mobility Assessment Total : 8 No [...] in Care Family/Caregiver Present: Yes Family/Caregiver: Mother Rehab Nurse: Not Applicable Presentation Oxygen Therapy: None (Room [...] Dressesindependently.) Level of Mobility: Wheelchair/Scooter (paraplegic) Mobility [place]: Independent wheelchair propulsion History of Falls: No [...] Mobility Bed Mobility Exam: Rolling/Turning Level of [place]: Minimum assist (75% patient effort) Physical/Nonphysical Assist: Set-up required, Verbal Cues, Nonverbal cues (demo/gestures), Minimal cues, 1 person + 1 person to manage equipment Assistive Device: Bed rails, Other (draw sheet) Bed Mobility Exam: Scooting/Bridging Level of [place]: Moderate assist (50% patient's effort) Physical/Nonphysical Assist: Set-up required, Verbal Cues, Nonverbal cues (demo/gestures), Minimal cues, Additional assist utilized for safety Assistive Device: Other (draw sheet) Bed Mobility Exam: Supine to Sit Level of [place]: Unable to perform (d/t pressure offloading precautions [...] handout/printout provided for visual reference. Access Code: [email or web address] URL: [email or web address] Date: 10/12/2024 Exercises - Supine Bilateral Punches [...] 1 sets - 10 reps Standardized Assessments [facility] 6-Click Daily Activities Help from Other: Don/Doff Regular Lower Body Clothings: A lot Help From Other: Bathing: A lot Help From Other: Toileting: Total Help From Other: Don/Doff Upper Body Clothings: A lot Help From Other: Grooming: Little Help From Other: Eating Meals: None [facility] 6 Click - Daily Activities Score: [...] Note Naga Padgett 34 y.o. male CSN: [id number] Admission: 10/11/2024 9:17 AM Primary Problem: Decubitus ulcer of right ischium, stage IV (CMS/HCC) Social Group Worker reviewed chart and spoke with the patients mother to complete this Initial Case Management Assessment. PCP: Saul Mejia MD Emergency Contact: Extended Emergency Contact Information Primary Emergency Contact: Nelly Padgett Mobile Relation: Mother Preferred language: Uzbek Rehab Nurse needed? No Insurance: Primary Visit Coverage Payer Plan Sponsor Code Group Number Group Name [facility] MEDICARE [facility] [place] ADV[employer] [id number] Primary Visit Coverage Subscriber Subscriber ID Subscriber Name Subscriber SSN Subscriber Address [id number] NAGA PADGETT Elan [id number] [address] [place] [address] Patient information: Primary Caregiver: Family Support System: Immediate family Daily Living Activities: Functional Status: Maximum assistance Living Arrangements: Family Type of Residence: Private residence, Multi Level (elevator in home) [address] [place] [address] Current DME: Equipment Currently Used at Home: wheelchair, manual Income Information: Income Source: Government aid (SSDI) Income/Expense Information: Income meets expenses Anticipated Discharge Date: TBD Patient's Discharge Goal: Agreeable to Rehab pending PT/OT eval Assistance Available at Discharge: Family Discharge Transport: Family Follow Up Transport: Family Home Health / Home Infusion / Outpatient Dialysis Services: N/A Living Will/Advance Directive/Power of Chalk Machine Operator /Guardian: Social Drivers of Health Food [...] Cage questionnaire guilty: 0 Cage questionnaire eye school coordinator: 0 Cage Overall score: 0 Housing Stability: [...] No Depression: At risk (09/19/2024) Received from [facility] PHQ-2 Patient Health Questionnaire-9 Score: 5 Utilities: Not At Risk (10/12/2024) Utilities Threatened with loss of utilities: No Stress: Not on file (02/16/2024) Intimate Partner Violence: Not At Risk (10/12/2024) Humiliation, Afraid, Rape, and Kick questionnaire Fear of Current or Ex-Partner: No Emotionally Abused: No Physically Abused: No Sexually Abused: No Physical Activity: Not on file Social Connections: Unknown (01/18/2023) Received from [facility] Family and Community Support Help with Day-to-Day [...] planning and needs as appropriate. An Humphrey, FRONT DESK MONITOR, WASTEWATER TREATMENT PLANT SUPERVISOR Social Work Senior Department of Case Management [facility] * Care Plan - Mary Gamez RN [...] from the original note were not included. [facility] Department of Surgery Division of Plastic Surgery [...] from the original note were not included. [facility] Department of Surgery Division of Plastic Surgery Post Operative Check: Subjective: Procedure: Right ischial pressure wound debridement, right posterior thigh rotation flap Patient currently reports pain is controlled. He is eager to eat. No acute complaints. Pain Control: [facility] Objective: Vitals: Visit Vitals BP (!) 133/94 [...] Status: regular Anticoagulation/DVT ppx: SCDs Pain management: [facility] Level of care: Continue Current Level of Care I have answered and addressed all issues and concerns from the patient and nursing staff. I have notified senior resident/attending location director with any issues or concerns. * Progress [...] to follow. Submitted by: Gale Moody PharmD, [facility] 10/11/2024 5:47 PM * Anesthesia PACU Signout [...] Agree with above assessment and evaluation from resident/METAL WASHING MACHINE OPERATOR. * Op Note - Noemí Ni MD [...] Attending Surgeon(s): * Noemí Ni - Primary Music Education Director(s): * Neil Whitley MD - Resident - [...] Appliance Other (Comment) 10/11/24 2100 Site Assessment Clean;Intact;[place] 10/13/24 1600 Peristomal Assessment Clean;Intact 10/13/24 1600 Urethral Catheter (Active) Site Assessment Clean;Skin intact 10/13/24 08 CAUTI: Collection Container Standard drainage bag 10/13/24 08 CAUTI: Securement Method Securing device (Describe) 10/13/24 08 CAUTI: Specimen Collection Port Covered with Alcohol Cap Yes 10/13/24 08 CAUTI: Urinary Catheter Necessity Yes, meets criteria 10/13/24799 CAUTI: Urinary Catheter Necessity Reasons Assist healing open sacral/perineal wounds or ewrqptydknv19/04/25 08 Output (mL) 700 mL 10/13/24 0322 [...] was de-epithelialized with normal bleeding. A 19 german fluted drain was placed under the flapexiting [...] 10/11/2024 12:56 PM EDT Date: 10/11/24 Location: [place] [facility] Name: Naga Padgett, : 1990, Diagnoses: Pre-op Diagnosis Decubitus ulcer of right ischium, stage IV (CMS/HCC) Post-op Diagnosis Decubitus ulcer of right ischium, stage IV (CMS/HCC) Procedure(s): Right ischial pressure wound debridement and excision Right posterior thigh fasciocutaneous rotation flap Incisional wound vac placement Attending Surgeon(s): * Noemí Ni - Primary Music Education Director(s): * Neil Whitley MD - Resident - [...] He does not currently follow with a internet marketing analyst. He has no additional concerns at this [...] 98%. Results Review {Vanishing Link Review Results :[id number] I have reviewed the latest lab and [...] welcome you, your family, and friends to [facility]. We offer access to more than 1,500 [...] will help you be more comfortable with [facility] and the surgical process. This information provides [...] located on the first floor of the [facility] near the Pharmacy and main clinic entrance. We are open Wednesday-Wednesday from 8 a.m. to 4:30 p.m. A clinic telephone service representative can be reached at [phone]. Parking is available in the [facility] garage on [facility] or in the [facility] garage located at [address] [place] [address], directly across [facility] from [facility]. The day before surgery You will receive a phone call telling you what time you need to arrive at the hospital for surgery.If you miss the call, please call one of the following numbers (depending on where your surgery is scheduled): ? [facility]: [phone] or [phone] ? [facility]: [phone] or [phone] The day of surgery ? Arrive on time to avoid delays or cancellation. ? Park in the [facility] parking garage located at [address] It is directly across [facility] from the medical campus. ? If you are scheduled for surgery at [facility], take the hospital garage elevator to Level C, then cross the concourse bridge to the Surgery Waiting Room to register for your surgery. [facility] is located down the first hallway to the right at the end of the concourse bridge. If you need help crossing the concourse, you may slat pickler the patient golf cart shuttle directlyto the right of the elevators on Level C. ? If you are scheduled for surgery at the [facility], take the garage elevator to Level A and catch the free shuttle to the hospital. (Be careful not to take the [facility] shuttle - there is an ambassador [...] checked many times throughout your stay at [facility] to ensure your safety. ? Go over [...] talk to them after your surgery. A otc clerk is available in the waiting room [...] living will, health care surrogate, power of environmental attorney or guardianship papers. ? Bring a responsible [...] makeup, jewelry (including body piercing) or nail [place]. ? Don?t bring money or valuables to [...] office and the Preoperative Anesthesia Clinic at [phone] or [phone]. If it is the day of surgery, call the location where you are scheduled to have your surgery: [facility] at [phone] or [phone] or [facility] at [phone] or [phone]. For more information Visit [email or web address] or call [phone] or [phone]. [facility] does not discriminate. [facility] complies with applicable Federal civil rights laws and does not discriminate on the basis of race, color, national origin, age, disability, or sex. * [facility] - Melba Moreno RN - 10/10/2024 8:59 AM EDT Images from the original note were not included. 489 Map to [facility] Facilities Directions Easy directions to and from [address] (from [address]) Directions from [address] to the HealthCare Parking Garage: ? From [address], turn right off the exit ramp onto [address] ([place] [address] [address]) toward [place]. ? In 4.1 miles, turn left onto [address] (at the [place]). ? In a half-mile, turn right onto [address]. ? In .3 miles, turn right onto [address] (just past the [employer] gas station). Garage entrance is on the left. ? Important: This garage address will change to Alivia Fernandez on October 10, 2024. Directions from HealthCare Parking Garage to I-75/I-64: ? Turn left out of the garage onto [address]. ? Turn left onto [address]. ? In .3 miles, turn left down [address] ? In a half-mile, turn right onto [address] (at the [employer] gas station). ? In 4.1 miles, merge onto [address] /[address] (near the [employer] [facility]). Parking Any patients or visitors of [facility] can park in the following areas: ? [facility] Parking Garage (main garage): [address] (Levels A-F) ? [facility] Garage: [address] (Levels 1-6) ? [facility] Cancer lot: Located off [address] (limited parking for [facility] outpatients only). Upon Your Arrival ? Patients and visitors going [facility], G and [facility] may walk across the pedway, located at [...] also be accessed via the pedway off [facility] garage on Level C. If you need a shuttle to the ED, one can be called for you at Level A of the main garage or contact any of the information desks, . Additional Information For additional information, please visit our information desks located throughout [facility]. Information desks have additional maps and resources. Information desks are located at the main entrances of: [facility] (first floor and ground floor), [facility], [facility], [facility] CC, [facility], [facility] (first and third floor), and [facility]. Informationdesk number: [phone]. Important Addresses [address] [place] [address] ? [facility] Hospital entrance ? Pavilion A ? Pavilion G ([facility]) ? Emergency Department [address] ? [facility] H ? [facility] CC ([facility]) ? [facility] WH ([facility]) ? [employer] [address] [facility] ? [facility] [address] [facility] ? [facility] [address] [facility], [facility] ? [facility] ? [facility] [...] card, photo ID, along with power of environmental attorney, guardianship or advanced directives if applicable Do not bring money, jewelry or other valuables Hibiclens bathing instructions reviewed if applicable Notify surgeon of fever, illness, any changes or if you decide not to have surgery Registration will be on the first floor of [facility]) at the end of the bridge from the parking garage, the hallway on the RIGHT. Parking Garage Address: [address] [place] [address] Av. documented in this encounter Plan of Treatment Upcoming Encounters Date Type Department Care Team (Late st Contact Info) Description 11/15/2024 10:40 AM EDT Office Visit [facility] Comprehensive [facility] [address] [facility] 5th Floor [address] [place] [address] Noemí Ni MD [address] [address] Pending Results Name Type Priority Associated Diagnoses [...] Diagnoses Order Schedule Discharge Ambulatory referral to [facility] Outpatient Referral Routine Decubitus ulcer of right ischium, stage IV (CMS/HCC) 1 Occurrences starting 10/20/2024 until 04/23/2026 Discharge Ambulatory referral to NON [facility] Outpatient Referral Routine Decubitus ulcer of right ischium, stage IV (CMS/HCC) 1 Occurrences starting 10/26/2024 until 04/29/2026 Discharge Ambulatory referral to NON [facility] Outpatient Referral Routine Decubitus ulcer of right ischium, stage IV (CMS/HCC) 1 Occurrences starting 10/27/2024 until 04/30/2026 Discharge Ambulatory referral to [facility] Outpatient Referral Routine Decubitus ulcer of right ischium, stage IV (CMS/HCC) 1 Occurrences starting 10/30/2024 until 05/03/2026 documented as of this encounter Procedures Procedure Name Priority Date/Time Associated Diagnosis Comments WOUND OSTOMY EVAL AND TREAT Routine 10/20/2024 11:02 AM EDT [place] NEG PRESSURE WOUND THERAPY NON DME >50 [...] drains documented in this encounter Results * [place] NEG PRESSURE WOUND THERAPY NON DME >50 [...] - 1.20 mg/dL 10/19/2024 5:52 AM EDT [facility] eGFRcr 128.6 mL/min/1.7 3m*2 10/19/2024 5:52 AM EDT [facility] Comment:Reported eGFRcr in m L/min/1.73m2 is based the CKD-EPI 2020 equation that does not use a race coefficient. Blood Venous blood specimen / Unknown Venipuncture / Unknown 10/19/2024 4:43 AM EDT 10/19/2024 4:51 AM EDT us Noemí Ni MD LAB BLOOD ORDERABLES Final Resul t [facility] [address] [place] [address] * Creatinine, Plasma (10/18/2024 12:00 AM EDT) Creatinine, Plasma 0.73 0.70 - 1.20 mg/dL 10/18/2024 12:34 AM EDT [facility] eGFRcr 122.4 mL/min/1.7 3m*2 10/18/2024 12:34 AM EDT [facility] Comment:Reported eGFRcr in m L/min/1.73m2 is based the CKD-EPI 2020 equation that does not use a race coefficient. Blood Venous blood specimen / Unknown Venipuncture / Unknown 10/18/2024 12:00 AM EDT 10/18/2024 12:04 AM EDT Noemí Ni MD LAB BLOOD ORDERABLES Final Resul t [facility] [address] [place] [address] * PERIPHERAL IV (SMARTFORM LINK) (10/17/2024 10:56 [...] - 1.20 mg/dL 10/17/2024 10:57 AM EDT [facility] eGFRcr 129.9 mL/min/1.7 3m*2 10/17/2024 10:57 AM EDT [facility] Comment:Reported eGFRcr in m L/min/1.73m2 is based the CKD-EPI 2020 equation that does not use a race coefficient. Blood Venous blood specimen / Unknown Venipuncture / Unknown 10/17/2024 9:58 AM EDT 10/17/2024 10:05 AM EDT us Noemí Ni MD LAB BLOOD ORDERABLES Final Resul t [facility] [address] [place] [address] * Vancomycin, Peak, Plasma Please draw ~2 hours after 0030 dose of vancomycin finishes infusing. Consider obtaining level via peripheral stick. If peripheral stick is not feasible, please ensure that line is flushed well prior to drawing level. Than... (10/16/2024 4:48 AM EDT) Vancomycin, Peak, Plasma 22.3 20.0 - 40.0 ug/mL 10/16/2024 5:38 AM EDT [facility] Blood Venous blood specimen / Unknown Venipuncture / Unknown 10/16/2024 4:48 AM EDT 10/16/2024 5:10 AM EDT Narrative [facility] - 10/16/2024 5:38 AM EDT Therapeutic Peak level: 20-40ug/mL Supra-therapeutic Peak level: >40 ug/mL us Noemí Ni MD LAB BLOOD ORDERABLES Final Resul t Performing Organization Address [facility] Co de Phone Number [facility] [address] [place] [address] * Vancomycin, Trough, Plasma Please draw ~30 minutes prior to dose due at 0030 on 10/16. Please do NOT hold dose awaiting level to return. Consider obtaining level via peripheral stick. If peripheral stick is not feasible, please ensure that line is ... (10/15/2024 11:52 PM EDT) Vancomycin, Trough, Plasma 10.9 10.0 - 20.0 ug/mL 10/16/2024 12:31 AM EDT [facility] Blood Venous blood specimen / Unknown Venipuncture / Unknown 10/15/2024 11:52 PM EDT 10/15/2024 11:59 PM EDT Narrative [facility] - 10/16/2024 12:31 AM EDT Therapeutic Trough level: 10-20ug/mL Supra-therapeutic Trough level: >20 ug/mL us Noemí Ni MD LAB BLOOD ORDERABLES Final Resul t [facility] [address] [place] [address] * (ABNORMAL) Creatinine, Plasma (10/15/2024 4:24 AM EDT) Creatinine, Plasma 0.65(L) 0.70 - 1.20 mg/dL 10/15/2024 5:35 AM EDT [facility] eGFRcr 126.8 mL/min/1.7 3m*2 10/15/2024 5:35 AM EDT [facility] Comment:Reported eGFRcr in m L/min/1.73m2 is based the CKD-EPI 2020 equation that does not use a race coefficient. Blood Venous blood specimen / Unknown Venipuncture / Unknown 10/15/2024 4:24 AM EDT 10/15/2024 5:06 AM EDT us Noemí Ni MD LAB BLOOD ORDERABLES Final Resul t Performing Organization Address [facility] Co de Phone Number [facility] [address] [place] [address] * (ABNORMAL) Creatinine, Plasma (10/14/2024 4:24 AM EDT) Creatinine, Plasma 0.61(L) 0.70 - 1.20 mg/dL 10/14/2024 5:11 AM EDT [facility] eGFRcr 129.3 mL/min/1.7 3m*2 10/14/2024 5:11 AM EDT [facility] Comment:Reported eGFRcr in m L/min/1.73m2 is based the CKD-EPI 2020 equation that does not use a race coefficient. Blood Venous blood specimen / Unknown Venipuncture / Unknown 10/14/2024 4:24 AM EDT 10/14/2024 4:43 AM EDT Result Bobbi Ni MD LAB BLOOD ORDERABLES Final Resul t Performing Organization Address City/[facility]/ZIP Co de Phone Number [facility] [address] [place] [address] * (ABNORMAL) Vancomycin, Peak, Plasma Please draw ~2 hours after 1100 dose of vancomycin finishes infusing. Consider obtaining level via peripheral stick. If peripheral stick is not feasible, please ensure that line is flushed well prior to drawing level. Than... (10/13/2024 6:44 PM EDT) Vancomycin, Peak, Plasma 14.6(L) 20.0 - 40.0 ug/mL 10/13/2024 7:19 PM EDT [facility] Blood Venous blood specimen / Unknown Venipuncture / Unknown 10/13/2024 6:44 PM EDT 10/13/2024 6:48 PM EDT Narrative [facility] - 10/13/2024 7:19 PM EDT Therapeutic Peak level: 20-40ug/mL Supra-therapeutic Peak level: >40 ug/mL Noemí Ni MD LAB BLOOD ORDERABLES Final Resul t [facility] [address] [place] [address] * PERIPHERAL IV (SMARTFORM LINK) (10/13/2024 2:06 [...] - 20.0 ug/mL 10/13/2024 11:13 AM EDT [facility] Blood Venous blood specimen / Unknown Venipuncture / Unknown 10/13/2024 10:28 AM EDT 10/13/2024 10:44 AM EDT Narrative [facility] - 10/13/2024 11:13 AM EDT Therapeutic Trough level: 10-20ug/mL Supra-therapeutic Trough level: >20 ug/mL us Noemí Ni MD LAB BLOOD ORDERABLES Final Resul t Performing Organization Address [facility] Co de Phone Number [facility] [address] [place] [address] * Creatinine, Plasma (10/13/2024 4:38 AM EDT) Creatinine, Plasma 0.70 0.70 - 1.20 mg/dL 10/13/2024 6:20 AM EDT [facility] eGFRcr 124.0 mL/min/1.7 3m*2 10/13/2024 6:20 AM EDT [facility] Comment:Reported eGFRcr in m L/min/1.73m2 is based the CKD-EPI 2020 equation that does not use a race coefficient. Blood Venous blood specimen / Unknown Venipuncture / Unknown 10/13/2024 4:38 AM EDT 10/13/2024 5:53 AM EDT us Noemí Ni MD LAB BLOOD ORDERABLES Final Resul t [facility] [address] [place] [address] * Multi Drug Resistance Test (10/11/2024 5:24 PM EDT) Culture No growth at day 1 10/12/2024 6:51 PM EDT [facility] Swab (Nares and Amy Rectal) 10/11/2024 5:24 PM EDT 10/11/2024 5:24 PM EDT Narrative [facility] - 10/12/2024 6:51 PM EDT This test was developed and its performance characteristics determined by the [facility]. Although the media is FDA-approved, it is not FDA-approved for all specimen types submitted. The FDA has determined that such clearance or approval is not necessary. This test is used for surveillance purposes. It should not be regarded as investigational or for research. The [facility] is certified under the Clinical Laboratory Improvement Amendments of 1988 (CLIA-88) as qualified to perform high complexity clinical laboratory testing. us Noemí Ni MD LAB MICROBIOLOGY - GENERAL ORDER SABA Final Result [facility] [address] [place] [address] * (ABNORMAL) Basic metabolic panel (10/11/2024 4:57 PM EDT) Glucose, Plasma 114(H) 74 - 99 mg/dL 10/11/2024 5:45 PM EDT [facility] BUN, Plasma 11 7 - 21 mg/dL 10/11/2024 5:45 PM EDT [facility] Creatinine, Plasma 0.66(L) 0.70 - 1.20 mg/dL 10/11/2024 5:45 PM EDT [facility] BUN/Creatinine Ratio 17 10/11/2024 5:45 PM EDT [facility] Sodium, Plasma 137 136 - 145 mmol/L 10/11/2024 5:45 PM EDT [facility] Potassium, Plasma 4.7 3.6 - 4.9 mmol/L 10/11/2024 5:45 PM EDT [facility] Chloride, Plasma 106 97 - 107 mmol/L 10/11/2024 5:45 PM EDT [facility] CO2, Plasma 19(L) 22 - 29 mmol/L 10/11/2024 5:45 PM EDT [facility] Anion Gap 12 6 - 16 mmol/L 10/11/2024 5:45 PM EDT [facility] Total Calcium, Plasma 8.5(L) 8.9 - 10.2 mg/dL 10/11/2024 5:45 PM EDT [facility] eGFRcr 126.2 mL/min/1.7 3m*2 10/11/2024 5:45 PM EDT [facility] Comment:Reported eGFRcr in m L/min/1.73m2 is based the CKD-EPI 2020 equation that does not use a race coefficient. Blood Venous blood specimen / Unknown Venipuncture / Unknown 10/11/2024 4:57 PM EDT 10/11/2024 5:17 PM EDT us Noemí Ni MD LAB BLOOD ORDERABLES Final Resul t [facility] [address] [place] [address] * (ABNORMAL) Tissue Culture and Gram Stain (10/11/2024 2:27 PM EDT) Culture Light Growth 10/14/2024 1:08 PM EDT [facility] Culture Corynebacterium striatum group(A) 10/14/2024 1:08 PM EDT [facility] Comment: This isolate has been identified using the FDA Approved [employer] [place] SPARK[employer] CA System The organism value for this result has been updated. These results have been appended to the previously preliminary verified report. Gram Stain Result No organisms seen 10/14/2024 1:08 PM EDT [facility] Gram Stain Result No polymorphonuclear leukocytes seen 10/14/2024 1:08 PM EDT [facility] Tissue Structure of right buttock / [...] ORDER SABA Final Result Performing Organization Address [facility] Co de Phone Number [facility] [address] [place] [address] * Anaerobic Culture (10/11/2024 2:27 PM EDT) Culture No anaerobes isolated 10/15/2024 2:43 PM EDT [facility] Tissue Structure of right buttock / Unknown 10/11/2024 2:27 PM EDT 10/11/2024 2:43 PM EDT Comment:Pre-op diagnosis: Decubitus ulcer of right ischium, stage IV (CMS/HCC) [L89.314] Noemí Ni MD LAB MICROBIOLOGY - GENERAL ORDER SABA Final Result Performing Organization Address [facility] [place] [place] [address] * Surgical Pathology Exam (10/11/2024 2:23 PM EDT) Case Report Surgical Pathology Case: [id number] Authorizing Provider: Noemí Ni MD Collected: 10/11/2024 1423 Ordering Location: [facility] Received: 10/11/2024 1442 Pathologist: Luanne Liriano MD Specimen: Buttock, Right, 1) Right Ischial Pessure Ulcer - Permanent 10/16/2024 3:35 PM EDT [facility] Final Diagnosis A. RIGHT ISCHIAL PESSURE ULCER, DEBRIDEMENT: - ULCERATED SKIN, GRANULATION TISSUE, AND FIBROSIS. 10/16/2024 3:35 PM EDT [facility] at 1535 EDT Clinical Information Decubitus ulcer of right ischium, stage IV (CMS/HCC) [L89.314] 10/16/2024 3:35 PM EDT [facility] Gross Description A. 1) RIGHT ISCHIAL PESSURE ULCER - PERMANENT Received fresh and subsequently placed in formalin labeled Right Ischial Pessure Ulcer is an aggregate of skin and soft tissue measuring 6.4 x 4.5 x 1.7 cm. The skin surface is adams-pink with areas that are brown-carter and roughened. Clinical Marketing Manager sections are submitted in cassette A1. Cold Time: <1m Eileen Alexandra 10/16/2024 3:35 PM EDT [facility] Tissue Structure of right buttock / Unknown 10/11/2024 2:23 PM EDT 10/11/2024 2:42 PM EDT Comment:Pre-op diagnosis: Decubitus ulcer of right ischium, stage IV (CMS/HCC) [L89.314] us Noemí Ni MD LAB PATHOLOGY ORDERABLES Final R esult [facility] [address] [place] [address] documented in this encounter Visit Diagnoses Diagnosis [...] Given 10/21/2024 2:17 PM EDT 10 mg taorlhvsxc-igrhtnpxgalel-inymimmq 50-325-40 MG per tablet 1 tablet 1 [...] Until Discontinued, Routine 1651 (Given - Provider: Aureliano Rose RN) 1645 (Canceled Entry - Provider: [...] documented as of this encounter Care Teams Communications Programmer Relationship Specialty Start Date End Date Saul Mejia MD [address] [place] [phone] PCP - General 08/24/22 documented as of this encounter
--- OUTSIDE RECORDS SUMMARY | 2024-10-11 11:25 | XMS_ITS | Encounter Summary ---
Author Organization [facility] Address [address] [place] [address] Care Team Providers Care Mandarin Chinese Teacher Name Role Phone Saul Mejia MD Primary Care Provider [phone] Reason for Visit * Auth/Cert (Routine) Specialty Diagnoses / Procedures Referred By Alonso barrios Referred To Contact Diagnoses Decubitus ulcer of right ischium, stage IV (CMS/HCC) Decubitus ulcer of right ischium, stage IV (CMS/HCC) [L89.314] Procedures WY MUSCLE-SKIN FLAP,TRUNK WY EXC ISCH PRES ULC BONE MYOCUT FLAP Debridement Pressure right ischium, fasciocutneous flap closure Noemí Ni MD [address] [place] [phone] Phone: tel: fax: [facility] [address] [place] [address] Phone: tel: Referral ID Status Reason Start Date Expiration Date Visits Re quested Visits Authorized [id number] 1 1 Encounter Details Date Type Department Care Team (Late st Contact Info) Description 10/11/2024 11:25 AM EDT - 10/11/2024 2:35 PM EDT Surgery [facility] [address] [place] [address] Noemí Ni MD [address] [place] [phone] Debridement Pressure right ischium, fasciocutneous flap closure Surgery Details Date/Time Status Location OR Service Patient Class Case Class Case Type Trauma Case? 10/11/2024 11:25 AM Posted [facility] OR 2OR 14 Plastic Surgery Extended Recovery E-Electi ve Panel 1 Procedure LRB Anes Op Region Wound Class Comments Debridement Pressure right ischium, fasciocutneous flap closure Right General Buttocks Class IV/ Dirty or Infected Surgeon Surgeon Role Service Panel Neil Whitley MD Resident - Assisting 1 Kadi Galeano MD Resident - Assisting 1 Noemí Ni MD Primary Plastic Surgery 1 Special Needs methylene blue, anthony, carlitosn bed, 10 flat SATYA drains documented in this encounter Social History Tobacco Use Types Packs/Day Years [...] place to sleep or slept in a fci (including now)? No 02/08/2023 Humiliation, Afraid, Rape, [...] any time in the past 12 m [facility], were you homeless or living in a fci (including now)? No 10/12/2024 CAGE ASSESSMENT Answer [...] drink first t osito in the morning (EYE-GUSSET FOLDER) to steady your nerves or to get rid of a hangover? 0 08/25/2022 CAGE Questionnaire Score 0 023 Utilities Answer Date Recorded In the past 12 months has th e [employer], gas, oil, or water company threatened to [...] Sign Reading Time Taken Comments Blood Pressure 158/101 10/11/2024 10:45 AM EDT Pulse 110 10/11/2024 10:45 AM EDT Temperature 37 C (98.6 F) 10/11/2024 10:45 AM EDT Respiratory Rate - - Oxygen Saturation 98% 10/11/2024 10:45 AM EDT Inhaled Oxygen Concentration - - Weight 83.9 kg (185 lb) 10/11/2024 10:45 AM EDT Height 157.5 cm (5' 2 ) 10/11/2024 10:45 AM EDT Body Mass Index 34.92 10/11/2024 [...] Date of Assessment Author No Risk Indicated 10/11/2024 10:48 AM EDT Teagan Hanna RN * Question Answer Date of Assessment Author 1. Wish to be (Past 1 Month) No 10/11/2024 10:48 AM EDT Hernán Schmid RN 2. Non-Specific Active Suici greyson Thoughts (Past 1 Month) No 10/11/2024 10:48 AM EDT Darcy Schmid RN 6. Suicidal Behavior (Lifetime) No 10:48 AM EDT Schmid, Teagan, RN documented as of this encounter Mental Status [...] understanding. Patient given supplies as requested by MD. Meds to beds delivered to bedside, patient bathed, wounds cleansed and redressed. Patient awaiting ambulance transport. * Care Plan - Parul Larios - 10/30/2024 10:39 AM EDT Problem: Adult Inpatient Plan of Care Goal: Plan of Care Review Outcome: Adequate for Care Transition Flowsheets Taken 10/30/2024 0035 by Terra Shaikh Progress: improving Taken 10/30/2024 [...] Flowsheets Taken 10/30/2024 1020 by Yahaira Beavers health information internship Facility/Level of Care Needs: 1-Home or Self Care 6-Vkgi-Hxjewd Care Svc Equipment Needed After Discharge: (speciality air fluidized bed) other (see comments) Anticipated Changes Related to Illness: none Transportation Anticipated: medical transport Outpatient/Agency/Support Group Needs: DME homecare agency Transportation Concerns: none Concerns to be Addressed: discharge planning Patient/Family Anticipated Services at Transition: pillowcase cleaner durable medical equipment home health care Patient/Family Anticipates Transition to: home with family Taken 10/12/2024 1327 by An Humphrey Equipment Currently Used at Home: wheelchair, manual Problem: Infection Goal: Absence of Infection Signs and Symptoms Outcome: Adequate for Care Transition Intervention: Prevent or Manage Infection Flowsheets (Taken 10/30/202434 by [email or web address]) Infection Management: aseptic technique maintained Fever Reduction/Comfort Measures: lightweight clothing lightweight bedding Isolation Precautions: precautions maintained Problem: Wound Goal: Optimal Coping Outcome: Adequate for Care Transition Intervention: Support Patient and Family Response Flowsheets (Taken 10/30/202434 by Markie ShaikhNovast) Supportive Measures: active listening utilized verbalization of feelings encouraged Family/Support System Care: involvement promoted Goal: Skin Health and Integrity Outcome: Adequate for Care Transition Intervention: Optimize Skin Protection Flowsheets Taken 10/30/2024 0600 by Markie Shaikhah Ama Head of Bed (HOB) Positioning: HOB at 15 degrees Taken 10/30/202434 by Markie Shaikhah Ama Activity Management: activity adjusted per tolerance [...] Promote Wound Healing Flowsheets (Taken 10/30/202434 by Markie Shaikhah Ama) Sleep/Rest Enhancement: awakenings minimized noise level reduced room darkened therapeutic touch utilized Problem: Skin Injury Risk Increased Goal: Skin Health and Integrity Outcome: Adequate for Care Transition Intervention: Optimize Skin Protection Flowsheets Taken 10/30/2024 0600 by Markie Shaikhah Ama Head of Bed (HOB) Positioning: HOB at 15 degrees Taken 10/30/202434 by Terra Shaikh Activity Management: activity adjusted per tolerance Pressure Reduction Devices: foam padding utilized heel offloading device utilized Skin Protection: incontinence pads utilized Taken 10/29/2024404 by Yelena Deleon Pressure Reduction Techniques: frequent weight shift encouraged heels elevated off bed positioned off wounds weight shift assistance provided Intervention: Promote and Optimize Oral Intake Flowsheets Taken 10/30/202434 by Terra Shaikh Oral Nutrition Promotion: rest periods promoted Taken 10/29/2024 0405 by Yelena Deleon Nutrition Interventions: meal set-up provided Problem: Fall Injury Risk Goal: Absence of Fall and Fall-Related Injury Outcome: Adequate for Care Transition Intervention: Identify and Manage Contributors Flowsheets (Taken 10/30/2024 003 by Terra Shaikh) Medication Review/Management: medications reviewed [...] Note Naga Padgett 34 y.o. male CSN: [id number] Admission: 10/11/2024 9:17 AM Primary Problem: Decubitus ulcer of right ischium, stage IV (CMS/HCC) Primary Lockstitch Back Maker: Primary Caregiver: Family Assistance Available at Discharge: Availability of Care Givers (#Hours): 24 hours Family/Lockstitch Back Maker(s) Willingness Assessed to care for patient at home: Yes Family/Lockstitch Back Maker(s) Readiness Assessed to care for patient at home: Yes Housing Circumstances-Z Codes: Patient Referred to Financial or Community Resources: Discharge Facility/Level of Care Needs: Discharge Facility/Level of Care Needs: 1-Home or Self Care, 0-Kxgf-Jfmwev Care [facility] Patient's Choice of Community Agency(s): Patient/Family Anticipated Services at Transition: Patient/Family Anticipated Services at Transition: pillowcase cleaner, durable medical equipment, home health care DME/Equipment Needed after Discharge: Equipment Currently Used at Home: wheelchair, manual Equipment Needed After Discharge: other (see comments) (speciality air fluidized bed) Readmission Within the Last 30 Days: Medicare Documentation:per case management residential treatment staff. Follow-up: Noemí Ni MD [address] [place] [phone] [facility]. (2142) [facility]. (2142) Follow up [facility] [phone] has accepted pt for wound care [facility] [phone] has accepted pt for wound care Follow up [facility], Vazquez with [facility] [phone]. [facility], Vazquez with [facility] [phone]. speciality bed Follow up Discharge Transportation: Transportation [...] ambulance to follow up appointments per outpatient . Pt to dc to his mother's home today-[address] [place] Yahaira Beavers, RN * Vincent Victor - Reyes Gay RN - 10/30/2024 9:05 AM EDT Images from the original note were not included. [address] Preventing a Surgical Site Infection A risk [...] of infection. ? Controlled body temperature. A uozou-oahq-aaexno temperature during or after surgery prevents oxygen [...] and water or with an alcohol-based hand e business manager before and after caring for you. Don?t [...] away. Last Reviewed Date: 2024 00:00:00 ?? [id number] [employer]. All rights reserved. This information is not intended as a substitute for professional medical care. Always follow your healthcare professional's instructions. * [facility] - Reyes Gay RN - 10/30/2024 9:05 AM EDT Images from the original note were not included. 10161 Discharge Instructions: Changing Your Dressing You are [...] doctor. Last Reviewed Date: 2024 00:00:00 ?? [phone] [employer]. All rights reserved. This information is not intended as a substitute for professional medical care. Always follow your healthcare professional's instructions. * [facility] - Reyes Gay RN - 10/30/2024 9:05 AM EDT Images from the original note were not included. 24551 Treating Pressure Injuries: Debridement The goal of [...] and then ingest tissue. Mechanical (irrigation, hydrotherapy, dfw-dv-chlud, wet-to-dry) debridement may be used to remove [...] painful. Last Reviewed Date: 2023 00:00:00 ?? [id number] [employer]. All rights reserved. This information is not intended as a substitute for professional medical care. Always follow your healthcare professional's instructions. * Care Plan - Terra Shaikh - 10/30/2024 12:39 AM EDT Problem: Adult Inpatient Plan of Care Goal: Plan of Care Review 10/30/2024 0035 by Terra Shaikh Flowsheets (Taken 10/30/202434) Progress: [...] Intervention: Provide Person-Centered Care Flowsheets (Taken 10/29/2024 040 by Yelena Deleon) Trust Relationship/Rapport: care explained [...] Bowel Motility and Elimination Flowsheets (Taken 10/29/2024 040 by Yelena Deleon) Bowel Elimination Management: hygiene [...] Deleon Isolation Precautions: precautions maintained Taken 10/29/2024 040 by Yelena Deleon Infection Management: aseptic technique [...] Patient and Family Response Flowsheets (Taken 10/29/2024 040 by Yelena Deleon) Supportive Measures: active listening [...] Bed (HOB) Positioning: HOB elevated Taken 10/29/2024 040 by Yelena Deleon Pressure Reduction Techniques: frequent [...] adjusted per tolerance Taken 10/29/2024 06 by Yelnea Deleon Head of Bed (HOB) Positioning: HOB [...] Plan of Care Goal: Patient-Specific Goal (Individualized) 10/29/2024404 by Yelena Deleon Flowsheets (Taken 10/28/20241999) Patient/Family-Specific Goals (Include Timeframe): Patient will remain free from harm this shift Individualized Care Needs: Monitor dressing and wound care Anxieties, Fears or Concerns: None verbalized by patient 10/29/2024404 by Yelena Deleon Outcome: Ongoing, [...] Intervention: Prevent Skin Injury Flowsheets Taken 10/29/2024 0405 Skin Protection: incontinence pads utilized drying agents applied Taken 10/29/2024 0200 Body Position: left side-lying Intervention: Prevent and [...] Pain and Promote Comfort Flowsheets (Taken 10/29/2024 0405) Pain Management Interventions: care clustered position adjusted pillow support provided quiet environment facilitated rest Problem: Surgery Nonspecified Goal: Absence of Bleeding Intervention: Monitor and Manage Bleeding Flowsheets (Taken 10/29/2024 0405) Bleeding Management: dressing monitored * Care Plan [...] provided) turned other (see comments) Taken 10/28/2024 005 by Rica Wallace RN Skin Protection: incontinence [...] Monitor Pain and Promote Comfort Flowsheets (Taken 10/27/2024611) Pain Management Interventions: emotional support pillow support [...] Note Naga Padgett 34 y.o. male CSN: [id number] Admission: 10/11/2024 9:17 AM Primary Problem: Decubitus ulcer of right ischium, stage IV (CMS/HCC) Anticipated Discharge Date: 10/30/24 Additional Comments: Pt will DC on 10/30/24 to his mothers address at [address] [place] [address] Eddi Ariza via ambulance, SW did not get ambulance time response by the time SW left for the day on 10/26/24. Specialty hospital bed will be delivered between 12-1 pm on 10/30/24 by Vazquez Callejas with [facility] [phone]. Pt was approved this date by insurance after family appeal to go to [facility], ptexpressed that he wished to pursue home with HH. RN EVANS sent wound care orders for [facility]. CM will continue to follow pt. An Humphrey, TEACHER LEARNING DISABLED, CASINO RUNNER Social Work Senior Department of Case Management [facility] * Progress Notes - Kadi Galeano MD - 10/26/2024 1:52 PM EDT Images from the original note were not included. [facility] Department of Surgery Division of Plastic [...] 1859 10/24/24 1900 - 10/25/24 0659 10/25/24 07 - 10/25/24 1859 10/25/24 1900 - 10/26/24 [...] Note Naga Padgett 34 y.o. male CSN: [id number] Admission: 10/11/2024 9:17 AM Primary Problem: Decubitus ulcer of right ischium, stage IV (CMS/HCC) Anticipated Discharge Date: TBD Additional Comments: JACK spoke with Vazquez with [facility] [phone] regarding specialty bed. Insurance is unable to cover specialty bed due to no open pressure wounds at this time. RN EVANS ordered hospital bed andwill order overlay. Still waiting on wound care instructions to be ordered/ written via MD. Update: Vazquez stated [facility] is willing to work with to have the pt set up with specialty bed. Vazquez working with his administration for specialty bed delivery next week. EVANS will need to follow up with Vazquez to confirm information. An Humphrey, TEACHER LEARNING DISABLED, CASINO RUNNER Social Work Senior Department of Case Management [facility] * Progress Notes - Mimi Multani RN - 10/26/2024 12:59 PM EDT Case Management Adult Progress Note Naga Padgett 34 y.o. male CSN: [id number] Admission: 10/11/2024 9:17 AM Primary Problem: Decubitus ulcer of right ischium, stage IV (CMS/HCC) Anticipated Discharge Date: tbd Medically Ready for Discharge: Anticipated in 5+ Days Additional Comments CM contacted to assist with DME. Patient will need a hospital bed with and overlay. Team has been notified, but orders for the overlay has not been revealed to CM. Referral sent to [facility]. Once the Team decides on the type [...] Note Naga Padgett 34 y.o. male CSN: [id number] Room/Bed 221/221A Nutrition evaluation type: follow-up Reason [...] comments: 10/26: Pt reported a good appetite SOUND CONTROLLER and currently his appetite has been improving [...] accuracy Estimated Needs: Kcal: 30-35 kcal/kg AdjBW (7386-1456 kcal/d) Pro: 1.5-2 g/kg AdjBW (93-124 g/d) [...] supplements (ongoing) Acuity Level: 2 Gale Vernon, RD, LD [1] Past Medical [...] 24 hour assistance Equipment Recommended: Hospital bed ([facility]) History Naga Padgett is 34 y.o. male [...] positions. Participants in Care Family/Caregiver Present: No Electronic Scale Subassembler: Not Applicable Presentation Oxygen Therapy: None (Room [...] Dressesindependently.) Level of Mobility: Wheelchair/Scooter (paraplegic) Mobility [place]: Independent wheelchair propulsion History of Falls: No [...] Mobility Bed Mobility Exam: Rolling/Turning Level of [place]: Independent (rolling to patients right) Assistive Device: [...] 1 sets - 10 reps Standardized Assessments [facility] 6-Click Daily Activities Help from Other: Don/Doff Regular Lower Body Clothings: A lot Help From Other: Bathing: A lot Help From Other: Toileting: Total Help From Other: Don/Doff Upper Body Clothings: Little Help From Other: Grooming: Little Help From Other: Eating Meals: None [facility] 6 Click - Daily Activities Score: [...] 24 hour assistance Discharge Equipment: Hospital bed ([facility]) Demonstrates Need for Referral to Another Service: [...] Dressesindependently.) Level of Mobility: Wheelchair/Scooter (paraplegic) Mobility [place]: Independent wheelchair propulsion History of Falls: No [...] Mobility Bed Mobility Exam: Rolling/Turning Level of [place]: Independent (rolling to patients right) Balance Balance [...] and knee flexion/extension x10 reps. Standardized Assessments [facility] 6-Clicks Mobility Assessment Difficulty patient has [...] climbing 3-5 steps with a railing?: Unable [facility] 6-Clicks Mobility Assessment Total : 9 [...] patient and his family bedside today at [facility]. He stated speciality bed will be delivered to patient's home early next week. CM inquired with Dr Galeano with [facility] if patient can dc home initially with a hospital bed/gel overlay low air loss mattress to use until speciality bed delivered. Awaiting responseMD in a procedure. * Progress Notes - Kadi Galeano MD - 10/25/2024 8:06 AM EDT Images from the original note were not included. [facility] Department of Surgery Division of Plastic [...] Progressing Flowsheets (Taken 10/24/2024 1343 by Jayleen Nobles, DIRK) Plan of Care Reviewed With: patient Problem: Adult Inpatient Plan of Care Goal: Patient-Specific Goal (Individualized) Outcome: Ongoing, Progressing * Progress Notes - An Humphrey - 10/24/2024 2:32 PM EDT Case Management Adult Progress Note Naga Padgett 34 y.o. male CSN: [id number] Admission: 10/11/2024 9:17 AM Primary Problem: Decubitus ulcer of right ischium, stage IV (CMS/HCC) Anticipated Discharge Date: TBD Additional Comments: Pt is MR to DC this date. Pt was approved for [facility] bed by Vazquez Callejas [phone]. Vazquez is to be in contact with pt and pt mother regarding speciality hospital bed. JACK provided pt and family with denial letter that stated the fax number to submit a written appeal. Family insisted that they would fax the letter this date to . According to it may be appropriate for pt to DC without [place]. CM will continue to follow as safe DC plan is in process. No further SW concerns identified at this time. SW will monitor pt's progress and will follow up with DC planning and needs as appropriate. An Humphrey, TEACHER LEARNING DISABLED, CASINO RUNNER Social Work Senior Department of Case Management [facility] * Care Plan - Jayleen Nobles [...] from the original note were not included. [facility] Department of Surgery Division of Plastic [...] 1859 10/22/24 1900 - 10/23/24 0659 10/23/24 07 - 10/23/24 1859 10/23/24 1900 - 10/24/24 [...] Note Naga Padgett 34 y.o. male CSN: [id number] Admission: 10/11/2024 9:17 AM Primary Problem: Decubitus ulcer of right ischium, stage IV (CMS/HCC) Anticipated Discharge Date: TBD Additional Comments: Pt is MR to DC this date. Family wishes to complete family appeal for pt to go to [facility]. JACK provided pt mother with the denial letter and information for mother to begin family appeal. Jack spoke with ptand asked if pt felt comfortable DC home with family. Pt stated he was agreeable to DC home. JACK expanded referrals for as pt will DC to his mothers address [address] [place] [address] [place] [facility]. Mother began appeal process by talk to Cirilo License number [id number] and then Tari License number [id number] who instructed pt mother to write a [...] for a Dolphin Bed to [facility]. DIRK KRUEGER sent referral to [facility] for [place] incase pt is to [place] home with [place]. No further SW concerns identified at this time. SW will monitor pt's progress and will follow up with DC planning and needs as appropriate. An Humphrey, TEACHER LEARNING DISABLED, CASINO RUNNER Social Work Senior Department of Case Management [facility] * Care Plan - Leona Dickerson [...] Assessment Red;Granulation Margins Well-defined edges Amy-Wound Assessment Brainards Shape irregular, full thickness skin loss Drainage [...] from the original note were not included. [facility] Department of Surgery Division of Plastic [...] 1859 10/21/24 190 - 10/22/24 0659 10/22/24 07 - 10/22/24 1859 10/22/24 190 - 10/23/24 0659 10/23/24 07 - 10/23/24 0857 Closed/Suction Drain 1 Right;Posterior [...] plan as documented. * Progress Notes - Gregory Klein Cameron - 10/22/2024 9:04 AM EDT Images from the original note were not included. [facility] Department of Surgery Division of Plastic [...] from the original note were not included. [facility] Department of Surgery Division of Plastic [...] Airway None Output by Drain (mL) 10/19/24 07 - 10/19/24 18510/19/24 1900 - 10/20/24 0659 10/20/24 0700 - 10/20/24 1859 10/20/24 1900 - 10/21/24 0643 Closed/Suction Drain 1 Right;Posterior [...] Goal: Plan of Care Review Flowsheets (Taken 10/20/20242099) Progress: improving Plan of Care Reviewed With: patient Intervention: Prevent Skin Injury Flowsheets Taken 10/21/2024 0038 Skin Protection: incontinence pads utilized Taken 10/20/2024 2230 Body Position: left turned legs elevated Outcome: Ongoing, Progressing Intervention: Prevent Infection Flowsheets (Taken 10/20/2024 2100) Infection Prevention: environmental surveillance performed equipment surfaces disinfected hand hygiene promoted rest/sleep promoted single patient room provided Outcome: Ongoing, Progressing Problem: Adult Inpatient Plan of Care Goal: Absence of Hospital-Acquired Illness or Injury Intervention: Prevent Skin Injury Flowsheets Taken 10/21/2024 0038 Skin Protection: incontinence pads utilized Taken 10/20/20242229 Body Position: left turned legs elevated Outcome: [...] Note Naga Padgett 34 y.o. male CSN: [id number] Admission: 10/11/2024 9:17 AM Primary Problem: Decubitus ulcer of right ischium, stage IV (CMS/HCC) Family spoke with Ibrahima, license number [id number], phone [phone] whom stated that pt insurance authorization was still pending. SW encouraged family to make an appeal at 6:00 pm after the P2P. ROBERTO Toro, CASINO RUNNER Social Work Senior Department of Case Management [facility] * Care Plan - Jayleen Nobles [...] Note Naga Padgett 34 y.o. male CSN: [id number] Admission: 10/11/2024 9:17 AM Primary Problem: Decubitus ulcer of right ischium, stage IV (CMS/HCC) Anticipated Discharge Date: TBD Additional Comments: According to MD's pt is MR to DC to [facility]. Pt was denied by insurance for [facility]. SW informed family andfamily wishes to do a Family Appeal regarding the pt going to [facility]. JACK, EVANS RN, and post acute child care director spoke with family at bedside to explain the family appeal process and assist with questions regarding the denial. Family stated they would be making a family appeal. RN EVANS sent out referrals via careport for HH PT/OT and nursing this date. SW call Merrick Frazier with [employer] [phone] regarding pt wound care and had to leave a message. JACK updated MD's regarding family conversation. JACK will monitor pt's progress and will follow up with DC planning and needs as appropriate. Update: JACK faxed over pt demographics, H&P, wound care consult, surgery progress notes, and Charley Sin at [phone]. An Humphrey, TEACHER LEARNING DISABLED, CASINO RUNNER Social Work Senior Department of Case Management [facility] * Consults - Gale Vernon RD - 10/20/2024 2:16 PM EDT Adult Nutrition Evaluation Note Naga Padgett 34 y.o. male CSN: [id number] Room/Bed 221/221A Nutrition evaluation type: follow-up Reason [...] accuracy Estimated Needs: Kcal: 30-35 kcal/kg AdjBW (7230-7765 kcal/d) Pro: 1.5-2 g/kg AdjBW (93-124 g/d) Current Nutrition Intake: Diet: Regular Supplements: Boost [facility] TID, Sukumar BID Intake: no po intake [...] po intake in EMR -Continue Boost [facility] TID -Continue Sukumar BID -Recommend MVI with [...] for HH PT/OT+SN sent to agencies via [facility] for acceptance. * Procedures - Kd [...] from the original note were not included. [facility] Department of Surgery Division of Plastic [...] Airway None Output by Drain (mL) 10/18/24 07 - 10/18/24 1859 10/18/24 1900 - 10/19/24 [...] Note Naga Padgett 34 y.o. male CSN: [id number] Admission: 10/11/2024 9:17 AM Primary Problem: Decubitus ulcer of right ischium, stage IV (CMS/HCC) Anticipated Discharge Date: TBD Additional Comments: JACK spoke with MDs this date who indicate that the pt is medically stable for DC. Awaiting insuranceauthorization approval, J[facility] [phone] whom states authorization is still pending. Tentative plan to meet with MD's and pt and family tomorrow. No further JACK concerns identified at this time. JACK will monitor pt's progress and will follow up with DC planning and needs as appropriate. An Humphrey, TEACHER LEARNING DISABLED, CASINO RUNNER Social Work Senior Department of Case Management [facility] * Care Plan - Jayleen Nobles [...] from the original note were not included. [facility] Department of Surgery Division of Plastic [...] Airway None Output by Drain (mL) 10/17/24 0700 - 10/17/24 1859 10/17/24 1900 - 10/18/24 0659 10/18/24 07 - 10/18/24 1859 10/18/24 1900 - 10/19/24 0659 10/19/24 0700 - 10/19/24 0745 Closed/Suction Drain 1 Right;Posterior [...] days Lab Units 10/19/24 0443 10/18/24 0000 07/08/25 0958 CREATININE mg/dL 0.62* 0.73 0.60* Lactate [...] from the original note were not included. [facility] Department of Surgery Division of Plastic [...] Note Naga Padgett 34 y.o. male CSN: [id number] Admission: 10/11/2024 9:17 AM Primary Problem: Decubitus ulcer of right ischium, stage IV (CMS/HCC) Anticipated Discharge Date: TBD Additional Comments: Pt is MR to DC to a facility this date. [facility] was accepted to [facility] [phone], JACK asked [facility] to begin authorization. [facility] unable to accept the patient. JACK will follow up with pt and family at a later date. No further SW concerns identified at this time. SW will monitor pt's progress and will follow up with DC planning and needs as appropriate. An Humphrey, TEACHER LEARNING DISABLED, CASINO RUNNER Social Work Senior Department of Case Management [facility] * Progress Notes - Ivania Amaya, [...] independently.) Level of Mobility Wheelchair/Scooter (paraplegic) Mobility [place] Independent wheelchair propulsion History of Falls No [...] change due to leaking. Visitors Present No Electronic Scale Subassembler (if applicable) N/A OBJECTIVE Vital Signs Pre-Session [...] activity throughout session. BED MOBILITY Level of [place] Physical/Non- physical Assist Adaptive Equipment Utilized Rolling/ Turning Minimum assist (75% patient effort) Additional assist utilized for safety, Verbal Cues, Set-up required Bed rails, Other (drawsheet) Scooting/ Bridging Supine to Sit Sit to Supine Interventions Patient reports he's ready to change position in bed and was assisted to roll from right sidelying to left sidelying. TRANSFERS Level of [place] Physical/Non- physical Assist Adaptive Equipment Utilized Sit [...] bed mobility only. Postural Appearance Level of [place] Balance Support Interventions Static Sit Dynamic Sit Static Stand Dynamic Stand AMBULATION Level of [place] Distance Adaptive Equipment Utilized Ambulation Comments Patient [...] with turning and pressure relief in bed. Nonew changes/complaints. PT RECOMMENDATIONS Discharge Destination LTACH Discharge [...] PM. * Progress Notes - Magalis Grant - 10/17/2024 11:29 AM EDT Occupational Therapy Treatment Patient Name: Naga Padgett Today's Date: 10/17/2024 OT Discharge Recommendations: LTACH Equipment Recommended: Defer to facility Subjective I have been using the blue and black therabands. Participants in Care Family/Caregiver Present: No Electronic Scale Subassembler: Not Applicable Presentation Oxygen Therapy: None (Room [...] sidelying. Bed Mobility Exam: Rolling/Turning Level of [place]: Minimum assist (75% patient effort) Physical/Nonphysical Assist: [...] from the original note were not included. [facility] Department of Surgery Division of Plastic [...] Airway None Output by Drain (mL) 10/15/24 0700 - 10/15/24 1859 10/15/24 1900 - 10/16/24 0659 10/16/24 07 - 10/16/24 1859 10/16/24 1900 - 10/17/24 0659 10/17/24 0700 - 10/17/24 0741 Closed/Suction Drain 1 Right;Posterior [...] Date Order Priority Status Authorizing Provider 10/16/24 5064 Apply/Change Wound Dressing 2 Wounds Associated Routine [...] Note Naga Padgett 34 y.o. male CSN: [id number] Room/Bed 221/221A Nutrition evaluation type: assessment Reason [...] accuracy Estimated Needs: Kcal: 30-35 kcal/kg AdjBW (7803-9609 kcal/d) Pro: 1.5-2 g/kg AdjBW (93-124 g/d) Current Nutrition Intake: Diet: Regular Supplements: Boost [facility] TID Intake: no po intake recorded [...] po intake in EMR -Continue Boost [facility] TID -Adding Sukumar BID -Recommend MVI [...] chloride * Progress Notes - An Humphrey - 10/16/2024 12:40 PM EDT Case Management Adult Progress Note Naga Padgett 34 y.o. male CSN: [id number] Admission: 10/11/2024 9:17 AM Primary Problem: Decubitus [...] planning and needs as appropriate. An Humphrey, TEACHER LEARNING DISABLED, CASINO RUNNER Social Work Senior Department of Case Management [facility] * Progress Notes - Kadi Galeano MD - 10/16/2024 9:28 AM EDT Images from the original note were not included. [facility] Department of Surgery Division of Plastic Surgery Surgery Progress Note 10/16/24 Naga Padgett Subjective Subjective: HPI NAEO. Resting [...] Exam: Physical Exam Expand All Collapse All [facility] Department of Surgery Division of Plastic [...] Intake/Output Summary (Last 24 hours) at 10/16/2024 09 Last data filed at 10/16/2024 0800 Gross per 24 hour Intake 250 ml Output 3515 ml Net -3265 ml Lines/Drains/Tubes: Patient Lines/Drains/Airways Status Active Airway None Output by Drain (mL) 10/14/24699 - 10/14/24 18510/14/24 190 - 10/15/24 0659 10/15/24699 - 10/15/24185810/15/241899 - 10/16/24 0659 10/16/24699 - 10/16/24927 Closed/Suction Drain 1 Right;Posterior Thigh Bulb 19 [...] Procedure Component Value Units Date/Time Anaerobic Culture [[id number]] Collected: 10/11/24 1427 Order Status: Completed Specimen: Tissue from Buttock, Right Updated: 10/15/24 1443 Culture No anaerobes isolated Tissue Culture and Gram Stain [[id number]] (Abnormal) (Susceptibility) Collected: 10/11/24 142 Order Status: Completed Specimen: Tissue from Buttock, Right Updated: 10/14/24 1308 Culture Light Growth Corynebacterium striatum group Comment: This isolate has been identified using the FDA Approved DataXuer CA System The organism value for this [...] monitor therapy with primary service. Denis Mora, PharmD, MS, BCCCP Critical Care Clinical Pharmacist, Specialty Surgery * [...] from the original note were not included. [facility] Department of Surgery Division of Plastic [...] by Drain (mL) 10/13/24 07 - 10/13/24 1859 10/13/24 1900 - 10/14/24 0659 10/14/24 07 - 10/14/24 18510/14/24 190 - [...] the previously described assessment and plan. Gerry Klein [facility] M[facility] Cosigned by Noemí Ni MD at 10/22/2024 5:02 PM EDT Associated attestation - Noemí Ni MD - 10/22/2024 5:02 PM EDT I saw and evaluated the patient. I discussed the case with the resident/fellow and agree with the findings and plan as documented. * Care Plan - Bernardo Pacheco, RN - 10/15/2024 10:12 AM EDT Problem: [...] from the original note were not included. [facility] Department of Surgery Division of Plastic [...] by Drain (mL) 10/12/24 07 - 10/12/24 18510/12/24 1900 - 10/13/24 0659 10/13/24 07 - 10/13/24 1859 10/13/24 1900 - 10/14/24 0659 10/14/24 07 - [...] Identify and Manage Fall Risk Flowsheets (Taken 10/14/2024 001) Safety Promotion/Fall Prevention: fall prevention program maintained [...] will continue to follow, Submitted by: Divina Calzada PharmD 10/13/2024 9:25 PM * Procedures - Day, Cande Smith RN - 10/13/2024 2:06 PM EDTAssociated Order(s): [...] from the original note were not included. [facility] Department of Surgery Division of Plastic [...] 0659 10/12/24 07 - 10/12/24 1859 10/12/24 190 - 10/13/24 0659 10/13/24 07 - 10/13/24 1024 Closed/Suction Drain 1 Right;Posterior [...] and Manage Fall Risk Flowsheets (Taken 10/13/2024 0800) Safety Promotion/Fall Prevention: activity supervised Intervention: Prevent Skin Injury Flowsheets Taken 10/13/2024 0955 Skin Protection: incontinence pads utilized protective footwear used Taken 10/13/2024 0800 Body Position: turned left Intervention: Prevent and Manage VTE (Venous Thromboembolism) Risk Flowsheets (Taken 10/13/2024 0800) VTE Prevention/Management: bilateral SCDs (sequential compression devices) on Intervention: Prevent Infection Flowsheets (Taken 10/13/2024 0955) Infection Prevention: cohorting utilized environmental surveillance performed [...] and Manage Fall Risk Flowsheets (Taken 10/13/2024 0334) Safety Promotion/Fall Prevention: activity supervised assistive device/personal items within reach clutter-free environment maintained fall prevention program maintained room organization consistent safety round/check completed Outcome: Ongoing, Progressing 10/13/2024 032 by La Ray RN Problem: Surgery Nonspecified Goal: Effective Bowel Elimination 10/13/2024 033 by La Ray RN Outcome: Ongoing, Progressing [...] ulcer of right ischium, stage IV (CMS/HCC) 02/04/2023 Procedures 10/11/2024 Procedure(s): Debridement Pressure right [...] in Care Family/Caregiver Present: Yes Family/Caregiver: Mother Electronic Scale Subassembler: Not Applicable Presentation Oxygen Therapy: None (Room [...] Dressesindependently.) Level of Mobility: Wheelchair/Scooter (paraplegic) Mobility [place]: Independent wheelchair propulsion History of Falls: No [...] Mobility Bed Mobility Exam: Rolling/Turning Level of [place]: Minimum assist (75% patient effort) Physical/Nonphysical Assist: Additional assist utilized for safety, Nonverbal cues (demo/gestures),Verbal Cues, Set-up required Assistive Device: Bed rails Bed Mobility Exam: Scooting/Bridging Level of [place]: Moderate assist (50% patient's effort) Physical/Nonphysical Assist: Additional assist utilized for safety, Verbal Cues, Set-up required, Nonverbal cues (demo/gestures) Assistive Device: (draw sheet) Transfers Transfer Interventions: unable to sit directly on flap, transfers not indicated based on medical precautions Standardized Assessments Standardized Assessments Standardized Assessments: AMPAC 6-Clicks Mobility Assessment AMPA 6-Clicks Mobility Assessment [...] climbing 3-5 steps with a railing?: Unable [facility] 6-Clicks Mobility Assessment Total : 8 [...] PM. * Progress Notes - Jada Beavers W - 10/12/2024 2:25 PM EDT Occupational Therapy [...] in Care Family/Caregiver Present: Yes Family/Caregiver: Mother Electronic Scale Subassembler: Not Applicable Presentation Oxygen Therapy: None (Room [...] Dressesindependently.) Level of Mobility: Wheelchair/Scooter (paraplegic) Mobility [place]: Independent wheelchair propulsion History of Falls: No [...] Mobility Bed Mobility Exam: Rolling/Turning Level of [place]: Minimum assist (75% patient effort) Physical/Nonphysical Assist: Set-up required, Verbal Cues, Nonverbal cues (demo/gestures), Minimal cues, 1 person + 1 person to manage equipment Assistive Device: Bed rails, Other (draw sheet) Bed Mobility Exam: Scooting/Bridging Level of [place]: Moderate assist (50% patient's effort) Physical/Nonphysical Assist: Set-up required, Verbal Cues, Nonverbal cues (demo/gestures), Minimal cues, Additional assist utilized for safety Assistive Device: Other (draw sheet) Bed Mobility Exam: Supine to Sit Level of [place]: Unable to perform (d/t pressure offloading precautions [...] handout/printout provided for visual reference. Access Code: [email or web address] URL: [email or web address] Date: 10/12/2024 Exercises - Supine Bilateral Punches [...] 1 sets - 10 reps Standardized Assessments [facility] 6-Click Daily Activities Help from Other: Don/Doff Regular Lower Body Clothings: A lot Help From Other: Bathing: A lot Help From Other: Toileting: Total Help From Other: Don/Doff Upper Body Clothings: A lot Help From Other: Grooming: Little Help From Other: Eating Meals: None [facility] 6 Click - Daily Activities Score: 14 Assessment Initial evaluation limited on this date to bed level d/t post-surgical precautions (pressure offloading: Dolsaint joseph londonn bed. Do NOT sit directly on the [...] Note Naga Padgett 34 y.o. male CSN: [id number] Admission: 10/11/2024 9:17 AM Primary Problem: Decubitus ulcer of right ischium, stage IV (CMS/HCC) Meter Shop Superintendent reviewed chart and spoke with the patients mother to complete this Initial Case Management Assessment. PCP: Saul Mejia MD Emergency Contact: Extended Emergency Contact Information Primary Emergency Contact: Nelly Padgett Mobile Relation: Mother Preferred language: Romanian Electronic Scale Subassembler needed? No Insurance: Primary Visit Coverage Payer Plan Sponsor Code Group Number Group Name ANTH MEDICARE ANTH SENIOR ADVANTAGE [id number] Primary Visit Coverage Subscriber Subscriber ID Subscriber Name Subscriber SSN Subscriber Address [id number] NAGA PADGETT Elan [id number] [address] [place] [address] Patient information: Primary Caregiver: Family Support System: Immediate family Daily Living Activities: Functional Status: Maximum assistance Living Arrangements: Family Type of Residence: Private residence, Multi Level (elevator in home) [address] [place] [address] Current DME: Equipment Currently Used at Home: wheelchair, manual Income Information: Income Source: Government aid (SSDI) Income/Expense Information: Income meets expenses Anticipated Discharge Date: TBD Patient's Discharge Goal: Agreeable to Rehab pending PT/OT eval Assistance Available at Discharge: Family Discharge Transport: Family Follow Up Transport: Family Home Health / Home Infusion / Outpatient Dialysis Services: N/A Living Will/Advance Directive/Power of French Instructor /Guardian: Social Drivers of Health Food Insecurity: [...] Cage questionnaire guilty: 0 Cage questionnaire eye alternative dispute resolution mediator: 0 [place] Overall score: 0 Housing Stability: [...] No Depression: At risk (09/19/2024) Received from [facility] PHQ-2 Patient Health Questionnaire-9 Score: 5 Utilities: Not At Risk (10/12/2024) Utilities Threatened with loss of utilities: No Stress: Not on file (02/16/2024) Intimate Partner Violence: Not At Risk (10/12/2024) Humiliation, Afraid, Rape, and Kick questionnaire Fear of Current or Ex-Partner: No Emotionally Abused: No Physically Abused: No Sexually Abused: No Physical Activity: Not on file Social Connections: Unknown (01/18/2023) Received from [facility] Family and Community Support Help with Day-to-Day [...] planning and needs as appropriate. An Humphrey, TEACHER LEARNING DISABLED, CASINO RUNNER Social Work Senior Department of Case Management [facility] * Care Plan - Mary Gamez [...] from the original note were not included. [facility] Department of Surgery Division of Plastic [...] by Drain (mL) 10/10/24 07 - 10/10/24 18510/10/24 190 - 10/11/24 0659 10/11/24 07 - 10/11/24 1859 10/11/24 1900 [...] from the original note were not included. [facility] Department of Surgery Division of Plastic Surgery Post Operative Check: Subjective: Procedure: Right ischial pressure wound debridement, right posterior thigh rotation flap Patient currently reports pain is controlled. He is eager to eat. No acute complaints. Pain Control: [facility] Objective: Vitals: Visit Vitals BP (!) [...] Status: regular Anticoagulation/DVT ppx: SCDs Pain management: [facility] Level of care: Continue Current Level of Care I have answered and addressed all issues and concerns from the patient and nursing staff. I have notified senior resident/attending microsoft dynamics consultant with any issues or concerns. * Progress [...] to follow. Submitted by: Gale Moody PharmD, [facility] 10/11/2024 5:47 PM * Anesthesia [...] Agree with above assessment and evaluation from resident/BASS SINGER. * Op Note - Noemí Ni MD - 10/11/2024 12:56 PM EDT Operative Note Date: 10/11/24 Location: [facility] Name: Naga Padgett, : 1990, Diagnoses: Pre-op Diagnosis Decubitus ulcer of right ischium, stage IV (CMS/HCC) Post-op Diagnosis Decubitus ulcer of right ischium, stage IV (CMS/HCC) Procedure(s): Right ischial pressure wound debridement and excision Right posterior thigh fasciocutaneous rotation flap Incisional wound vac placement Attending Surgeon(s): * Noemí Ni - Primary Insurance Clerk(s): * Neil Whitley MD - Resident - [...] Appliance Other (Comment) 10/11/24 2100 Site Assessment Clean;Intact;Brainards 10/13/24 1600 Peristomal Assessment Clean;Intact 10/13/24 1600 Urethral Catheter (Active) Site Assessment Clean;Skin intact 10/13/24 08 CAUTI: Collection Container Standard drainage bag 10/13/24 08 CAUTI: Securement Method Securing device (Describe) 10/13/24 08 CAUTI: Specimen Collection Port Covered with Alcohol Cap Yes 10/13/24 08 CAUTI: Urinary Catheter Necessity Yes, meets criteria 10/13/24 08 CAUTI: Urinary Catheter Necessity Reasons Assist healing open sacral/perineal wounds or wwogjxsvuyi19/04/25 08 Output (mL) 700 mL 10/13/24 0322 [...] was de-epithelialized with normal bleeding. A 19 latvian fluted drain was placed under the flapexiting [...] 10/11/2024 12:56 PM EDT Date: 10/11/24 Location: [facility] Name: Naga Padgett, : 1990, Diagnoses: Pre-op Diagnosis Decubitus ulcer of right ischium, stage IV (CMS/HCC) Post-op Diagnosis Decubitus ulcer of right ischium, stage IV (CMS/HCC) Procedure(s): Right ischial pressure wound debridement and excision Right posterior thigh fasciocutaneous rotation flap Incisional wound vac placement Attending Surgeon(s): * Noemí Ni - Primary Insurance Clerk(s): * Neil Whitley MD - Resident - [...] He does not currently follow with a employee's representative. He has no additional concerns at this [...] 98%. Results Review {Vanishing Link Review Results :[id number] I have reviewed the latest lab and [...] doctor as soon as possible! * Vincent Victor - Melba Moreno RN - 10/10/2024 8:59 AM EDT Images from the original note were not included. 1072 Patient Surgery Guide The doctors and staff of Surgical [facility] would like to welcome you, your family, and friends to [facility]. We offer access to more [...] will help you be more comfortable with [facility] and the surgical process. This [...] located on the first floor of the [facility] near the Pharmacy and main clinic entrance. We are open Wednesday-Wednesday from 8 a.m. to 4:30 p.m. A clinic employee representative can be reached at [phone]. Parking is available in the [facility] garage on [address] or in the [facility] garage located at [address] [place] [address], directly across [facility] from [facility]. The day before surgery You will receive a phone call telling you what time you need to arrive at the hospital for surgery.If you miss the call, please call one of the following numbers (depending on where your surgery is scheduled): ? [facility]: [phone] or [phone] ? [facility]: [phone] or [phone] The day of surgery ? Arrive on time to avoid delays or cancellation. ? Park in the [facility] parking garage located at [address] It is directly across [facility] from the medical campus. ? If you are scheduled for surgery at [facility], take the hospital garage elevator to Level C, then cross the concourse bridge to the Surgery Waiting Room to register for your [facility]. [facility] located down the first hallway to the right at the end of the concourse bridge. If you need help crossing the concourse, you may picking tech the patient golf cart shuttle directlyto the right of the elevators on Level C. ? If you are scheduled for surgery at the [facility], take the garage elevator to Level A and catch the free shuttle to the hospital. (Be careful not to take the [facility] shuttle - there is an ambassador [...] checked many times throughout your stay at [facility] to ensure your safety. ? [...] talk to them after your surgery. A stack clerk is available in the waiting room [...] living will, health care surrogate, power of assistant county attorney or guardianship papers. ? Bring a [...] makeup, jewelry (including body piercing) or nail egyptian. ? Don?t bring money or valuables to [...] office and the Preoperative Anesthesia Clinic at [phone] or [phone]. If it is the day of surgery, call the location where you are scheduled to have your surgery: [facility] at [phone] or [phone] or [facility] at [phone] or [phone]. For more information Visit [email or web address] or call [phone] or [phone]. [facility] does not discriminate. [facility] complies with applicable Federal civil rights laws and does not discriminate on the basis of race, color, national origin, age, disability, or sex. * Vincent Victor - Melba Moreno RN - 10/10/2024 8:59 AM EDT Images from the original note were not included. 489 Map to [facility] Facilities Directions Easy directions to and from [address] (from [address]) Directions from [address] to the [facility] Parking Garage: ? From [address], turn right off the exit ramp onto [facility] [address] [address] [address] toward [place]. ? In 4.1 miles, turn left onto [address] (at the [place] station). ? In a half-mile, turn right onto [address]. ? In .3 miles, turn right onto [address] (just past the [place] station). Garage entrance is on the left. ? Important: This garage address will change to Alivia Fernandez on October 10, 2024. Directions from [facility] Parking Garage to [address]: ? Turn left out of the garage onto [address]. ? Turn left onto [address] [place]. ? In .3 miles, turn left down [address] ? In a half-mile, turn right onto [address] [place] (at the [place] station). ? In 4.1 miles, merge onto [address] (near the [facility] by Dwaine Otero). Parking Any patients or visitors of [facility] can park in the following areas: ? [facility] Parking Garage (main garage): [address] (Levels A-F) ? [facility] Garage: [address] (Levels 1-6) ? [facility] [facility]: Located off [employer] (limited parking for [facility] outpatients only). Upon Your Arrival ? Patients and visitors going to [facility], , and [facility] may walk across the pedway, located [...] also be accessed via the pedway off [facility] garage on Level C. If you need a shuttle to the ED, one can be called for you at Level A of the main garage or contact any of the information desks, . Additional Information For additional information, please visit our information desks located throughout [facility]. Information desks have additional maps and resources. Information desks are located at the main entrances of: [facility] (first floor and ground floor), [facility], [facility], [facility], [facility], [facility] (first and third floor), and [facility]. Informationdesk number: [phone]. Important Addresses [address] [place] [address] ? [facility] entrance ? Pavilion A ? Pavilion G ([facility]) ? Emergency Department [address] ? Pavilion H ? Pavilion CC ([facility]) ? Pavilion WH ([facility]) ? [employer] [address] [facility] ? [facility] [address] [facility] ? [facility] [address] [facility] ? [facility] ? [facility] [...] Relation Name Age of Onset Cancer Mother Nelyl Padgett Heart disease Father Daron Padgett Hypertension [...] card, photo ID, along with power of assistant county attorney, guardianship or advanced directives if applicable Do not bring money, jewelry or other valuables Hibiclens bathing instructions reviewed if applicable Notify surgeon of fever, illness, any changes or if you decide not to have surgery Registration will be on the first floor of [facility] ([facility]) at the end of the bridge from the parking garage, the hallway on the RIGHT. Parking Garage Address: [address] [place] [address]. documented in this encounter Plan of Treatment Upcoming Encounters Date Type Department Care Team (Late st Contact Info) Description 11/15/2024 10:40 AM EDT Office Visit [facility] [address] [facility] 5th Floor Wing [address], [address] [place] [phone] Noemí Ni MD [address] [place] [phone] Pending Results Name Type Priority Associated Diagnoses [...] Diagnoses Order Schedule Discharge Ambulatory referral to [facility] Outpatient Referral Routine Decubitus ulcer of right ischium, stage IV (CMS/HCC) 1 Occurrences starting 10/20/2024 until 04/23/2026 Discharge Ambulatory referral to NON [facility] Outpatient Referral Routine Decubitus ulcer of right ischium, stage IV (CMS/HCC) 1 Occurrences starting 10/26/2024 until 04/29/2026 Discharge Ambulatory referral to [facility] Health Outpatient Referral Routine Decubitus ulcer of right ischium, stage IV (CMS/HCC) 1 Occurrences starting 10/27/2024 until 04/30/2026 Discharge Ambulatory referral to [facility] Outpatient Referral Routine Decubitus ulcer of right ischium, stage IV (CMS/HCC) 1 Occurrences starting 10/30/2024 until 05/03/2026 documented as of this encounter Procedures Procedure Name Priority Date/Time Associated Diagnosis Comments WOUND OSTOMY EVAL AND TREAT Routine 10/20/2024 11:02 AM EDT [place] NEG PRESSURE WOUND THERAPY NON DME >50 SQ CM Routine 10/20/2024 8:04 AM EDT Decubitus ulcer of right ischium, stage IV (CMS/HCC) CREATININE, PLASMA Routine 10/19/2024 4 :43 AM EDT CREATININE, PLASMA Routine 10/18/2024 12 [...] drains documented in this encounter Results * [place] NEG PRESSURE WOUND THERAPY NON DME >50 [...] - 1.20 mg/dL 10/19/2024 5:52 AM EDT [facility] eGFRcr 128.6 mL/min/1.7 3m*2 10/19/2024 5:52 AM EDT [facility] Comment:Reported eGFRcr in m L/min/1.73m2 is based the CKD-EPI 2020 equation that does not use a race coefficient. Blood Venous blood specimen / Unknown Venipuncture / Unknown 10/19/2024 4:43 AM EDT 10/19/2024 4:51 AM EDT us Noemí iN MD LAB BLOOD ORDERABLES Final Resul t [facility] [address] [place] [address] * Creatinine, Plasma (10/18/2024 12:00 AM EDT) Creatinine, Plasma 0.73 0.70 - 1.20 mg/dL 10/18/2024 12:34 AM EDT [facility] eGFRcr 122.4 mL/min/1.7 3m*2 10/18/2024 12:34 AM EDT [facility] Comment:Reported eGFRcr in m L/min/1.73m2 is based the CKD-EPI 2020 equation that does not use a race coefficient. Blood Venous blood specimen / Unknown Venipuncture / Unknown 10/18/2024 12:00 AM EDT 10/18/2024 12:04 AM EDT Noemí Ni MD LAB BLOOD ORDERABLES Final Resul t Performing Organization Address [facility]/ZIP Co de Phone Number [facility] [address] [place] [address] * PERIPHERAL IV (SMARTFORM LINK) (10/17/2024 10:56 PM EDT) Narrative Surya Koehler RN - 10/17/2024 10:56 PM EDT Surya Koehler RN 10/17/2024 10:57 PM Insert peripheral IV Performed by: Surya Koehler, RN Authorized by: Noemí Ni MD Hand [...] IV site covered with: Transparent semipermeable dressing Noemí Ni MD IV THERAPY ORDERABLES Final Resu lt * (ABNORMAL) Creatinine, Plasma (10/17/2024 9:58 AM EDT) Creatinine, Plasma 0.60(L) 0.70 - 1.20 mg/dL 10/17/2024 10:57 AM EDT [facility] eGFRcr 129.9 mL/min/1.7 3m*2 10/17/2024 10:57 AM EDT [facility] Comment:Reported eGFRcr in m L/min/1.73m2 is based the CKD-EPI 2020 equation that does not use a race coefficient. Blood Venous blood specimen / Unknown Venipuncture / Unknown 10/17/2024 9:58 AM EDT 10/17/2024 10:05 AM EDT us Noemí Ni MD LAB BLOOD ORDERABLES Final Resul t Performing Organization Address [facility]/ZIP Co de Phone Number [facility] [address] [place] [address] * Vancomycin, Peak, Plasma Please draw ~2 hours after 0030 dose of vancomycin finishes infusing. Consider obtaining level via peripheral stick. If peripheral stick is not feasible, please ensure that line is flushed well prior to drawing level. Than... (10/16/2024 4:48 AM EDT) Pathologist [facility] Vancomycin, Peak, Plasma 22.3 20.0 - 40.0 ug/mL 10/16/2024 5:38 AM EDT [facility] Blood Venous blood specimen / Unknown Venipuncture / Unknown 10/16/2024 4:48 AM EDT 10/16/2024 5:10 AM EDT Narrative [facility] - 10/16/2024 5:38 AM EDT Therapeutic Peak level: 20-40ug/mL Supra-therapeutic Peak level: >40 ug/mL us Noemí Ni MD LAB BLOOD ORDERABLES Final Resul t Performing Organization Address [facility] [place] [address] * Vancomycin, Trough, Plasma Please draw ~30 minutes prior to dose due at 0030 on 10/16. Please do NOT hold dose awaiting level to return. Consider obtaining level via peripheral stick. If peripheral stick is not feasible, please ensure that line is ... (10/15/2024 11:52 PM EDT) [facility] Vancomycin, Trough, Plasma 10.9 10.0 - 20.0 ug/mL 10/16/2024 12:31 AM EDT [facility] Blood Venous blood specimen / Unknown Venipuncture / Unknown 10/15/2024 11:52 PM EDT 10/15/2024 11:59 PM EDT Narrative [facility] - 10/16/2024 12:31 AM EDT Therapeutic Trough level: 10-20ug/mL Supra-therapeutic Trough level: >20 ug/mL us Noemí Ni MD LAB BLOOD ORDERABLES Final Resul t Performing Organization Address [facility]/ZIP Co de Phone Number [facility] [address] [place] [address] * (ABNORMAL) Creatinine, Plasma (10/15/2024 4:24 AM EDT) Creatinine, Plasma 0.65(L) 0.70 - 1.20 mg/dL 10/15/2024 5:35 AM EDT [facility] eGFRcr 126.8 mL/min/1.7 3m*2 10/15/2024 5:35 AM EDT [facility] Comment:Reported eGFRcr in m L/min/1.73m2 is based the CKD-EPI 2021 equation that does not use a race coefficient. Blood Venous blood specimen / Unknown Venipuncture / Unknown 10/15/2024 4:24 AM EDT 10/15/2024 5:06 AM EDT us Noemí Ni MD LAB BLOOD ORDERABLES Final Resul t Performing Organization Address [facility] de Phone Number [facility] [address] [place] [address] * (ABNORMAL) Creatinine, Plasma (10/14/2024 4:24 AM EDT) Creatinine, Plasma 0.61(L) 0.70 - 1.20 mg/dL 10/14/2024 5:11 AM EDT [facility] eGFRcr 129.3 mL/min/1.7 3m*2 10/14/2024 5:11 AM EDT [facility] Comment:Reported eGFRcr in m L/min/1.73m2 is based the CKD-EPI 2020 equation that does not use a race coefficient. Blood Venous blood specimen / Unknown Venipuncture / Unknown 10/14/2024 4:24 AM EDT 10/14/2024 4:43 AM EDT us Noemí Ni MD LAB BLOOD ORDERABLES Final Resul t Performing Organization Address [facility] Co de Phone Number [facility] [address] [place] [address] * (ABNORMAL) Vancomycin, Peak, Plasma Please draw ~2 hours after 1100 dose of vancomycin finishes infusing. Consider obtaining level via peripheral stick. If peripheral stick is not feasible, please ensure that line is flushed well prior to drawing level. Than... (10/13/2024 6:44 PM EDT) Vancomycin, Peak, Plasma 14.6(L) 20.0 - 40.0 ug/mL 10/13/2024 7:19 PM EDT [facility] Blood Venous blood specimen / Unknown Venipuncture / Unknown 10/13/2024 6:44 PM EDT 10/13/2024 6:48 PM EDT [facility] - 10/13/2024 7:19 PM EDT Therapeutic Peak level: 20-40ug/mL Supra-therapeutic Peak level: >40 ug/mL Noemí Ni MD LAB BLOOD ORDERABLES Final Resul t [facility] [address] [place] [address] * PERIPHERAL IV (SMARTFORM LINK) (10/13/2024 2:06 PM EDT) Cande Fuentes RN - 10/13/2024 2:06 PM EDT Cande [...] - 20.0 ug/mL 10/13/2024 11:13 AM EDT [facility] Blood Venous blood specimen / Unknown Venipuncture / Unknown 10/13/2024 10:28 AM EDT 10/13/2024 10:44 AM EDT Narrative [facility] - 10/13/2024 11:13 AM EDT Therapeutic Trough level: 10-20ug/mL Supra-therapeutic Trough level: >20 ug/mL Noemí Ni MD LAB BLOOD ORDERABLES Final Resul t Performing Organization Address [facility] Co de Phone Number [facility] [address] [place] [address] * Creatinine, Plasma (10/13/2024 4:38 AM EDT) Creatinine, Plasma 0.70 0.70 - 1.20 mg/dL 10/13/2024 6:20 AM EDT [facility] eGFRcr 124.0 mL/min/1.7 3m*2 10/13/2024 6:20 AM EDT [facility] Comment:Reported eGFRcr in m L/min/1.73m2 is based the CKD-EPI 2020 equation that does not use a race coefficient. Blood Venous blood specimen / Unknown Venipuncture / Unknown 10/13/2024 4:38 AM EDT 10/13/2024 5:53 AM EDT us Noemí Ni MD LAB BLOOD ORDERABLES Final Resul t Performing Organization Address [facility] Co de Phone Number [facility] [address] [place] [address] * Multi Drug Resistance Test (10/11/2024 5:24 PM EDT) Culture No growth at day 1 10/12/2024 6:51 PM EDT [facility] Swab (Nares and Amy Rectal) 10/11/2024 5:24 PM EDT 10/11/2024 5:24 PM EDT Narrative [facility] - 10/12/2024 6:51 PM EDT This test was developed and its performance characteristics determined by the [facility]. Although the media is FDA-approved, it is not FDA-approved for all specimen types submitted. The FDA has determined that such clearance or approval is not necessary. This test is used for surveillance purposes. It should not be regarded as investigational or for research. The [facility] is certified under the Clinical Laboratory Improvement Amendments of 1988 (CLIA-88) as qualified to perform high complexity clinical laboratory testing. Noemí Ni MD LAB MICROBIOLOGY - GENERAL ORDER SABA Final Result [facility] [address] [place] [address] * (ABNORMAL) Basic metabolic panel (10/11/2024 4:57 PM EDT) Glucose, Plasma 114(H) 74 - 99 mg/dL 10/11/2024 5:45 PM EDT [facility] BUN, Plasma 11 7 - 21 mg/dL 10/11/2024 5:45 PM EDT [facility] Creatinine, Plasma 0.66(L) 0.70 - 1.20 mg/dL 10/11/2024 5:45 PM EDT [facility] BUN/Creatinine Ratio 17 10/11/2024 5:45 PM EDT [facility] Sodium, Plasma 137 136 - 145 mmol/L 10/11/2024 5:45 PM EDT [facility] Potassium, Plasma 4.7 3.6 - 4.9 mmol/L 10/11/2024 5:45 PM EDT [facility] Chloride, Plasma 106 97 - 107 mmol/L 10/11/2024 5:45 PM EDT [facility] CO2, Plasma 19(L) 22 - 29 mmol/L 10/11/2024 5:45 PM EDT [facility] Anion Gap 12 6 - 16 mmol/L 10/11/2024 5:45 PM EDT [facility] Total Calcium, Plasma 8.5(L) 8.9 - 10.2 mg/dL 10/11/2024 5:45 PM EDT [facility] eGFRcr 126.2 mL/min/1.7 3m*2 10/11/2024 5:45 PM EDT [facility] Comment:Reported eGFRcr in m L/min/1.73m2 is based the CKD-EPI 2020 equation that does not use a race coefficient. Blood Venous blood specimen / Unknown Venipuncture / Unknown 10/11/2024 4:57 PM EDT 10/11/2024 5:17 PM EDT us Noemí Ni MD LAB BLOOD ORDERABLES Final Resul t [facility] [address] [place] [address] * (ABNORMAL) Tissue Culture and Gram Stain (10/11/2024 2:27 PM EDT) Culture Light Growth 10/14/2024 1:08 PM EDT [facility] Culture Corynebacterium striatum group(A) 10/14/2024 1:08 PM EDT [facility] Comment: This isolate has been identified using the FDA Approved [employer] [place] System The organism value for this result has been updated. These results have been appended to the previously preliminary verified report. Gram Stain Result No organisms seen 10/14/2024 1:08 PM EDT [facility] Gram Stain Result No polymorphonuclear leukocytes seen 10/14/2024 1:08 PM EDT [facility] Tissue Structure of right buttock [...] ORDER SABA Final Result Performing Organization Address [facility] Co de Phone Number [facility] [address] [place] [address] * Anaerobic Culture (10/11/2024 2:27 PM EDT) Culture No anaerobes isolated 10/15/2024 2:43 PM EDT [facility] Tissue Structure of right buttock / Unknown 10/11/2024 2:27 PM EDT 10/11/2024 2:43 PM EDT Comment:Pre-op diagnosis: Decubitus ulcer of right ischium, stage IV (CMS/HCC) [L89.314] Noemí Ni MD LAB MICROBIOLOGY - GENERAL ORDER SABA Final Result Performing Organization Address [facility] Co de Phone Number [facility] [address] [place] [address] * Surgical Pathology Exam (10/11/2024 2:23 PM EDT) Case Report Surgical Pathology Case: [id number] Authorizing Provider: Noemí Ni MD Collected: 10/11/2024 1423 Ordering Location: [facility] Received: 10/11/2024 1442 Pathologist: Luanne Liriano MD Specimen: Buttock, Right, 1) Right Ischial Pessure Ulcer - Permanent 10/16/2024 3:35 PM EDT [facility] Final Diagnosis A. RIGHT ISCHIAL PESSURE ULCER, DEBRIDEMENT: - ULCERATED SKIN, GRANULATION TISSUE, AND FIBROSIS. 10/16/2024 3:35 PM EDT [facility] at 1535 EDT Clinical Information Decubitus ulcer of right ischium, stage IV (CMS/HCC) [L89.314] 10/16/2024 3:35 PM EDT [facility] Gross Description A. 1) RIGHT ISCHIAL PESSURE ULCER - PERMANENT Received fresh and subsequently placed in formalin labeled Right Ischial Pessure Ulcer is an aggregate of skin and soft tissue measuring 6.4 x 4.5 x 1.7 cm. The skin surface is adams-pink with areas that are brown-carter and roughened. Explosives Detonator sections are submitted in cassette A1. Cold Time: <1m Eileen Alexandra 10/16/2024 3:35 PM EDT [facility] Tissue Structure of right buttock / Unknown 10/11/2024 2:23 PM EDT 10/11/2024 2:42 PM EDT Comment:Pre-op diagnosis: Decubitus ulcer of right ischium, stage IV (CMS/HCC) [L89.314] us Noemí Ni MD LAB PATHOLOGY ORDERABLES Final R esult [facility] [address] [place] [address] documented in this encounter Visit Diagnoses Diagnosis Decubitus ulcer of right ischium, stage IV (CMS/HCC)- Primary Spina bifida Gastroesophageal reflux disease Esophageal reflux Decubitus ulcer of right ischium, stage IV (CMS/HCC) documented in this encounter Admitting Diagnoses Diagnosis Decubitus ulcer of right ischium, stage IV (CMS/HCC) documented in this encounter Administered Medications Inactive Administered Medications - up to 3 most recent administrations Medication Order MAR Action Action Date Dose Rate Site acetaminophen (Tylenol) tablet 650 mg 650 mg, Oral, Every 6 hours PRN, Starting on Wed10/16/24 at 2237, Until Wed10/30/24 at 1807, Routine, moderate pain, headaches Given 10/16/2024 11:15 PM EDT 650 mg bisacodyl (Dulcolax) suppository 10 mg 10 mg, Rectal, Every other day, First dose on Wed10/12/24 at 1645, Until Discontinued, Routine Given 10/28/2024 4:51 PM EDT 10 mg Given 10/26/2024 8:18 PM EDT 10 mg Given 10/24/2024 3:54 PM EDT 10 mg enoxaparin (Lovenox) syringe 40 mg 40 mg, Subcutaneous, Daily, First dose on Wed10/12/24 at 1500, Until Discontinued, Routine, Recovery(Phase II-Outpatient)/On Unit(Inpatient) Given 10/30/2024 7:49 AM EDT 40 mg Ri ght Upper Arm (Back) Given 10/29/2024 8:31 AM EDT 40 mg Ri ght Upper Arm (Back) Given 10/28/2024 8:43 AM EDT 40 mg Ri ght Upper Arm (Back) lamoTRIgine (LaMICtal) tablet 100 mg 100 mg, Oral, Nightly, First dose on Wed10/11/24 at 2100, Until Discontinued, Routine, Recovery(Phase II-Outpatient)/On Unit(Inpatient) Given 10/29/2024 9:16 PM EDT 100 mg Given 10/28/2024 8:48 PM EDT 100 mg Given 10/27/2024 9:49 PM EDT 100 mg melatonin tablet 3 mg 3 mg, Oral, Nightly PRN, Starting on Wed10/15/24 at 1215, Until Wed10/30/24 at 1807, Routine, sleep methylene blue (Provayblue) 0.5 % (5 mg/mL) injection As needed, Starting on Wed10/11/24 at 1304, Until Wed10/11/24 at 1546, Routine, Intraprocedure Given 10/11/2024 1:04 PM EDT 10 mL Oth er ondansetron (Zofran) 4 MG/5ML solution 4 mg [...] Given 10/29/2024 8:31 AM EDT 40 mg documented in this encounter Active and Recently Administered Medications Times are shown in EDT. Scheduled Medication Order 10/28/2024 10/29/2024 10/30/2024 bisacodyl (Dulcolax) suppository 10 mg 10 mg, Rectal, Every other day, First dose on Wed10/12/24 at 1645, Until Discontinued, Routine 1651 (Given - Provider: Aureliano Rose RN) 1645 (Canceled Entry - Provider: Parul Larios) enoxaparin (Lovenox) syringe 40 mg 40 mg, Subcutaneous, Daily, First dose on Wed10/12/24 at 1500, Until Discontinued, Routine, Recovery(Phase II-Outpatient)/On [...] documented as of this encounter Care Teams Mandarin Chinese Teacher Relationship Specialty Start Date End Date Saul Mejia MD [address] [place] [phone] PCP - General 08/24/22 documented as of this encounter
--- OUTSIDE RECORDS SUMMARY | 2024-10-11 11:25 | XMS_ITS | Encounter Summary ---
Author Organization [facility] Address [address] [place] [address] Care Team Providers Care Nurse College Name Role Phone Saul Mejia MD Primary Care Provider [phone] Reason for Visit * Auth/Cert (Routine) Specialty Diagnoses / Procedures Referred By Alonso barrios Referred To Contact Diagnoses Decubitus ulcer of right ischium, stage IV (CMS/HCC) Decubitus ulcer of right ischium, stage IV (CMS/HCC) [L89.314] Procedures VT MUSCLE-SKIN FLAP,TRUNK VT EXC ISCH PRES ULC BONE MYOCUT FLAP Debridement Pressure right ischium, fasciocutneous flap closure Noemí Ni MD [address] [place] [phone] Phone: tel: fax: [facility] [address] [place] [address] Phone: tel: Referral ID Status Reason Start Date Expiration Date Visits Re quested Visits Authorized [id number] 1 1 Encounter Details Date Type Department Care Team (Late st Contact Info) Description 10/11/2024 11:25 AM EDT - 10/11/2024 2:35 PM EDT Surgery [facility] [address] [place] [address] Noemí Ni MD [address] [place] [phone] Debridement Pressure right ischium, fasciocutneous flap [...] any time in the past 12 m [facility], were you homeless or living [...] drink first t osito in the morning (EYE-LIQUOR GRINDER MILL OPERATOR) to steady your nerves or to get rid of a hangover? 0 08/25/2022 CAGE Questionnaire Score 0 023 Utilities Answer Date Recorded In the past 12 months has th e [employer] gas, oil, or water company threatened to [...] Flowsheets Taken 10/30/2024 1020 by Yahaira Beavers plater production Facility/Level of Care Needs: 1-Home or Self Care 0-Slat-[facility] S[facility] Equipment Needed After Discharge: (speciality air fluidized bed) other (see comments) Anticipated Changes Related to Illness: none Transportation Anticipated: medical transport Outpatient/Agency/Support Group Needs: DME homecare agency Transportation Concerns: none Concerns to be Addressed: discharge planning Patient/Family Anticipated Services at Transition: case picker durable medical equipment home health care Patient/Family Anticipates Transition to: home with family Taken 10/12/2024 1327 by An Humphrey Equipment Currently Used at Home: wheelchair, manual Problem: Infection Goal: Absence of Infection Signs and Symptoms Outcome: Adequate for Care Transition Intervention: Prevent or Manage Infection Flowsheets (Taken 10/30/202434 by [email or web address]) Infection Management: aseptic technique maintained Fever Reduction/Comfort Measures: lightweight clothing lightweight bedding Isolation Precautions: precautions maintained Problem: Wound Goal: Optimal Coping Outcome: Adequate for Care Transition Intervention: Support Patient and Family Response Flowsheets (Taken 10/30/202434 by Markie ShaikhSmartsy) Supportive Measures: active listening utilized verbalization of [...] Note Naga Padgett 34 y.o. male CSN: [id number] Admission: 10/11/2024 9:17 AM Primary Problem: Decubitus ulcer of right ischium, stage IV (CMS/HCC) Primary Resource Development Manager: Primary Caregiver: Family Assistance Available at Discharge: Availability of Care Givers (#Hours): 24 hours Family/Resource Development Manager(s) Willingness Assessed to care for patient at home: Yes Family/Resource Development Manager(s) Readiness Assessed to care for patient at home: Yes Housing Circumstances-Z Codes: Patient Referred to Financial or Community Resources: Discharge Facility/Level of Care Needs: Discharge Facility/Level of Care Needs: 1-Home or Self Care, 6-[facility] [place] Patient's Choice of Community Agency(s): Patient/Family Anticipated Services at Transition: Patient/Family Anticipated Services at Transition: case picker, durable medical equipment, home health care DME/Equipment Needed after Discharge: Equipment Currently Used at Home: wheelchair, manual Equipment Needed After Discharge: other (see comments) (speciality air fluidized bed) Readmission Within the Last 30 Days: Medicare Documentation:per case management staff electrical engineer. Follow-up: Noemí Ni MD [address] [place] [phone] [facility]. (2142) [facility]. (2142) Follow up [phone] has accepted pt for wound care [facility] [phone] has accepted pt for wound care Follow up [employer], Vazquez with [employer] [employer] [phone]. [employer], Vazquez with [employer] [employer] [phone]. speciality bed Follow up Discharge Transportation: Transportation [...] to dc to his mother's home today-[address] [place], [place] Yahaira Beavers, RN * Vincent Victor - Reyes Gay RN - 10/30/2024 9:05 AM EDT Images from the original note were not included. [address]003 Preventing a Surgical Site Infection A risk [...] of infection. ? Controlled body temperature. A tdxcm-kjma-otehkw temperature during or after surgery prevents oxygen [...] and water or with an alcohol-based hand diathermy equipment repairer before and after caring for you. Don?t [...] away. Last Reviewed Date: 2024 00:00:00 ?? [id number] [employer]. All rights reserved. This information is not intended as a substitute for professional medical care. Always follow your healthcare professional's instructions. * [facility] - Reyes Gay RN - 10/30/2024 9:05 AM EDT Images from the original note were not included. [address] Discharge Instructions: Changing Your Dressing You are [...] doctor. Last Reviewed Date: 2024 00:00:00 ?? [id number] [employer]. All rights reserved. This information is not intended as a substitute for professional medical care. Always follow your healthcare professional's instructions. * [facility] - Reyes Gay RN - 10/30/2024 9:05 AM EDT Images from the original note were not included. 457[address] Treating Pressure Injuries: Debridement The goal of [...] and then ingest tissue. Mechanical (irrigation, hydrotherapy, iik-cr-sxlgi, wet-to-dry) debridement may be used to remove [...] painful. Last Reviewed Date: 2023 00:00:00 ?? 0738-7081 The [employer]. All rights reserved. This information is not [...] Note Naga Padgett 34 y.o. male CSN: [id number] Admission: 10/11/2024 9:17 AM Primary Problem: Decubitus ulcer of right ischium, stage IV (CMS/HCC) Anticipated Discharge Date: 10/30/24 Additional Comments: Pt will DC on 10/30/24 to his mothers address at [address] [place] [address] Eddi Ariza via ambulance, SW did not get ambulance time response by the time SW left for the day on 10/26/24. Specialty hospital bed will be delivered between 12-1 pm on 10/30/24 by Vazquez Callejas with [facility] [phone]. Pt was approved this date by insurance after family appeal to go to [facility], ptexpressed that he wished to pursue home with HH. RN EVANS sent wound care orders for [facility]. CM will continue to follow pt. An Humphrey, STORE ASSOCIATE, WAREHOUSE WORKER Social Work Senior Department of Case Management [facility] * Progress Notes - Kadi Galeano MD - 10/26/2024 1:52 PM EDT Images from the original note were not included. [facility] Department of Surgery Division of Plastic Surgery [...] Note Naga Padgett 34 y.o. male CSN: [id number] Admission: 10/11/2024 9:17 AM Primary Problem: Decubitus ulcer of right ischium, stage IV (CMS/HCC) Anticipated Discharge Date: TBD Additional Comments: JACK spoke with Vazquez with [facility] [phone] regarding specialty bed. Insurance is unable to [...] with Vazquez to confirm information. An Humphrey, STORE ASSOCIATE, WAREHOUSE WORKER Social Work Senior Department of Case Management [facility] * Progress Notes - Mimi Multani RN - 10/26/2024 12:59 PM EDT Case Management Adult Progress Note Naga Padgett 34 y.o. male CSN: [id number] Admission: 10/11/2024 9:17 AM Primary Problem: Decubitus ulcer of right ischium, stage IV (CMS/HCC) Anticipated Discharge Date: tbd Medically Ready for Discharge: Anticipated in 5+ Days Additional Comments CM contacted to assist with DME. Patient will need a hospital bed with and overlay. Team has been notified, but orders for the overlay has not been revealed to CM. Referral sent to [facility]. Once the Team decides on [...] Note Naga Padgett 34 y.o. 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 [...] positions. Participants in Care Family/Caregiver Present: No Sock Mender: Not Applicable Presentation Oxygen Therapy: None (Room [...] Dressesindependently.) Level of Mobility: Wheelchair/Scooter (paraplegic) Mobility [place]: Independent wheelchair propulsion History of Falls: No [...] Mobility Bed Mobility Exam: Rolling/Turning Level of [place]: Independent (rolling to patients right) Assistive Device: [...] sets - 10 reps Standardized Assessments [facility] 6-Click Daily Activities Help from Other: Don/Doff Regular Lower Body Clothings: A lot Help From Other: Bathing: A lot Help From Other: Toileting: Total Help From Other: Don/Doff Upper Body Clothings: Little Help From Other: Grooming: Little Help From Other: Eating Meals: None [facility] 6 Click - Daily Activities Score: [...] 24 hour assistance Discharge Equipment: Hospital bed ([facility]) Demonstrates Need for Referral to Another Service: [...] Dressesindependently.) Level of Mobility: Wheelchair/Scooter (paraplegic) Mobility [place]: Independent wheelchair propulsion History of Falls: No [...] Mobility Bed Mobility Exam: Rolling/Turning Level of [place]: Independent (rolling to patients right) Balance Balance [...] and knee flexion/extension x10 reps. Standardized Assessments [facility] 6-Clicks Mobility Assessment Difficulty patient has turning [...] climbing 3-5 steps with a railing?: Unable [facility] 6-Clicks Mobility Assessment Total : 9 Assessment [...] patient and his family bedside today at [facility]. He stated speciality bed will be delivered [...] from the original note were not included. [facility] Department of Surgery Division of Plastic Surgery [...] Note Naga Padgett 34 y.o. male CSN: [id number] Admission: 10/11/2024 9:17 AM Primary Problem: Decubitus ulcer of right ischium, stage IV (CMS/HCC) Anticipated Discharge Date: TBD Additional Comments: Pt is MR to DC this date. Pt was approved for the [facility] bed by Vazquez Callejas [phone]. Vazquez is to be in contact with [...] planning and needs as appropriate. An Humphrey, STORE ASSOCIATE, WAREHOUSE WORKER Social Work Senior Department of Case Management [facility] * Care Plan - Jayleen Nobles RN [...] from the original note were not included. [facility] Department of Surgery Division of Plastic Surgery [...] caregiver to assist within the home. Kadi Glaeano MD Cosigned by Noemí Ni MD at [...] Note Naga Padgett 34 y.o. male CSN: [id number] Admission: 10/11/2024 9:17 AM Primary Problem: Decubitus ulcer of right ischium, stage IV (CMS/HCC) Anticipated Discharge Date: TBD Additional Comments: Pt is MR to DC this date. Family wishes to complete family appeal for pt to go to [facility]. JACK provided pt mother with the denial letter and information for mother to begin family appeal. Jack spoke with ptand asked if pt felt comfortable DC home with family. Pt stated he was agreeable to DC home. JACK expanded referrals for as pt will DC to his mothers address [address] [place] [address] [place] [facility]. Mother began appeal process by talk to Cirilo License number [id number] and then Tari License number [id number] who instructed pt mother to write a [...] [employer] [employer]. DIRK KRUEGER sent referral to [facility] [place] incase pt is to [place] home with [place]. No further SW concerns identified at this time. SW will monitor pt's progress and will follow up with DC planning and needs as appropriate. An Humphrey, STORE ASSOCIATE, WAREHOUSE WORKER Social Work Senior Department of Case Management [facility] * Care Plan - Leona Dickerson RN [...] Assessment Red;Granulation Margins Well-defined edges Amy-Wound Assessment [place] Shape irregular, full thickness skin loss Drainage [...] from the original note were not included. [facility] Department of Surgery Division of Plastic Surgery [...] from the original note were not included. [facility] Department of Surgery Division of Plastic Surgery [...] from the original note were not included. [facility] Department of Surgery Division of Plastic Surgery [...] Note Naga Padgett 34 y.o. male CSN: [id number] Admission: 10/11/2024 9:17 AM Primary Problem: Decubitus ulcer of right ischium, stage IV (CMS/HCC) Family spoke with Ibrahima, license number [id number], phone [phone] whom stated that pt insurance authorization was still pending. SW encouraged family to make an appeal at 6:00 pm after the P2P. ROBERTO Toro, WAREHOUSE WORKER Social Work Senior Department of Case Management [facility] * Care Plan - Jayleen Nobles RN [...] Note Naga Padgett 34 y.o. male CSN: [id number] Admission: 10/11/2024 9:17 AM Primary Problem: Decubitus ulcer of right ischium, stage IV (CMS/HCC) Anticipated Discharge Date: TBD Additional Comments: According to MD's pt is MR to DC to [facility]. Pt was denied by insurance for [facility]. SW informed family andfamily wishes to do a Family Appeal regarding the pt going to [facility]. JACK, EVANS RN, and post acute respiratory care practitioner spoke with family at bedside to explain the family appeal process and assist with questions regarding the denial. Family stated they would be making a family appeal. RN EVANS sent out referrals via careport for HH PT/OT and nursing this date. SW call Merrick Frazier with [facility] [phone] regarding pt wound care and had to leave a message. JACK updated MD's regarding family conversation. JACK will monitor pt's progress and will follow up with DC planning and needs as appropriate. Update: JACK faxed over pt demographics, H&P, wound care consult, surgery progress notes, and Charley Sin at [phone]. An Humphrey, STORE ASSOCIATE, WAREHOUSE WORKER Social Work Senior Department of Case Management [facility] * Consults - Gale Vernon RD - 10/20/2024 2:16 PM EDT Adult Nutrition Evaluation Note Naga Padgett 34 y.o. male CSN: [id number] Room/Bed 221/221A Nutrition evaluation type: follow-up Reason [...] accuracy Estimated Needs: Kcal: 30-35 kcal/kg AdjBW (7211-3553 kcal/d) Pro: 1.5-2 g/kg AdjBW (93-124 g/d) Current Nutrition Intake: Diet: Regular Supplements: Boost [facility] TID, Sukumar BID Intake: no po intake [...] record po intake in EMR -Continue Boost [facility] TID -Continue Sukumar BID -Recommend MVI with [...] for HH PT/OT+SN sent to agencies via [facility] for acceptance. * Procedures - Kd [...] from the original note were not included. [facility] Department of Surgery Division of Plastic Surgery [...] Note Naga Padgett 34 y.o. male CSN: [id number] Admission: 10/11/2024 9:17 AM Primary Problem: Decubitus ulcer of right ischium, stage IV (CMS/HCC) Anticipated Discharge Date: TBD Additional Comments: JACK spoke with MDs this date who indicate that the pt is medically stable for DC. Awaiting insuranceauthorization approval, J[facility] [phone] whom states authorization is still pending. Tentative plan to meet with MD's and pt and family tomorrow. No further JACK concerns identified at this time. JACK will monitor pt's progress and will follow up with DC planning and needs as appropriate. An Humphrey, STORE ASSOCIATE, WAREHOUSE WORKER Social Work Senior Department of Case Management [facility] * Care Plan - Jayleen Nobles RN [...] from the original note were not included. [facility] Department of Surgery Division of Plastic Surgery [...] from the original note were not included. [facility] Department of Surgery Division of Plastic Surgery [...] Note Naga Padgett 34 y.o. male CSN: [id number] Admission: 10/11/2024 9:17 AM Primary Problem: Decubitus ulcer of right ischium, stage IV (CMS/HCC) Anticipated Discharge Date: TBD Additional Comments: Pt is MR to DC to a facility this date. [facility],Katherine Liaison [phone], JACK asked [facility] to begin authorization. [facility] unable to accept the patient. JACK will follow up with pt and family at a later date. No further SW concerns identified at this time. SW will monitor pt's progress and will follow up with DC planning and needs as appropriate. An Humphrey, STORE ASSOCIATE, WAREHOUSE WORKER Social Work Senior Department of Case Management [facility] * Progress Notes - Ivania Amaya, PT [...] independently.) Level of Mobility Wheelchair/Scooter (paraplegic) Mobility [place] Independent wheelchair propulsion History of Falls No [...] change due to leaking. Visitors Present No Sock Mender (if applicable) N/A OBJECTIVE Vital Signs Pre-Session [...] activity throughout session. BED MOBILITY Level of [place] Physical/Non- physical Assist Adaptive Equipment Utilized Rolling/ Turning Minimum assist (75% patient effort) Additional assist utilized for safety, Verbal Cues, Set-up required Bed rails, Other (drawsheet) Scooting/ Bridging Supine to Sit Sit to Supine Interventions Patient reports he's ready to change position in bed and was assisted to roll from right sidelying to left sidelying. TRANSFERS Level of [place] Physical/Non- physical Assist Adaptive Equipment Utilized Sit [...] bed mobility only. Postural Appearance Level of [place] Balance Support Interventions Static Sit Dynamic Sit Static Stand Dynamic Stand AMBULATION Level of [place] Distance Adaptive Equipment Utilized Ambulation Comments Patient [...] therabands. Participants in Care Family/Caregiver Present: No Sock Mender: Not Applicable Presentation Oxygen Therapy: None (Room [...] sidelying. Bed Mobility Exam: Rolling/Turning Level of [place]: Minimum assist (75% patient effort) Physical/Nonphysical Assist: [...] from the original note were not included. [facility] Department of Surgery Division of Plastic Surgery [...] Date Order Priority Status Authorizing Provider 10/16/24 9479 Apply/Change Wound Dressing 2 Wounds Associated Routine [...] Outcome: Ongoing, Progressing * Consults - Gale eVrnon RD - 10/16/2024 1:33 PM EDT Adult Nutrition Evaluation Note Naga Padgett 34 y.o. male CSN: [id number] Room/Bed 221/221A Nutrition evaluation type: assessment Reason [...] accuracy Estimated Needs: Kcal: 30-35 kcal/kg AdjBW (5960-6328 kcal/d) Pro: 1.5-2 g/kg AdjBW (93-124 g/d) Current Nutrition Intake: Diet: Regular Supplements: Boost [facility] TID Intake: no po intake recorded since [...] record po intake in EMR -Continue Boost [facility] TID -Adding Sukumar BID -Recommend MVI with [...] Note Naga Padgett 34 y.o. male CSN: [id number] Admission: 10/11/2024 9:17 AM Primary Problem: Decubitus [...] planning and needs as appropriate. An Humphrey, STORE ASSOCIATE, WAREHOUSE WORKER Social Work Senior Department of Case Management [facility] * Progress Notes - Kadi Galeano MD - 10/16/2024 9:28 AM EDT Images from the original note were not included. [facility] Department of Surgery Division of Plastic Surgery [...] Exam: Physical Exam Expand All Collapse All [facility] Department of Surgery Division of Plastic Surgery [...] Procedure Component Value Units Date/Time Anaerobic Culture [[id number]] Collected: 10/11/24 1427 Order Status: Completed Specimen: Tissue from Buttock, Right Updated: 10/15/24 1443 Culture No anaerobes isolated Tissue Culture and Gram Stain [[id number]] (Abnormal) (Susceptibility) Collected: 10/11/24 142 Order Status: Completed Specimen: Tissue from Buttock, Right Updated: 10/14/24 1308 Culture Light Growth Corynebacterium striatum group Comment: This isolate has been identified using the FDA Approved [employer] CA System The organism value for this [...] Specialty Surgery * Care Plan - Mary Joes RN - 10/15/2024 7:25 PM EDT Problem: [...] from the original note were not included. [facility] Department of Surgery Division of Plastic Surgery [...] previously described assessment and plan. Gerry Klein [facility] M3 Cosigned by Noemí Ni MD at [...] from the original note were not included. [facility] Department of Surgery Division of Plastic Surgery [...] 9:25 PM * Procedures - Day, Cande Smtih RN - 10/13/2024 2:06 PM EDTAssociated Order(s): [...] from the original note were not included. [facility] Department of Surgery Division of Plastic [...] in Care Family/Caregiver Present: Yes Family/Caregiver: Mother Sock Mender: Not Applicable Presentation Oxygen Therapy: None (Room [...] Dressesindependently.) Level of Mobility: Wheelchair/Scooter (paraplegic) Mobility [place]: Independent wheelchair propulsion History of Falls: No [...] Mobility Bed Mobility Exam: Rolling/Turning Level of [place]: Minimum assist (75% patient effort) Physical/Nonphysical Assist: Additional assist utilized for safety, Nonverbal cues (demo/gestures),Verbal Cues, Set-up required Assistive Device: Bed rails Bed Mobility Exam: Scooting/Bridging Level of [place]: Moderate assist (50% patient's effort) Physical/Nonphysical Assist: [...] climbing 3-5 steps with a railing?: Unable [facility] 6-Clicks Mobility Assessment Total : 8 No [...] in Care Family/Caregiver Present: Yes Family/Caregiver: Mother Sock Mender: Not Applicable Presentation Oxygen Therapy: None (Room [...] Dressesindependently.) Level of Mobility: Wheelchair/Scooter (paraplegic) Mobility [place]: Independent wheelchair propulsion History of Falls: No [...] Mobility Bed Mobility Exam: Rolling/Turning Level of [place]: Minimum assist (75% patient effort) Physical/Nonphysical Assist: Set-up required, Verbal Cues, Nonverbal cues (demo/gestures), Minimal cues, 1 person + 1 person to manage equipment Assistive Device: Bed rails, Other (draw sheet) Bed Mobility Exam: Scooting/Bridging Level of [place]: Moderate assist (50% patient's effort) Physical/Nonphysical Assist: Set-up required, Verbal Cues, Nonverbal cues (demo/gestures), Minimal cues, Additional assist utilized for safety Assistive Device: Other (draw sheet) Bed Mobility Exam: Supine to Sit Level of [place]: Unable to perform (d/t pressure offloading precautions [...] handout/printout provided for visual reference. Access Code: [email or web address] URL: [email or web address] Date: 10/12/2024 Exercises - Supine Bilateral Punches [...] sets - 10 reps Standardized Assessments [facility] 6-Click Daily Activities Help from Other: Don/Doff Regular Lower Body Clothings: A lot Help From Other: Bathing: A lot Help From Other: Toileting: Total Help From Other: Don/Doff Upper Body Clothings: A lot Help From Other: Grooming: Little Help From Other: Eating Meals: None [facility] 6 Click - Daily Activities Score: 14 Assessment Initial evaluation limited on this date to bed level d/t post-surgical precautions (pressure offloading: [facility] Do NOT sit directly on the [...] while maintaining precautions. 2 weeks Written by aJda Beavers on 10/12/24 at 3:34 PM. * Progress Notes - An Humphrey P - 10/12/2024 1:33 PM EDT Case Management Adult Initial Progress Note Naga Padgett 34 y.o. male CSN: [id number] Admission: 10/11/2024 9:17 AM Primary Problem: Decubitus ulcer of right ischium, stage IV (CMS/HCC) Rug Setter Velvet reviewed chart and spoke with the patients mother to complete this Initial Case Management Assessment. PCP: Saul Mejia MD Emergency Contact: Extended Emergency Contact Information Primary Emergency Contact: Nelly Padgett Mobile Relation: Mother Preferred language: Serbian Sock Mender needed? No Insurance: Primary Visit Coverage Payer Plan Sponsor Code Group Number Group Name ANTH MEDICARE ANTH SENIOR ADVANTAGE [id number] Primary Visit Coverage Subscriber Subscriber ID Subscriber Name Subscriber SSN Subscriber Address [id number] NAGA PADGETT Elan [id number] [address] [place] [address] Patient information: Primary Caregiver: Family Support System: Immediate family Daily Living Activities: Functional Status: Maximum assistance Living Arrangements: Family Type of Residence: Private residence, Multi Level (elevator in home) [address] [place] [address] Current DME: Equipment Currently Used at Home: wheelchair, manual Income Information: Income Source: Government aid (SSDI) Income/Expense Information: Income meets expenses Anticipated Discharge Date: TBD Patient's Discharge Goal: Agreeable to Rehab pending PT/OT eval Assistance Available at Discharge: Family Discharge Transport: Family Follow Up Transport: Family Home Health / Home Infusion / Outpatient Dialysis Services: N/A Living Will/Advance Directive/Power of Unit Leader /Guardian: Social Drivers of Health Food Insecurity: [...] Cage questionnaire guilty: 0 Cage questionnaire eye typewriter operator automatic: 0 Cage Overall score: 0 Housing Stability: [...] No Depression: At risk (09/19/2024) Received from [facility] PHQ-2 Patient Health Questionnaire-9 Score: 5 Utilities: Not At Risk (10/12/2024) Utilities Threatened with loss of utilities: No Stress: Not on file (02/16/2024) Intimate Partner Violence: Not At Risk (10/12/2024) Humiliation, Afraid, Rape, and Kick questionnaire Fear of Current or Ex-Partner: No Emotionally Abused: No Physically Abused: No Sexually Abused: No Physical Activity: Not on file Social Connections: Unknown (01/18/2023) Received from [facility] Family and Community Support Help with Day-to-Day [...] planning and needs as appropriate. An Humphrey, STORE ASSOCIATE, WAREHOUSE WORKER Social Work Senior Department of Case Management [facility] * Care Plan - Mary Gamez RN [...] from the original note were not included. [facility] Department of Surgery Division of Plastic Surgery [...] from the original note were not included. [facility] Department of Surgery Division of Plastic Surgery Post Operative Check: Subjective: Procedure: Right ischial pressure wound debridement, right posterior thigh rotation flap Patient currently reports pain is controlled. He is eager to eat. No acute complaints. Pain Control: [facility] Objective: Vitals: Visit Vitals BP (!) [...] Status: regular Anticoagulation/DVT ppx: SCDs Pain management: [facility] Level of care: Continue Current Level of Care I have answered and addressed all issues and concerns from the patient and nursing staff. I have notified senior resident/attending hotel front office manager with any issues or concerns. * Progress [...] to follow. Submitted by: Gale Moody PharmD, [facility] 10/11/2024 5:47 PM * Anesthesia [...] Agree with above assessment and evaluation from resident/BREAD RACKER. * Op Note - Noemí Ni MD - 10/11/2024 12:56 PM EDT Operative Note Date: 10/11/24 Location: [facility] Name: Naga Padgett, : 1990, Diagnoses: Pre-op Diagnosis Decubitus ulcer of right ischium, stage IV (CMS/HCC) Post-op Diagnosis Decubitus ulcer of right ischium, stage IV (CMS/HCC) Procedure(s): Right ischial pressure wound debridement and excision Right posterior thigh fasciocutaneous rotation flap Incisional wound vac placement Attending Surgeon(s): * Noemí Ni - Primary Flight Radio Officer(s): * Neil Whitley MD - Resident - [...] Appliance Other (Comment) 10/11/24 2100 Site Assessment Clean;Intact;[place] 10/13/24 1600 Peristomal Assessment Clean;Intact 10/13/24 1600 Urethral Catheter (Active) Site Assessment Clean;Skin intact 10/13/24 08 CAUTI: Collection Container Standard drainage bag 10/13/24 08 CAUTI: Securement Method Securing device (Describe) 10/13/24 08 CAUTI: Specimen Collection Port Covered with Alcohol Cap Yes 10/13/24 08 CAUTI: Urinary Catheter Necessity Yes, meets criteria 10/13/24 08 CAUTI: Urinary Catheter Necessity Reasons Assist healing open sacral/perineal wounds or /04/25 08 Output (mL) 700 mL 10/13/24 0322 [...] was de-epithelialized with normal bleeding. A 19 sami fluted drain was placed under the flapexiting [...] 10/11/2024 12:56 PM EDT Date: 10/11/24 Location: [facility] Name: Naga Padgett, : 1990, Diagnoses: Pre-op Diagnosis Decubitus ulcer of right ischium, stage IV (CMS/HCC) Post-op Diagnosis Decubitus ulcer of right ischium, stage IV (CMS/HCC) Procedure(s): Right ischial pressure wound debridement and excision Right posterior thigh fasciocutaneous rotation flap Incisional wound vac placement Attending Surgeon(s): * Noemí Ni - Primary Flight Radio Officer(s): * Neil Whitley MD - Resident - [...] He does not currently follow with a lab tech. He has no additional concerns at this [...] 98%. Results Review {Vanishing Link Review Results :[id number] I have reviewed the latest lab and [...] welcome you, your family, and friends to [facility]. We offer access to more [...] will help you be more comfortable with [facility] and the surgical process. This [...] located on the first floor of the [facility] near the Pharmacy and main clinic entrance. We are open Wednesday-Wednesday from 8 a.m. to 4:30 p.m. A clinic customer field representative can be reached at [phone]. Parking is available in the [facility] garage on [facility] or in the [facility] garage located at [address] [place] [address], directly across [facility] from [facility]. The day before surgery You will receive a phone call telling you what time you need to arrive at the hospital for surgery.If you miss the call, please call one of the following numbers (depending on where your surgery is scheduled): ? [facility]: [phone] or [phone] ? [facility]: [phone] or [phone] The day of surgery ? Arrive on time to avoid delays or cancellation. ? Park in the [facility] parking garage located at [address] It is directly across [facility] from the medical campus. ? If you are scheduled for surgery at [facility], take the hospital garage elevator to Level C, then cross the concourse bridge to the Surgery Waiting Room to register for your surgery. [facility] is located down the first hallway to the right at the end of the concourse bridge. If you need help crossing the concourse, you may cotton picker the patient golf cart shuttle directlyto the right of the elevators on Level C. ? If you are scheduled for surgery at the [facility], take the garage elevator to Level A and catch the free shuttle to the hospital. (Be careful not to take the [facility] shuttle - there is an ambassador [...] checked many times throughout your stay at [facility] to ensure your safety. ? [...] talk to them after your surgery. A medical records clerk is available in the waiting room [...] living will, health care surrogate, power of developer prover upholstering or guardianship papers. ? Bring a responsible [...] makeup, jewelry (including body piercing) or nail lao. ? Don?t bring money or valuables to [...] office and the Preoperative Anesthesia Clinic at [phone] or [phone]. If it is the day of surgery, call the location where you are scheduled to have your surgery: [facility] at [phone] or [phone] or [facility] at [phone] or [phone]. For more information Visit www.[facility] or call [phone] or [phone]. [facility] does not discriminate. [facility] complies with applicable Federal civil rights laws and does not discriminate on the basis of race, color, national origin, age, disability, or sex. * Vincent Victor - Melba Moreno RN - 10/10/2024 8:59 AM EDT Images from the original note were not included. 489 Map to [facility] Facilities Directions Easy directions to and from [address] (from [address]) Directions from I-75/[place]-64 to the [facility] Parking Garage: ? From [address], turn right off the exit ramp onto [facility] ([place] [address] [address]) toward [place]. ? In 4.1 miles, turn left onto [address] (at the [employer] station). ? In a half-mile, turn right onto [address]. ? In .3 miles, turn right onto [facility] [address] (just past the [employer] station). Garage entrance is on the left. ? Important: This garage address will change to Alivia Fernandez on October 10, 2024. Directions from [facility] Parking Garage to I-75/I-64: ? Turn left out of the garage onto [address]. ? Turn left onto [address]. ? In .3 miles, turn left down [address] ? In a half-mile, turn right onto [address] (at the [employer] station). ? In 4.1 miles, merge onto [address] /[address] (near the [facility] by Dwaine Otero). Parking Any patients or visitors of [facility] can park in the following areas: ? [facility] Parking Garage (main garage): [address] (Levels A-F) ? [facility] Garage: [address] (Levels 1-6) ? [facility] Cancer lot: Located off [employer] (limited parking for [facility] outpatients only). Upon Your Arrival ? Patients and visitors going to [place] A, , and [facility] may walk across the pedway, located at [...] also be accessed via the pedway off [facility] garage on Level C. If you need a shuttle to the ED, one can be called for you at Level A of the main garage or contact any of the information desks, . Additional Information For additional information, please visit our information desks located throughout [facility]. Information desks have additional maps and resources. Information desks are located at the main entrances of: [facility] (first floor and ground floor), [facility], [facility], [facility], [facility], [facility] (first and third floor), and [facility]. Informationdesk number: [phone]. Important Addresses [address] [place] [address] ? [facility] entrance ? Pavilion A ? Pavilion G ([facility]) ? Emergency Department [address] ? Pavilion H ? Pavilion CC ([facility]) ? Pavilion WH ([facility]) ? [facility] [address] [facility] ? [facility] [address] [facility] ? [facility] [address] [facility] ? [facility] ? [facility] [...] card, photo ID, along with power of developer prover upholstering, guardianship or advanced directives if applicable Do not bring money, jewelry or other valuables Hibiclens bathing instructions reviewed if applicable Notify surgeon of fever, illness, any changes or if you decide not to have surgery Registration will be on the first floor of [facility] ([facility]) at the end of the bridge from the parking garage, the hallway on the RIGHT. Parking Garage Address: [address] [place] [address]. documented in this encounter Plan of Treatment Upcoming Encounters Date Type Department Care Team (Late st Contact Info) Description 11/15/2024 10:40 AM EDT Office Visit [facility] [address] [facility] 5th Floor Wing [address], [address] [place] [id number] Noemí Ni MD [address] [place] [phone] Pending Results Name Type Priority Associated Diagnoses [...] Diagnoses Order Schedule Discharge Ambulatory referral to [facility] Outpatient Referral Routine Decubitus ulcer of right ischium, stage IV (CMS/HCC) 1 Occurrences starting 10/20/2024 until 04/23/2026 Discharge Ambulatory referral to NON [facility] Outpatient Referral Routine Decubitus ulcer of right ischium, stage IV (CMS/HCC) 1 Occurrences starting 10/26/2024 until 04/29/2026 Discharge Ambulatory referral to [facility] Outpatient Referral Routine Decubitus ulcer [...] AND TREAT Routine 10/20/2024 11:02 AM EDT VT NEG PRESSURE WOUND THERAPY NON DME >50 [...] drains documented in this encounter Results * VT NEG PRESSURE WOUND THERAPY NON DME >50 [...] Tolerated well, no immediate complications us Noemí iN MD IN CLINIC/BEDSIDE ORDERABLES Fin al Result * (ABNORMAL) Creatinine, Plasma (10/19/2024 4:43 AM EDT) Creatinine, Plasma 0.62(L) 0.70 - 1.20 mg/dL 10/19/2024 5:52 AM EDT [facility] eGFRcr 128.6 mL/min/1.7 3m*2 10/19/2024 5:52 AM EDT [facility] Comment:Reported eGFRcr in m L/min/1.73m2 is based the CKD-EPI 2020 equation that does not use a race coefficient. Blood Venous blood specimen / Unknown Venipuncture / Unknown 10/19/2024 4:43 AM EDT 10/19/2024 4:51 AM EDT us Noemí Ni MD LAB BLOOD ORDERABLES Final Resul t [facility] [address] [place] [address] * Creatinine, Plasma (10/18/2024 12:00 AM EDT) Creatinine, Plasma 0.73 0.70 - 1.20 mg/dL 10/18/2024 12:34 AM EDT [facility] eGFRcr 122.4 mL/min/1.7 3m*2 10/18/2024 12:34 AM EDT [facility] Comment:Reported eGFRcr in m L/min/1.73m2 is based the CKD-EPI 2020 equation that does not use a race coefficient. Blood Venous blood specimen / Unknown Venipuncture / Unknown 10/18/2024 12:00 AM EDT 10/18/2024 12:04 AM EDT Noemí Ni MD LAB BLOOD ORDERABLES Final Resul t Performing Organization Address [facility]/ZIP Co de Phone Number [facility] [address] [place] [address] * PERIPHERAL IV (SMARTFORM LINK) (10/17/2024 10:56 [...] - 1.20 mg/dL 10/17/2024 10:57 AM EDT [facility] eGFRcr 129.9 mL/min/1.7 3m*2 10/17/2024 10:57 AM EDT [facility] Comment:Reported eGFRcr in m L/min/1.73m2 is based the CKD-EPI 2020 equation that does not use a race coefficient. Blood Venous blood specimen / Unknown Venipuncture / Unknown 10/17/2024 9:58 AM EDT 10/17/2024 10:05 AM EDT us Noemí Ni MD LAB BLOOD ORDERABLES Final Resul t Performing Organization Address [facility]/ZIP Co de Phone Number [facility] [address] [place] [address] * Vancomycin, Peak, Plasma Please draw ~2 hours after 0030 dose of vancomycin finishes infusing. Consider obtaining level via peripheral stick. If peripheral stick is not feasible, please ensure that line is flushed well prior to drawing level. Than... (10/16/2024 4:48 AM EDT) Pathologist [facility] Vancomycin, Peak, Plasma 22.3 20.0 - 40.0 ug/mL 10/16/2024 5:38 AM EDT [facility] Blood Venous blood specimen / Unknown Venipuncture / Unknown 10/16/2024 4:48 AM EDT 10/16/2024 5:10 AM EDT Narrative [facility] - 10/16/2024 5:38 AM EDT Therapeutic Peak level: 20-40ug/mL Supra-therapeutic Peak level: >40 ug/mL us Noemí Ni MD LAB BLOOD ORDERABLES Final Resul t Performing Organization Address [facility] [place] [address] * Vancomycin, Trough, Plasma Please draw ~30 minutes prior to dose due at 0030 on 10/16. Please do NOT hold dose awaiting level to return. Consider obtaining level via peripheral stick. If peripheral stick is not feasible, please ensure that line is ... (10/15/2024 11:52 PM EDT) [facility] Vancomycin, Trough, Plasma 10.9 10.0 - 20.0 ug/mL 10/16/2024 12:31 AM EDT [facility] Blood Venous blood specimen / Unknown Venipuncture / Unknown 10/15/2024 11:52 PM EDT 10/15/2024 11:59 PM EDT Narrative [facility] - 10/16/2024 12:31 AM EDT Therapeutic Trough level: 10-20ug/mL Supra-therapeutic Trough level: >20 ug/mL us Noemí Ni MD LAB BLOOD ORDERABLES Final Resul t Performing Organization Address [facility]/ZIP Co de Phone Number [facility] [address] [place] [address] * (ABNORMAL) Creatinine, Plasma (10/15/2024 4:24 AM EDT) Creatinine, Plasma 0.65(L) 0.70 - 1.20 mg/dL 10/15/2024 5:35 AM EDT [facility] eGFRcr 126.8 mL/min/1.7 3m*2 10/15/2024 5:35 AM EDT [facility] Comment:Reported eGFRcr in m L/min/1.73m2 is based the CKD-EPI 2021 equation that does not use a race coefficient. Blood Venous blood specimen / Unknown Venipuncture / Unknown 10/15/2024 4:24 AM EDT 10/15/2024 5:06 AM EDT us Noemí Ni MD LAB BLOOD ORDERABLES Final Resul t Performing Organization Address [facility]/[place]UST de Phone Number [facility] [address] [place] [address] * (ABNORMAL) Creatinine, Plasma (10/14/2024 4:24 AM EDT) Creatinine, Plasma 0.61(L) 0.70 - 1.20 mg/dL 10/14/2024 5:11 AM EDT [facility] eGFRcr 129.3 mL/min/1.7 3m*2 10/14/2024 5:11 AM EDT [facility] Comment:Reported eGFRcr in m L/min/1.73m2 is based the CKD-EPI 2020 equation that does not use a race coefficient. Blood Venous blood specimen / Unknown Venipuncture / Unknown 10/14/2024 4:24 AM EDT 10/14/2024 4:43 AM EDT us Noemí Ni MD LAB BLOOD ORDERABLES Final Resul t Performing Organization Address [facility] Co de Phone Number [facility] [address] [place] [address] * (ABNORMAL) Vancomycin, Peak, Plasma Please draw ~2 hours after 1100 dose of vancomycin finishes infusing. Consider obtaining level via peripheral stick. If peripheral stick is not feasible, please ensure that line is flushed well prior to drawing level. Than... (10/13/2024 6:44 PM EDT) Vancomycin, Peak, Plasma 14.6(L) 20.0 - 40.0 ug/mL 10/13/2024 7:19 PM EDT [facility] Blood Venous blood specimen / Unknown Venipuncture / Unknown 10/13/2024 6:44 PM EDT 10/13/2024 6:48 PM EDT [facility] - 10/13/2024 7:19 PM EDT Therapeutic Peak level: 20-40ug/mL Supra-therapeutic Peak level: >40 ug/mL Noemí Ni MD LAB BLOOD ORDERABLES Final Resul t [facility] [address] [place] [address] * PERIPHERAL IV (SMARTFORM LINK) (10/13/2024 2:06 PM EDT) Cande Fuentes RN - 10/13/2024 2:06 PM EDT Caned Alcazar RN 10/13/2024 2:06 PM Insert peripheral [...] - 20.0 ug/mL 10/13/2024 11:13 AM EDT [facility] Blood Venous blood specimen / Unknown Venipuncture / Unknown 10/13/2024 10:28 AM EDT 10/13/2024 10:44 AM EDT Narrative [facility] - 10/13/2024 11:13 AM EDT Therapeutic Trough level: 10-20ug/mL Supra-therapeutic Trough level: >20 ug/mL Noemí Ni MD LAB BLOOD ORDERABLES Final Resul t Performing Organization Address [facility] Co de Phone Number [facility] [address] [place] [address] * Creatinine, Plasma (10/13/2024 4:38 AM EDT) Creatinine, Plasma 0.70 0.70 - 1.20 mg/dL 10/13/2024 6:20 AM EDT [facility] eGFRcr 124.0 mL/min/1.7 3m*2 10/13/2024 6:20 AM EDT [facility] Comment:Reported eGFRcr in m L/min/1.73m2 is based the CKD-EPI 2020 equation that does not use a race coefficient. Blood Venous blood specimen / Unknown Venipuncture / Unknown 10/13/2024 4:38 AM EDT 10/13/2024 5:53 AM EDT us Noemí Ni MD LAB BLOOD ORDERABLES Final Resul t Performing Organization Address City/[facility] Co de Phone Number [facility] [address] [place] [address] * Multi Drug Resistance Test (10/11/2024 5:24 PM EDT) Culture No growth at day 1 10/12/2024 6:51 PM EDT [facility] Swab (Nares and Amy Rectal) 10/11/2024 5:24 PM EDT 10/11/2024 5:24 PM EDT Narrative [facility] - 10/12/2024 6:51 PM EDT This test was developed and its performance characteristics determined by the [facility]. Although the media is FDA-approved, it is not FDA-approved for all specimen types submitted. The FDA has determined that such clearance or approval is not necessary. This test is used for surveillance purposes. It should not be regarded as investigational or for research. The [facility] is certified under the Clinical Laboratory Improvement Amendments of 1988 (CLIA-88) as qualified to perform high complexity clinical laboratory testing. Noemí iN MD LAB MICROBIOLOGY - GENERAL ORDER SABA Final Result [facility] [address] [place] [address] * (ABNORMAL) Basic metabolic panel (10/11/2024 4:57 PM EDT) Glucose, Plasma 114(H) 74 - 99 mg/dL 10/11/2024 5:45 PM EDT [facility] BUN, Plasma 11 7 - 21 mg/dL 10/11/2024 5:45 PM EDT [facility] Creatinine, Plasma 0.66(L) 0.70 - 1.20 mg/dL 10/11/2024 5:45 PM EDT [facility] BUN/Creatinine Ratio 17 10/11/2024 5:45 PM EDT [facility] Sodium, Plasma 137 136 - 145 mmol/L 10/11/2024 5:45 PM EDT [facility] Potassium, Plasma 4.7 3.6 - 4.9 mmol/L 10/11/2024 5:45 PM EDT [facility] Chloride, Plasma 106 97 - 107 mmol/L 10/11/2024 5:45 PM EDT [facility] CO2, Plasma 19(L) 22 - 29 mmol/L 10/11/2024 5:45 PM EDT [facility] Anion Gap 12 6 - 16 mmol/L 10/11/2024 5:45 PM EDT [facility] Total Calcium, Plasma 8.5(L) 8.9 - 10.2 mg/dL 10/11/2024 5:45 PM EDT [facility] eGFRcr 126.2 mL/min/1.7 3m*2 10/11/2024 5:45 PM EDT [facility] Comment:Reported eGFRcr in m L/min/1.73m2 is based the CKD-EPI 2020 equation that does not use a race coefficient. Blood Venous blood specimen / Unknown Venipuncture / Unknown 10/11/2024 4:57 PM EDT 10/11/2024 5:17 PM EDT us Noemí Ni MD LAB BLOOD ORDERABLES Final Resul t [facility] [address] [place] [address] * (ABNORMAL) Tissue Culture and Gram Stain (10/11/2024 2:27 PM EDT) Culture Light Growth 10/14/2024 1:08 PM EDT [facility] Culture Corynebacterium striatum group(A) 10/14/2024 1:08 PM EDT [facility] Comment: This isolate has been identified using the FDA Approved [employer] [employer] [facility] The organism value for this result has been updated. These results have been appended to the previously preliminary verified report. Gram Stain Result No organisms seen 10/14/2024 1:08 PM EDT [facility] Gram Stain Result No polymorphonuclear leukocytes seen 10/14/2024 1:08 PM EDT [facility] Tissue Structure of right buttock [...] ORDER SABA Final Result Performing Organization Address [facility] Co de Phone Number [facility] [address] [place] [address] * Anaerobic Culture (10/11/2024 2:27 PM EDT) Culture No anaerobes isolated 10/15/2024 2:43 PM EDT [facility] Tissue Structure of right buttock / Unknown 10/11/2024 2:27 PM EDT 10/11/2024 2:43 PM EDT Comment:Pre-op diagnosis: Decubitus ulcer of right ischium, stage IV (CMS/HCC) [L89.314] Noemí Ni MD LAB MICROBIOLOGY - GENERAL ORDER SABA Final Result Performing Organization Address [facility] Co de Phone Number [facility] [address] [place] [address] * Surgical Pathology Exam (10/11/2024 2:23 PM EDT) Case Report Surgical Pathology Case: [id number] Authorizing Provider: Noemí Ni MD Collected: 10/11/2024 1423 Ordering Location: [facility] OPERATING ROOM Received: 10/11/2024 1442 Pathologist: Luanne Liriano MD Specimen: Buttock, Right, 1) Right Ischial Pessure Ulcer - Permanent 10/16/2024 3:35 PM EDT [facility] Final Diagnosis A. RIGHT ISCHIAL PESSURE ULCER, DEBRIDEMENT: - ULCERATED SKIN, GRANULATION TISSUE, AND FIBROSIS. 10/16/2024 3:35 PM EDT [facility] at 1535 EDT Clinical Information Decubitus ulcer of right ischium, stage IV (CMS/HCC) [L89.314] 10/16/2024 3:35 PM EDT [facility] Gross Description A. 1) RIGHT ISCHIAL PESSURE ULCER - PERMANENT Received fresh and subsequently placed in formalin labeled Right Ischial Pessure Ulcer is an aggregate of skin and soft tissue measuring 6.4 x 4.5 x 1.7 cm. The skin surface is adams-pink with areas that are brown-carter and roughened. Comber Tender sections are submitted in cassette A1. Cold Time: <1m Eileen Alexandra 10/16/2024 3:35 PM EDT [facility] Tissue Structure of right buttock / Unknown 10/11/2024 2:23 PM EDT 10/11/2024 2:42 PM EDT Comment:Pre-op diagnosis: Decubitus ulcer of right ischium, stage IV (CMS/HCC) [L89.314] us Noemí Ni MD LAB PATHOLOGY ORDERABLES Final R esult [facility] [address] [place] [address] documented in this encounter Visit Diagnoses Diagnosis [...] documented as of this encounter Care Teams Nurse College Relationship Specialty Start Date End Date Saul Mejia MD [address] [place] [phone] PCP - General 08/24/22 documented as of this encounter
--- OUTSIDE RECORDS SUMMARY | 2024-10-11 12:09 | XMS_ITS | Encounter Summary ---
Author Organization [facility] Address [address] [id number] Care Team Providers Care Anthropologist Name Role Phone Saul Mejia MD Primary Care Provider [phone] Reason for Visit * Auth/Cert (Routine) Specialty Diagnoses / Procedures Referred By Alonso barrios Referred To Contact Diagnoses Decubitus ulcer of right ischium, stage IV (CMS/HCC) Decubitus ulcer of right ischium, stage IV (CMS/HCC) [L89.314] Procedures NV MUSCLE-SKIN FLAP,TRUNK NV EXC ISCH PRES ULC BONE MYOCUT FLAP Debridement Pressure right ischium, fasciocutneous flap closure Noemí Ni MD [address] [facility] [address] [place] [address] Phone: tel: fax: [facility] [address] [place] [address] Phone: tel: Referral ID Status Reason Start Date Expiration Date Visits Re quested Visits Authorized [id number] 1 1 Encounter Details Date Type Department Care Team (Late st Contact Info) Description 10/11/2024 12:09 PM EDT Anesthesia Event [facility] [address] [place] [address] Khris Alex MD [address] [place] [address] Anesthesia Record Procedure Summary Procedure Name Responsible Anesthesiologist Anesthesia Start Time Anesthesia Stop Time Debridement Pressure right ischium, fasciocutneous flap closure (Right: Buttocks) Khris Alex MD 10/11/24 1209 10/11/24 1540 Events Date Time Event Comment 10/11/2024 1209 An Start The patient was reevaluated immediately before sedation and remains eligible for anesthesia plan. 1214 In Room 1214 An Start Data 1220 An Induction The patient was reevaluated immediately before moderate or deep sedation use and before anesthesia induction. 1222 An Intubation 1224 Anesthesia Ready 1241 Prone Pressure Check Eyes an d nose free of pressure 1252 Rickey Time out 1256 Proc Start 1329 Prone Pressure Check Eyes an d nose free of pressure 1345 Prone Pressure Check Eyes an d nose free of pressure 1403 Prone Pressure Check Eyes an d nose free of pressure 1500 Prone Pressure Check Eyes an d nose free of pressure 1528 Proc Fin 1530 An Extubation 1531 an stop data 1532 Out of Room 1540 Handoff to Receiving I compl eted my handoff to the receiving clinician during which we: 1. Identified the patient 2. Identified the responsible provider 3. Reviewed the pertinent medical history 4. Discussed the surgical course 5. Reviewed intra-op anesthesia management and issues during anesthesia 6. Set expectations for post-procedure period 7. Allowed opportunity for questions and acknowledgement of understanding. 1540 An Stop Meds Name Total midazolam (Versed) injection 1 mg/mL 2 m g fentaNYL (Sublimaze) injection 50 mcg/mL 100 mcg lidocaine PF (Xylocaine-MPF) 2% 100 mg propofol (Diprivan) injection 10 mg/mL 2 00 mg rocuronium (ZeMuron) injection 10 mg/mL 50 mg dexamethasone (Decadron) injection 4 mg/ mL 4 mg HYDROmorphone PF (Dilaudid) injection 1 mg/mL 0.5 mg ondansetron (Zofran) injection 2 mg/mL 4 mg sugammadex (Bridion) injection 100 mg/mL 200 mg lactated Ringer's infusion 1,000 mL * Agents Name O2 Isoflurane Inspired Isoflurane * Blood No blood administrations on file. Lines, Drains, and Airways Type Details Placement Removal Wound 12/29/22; 1109; Y; 0.25 weeks; Yes; Pressure inj; Unstageable; Ischium; Right; POA - Right ischium - unstageable. Eschar and foul smell 12/29/22 1109 by Hayley Alexander APRN Wound 01/26/24; 0929; Yes; Groin; Right groin 01/26/24 0929 by Yumiko Shaikh RN Wound 01/26/24; 09; Yes; Groin; Left groin 01/26/24 09 by Yumiko Shaikh RN Colostomy Yes; 10/11/24; ([facility] ostomy for colon flushing); Umbilicus; 1 cm 10/11/24 0000 by Wound 10/11/24; 1214; Yes; Surgical; Other (Comment) (Ishcium); Right 10/11/24 1214 by Mehrdad Luna RN Peripheral IV Placement Date: 10/11/24; Placement Time: 1058; Catheter Size: 18 G; Orientation: Right; Location: Antecubital; Technique: Anatomical landmarks; Inserted by: Romero; Insertion Attempts: 1; Patient Tolerance: Tolerated well; Removal Date: 10/13/24; Removal Reason: Per patient/family request 10/11/24 1058 by Jose Angel Jamison RN 10/13/24 0000 by Pranav Burgos RN ETT Placement Date: 10/11/24; Placement Time: 1222 (created via procedure documentation); Mask Ventilation: 1; Technique: Direct laryngoscopy; Type: ETT - single; Single Lumen Tube Size: 7.5 mm; Cuffed: Yes; Laryngoscope: Cas; Blade Size: 4; Location: Oral; Grade View: Grade I; Insertion Attempts: 1; Placement Verification: Auscultation; Airway Comments: Atraumatic intubation ; Placed by: JOMAR; Removal Date: 10/11/24; Removal Time: 1530 10/11/24 1222 by Nathan Hope CRNA 10/11/24 1530 by Clement Godoy CRNA Peripheral IV Placement Date: 10/11/24; Placement Time: 1235 (created via procedure documentation); Catheter Size: 20 G; Orientation: Left; Location: Hand; Local Anesth: None; Technique: Anatomical landmarks; Inserted by: Nathan Hope CRNA; Insertion Attempts: 1; Removal Date: 10/12/24; Removal Time: 0810 10/11/24 1235 by Nathan Hope CRNA 10/12/24 0810 by Mary Gamez RN Closed/Suction Drain 10/11/24; 1422; No; Yes; 1; Right, Posterior; Thigh; Bulb; 19 Fr.; 10/27/24; Other (Comment) (removed by . Was not previously charted as removed.) 10/11/24 1422 by Mehrdad Luna, RN Negative Pressure Wound Therapy 10/11/24; 1510; N; D1r. Ni; Yes; Surgical; Buttocks; Right; 10/27/24; Other (Comment) (removed by provider) 10/11/24 1510 by Narayan Baker RN Urethral Catheter Placement Date: 10/11/24; Placement Time: 154; Removal Date: 10/24/24; Removal Time: 06; Removal Reason: Per order 10/11/24 1540 by Amanda Thompson RN 10/24/24 0635 by Misty Walton RN documented in this encounter Social History Tobacco [...] place to sleep or slept in a [facility] (including now)? No 02/08/2023 Humiliation, Afraid, Rape, [...] any time in the past 12 m [facility], were you homeless or living in a [facility] (including now)? No 10/12/2024 CAGE ASSESSMENT Answer [...] drink first t osito in the morning (EYE-JIVE DEVELOPER) to steady your nerves or to get [...] on file documented as of this encounter Functional Status * Are you [...] Date of Assessment Author No Risk Indicated 10/27/2024 8:00 AM EDT Leigh Sauer RN * Question Answer Date of Assessment Author 1. Wish to be (Past 1 Month) No 025 8:00 AM EDT Leigh Sauer RN 2. Non-Specific Active Suici greyson Thoughts (Past 1 Month) No 10/27/2024 8:00 AM EDT Leigh Sauer RN 6. Suicidal Behavior (Lifetime) No 8:00 AM EDT Leigh Sauer RN documented as of this encounter Mental Status * Because of a physical, mental, or emotional condition, do you have serious difficulty concentrating, remembering, or making decisions? (5 years old or older) Answer Entry Date Author No 02/09/2023 5:28 PM EDAmerica [place] documented in this encounter Miscellaneous Notes * Anesthesia Postprocedure Evaluation - Clement Godoy, STEAMING MACHINE OPERATOR - 10/11/2024 3:43 PM EDT Patient: Sathish Padgett Anesthesia Type: general Vitals Value Taken Time BP 105/63 10/11/24 15:40 Temp 36.3 ??C (97.3 ??F) 10/11/24 15:40 Pulse 87 10/11/24 15:42 Resp 8 10/11/24 15:42 SpO2 100 % 10/11/24 15:42 Vitals shown include unfiled device data. Anesthesia Post Evaluation Patient location during evaluation: PACU Patient participation: complete - patient cannot participate Level of consciousness: sedated Pain management: adequate (pain score 0-3) Airway patency: supraglottic device Cardiovascular status: acceptable and hemodynamically stable Respiratory status: acceptable, blow-by oxygen, nonlabored ventilation, spontaneous ventilation, unassisted and oral airway Hydration status: acceptable Nausea/Vomiting: No No notable events documented. * Anesthesia Procedure Notes - Nathan Hope CRNA - 10/11/2024 12:48 PM EDT Associated Order(s): Peripheral IV Peripheral IV Date/Time: 10/11/2024 12:35 PM Inserted by: Nathan Hope CRNA Placement Needle size: 20 G Location: hand Local anesthetic: none Site prep: alcohol Technique: anatomical landmarks Attempts: 1 * Anesthesia Procedure Notes - Nathan Hope CRNA - 10/11/2024 12:42 PM EDT Associated Order(s): Airway Airway Date/Time: 10/11/2024 12:22 PM Reason: elective Airway not difficult General Information and Staff Patient location during procedure: OR STEAMING MACHINE OPERATOR: Nathan Hope CRNA Performed: STEAMING MACHINE OPERATOR Patient Condition Indications for airway management: anesthesia Patient position: sniffing Final Airway Details Final airway type: endotracheal airway Successful airway: ETT Cuffed: yes Successful intubation technique: direct laryngoscopy Adjuncts used in placement: intubating stylet Endotracheal tube insertion site: oral Blade: Cas Blade size: #4 ETT size (mm): 7.5 Cormack-Lehane Classification: grade I - full view of glottis Placement verified by: chest auscultation Cuff volume (mL): 8 Measured from: lips ETT to lips (cm): 22 Additional Comments Atraumatic intubation * Anesthesia Preprocedure Evaluation - Khris Alex MD - 10/11/2024 9:28 AM EDT Patient: Sathish Padgett Procedure Information Date/Time: 10/11/24 1125 Procedure: Debridement Pressure right ischium, fasciocutneous flap closure (Right: Buttocks) Location: [facility] Jered Serrano CRNA, MD Latex Allergy Vancomycin Sensitivity Relevant Problems GI (+) Gastroesophageal reflux disease Nervous (+) Spina bifida Musculoskeletal (+) Decubitus ulcer of right ischium, stage IV (CMS/HCC) ALLERGIES Allergies[1] NPO STATUS Past Medical History[2] AIRWAY HISTORY Airway Detailed Review Displaying the 20 most recent records Date Difficult Airway Blade Size ETT Size C-L Class Final Type Intubation Method 09/28/23 No 3 7.5 grade I - full view of glottis endotracheal airway direct laryngoscopy MEDICATIONS Outpatient Current Outpatient Medications Medication Instructions amphetamine-dextroamphetamine (Adderall) 10 MG tablet 10 mg, 2 times daily amphetamine-dextroamphetamine XR (Adderall XR) 20 MG 24 hr capsule 20 mg atomoxetine (STRATTERA) 40 mg, ZZ Daily RT clindamycin (Clindagel) 1 % gel 1 Application, Topical, 2 times daily ferrous sulfate 324 mg, Daily with breakfast hydrocortisone 2.5 % cream 1 Application, Daily ketoconazole (NIZOral) 2 % cream 1 Application, Daily lamoTRIgine (LAMICTAL) 100 mg, Nightly omeprazole OTC (PRILOSEC OTC) 20 mg, Daily oxybutynin XL (DITROPAN-XL) 15 mg, Nightly Scheduled Current Scheduled Medications[3] PRNs Current PRN Medications[4] SURGICAL HX: Surgical History[5] SOCIAL HX: Social History[6] OBJECTIVE DATA LABS Lab Results Component Value Date WBC 12.77 (H) 11/22/2023 HGB 10.3 (L) 11/22/2023 HCT 34.6 (L) 11/22/2023 MCV 68.1 (L) 11/22/2023 PLT 757 (H) 11/22/2023 Lab Results Component Value Date CALCIUM 9.8 11/22/2023 BUN 12 11/22/2023 CREATININE 0.72 (L) 11/22/2023 BCR 16.7 11/22/2023 NA 136 11/22/2023 K 4.0 11/22/2023 CL 104 11/22/2023 CO2 23 02/07/2023 Type and Screen No results found for: ABO No results found for: HGBA1C No results found for: PGLU , GLUCOSE ABG No results found for: PHART , TDV5VUX , PO2ART , SO2ART , BEART , CZN8RRU , HCTART , SODIUMART , POTASSIUMART , POCTCL , POCGLU , IONCALART , LACTATE No results found for: PH , PCO2 , PO2 , B3LJNDSS , BASEEXC , HCTSYR , KSYR , CLSYR , GLUSYR , CAION , LACTATE ECHO No echocardiogram results found for the past 12 months PFTs No results found for: CIX9OQO , NRV8RPNT , SWC0UDI , FVCPRED BP Readings from Last 5 Encounters: 08/25/24 134/85 07/19/24 134/82 06/22/24 122/75 05/12/24 (!) 146/97 03/22/24 131/85 Physical Exam Airway Mallampati: III Mouth opening: normal TM distance: >3 FB Neck ROM: full Cardiovascular Rhythm: regular Rate: normal Dental Pulmonary Breath sounds clear to auscultation Neurological Skin Musculoskeletal Extremities Anesthesia Plan ASA 3 Anesthesia technique(s) discussed with the patient/family: general Anesthesia plan agreed upon was: general Anesthesia Evaluation [1] Allergies Allergen Reactions Vancomycin Itching, Swelling and Rash Vancomycin Infusion Reaction: tolerated 01/2023 with extended infusion and pre- medication with diphenhydramine Sulfa Drugs Hives Latex Rash [2] Past Medical History: Diagnosis Date Acid reflux Anxiety Scoliosis Spina bifida 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) [3] [4] [5] Past Surgical History: Procedure Laterality Date BACK SURGERY spina bifida CREATION OF CUTANEOUS STOMA FOOT SURGERY LEG SURGERY MYRINGOTOMY W/ TUBES PRESSURE ULCER DEBRIDEMENT SHUNT PROCEDURE SPINE SURGERY Tether cord release VENTRICULOPERITONEAL SHUNT 2 revisions WOUND DEBRIDEMENT [6] Social History Tobacco Use Smoking status: Former Current packs/day: 0.00 Average packs/day: 0.5 packs/day for 5.0 years (2.5 ttl pk-yrs) Types: Cigarettes Start date: 04/12/2006 Quit date: 04/12/2011 Years since quittin.5 Passive exposure: Never Smokeless tobacco: Never Vaping Use Vaping status: Never Used Substance Use Topics Alcohol use: Yes Comment: Occasional Drug use: Never documented in this encounter Plan of Treatment Upcoming Encounters Date Type Department Care Team (Late st Contact Info) Description 11/15/2024 10:40 AM EDT Office Visit [facility] [address] [facility] 5th Floor [address] [place] [address] Noemí Ni MD [address] [address] documented as of this encounter Procedures Procedure Name Priority Date/Time Associated Diagnosis Comments ANESTHESIA PERIPHERAL IV PLACEMENT Routine 10/11/2024 12:35 PM EDT PB ANESTHESIA PLACEHOLDER Routine 10/11/2024 12:22 PM EDT NV AN ELECTIVE ENDOTRACHEAL AIRWAY Routine 10/11/2024 12:22 PM EDT documented in this encounter Results * Peripheral IV (10/11/2024 12:35 PM EDT) Narrative Nathan Hope CRNA - 10/11/2024 12:35 PM EDT Nathan Hope CRNA 10/11/2024 12:48 PM Peripheral IV Date/Time: 10/11/2024 12:35 PM Inserted by: Nathan Hope CRNA Placement Needle size: 20 G Location: hand Local anesthetic: none Site prep: alcohol Technique: anatomical landmarks Attempts: 1 us Khris Alex MD ANESTHESIA ORDERABLES Final Re sult * NV AN ELECTIVE ENDOTRACHEAL AIRWAY, PB ANESTHESIA PLACEHOLDER (10/11/2024 12:22 PM EDT) Narrative Nathan Hope CRNA - 10/11/2024 12:22 PM EDT Nathan Hope CRNA 10/11/2024 12:43 PM Airway Date/Time: 10/11/2024 12:22 PM Reason: elective Airway not difficult General Information and Staff Patient location during procedure: OR STEAMING MACHINE OPERATOR: Nathan Hope CRNA Performed: STEAMING MACHINE OPERATOR Patient Condition Indications for airway management: anesthesia Patient position: sniffing Final Airway Details Final airway type: endotracheal airway Successful airway: ETT Cuffed: yes Successful intubation technique: direct laryngoscopy Adjuncts used in placement: intubating stylet Endotracheal tube insertion site: oral Blade: Cas Blade size: #4 ETT size (mm): 7.5 Cormack-Lehane Classification: grade I - full view of glottis Placement verified by: chest auscultation Cuff volume (mL): 8 Measured from: lips ETT to lips (cm): 22 Additional Comments Atraumatic intubation us Khris Alex MD ANESTHESIA ORDERABLES Final Re sult documented in this encounter Visit Diagnoses Not on filedocumented in this encounter Administered Medications Inactive Administered Medications - up to 3 most recent administrations Medication Order MAR Action Action Date Dose Rate Site dexamethasone (Decadron) injection Intravenous, As needed, Starting on Wed10/11/24 at 1229, Until Wed10/11/24 at 1543, Routine, Anesthesia Intraprocedure Given 10/11/2024 12:29 PM EDT 4 mg fentaNYL (Sublimaze) injection Intravenous, As needed, Starting on Wed10/11/24 at 1220, Until Wed10/11/24 at 1543, Routine, Anesthesia Intraprocedure Given 10/11/2024 12:49 PM EDT 50 mcg Given 10/11/2024 12:20 PM EDT 50 mcg HYDROmorphone PF (Dilaudid) injection Intravenous, As needed, Starting on Wed10/11/24 at 1527, Until Wed10/11/24 at 1543, Routine, Anesthesia Intraprocedure Given 10/11/2024 3:27 PM EDT 0.5 mg lactated Ringer's infusion Intravenous, Continuous PRN, Starting on Wed10/11/24 at 1214, Until Wed10/11/24 at 1543, Routine New Bag 10/11/2024 12:14 PM EDT lidocaine PF (Xylocaine) 2 % injection Intravenous, As needed, Starting on Wed10/11/24 at 1220, Until Wed10/11/24 at 1543, Routine, Anesthesia Intraprocedure Given 10/11/2024 12:20 PM EDT 100 mg midazolam (Versed) injection Intravenous, As needed, Starting on Wed10/11/24 at 1220, Until Wed10/11/24 at 1543, Routine, Anesthesia Intraprocedure Given 10/11/2024 12:20 PM EDT 2 mg ondansetron (Zofran) injection Intravenous, As needed, Starting on Wed10/11/24 at 1519, Until Wed10/11/24 at 1543, Routine, Anesthesia Intraprocedure Given 10/11/2024 3:19 PM EDT 4 mg propofol (Diprivan) injection Intravenous, As needed, Starting on Wed10/11/24 at 1220, Until Wed10/11/24 at 1543, Routine, Anesthesia Intraprocedure Given 10/11/2024 12:20 PM EDT 200 mg rocuronium (ZeMuron) injection Intravenous, As needed, Starting on Wed10/11/24 at 1220, Until Wed10/11/24 at 1543, Routine, Anesthesia Intraprocedure Given 10/11/2024 12:20 PM EDT 50 mg sugammadex (Bridion) 100 MG/ML injection Intravenous, As needed, Starting on Wed10/11/24 at 1527, Until Wed10/11/24 at 1543, Routine, Anesthesia Intraprocedure Given 10/11/2024 3:27 PM EDT 200 mg documented in this encounter Additional Health Concerns Infection Onset Date Last Indicated Resolved Time 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
--- OUTSIDE RECORDS SUMMARY | 2024-10-11 12:09 | XMS_ITS | Encounter Summary ---
Author Organization [facility] Address [address] [id number] Care Team Providers Care Garage Door Technician Name Role Phone Saul Mejia MD Primary Care Provider [phone] Reason for Visit * Auth/Cert (Routine) Specialty Diagnoses / Procedures Referred By Alonso barrios Referred To Contact Diagnoses Decubitus ulcer of right ischium, stage IV (CMS/HCC) Decubitus ulcer of right ischium, stage IV (CMS/HCC) [L89.314] Procedures MD MUSCLE-SKIN FLAP,TRUNK MD EXC ISCH PRES ULC BONE MYOCUT FLAP Debridement Pressure right ischium, fasciocutneous flap closure Noemí Ni MD [address] [facility] [address] [place] [address] Phone: tel: fax: [facility] [address] [place] [address] Phone: tel: Referral ID Status Reason Start Date Expiration Date Visits Re quested Visits Authorized [id number] 1 1 Encounter Details Date Type Department Care Team (Late st Contact Info) Description 10/11/2024 12:09 PM EDT Anesthesia Event [facility] [address] [place] [address] Khris Alex MD [address] [place] [address] Anesthesia Record Procedure Summary Procedure [...] place to sleep or slept in a care home (including now)? No 02/08/2023 Humiliation, Afraid, Rape, [...] time in the past 12 m [facility], were you homeless or living in a care home (including now)? No 10/12/2024 CAGE ASSESSMENT Answer [...] drink first t osito in the morning (EYE-PET CARE ASSISTANT) to steady your nerves or to get [...] * Anesthesia Postprocedure Evaluation - Clement Godoy, SQL TECH - 10/11/2024 3:43 PM EDT Patient: Sathish [...] and Staff Patient location during procedure: OR SQL TECH: Nathan Hope CRNA Performed: SQL TECH Patient Condition Indications for airway management: anesthesia [...] ABG No results found for: PHART , NKL7YMH , PO2ART , SO2ART , BEART , IRP0OVG , HCTART , SODIUMART , POTASSIUMART , POCTCL , POCGLU , IONCALART , LACTATE No results found for: PH , PCO2 , PO2 , F5YUXANI , BASEEXC , HCTSYR , KSYR , CLSYR , GLUSYR , CAION , LACTATE ECHO No echocardiogram results found for the past 12 months PFTs No results found for: KJE4HKV , TCW9ABEX , QUH7JCJ , FVCPRED BP Readings from Last 5 [...] Description 11/15/2024 10:40 AM EDT Office Visit [facility] [address] [facility] 5th Floor [address] [place] [address] Noemí iN MD [address] [phone] documented as of this encounter Procedures Procedure Name Priority Date/Time Associated Diagnosis Comments ANESTHESIA PERIPHERAL IV PLACEMENT Routine 10/11/2024 12:35 PM EDT PB ANESTHESIA PLACEHOLDER Routine 10/11/2024 12:22 PM EDT MD AN ELECTIVE ENDOTRACHEAL AIRWAY Routine 10/11/2024 12:22 [...] MD ANESTHESIA ORDERABLES Final Re sult * MD AN ELECTIVE ENDOTRACHEAL AIRWAY, PB ANESTHESIA PLACEHOLDER (10/11/2024 12:22 PM EDT) Narrative Nathan Hope CRNA - 10/11/2024 12:22 PM EDT Nathan Hope CRNA 10/11/2024 12:43 PM Airway Date/Time: 10/11/2024 12:22 PM Reason: elective Airway not difficult General Information and Staff Patient location during procedure: OR SQL TECH: Nathan Hope CRNA Performed: SQL TECH Patient Condition Indications for airway management: anesthesia [...] documented as of this encounter Care Teams Garage Door Technician Relationship Specialty Start Date End Date Saul Mejia MD [address] [place] [phone] PCP - General 08/24/22 documented as of this encounter
--- OUTSIDE RECORDS SUMMARY | 2024-11-03 12:48 | XMS_ITS | Encounter Summary ---
Author Organization [facility] Address [address] [place] [id number] Care Team Providers Care Strap Sewer Name Role Phone Ca Pan MD Primary Care Pro vider Encounter Details Date Type Department Care Team (Late st Contact Info) Description 10/31/2024 Transitional Care Management Telephone Encounter [facility] [address] [place] [phone] Cyndi Roberto RN Social History Tobacco Use Types Packs/Day Years Used Date Smoking Tobacco: Former Cigarettes 0.3 5 0 04/12/2006 - 2011 Smokeless Tobacco: Never Alcohol Use Standard Drinks/Week Comments Yes 1 (1 standard drink = 0.6 oz pur e alcohol) monthly PHQ-2 Answer Date Recorded Retired PHQ-9: Brief Depression Severity Measure Score 21 11/25/2022 PHQ-2 Answer Date Recorded Patient Health Questionnaire-9 Score 5 09/19/2024 Sex and Gender Information Value Date Recorded Sex Assigned at Male 04/13/2023 2:17 PM EST Legal Sex Male 10:32 AM EDT Gender Identity Male 04/13/2023 2:17 PM EST Sexual Orientation Straight 04/13/2023 2: 17 PM EST documented as of this encounter Miscellaneous Notes * Outreach Note - Cyndi Roberto RN - 10/31/2024 10:44 AM EDT Call Center TCM Note Flowsheet Row Responses [facility] patient discharged from? Non-BH Does the patient have one of the following disease processes/diagnoses(primary or secondary)? Other TCM attempt successful? No Unsuccessful attempts Attempt 1 Cyndi Banks - Registered Nurse 10/31/2024, 10:46 EDT documented in this encounter Plan of Treatment Upcoming Encounters Date Type Department Care Team (Late st Contact Info) Description 03/01/2025 3:15 PM EST Office Visit [facility] [address] [address] Manuel Harris MD [address] [address] documented as of this encounter Visit Diagnoses Not on filedocumented in this encounter Care Teams Strap Sewer Relationship Specialty Start Date End Date Ca Pan MD [address] [address] PCP - General Internal Medicine 11/22/23 documented as of this encounter
--- OUTSIDE RECORDS SUMMARY | 2024-11-03 12:48 | XMS_ITS | Clinical Summary ---
Author Organization [facility] Address [address] [place] [address] Care Team Providers Care Manager Casino Name Role Phone Ca Pan MD Primary Care Pro vider Allergies Active Allergy Reactions Criticality Noted Date Comments Latex Rash Low 09/02/2021 Sulfa Antibiotics Rash Low 09/02/2021 Vancomycin Itching,Rash,Swelling High 08/24/2022 Medications * This document contains information received from the source organization and may not represent a complete record from that organization. atomoxetine (Strattera) 40 MG capsuleIndication s:ADHD (attention deficit hyperactivity disorder), combined type Take 1 capsule by mouth Daily. 90 capsule 1 4 025 Active Additional Information Patient not taking.Reported on 09/25/2024 Catheters misc Use 1 each 4 (Four) Times a Day. 120 each 11 4 Active Catheters misc Use 1 each Daily. 30 each 4 Active clindamycin 1 % gel Apply 1 Application topically to the appropriate area as directed 2 (Two) Times a Day As Needed (rash). 60 g 11 4 Active oxybutynin XL (DITROPAN XL) 15 MG 24 hr tabletIndications :Excessive sweating Take 1 tablet by mouth once daily 90 tablet 3 5 Active omeprazole (priLOSEC) 20 MG capsule Take 1 capsule by mouth Daily. 90 capsule 3 5 Active Catheters miscIndications:N eurogenic Bladder,Luja Coude Male Pocket Size 14 FR Use 1 each 4 (Four) Times a Day. Indications: Neurogenic Bladder, Luja Coude Male Pocket Size 14 FR 120 each 11 5 Active lamoTRIgine (LaMICtal) 100 MG tabletIndications :Recurrent major depressive disorder, in partial remission,Sleep disturbance Take 1 tablet by mouth Every Night. 90 tablet 1 5 Active Active Problems Problem Noted Date Diagnosed Date Gastroesophageal reflux disease without esophagi tis 08/28/2024 Assessment & Plan (08/28/2024 11:47 AM EDT): Reports coughing within a couple minutes after eating. NO chest pain, no regurgitation Similar symptoms when laying down at night Will trial PPI Advised to take on an empty stomach, with water, 30 minutes before eating. If this does not improve can double dose of PPI If PPI is not helpful consider dysphagia workup Anemia of chronic disease 02/22/2024 ADHD 11/22/2023 Overview (11/22/2023): Following with [facility], on atomoxetine Assessment & Plan (08/28/2024 11:47 AM EDT): On strattera PRN, I can fill this or he can get it through psychiatry once he re-establishes Orders: Ambulatory Referral to Psychiatry Hidradenitis 11/22/2023 Assessment & Plan (08/28/2024 11:47 AM EDT): Would like to defer dermatology referral until after his flap surgery Of the groin Assessment & Plan (11/22/2023 1:53 PM EDT): Of the groin region, is using an [id number] zinc oxide paste. Offered referral to dermatology but he declined at this time Microcytic anemia 11/22/2023 Assessment & Plan (11/22/2023 1:58 PM EDT): Chronic microcytic anemia, has not had iron levels checked, will get labs today Pressure injury of skin of right buttock 024 Assessment & Plan (08/28/2024 11:47 AM EDT): Following with plastic surgery Upcoming flap surgery, no set date at this time Assessment & Plan (11/22/2023 1:51 PM EDT): Following with plastic surgery. Has an upcoming appointment with them to decide on surgery. Is following with wound care through . Neurogenic dysfunction of the urinary bladder Assessment & Plan (08/28/2024 11:47 AM EDT): Would like to switch catheters from the 14 straight to the Luja Coude Male Pocket Size 14 FR. He caths himself 4x/day. He states that around the time of his flap surgery he will be bed bound and may need to switch to a law catheter. If does not provide him with supplies for law catheter I can get them ordered through [employer]. Assessment & Plan (11/22/2023 1:52 PM EDT): [employer] supplies 14 straight #[id number] I&O 4x/day In and out caths 4 times a day Reports his urine has been looking darker recently, counseled on adequate hydration, offered UA today but he reports that he had just in and out cathed so he does not think he would be able to provide urine sample Urinary incontinence 11/12/2021 Excessive sweating 10/09/2021 Anxiety 09/02/2021 Assessment & Plan (08/28/2024 11:47 AM EDT): Reports he is no longer following with his prior psychiatrist. He would like to switch psychiatrists to the [facility] in [place] He is on lamictal for mood, I advised him that I do not prescribe this medication so he will need to see a psychiatrist. If he needs a refill of medication prior to getting an appointment with psychiatry I can do that. He is ok on refills for now per patient Orders: Ambulatory Referral to Psychiatry Depression 09/02/2021 Assessment & Plan (08/28/2024 11:47 AM EDT): Reports he is no longer following with his prior psychiatrist. He would like to switch psychiatrists to the [facility] in [place] He is on lamictal for mood, I advised him that I do not prescribe this medication so he will need to see a psychiatrist. If he needs a refill of medication prior to getting an appointment with psychiatry I can do that. He is ok on refills for now per patient Orders: Ambulatory Referral to Psychiatry Spina bifida of lumbar region with hydrocephalus 09/02/2021 Assessment & Plan (11/22/2023 1:59 PM EDT): S/p PITCH FLAKER shunt L1 paraplegic Has had CHAD procedure, gives himself enemas daily through ostomy Self cath female straight tip 8 fr 6 length, funnel end #[id number] - 30/month - DME through [facility] Wheelchair Bound Resolved Problems Problem Noted Date Diagnosed Date Resolved Date Decubitus ulcer of ischium, right, unspecified pressure ulcer stage 02/04/2023 024 Encounters * This document contains information received from the source organization and may not represent a complete record from that organization. Date Type Department Care Team Description 10/31/2024 Transitional Care Management Telephone Encounter [facility] [address] [place] [address] Cyndi Roberto RN 10/31/2024 Transitional Care Management Telephone Encounter [facility] [address] [place] [address] Cyndi Roberto RN 10/30/2024 Readmission Management [facility] [address] [place] [address] Chari Acosta RN 08/28/2024 11:00 AM EDT Office Visit [facility] [address] [facility] [address] [place] [address] Ca Pan MD Anxiety (Primary Dx); Moderate episode of recurrent major depressive disorder; Attention deficit hyperactivity disorder (ADHD), predominantly inattentive type; Hidradenitis; Pressure injury of right buttock, stage 4; Gastroesophageal reflux disease without esophagitis; Neurogenic dysfunction of the urinary bladder 08/28/2024 Travel from Last 3 Months Immunizations Immunization Administration Dates Next Due COVID-19 (PFIZER) Purple Cap Monovalent 02/21/20 21,07/19/2020,06/26/2020 Flu Vaccine Quad PF >36MO 01/02/2021,12/14/2019, 05/10/2019 Fluzone (or Fluarix & Flulav al for VFC) >6mos 01/02/2021,12/14/2019,05/10/2019 Tdap 07/08/2023 Family History Medical History Relation Name Comments Cancer Father Daron Heart attack Father Daron Hyperlipidemia Father Daron Cancer Mother Celena Hyperlipidemia Mother Celena Vision loss Mother Celena Relation Name Status Comments Father Daron Alive Mother Celena Alive Social History Tobacco Use Types Packs/Day Years Used Date Smoking Tobacco: Former Cigarettes 0.3 5 0 04/12/2006 - 2011 Smokeless Tobacco: Never Tobacco Cessation:Counseling Given: Not Answered Alcohol Use Standard Drinks/Week Comments Yes 1 [...] Orientation Straight 04/13/2023 2: 17 PM EST Last Filed Vital Signs Vital Sign Reading Time Taken Comments Blood Pressure 126/88 08/28/2024 11:07 AM EDT Pulse 86 08/28/2024 11:07 AM EDT Temperature 36.7 C (98 F) 07/08/2023 12:00 PM EDT Respiratory Rate 18 02/22/2024 1:18 PM EST Oxygen Saturation 100% 08/28/2024 11:07 AM EDT Inhaled Oxygen Concentration - - Weight 83.9 kg (185 lb) 09/25/2024 11:18 AM EDT Height 188 cm (6' 2 ) 08/28/2024 11:07 AM EDT pt stated Body Mass Index 23.75 08/28/2024 11:07 AM EDT Plan of Treatment Upcoming Encounters Date Type Department Care Team (Late st Contact Info) Description 03/01/2025 3:15 PM EST Office Visit [facility] [address] [facility] [address] [place] [address] Manuel Harris MD [address] [facility] [address] [place], [place] [id number] Health Maintenance Due Date Last Done Comments INFLUENZA VACCINE 01/10/2025 01/02/2021, , 12/14/2019, Additional history exists COVID-19 Vaccine ( season) 2025 02/20/2021, 07/19/2020, 06/26/2020 Postponed from 12/12/2023 (Patient Refused) ANNUAL WELLNESS VISIT 08/28/2025 08/28/2024 , 11/22/2023, 11/10/2022, Additional history exists TDAP/TD VACCINES (2 - Td or Tdap) 07/07/2033 07/08/2023 HEPATITIS C SCREENING Completed 11/22/2023 Pneumococcal Vaccine 0-49 Aged Out No longer eligible based on patient's age to complete this topic Procedures Procedure Name Priority Date/Time Associated Diagnosis Comments HEPATITIS C ANTIBODY Routine 11/22/2023 1:54 PM EDT Healthcare maintenance from Last 3 Months or Most Recently Relevant to Health Maintenance Results * Hepatitis C antibody (11/22/2023 1:54 PM EDT) Hepatitis C Ab Non-Reacti ve Non-Reacti ve 11/23/2023 1:27 AM EDT [facility] Blood Structure of left upper limb / Unknown Venipuncture / Unknown 11/22/2023 1:54 PM EDT 11/22/2023 1:54 PM EDT us Ca Pan MD LAB BLOOD ORDERAB LES Final Result [facility]
[address] [place] [address], [place] [phone] from Last 3 Months or Most Recently Relevant to Health Maintenance Insurance [employer] HMO Care Teams Manager Casino Relationship Specialty Start Date End Date Ca Pan MD 2530 [facility] Bobby [address] [address] PCP - General Internal Medicine 11/22/23
--- OUTSIDE RECORDS SUMMARY | 2024-11-03 12:48 | XMS_ITS | Encounter Summary ---
Author Organization [facility] Address [address] [place] [address] Care Team Providers Care Sandblasting Supervisor Name Role Phone Ca Pan MD Primary Care Pro vider Encounter Details Date Type Department Care Team (Late st Contact Info) Description 10/30/2024 Readmission Management [facility] [address] [place] [phone] Juanis Acosta, RN Social History Tobacco Use Types Packs/Day [...] encounter Miscellaneous Notes * Outreach Note - Juanis Acosta RN - 10/30/2024 4:53 PM EDT Prep Survey Flowsheet Row Responses [facility] facility patient discharged from? Non-BH Is LACE score < 7 ? Non-BH Discharge Eligibility [facility] Date of Admission 10/11/24 Date of Discharge 10/30/24 Discharge Disposition Home-Health Care Svc Discharge diagnosis Decubitus ulcer of right ischium, stage IV Does the patient have one of the following disease processes/diagnoses(primary or secondary)? Other Prep survey completed? Yes JUANIS Gerard - Registered Nurse documented in this encounter Plan of Treatment Upcoming Encounters Date Type Department Care Team (Late st Contact Info) Description 03/01/2025 3:15 PM EST Office Visit [facility] [address] [address] Manuel Harris MD [address] [address] documented as of this encounter Visit Diagnoses Not on filedocumented in this encounter Care Teams Sandblasting Supervisor Relationship Specialty Start Date End Date Ca Pan MD [address] [address] PCP - General Internal Medicine 11/22/23 documented as of this encounter
--- OUTSIDE RECORDS SUMMARY | 2024-11-03 12:48 | XMS_ITS | Encounter Summary ---
Author Organization Healthcare Address [address] [place] [id number] Care Team Providers Care Asphalt Spreader Operator Name Role Phone Saul Mejia MD Primary Care Provider Encounter Details Date Type Department Care Team (Late st Contact Info) Description 06/29/2023 Lab Requisition [facility] [address] [place] [address] Leida Griggs, GROUP ART SUPERVISOR [address] [address] Malignant neoplasm of appendix (CMS/HCC) Social History Tobacco Use Types Packs/Day Years Used Date Smoking Tobacco: Former Cigarettes 0.5 5 2 007 - 2011 Passive Smoke Exposure: Never Smokeless Tobacco: Never Alcohol Use Standard Drinks/Week Comments Yes 0 (1 standard drink = 0.6 oz pur e alcohol) Occasional Humiliation, Afraid, Rape, and Kick questionnair e Answer Date Recorded Within the last year, have y ou been afraid of your partner or ex-partner? No 02/08/2023 Within the last year, have y ou been humiliated or emotionally abused in other ways by your partner or ex-partner? No Within the last year, have y ou been kicked, hit, slapped, or otherwise physically hurt by your partner or ex-partner? No 02/08/2023 Within the last year, have y ou been raped or forced to have any kind of sexual activity by your partner or ex-partner? No 02/08/2023 PHQ-2 Answer Date Recorded Patient Health Questionnaire-2 Score 0 07/01/2023 Hunger Vital Sign Answer Date Recorded Within the past 12 months, y ou worried that your food would run out before you got the money to buy more. Never true 02/09/20 Within the past 12 months, t he food you bought just didn't last and you didn't have money to get more. Never true 02/08/2023 PRAPARE - Transportation Answer Date Re corded In the past 12 months, has l ack of transportation kept you from medical appointments or from getting medications? No 01/12 In the past 12 months, has l ack of transportation kept you from meetings, work, or from getting things needed for daily living? No 02/08/2023 Housing Stability Vital Sign Answer Shiva e [...] place to sleep or slept in a chcf (including now)? No 02/08/2023 CAGE ASSESSMENT Answer Date Recorded Cage unable [...] drink first t osito in the morning (EYE-LIBRARY SUPERVISOR) to steady your nerves or to get rid of a hangover? 0 08/25/2022 CAGE Questionnaire Score 0 023 Utilities Answer Date Recorded In the past 12 months has th e electric, gas, oil, or water company threatened to shut off services in your home? No 02/08/2023 PHQ-2A Answer Date Recorded Patient Health Questionnaire-2 [...] of Assessment Author No 02/09/2023 5:28 PM EDAmerica Tipton * Are you blind or do you have serious difficulty seeing, even when wearing glasses? Answer Date of Assessment Author No 02/09/2023 5:28 PM EDAmerica Tipton * Do you have serious difficulty walking or climbing stairs? Answer Date of Assessment Author Yes 02/09/2023 5:28 PM EDAmerica Tipton * Do you have serious difficulty dressing or bathing? Answer Date of Assessment Author No 02/09/2023 5:28 PM EDAmerica Tipton * Because of a physical, mental, or emotional condition, do you have serious difficulty doing errandsalone such as visiting the doctor? Answer Date of Assessment Author Yes 02/09/2023 5:28 PM America Thompson * Over the past 2 weeks, how often have you been bothered by any of the following problems? Question Answer Date of Assessment Author Little interest or pleasure in doing things Not at all 07/01/2023 2:51 PM EDT America Clancy RN Feeling down, depressed, or hopeless Not at all 07/01/2023 2:51 PM EDT America Clancy RN Patient Health Questionnaire -2 Score 0 07/01/2023 2:51 PM EDT America Clancy RN documented as of this encounter Mental Status * Because of a physical, mental, or emotional condition, do you have serious difficulty concentrating, remembering, or making decisions? (5 years old or older) Answer Entry Date Author No 02/09/2023 5:28 PM EDAmerica Tipton documented in this encounter Plan of Treatment Upcoming Encounters Date Type Department Care Team (Late st Contact Info) Description 11/15/2024 10:40 AM EDT Office Visit [facility] [address] [place] [address] Noemí Ni MD [address] [place] [phone] documented as of this encounter Visit Diagnoses Diagnosis Malignant neoplasm of appendix (CMS/HCC) documented in this encounter Additional Health Concerns Infection Onset Date Last Indicated Resolved Time MRSA 02/23/2023 02/23/2023 Assessment Noted Time A fall risk assessment has been complete d for the patient 06/03/2023 11:04 AM EST A Body Mass Index follow-up plan has been documented for the patient 06/03/2023 11:24 AM EST documented as of this encounter Care Teams Asphalt Spreader Operator Relationship Specialty Start Date End Date Saul Mejia MD [address] [place] [phone] PCP - General 08/24/22 documented as of this encounter
--- OUTSIDE RECORDS SUMMARY | 2024-11-03 12:48 | XMS_ITS | Encounter Summary ---
Author Organization [facility] Address [address] [place] [address] Care Team Providers Care Drum Worker Name Role Phone Ca Pan MD Primary Care Pro vider Reason for Visit * Reason Onset Date Comments Med Refill 05/02/2024 Encounter Details Date Type Department Care Team (Late st Contact Info) Description 05/02/2024 Refill [facility] [address] [place] [address] Rosie Earl PA [address] [place] [address] Excessive sweating Social History Tobacco Use Types Packs/Day Years Used Date Smoking Tobacco: Former Cigarettes 0.3 5 0 04/12/2006 - 2011 Smokeless Tobacco: Never Alcohol Use Standard Drinks/Week Comments Yes 1 (1 standard drink = 0.6 oz pur e alcohol) monthly PHQ-2 Answer Date Recorded Retired PHQ-9: Brief Depression Severity Measure Score 21 11/25/2022 PHQ-2 Answer Date Recorded Retired PHQ-9: Brief Depression Severity Measure Score 0 06/16/2023 Sex and Gender Information Value Date Recorded Sex Assigned at Male 04/13/2023 2:17 PM EST Legal Sex Male 10:32 AM EDT Gender Identity Male 04/13/2023 2:17 PM EST Sexual Orientation Straight 04/13/2023 2: 17 PM EST documented as of this encounter Plan of Treatment Upcoming Encounters Date Type Department Care Team (Late st Contact Info) Description 03/01/2025 3:15 PM EST Office Visit [facility] [address] [address] Manuel Harris MD 2530 [facility] [address] [address] documented as of this encounter Visit Diagnoses Diagnosis Excessive sweating Generalized hyperhidrosis documented in this encounter Care Teams Drum Worker Relationship Specialty Start Date End Date Ca Pan MD 25[address] [facility] [address] [address] PCP - General Internal Medicine 11/22/23 documented as of this encounter
--- OUTSIDE RECORDS SUMMARY | 2024-11-03 12:48 | XMS_ITS | Encounter Summary ---
Author Organization [facility] Address [address] [place] [phone] Care Team Providers Care Jig Filler Name Role Phone Ca Pan MD Primary Care Pro vider Encounter Details Date Type Department Care Team (Late st Contact Info) Description 10/31/2024 Transitional Care Management Telephone Encounter [facility] [address] [place] [phone] Cyndi Roberto RN Social History Tobacco [...] Note - Cyndi Roberto RN - 10/31/2024 11:26 AM EDT Call Center TCM Note Flowsheet Row Responses [facility] patient discharged from? Non-BH Does the patient have one of the following disease processes/diagnoses(primary or secondary)? Other TCM attempt successful? Yes Call start time [phone] Call end time [phone] Discharge diagnosis Decubitus ulcer of right ischium, stage IV Meds reviewed with patient/caregiver? Yes Is the patient having any side effects they believe may be caused by any medication additions or changes? No Does the patient have all medications ordered at discharge? Yes Is the patient taking all medications as directed (includes completed medication regime)? Yes Does the patient have an appointment with their PCP within 7-14 days of discharge? No Nursing Interventions Patient declined scheduling/rescheduling appointment at this time Has home health visited the patient within 72 hours of discharge? N/A Psychosocial issues? No What is the patient's perception of their health status since discharge? Improving TCM call completed? Yes Wrap up additional comments Pt doing well and will contact Dr for f/u if needs them. Call end time [phone] Cyndi Banks - Registered Nurse 10/31/2024, 11:29 EDT documented in this encounter Plan of Treatment Upcoming Encounters Date Type Department Care Team (Late st Contact Info) Description 03/01/2025 3:15 PM EST Office Visit [facility] [address] [facility] [address] [address] Manuel Harris MD [address] [address] documented as of this encounter Visit Diagnoses Not on filedocumented in this encounter Care Teams Jig Filler Relationship Specialty Start Date End Date Ca Pan MD 2530 [facility] [address] [address] PCP - General Internal Medicine 11/22/23 documented as of this encounter
--- OUTSIDE RECORDS SUMMARY | 2024-11-03 12:48 | XMS_ITS | Encounter Summary ---
Author Organization Healthcare Address [address] [id number] Care Team Providers Care Metal Turner Name Role Phone Saul Mejia MD Primary Care Provider [phone] Encounter Details Date Type Department Care Team (Late st Contact Info) Description 06/29/2023 Lab Requisition [facility] [address] [place] [address] Leida Griggs, STENOGRAPHIC COURT REPORTER [address] [address] Malignant neoplasm of appendix (CMS/HCC) [...] place to sleep or slept in a group home (including now)? No 02/08/2023 CAGE ASSESSMENT Answer [...] drink first t osito in the morning (EYE-HAT CONDITIONER) to steady your nerves or to get [...] Entry Date Author No 02/09/2023 5:28 PM America Thompson documented in this encounter Plan of Treatment Upcoming Encounters Date Type Department Care Team (Late st Contact Info) Description 11/15/2024 10:40 AM EDT Office Visit [facility] [address] 5th Floor [address] [place] [address] Noemí Ni MD [address] [place] [phone] documented as of this encounter Procedures Procedure Name Priority Date/Time Associated Diagnosis Comments HISTORICAL SURGICAL PATHOLOGY ADDENDUM Routine 06/29/2023 12:26 PM EDT Malignant neoplasm of appendix (CMS/HCC) documented in this encounter Results * Historical Surgical Pathology Addendum (06/29/2023 12:26 PM EDT) Historical Case Information Accessioned in error. 06/29/2023 12:26 PM EDT [facility] Case Report Historical Case Addendum/Amend ment Case: [id number] Authorizing Provider: Leida Griggs APRN Collected: Ordering Location: [facility] Received: 06/29/2023 1222 Pathologist: Kiah Gamez MD Specimen: [id number] 06/29/2023 12:26 PM EDT [facility] Addendum 06/29/2023 12:26 PM EDT [facility] at 1225 EDT Addendum 2 06/29/2023 12:26 PM EDT [facility] at 1225 EDT Addendum 3 06/29/2023 12:26 PM EDT [facility] at 1225 EDT Addendum 4 06/29/2023 12:26 PM EDT [facility] at 1225 EDT Addendum 5 06/29/2023 12:26 PM EDT [facility] at 1225 EDT Tissue 06/29/2023 12: 22 PM EDT us Leida Griggs APRN LAB PATHOLOGY ORDERABLES F inal Result [facility] [address] [place] [address] documented in this encounter Visit Diagnoses Diagnosis Malignant neoplasm [...] documented as of this encounter Care Teams Metal Turner Relationship Specialty Start Date End Date Saul Mejia MD [address] [place] [phone] PCP - General 08/24/22 documented as of this encounter
--- OUTSIDE RECORDS SUMMARY | 2024-11-03 12:49 | XMS_ITS | Encounter Summary ---
Author Organization Healthcare Address [address] [place] [address] Care Team Providers Care Hearing Aid Specialist Name Role Phone Saul Mejia MD Primary Care Provider [phone] Reason for Visit * Reason Onset Date Comments HCN Clinical Concern/Question 10/17/2024 Encounter Details Date Type Department Care Team (Late st Contact Info) Description 10/17/2024 Telephone [facility] [address] [facility] 5th Floor [address], [address] [place] [address] Noemí Ni MD [address] [address] HCN Clinical Concern/Question Social History Tobacco Use Types Packs/Day Years [...] time in the past [address] [facility], were you homeless or living in a [...] drink first t osito in the morning (EYE-ETHNOGRAPHIC MATERIALS CONSERVATOR) to steady your nerves or to get rid of a hangover? 0 08/25/2022 CAGE Questionnaire Score 0 023 Utilities Answer Date Recorded In the past 12 months has th [employer] gas, oil, or water [employer] threatened to shut off services in your [...] of Assessment Author No 02/09/2023 5:28 PM America Thompson * Are you blind or do you have serious difficulty seeing, even when wearing glasses? Answer Date of Assessment Author No 02/09/2023 5:28 PM EDAmerica T[place] * Do you have serious difficulty walking or climbing stairs? Answer Date of Assessment Author Yes 02/09/2023 5:28 PM America Thompson * Do you have serious difficulty dressing or bathing? Answer Date of Assessment Author No 02/09/2023 5:28 PM America Thompson * Because of a physical, mental, or emotional condition, do you have serious difficulty doing errandsalone such as visiting the doctor? Answer Date of Assessment Author Yes 02/09/2023 5:28 PM America Thompson * Calculated C-SSRS Risk Score (Lifetime/Recent) Answer Date of Assessment Author No Risk Indicated 10/18/2024 8:00 AM Vic Huber RN * Question Answer Date of Assessment Author 1. Wish to be (Past 1 Month) No 025 8:00 AM Vic Huber RN 2. Non-Specific Active Suici greyson Thoughts (Past 1 Month) No 10/18/2024 8:00 AM Vic Huber RN 6. Suicidal Behavior (Lifetime) No 8:00 AM EDT Vic Deshpande RN documented as of this encounter Mental Status * Because of a physical, mental, or emotional condition, do you have serious difficulty concentrating, remembering, or making decisions? (5 years old or older) Answer Entry Date Author No 02/09/2023 5:28 PM EDT America Gil documented in this encounter Miscellaneous Notes * Telephone Encounter - Lj Moreland RN - 10/18/2024 4:02 PM EDT Per pt, Dr. Ni has already rounded. * Telephone Encounter - Maria Alejandra Babcock - 10/17/2024 2:38 PM EDT Clinical Concern/Question Reason for Call: Patient is still inpatient wants to see if wants to see at room Best contact number: [phone] (mobile) Optimal time of day to reach caller: ANYTIME Additional comments/information from caller: None Note: Please do not reply to this message. Follow-up communication and further actions as a result of this message need to be communicated with the patient directly, if the patient is not active onMyChart. If the patient is active on MyChart, they will receive notification of the communication/outcome via MyChart. documented in this encounter Plan of Treatment Upcoming Encounters Date Type Department Care Team (Late st Contact Info) Description 11/15/2024 10:40 AM EDT Office Visit 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
--- OUTSIDE RECORDS SUMMARY | 2024-11-03 12:49 | XMS_ITS | Encounter Summary ---
Author Organization Healthcare Address [address] [place] [address] Care Team Providers Care Slat Basket Maker Helper Name Role Phone Saul Mejia MD Primary Care Provider [phone] Encounter Details Date Type Department Care Team (Latest Contact Info) Description 10/13/2024 Travel Social History Tobacco Use Types Packs/Day Years [...] place to sleep or slept in a [place] (including now)? No 02/08/2023 Humiliation, Afraid, Rape, [...] any time in the past 12 m [facility], were you homeless or living in a [place] (including now)? No 10/12/2024 CAGE ASSESSMENT Answer [...] drink first t osito in the morning (EYE-SHUTTLE BUGGY OPERATOR) to steady your nerves or to get rid of a hangover? 0 08/25/2022 CAGE Questionnaire Score 0 023 Utilities Answer Date Recorded In the past 12 months has th e [employer], gas, oil, or water company threatened to [...] Yes 02/09/2023 5:28 PM EDT America Gil documented as of this encounter Mental Status * Because of a physical, mental, or emotional condition, do you have serious difficulty concentrating, remembering, or making decisions? (5 years old or older) Answer Entry Date Author No 02/09/2023 5:28 PM EDT America Gil documented in this encounter Plan of Treatment Upcoming Encounters Date Type Department Care Team (Late st Contact Info) Description 11/15/2024 10:40 AM EDT Office Visit [facility] [address] [facility] 5th Floor [address], [address] [place] [address] Noemí Ni MD [address] [phone] documented as of this encounter Visit Diagnoses [...] documented as of this encounter Care Teams Slat Basket Maker Helper Relationship Specialty Start Date End Date Saul Mejia MD [address] [place] [phone] PCP - General 08/24/22 documented as of this encounter
--- OUTSIDE RECORDS SUMMARY | 2024-11-03 12:49 | XMS_ITS | Encounter Summary ---
Author Organization Healthcare Address [address] [place] [address] Care Team Providers Care Tiller Worker Name Role Phone Saul Mejia MD Primary Care Provider [phone] Reason for Visit * Reason Onset Date Comments HCN Clinical Concern/Question 09/08/2024 Encounter Details Date Type Department Care Team (Late st Contact Info) Description 09/08/2024 [facility]phone [facility] [address] [facility] 5th Floor [address], [address] [place] [address] Noemí Regalado MD [address] [phone] HCN Clinical Concern/Question Social History Tobacco Use [...] place to sleep or slept in a [facility] (including now)? No 02/08/2023 CAGE ASSESSMENT Answer [...] drink first t osito in the morning (EYE-INSIGHTS STRATEGIST) to steady your nerves or to get [...] Telephone Encounter - Lj Moreland RN - 09/08/2024 1:27 PM EDT RN advised a call to [phone] or [phone] facilitate surgical scheduling per MD note. Pt's mother read phone numbers back to RN for accuracy. RN explained MD will be notified as well to facilitate continuity of care. RN to message MD via [employer] secure chat. No other needs at this time. * Telephone Encounter - Kadi Cuevas - 09/08/2024 12:15 PM EDT Clinical Concern/Question Reason for Call: pt mother calling stating she had not heard about scheduling surgery with dr regalado yet and under impression she should have heard by now. Please call edith. Thanks ! Best contact number: Other: [phone] is moms number. 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
--- OUTSIDE RECORDS SUMMARY | 2024-11-03 12:49 | XMS_ITS | Clinical Summary ---
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 11/11/19 22 Active lamoTRIgine (LaMICtal) 100 MG tablet Take 1 tablet by mouth daily. Active clindamycin (Clindagel) 1 % gel Apply 1 Application topically 2 (two) times a day. 30 g 1 01/26/20 24 Active Additional Information Patient not taking.Reported on 10/10/2024 omeprazole (PriLOSEC) [address] capsule Take 1 capsule by mouth daily. Do not crush or chew. Active bisacodyl (Dulcolax) 10 MG suppository Insert 1 suppository into the rectum every other day. 12 suppository 10/31/19 25 Active ondansetron ODT (Zofran-ODT) 4 MG disintegrating tablet Dissolve 1 tablet on the tongue every 6 hours as needed for nausea or vomiting. 20 tablet 10/31/19 25 Active ketoconazole (NIZOral) 2 % cream Apply 1 Application topically 1 (one) time each day. 025 Disconti nued(Ent ered in Error) hydrocortisone 2.5 % cream Apply 1 Application topically 1 (one) time each day. 025 Disconti nued(Ent ered in Error) amphetamine-dextr oamphetamine (Adderall) 10 MG tablet Take 1 tablet (10 mg) by mouth 2 (two) times a day. 025 Disconti nued(Ent ered in Error) amphetamine-dextr oamphetamine XR (Adderall XR) 20 MG 24 hr capsule 1 capsule (20 mg). 02/20/20 025 Disconti nued(Ent ered in Error) atomoxetine (Strattera) 40 MG capsule Take 1 capsule by mouth 1 time each day. 08/03/19 025 Disconti nued(Ent ered in Error) ferrous sulfate 324 (65 Fe) MG EC tablet Take 1 tablet (324 mg) by mouth 1 (one) time each day with breakfast. Do not crush, chew, or split. 025 Disconti nued(Ent ered in Error) omeprazole OTC (PriLOSEC OTC) 20 MG EC tablet Take 1 tablet by mouth daily. Do not crush, chew, or split. 025 Disconti nued(Ent ered in Error) Active Problems Problem Noted Date Diagnosed Date Spina bifida 10/11/2024 Gastroesophageal reflux disease 10/11/2024 Hydradenitis 01/26/2024 Decubitus ulcer of right ischium, stage IV 02/04 Skin abscess 08/24/2022 Resolved Problems Problem Noted Date Diagnosed Date Resolved Date Pressure injury of skin of right buttock 08/27/2023 01/26/2024 Encounters Date Type Department Care Team Description 11/02/2024 Telephone [facility] [address] [place] [address] Noemí Ni MD 10/30/2024 Travel 10/17/2024 Telephone [facility] [address] [place] [address] Noemí Ni MD HCN Clinical Concern/Question 10/13/2024 Travel 10/11/2024 12:09 PM EDT Anesthesia Event [facility] [address] [place] [address] Khris Alex MD 10/11/2024 11:25 AM EDT - 10/11/2024 2:35 PM EDT Surgery [facility] [address] [place] [address] Noemí Ni MD Debridement Pressure right ischium, fasciocutneous flap closure 10/11/2024 9:17 AM EDT - 10/30/2024 4:07 PM EDT Hospital Encounter [facility] Inpatient [address] [place] [id number] Noemí Ni MD Decubitus ulcer of right ischium, stage IV (CMS/HCC) Discharge Disposition: Home-Health Care [facility] 10/10/2024 Travel 09/08/2024 Telephone [facility] [address] [place] [address] Noemí Ni MD HCN Clinical Concern/Question 08/25/2024 8:20 AM EDT Office Visit [facility] [address], [address] [place] [address] Noemí Ni MD Decubitus ulcer of right ischium, stage IV (CMS/HCC) (Primary Dx) 08/25/2024 Travel 08/18/2024 Travel 08/08/2024 Telephone [facility] [address] [place] [address] Lj Moreland RN 08/07/2024 Telephone [facility] [address] [place] [address] Noemí Ni MD HCN - Patient Message from Last 3 Months Family History Medical History Relation Name Comments Cancer Father Daron Padgett Heart disease Father Daron Padgett Hypertension Father Daron Padgett Cancer Mother Nelly Padgett Anesthesia problems Neg Hx Relation Name Status Comments Father Daron Padgett Mother Nelly Padgett Social History Tobacco Use Types Packs/Day Years Used Date Smoking Tobacco: Former Cigarettes 0.5 5 0 04/12/2006 - 04/12/2011 Passive Smoke Exposure: Never Smokeless Tobacco: Never Tobacco Cessation:Counseling Given: Not Answered Alcohol Use Standard Drinks/Week Comments Yes 0 [...] place to sleep or slept in a halfway (including now)? No 02/08/2023 Humiliation, Afraid, Rape, [...] any time in the past 12 m [facility], were you homeless or living in a halfway (including now)? No 10/12/2024 CAGE ASSESSMENT Answer [...] drink first t osito in the morning (EYE-PRECISION LENS TECHNICIAN) to steady your nerves or to get [...] on file Sexual Orientation Not on file Last Filed Vital Signs Vital Sign Reading [...] Mass Index 34.92 10/11/2024 10:45 AM EDT Plan of Treatment Upcoming Encounters Date Type Department Care Team (Late st Contact Info) Description 11/15/2024 10:40 AM EDT Office Visit [facility] [address] 5th Floor [address] [place] [address] Noemí Ni MD [address] [place] [address] Health Maintenance Due Date Last Done Comments [facility]-HIV Screening 1990 [facility]-/Child/Adol SDOH Screenings 1990 [facility]-Varicella Vaccines (1 of 2 - 13+ 2-dose series) 2003 HPV Vaccines (1 - Male 3-dose series) 2005 [facility]-Hepatitis B Vaccines (1 of 3 - 19+ 3-dose series) 2009 [facility]-Medicare Annual Wellness (AWV) 10/09/2022 10/09/2021 [id number] Vaccine ( - season) 2023 02/20/2021, 07/19/2020, 06/26/2020 [facility]-Depression Screening 06/30/2024 07/01/2023 [facility]-Influenza Vaccine (#1) 12/11/202401/02, 12/14/2019, 05/10/2019 [facility]- SDOH Screenings 04/14/2025 [facility]-Adult SDOH Screenings 04/14/2025 10/12/2024 [facility]-DTaP,Tdap,and Td Vaccines (2 - Td or Tdap) 07/07/2033 07/08/2023 [facility]-Zoster Vaccines (1 of 2) 2040 [facility]-Hepatitis C Screening Completed 11/22/2023 [facility]-Obesity Intervention Completed 025, 08/25/2024, 07/19/2024, Additional history exists [facility]-HIB Vaccines Aged Out No longer e ligible based on patient's age to complete this topic [facility]-Hepatitis A Vaccines Aged Out No longer eligible based on patient's age to complete this topic [facility]-IPV Vaccines Aged Out No longer e ligible based on patient's age to complete this topic [facility]-Pneumococcal Vaccine: Pediatrics (0 to 5 Years) and At-Risk Patients (6 to 49 Years) Aged Out No longer eligible based on patient's age to complete this topic [facility]-Rotavirus Vaccines Aged Out No lo nger eligible based on patient's age to complete this topic Procedures Procedure Name Priority Date/Time Associated Diagnosis Comments WOUND OSTOMY EVAL AND TREAT Routine 10/20/2024 11:02 AM EDT CO NEG PRESSURE WOUND THERAPY NON DME >50 SQ CM Routine 10/20/2024 8:04 AM EDT Decubitus ulcer of right ischium, stage IV (CMS/[facility]) CREATININE, PLASMA Routine 10/19/2024 4: 43 AM [...] ulcer of right ischium, stage IV (CMS/HCC) ANESTHESIA PERIPHERAL IV PLACEMENT Routine 10/11/2024 12:35 PM EDT PB ANESTHESIA PLACEHOLDER Routine 10/11/2024 12:22 PM EDT CO AN ELECTIVE ENDOTRACHEAL AIRWAY Routine 10/11/2024 12:22 PM EDT DEBRIDEMENT, PRESSURE ULCER 10/11/2024 11:59 AM EDT Decubitus ulcer of right ischium, stage IV (CMS/HCC) Special Needs methylene blue, rongeur, dolphin bed, 10 flat SATYA drains from Last 3 Months Results * CO NEG PRESSURE WOUND THERAPY NON DME >50 [...] (ABNORMAL) Creatinine, Plasma (10/19/2024 4:43 AM EDT) Only the most recent of6 resultswithin the time period is included. Creatinine, Plasma 0.62(L) 0.70 - 1.20 mg/dL 10/19/2024 5:52 AM EDT [facility] eGFRcr 128.6 mL/min/1.7 3m*2 10/19/2024 5:52 AM EDT [facility] Comment:Reported eGFRcr in m L/min/1.73m2 is based the CKD-EPI 2020 equation that does not use a race coefficient. Blood Venous blood specimen / Unknown Venipuncture / Unknown 10/19/2024 4:43 AM EDT 10/19/2024 4:51 AM EDT us Noemí Ni MD LAB BLOOD ORDERABLES Final Resul t [facility] [address] [place] [address] * PERIPHERAL IV (SMARTFORM LINK) (10/17/2024 10:56 PM EDT) Only the most recent of2 resultswithin the time period is included. Narrative Surya Koehler RN - 10/17/2024 10:56 [...] IV THERAPY ORDERABLES Final Resu lt * Vancomycin, Peak, Plasma Please draw ~2 hours after 0030 dose of vancomycin finishes infusing. Consider obtaining level via peripheral stick. If peripheral stick is not feasible, please ensure that line is flushed well prior to drawing level. Than... (10/16/2024 4:48 AM EDT) Only the most recent of2 resultswithin the time period is included. Vancomycin, Peak, Plasma 22.3 20.0 - 40.0 ug/mL 10/16/2024 5:38 AM EDT [facility] Blood Venous blood specimen / Unknown Venipuncture / Unknown 10/16/2024 4:48 AM EDT 10/16/2024 5:10 AM EDT Narrative [facility] - 10/16/2024 5:38 AM EDT Therapeutic Peak level: 20-40ug/mL Supra-therapeutic Peak level: >40 ug/mL Noemí Ni MD LAB BLOOD ORDERABLES Final Resul t [facility] [address] [place] [address] * Vancomycin, Trough, Plasma Please draw ~30 minutes prior to dose due at 0030 on 10/16. Please do NOT hold dose awaiting level to return. Consider obtaining level via peripheral stick. If peripheral stick is not feasible, please ensure that line is ... (10/15/2024 11:52 PM EDT) Only the most recent of2 resultswithin the time period is included. Vancomycin, Trough, Plasma 10.9 10.0 - 20.0 ug/mL 10/16/2024 12:31 AM EDT [facility] Blood Venous blood specimen / Unknown Venipuncture / Unknown 10/15/2024 11:52 PM EDT 10/15/2024 11:59 PM EDT Narrative [facility] - 10/16/2024 12:31 AM EDT Therapeutic Trough level: 10-20ug/mL Supra-therapeutic Trough level: >20 ug/mL us Noemí Ni MD LAB BLOOD ORDERABLES Final Resul t Performing Organization Address [facility]/[place] [address] * Multi Drug Resistance Test (10/11/2024 5:24 PM EDT) [facility] Culture No growth at day 1 10/12/2024 6:51 PM EDT [facility] Swab (Nares and Amy Rectal) 10/11/2024 5:24 PM EDT 10/11/2024 5:24 PM EDT Narrative [facility] - 10/12/2024 6:51 PM EDT This test was developed and its performance characteristics determined by the [facility]. Although the media is FDA-approved, it is not FDA-approved for all specimen types submitted. The FDA has determined that such clearance or approval is not necessary. This test is used for surveillance purposes. It should not be regarded as investigational or for research. The [facility] is certified under the Clinical Laboratory Improvement Amendments of 1988 (CLIA-88) as qualified to perform high complexity clinical laboratory testing. us Noemí Ni MD LAB MICROBIOLOGY - GENERAL ORDER SABA Final Result Performing Organization Address City/[facility]/[place] [address] * (ABNORMAL) Basic metabolic panel (10/11/2024 4:57 PM EDT) Pathologist [facility] Glucose, Plasma 114(H) 74 - 99 mg/dL 10/11/2024 5:45 PM EDT [facility] BUN, Plasma 11 7 - 21 mg/dL 10/11/2024 5:45 PM EDT [facility] Creatinine, Plasma 0.66(L) 0.70 - 1.20 mg/dL 10/11/2024 5:45 PM EDT [facility] BUN/Creatinine Ratio 17 10/11/2024 5:45 PM EDT [facility] Sodium, Plasma 137 136 - 145 mmol/L 10/11/2024 5:45 PM EDT [facility] Potassium, Plasma 4.7 3.6 - 4.9 mmol/L 10/11/2024 5:45 PM EDT [facility] Chloride, Plasma 106 97 - 107 mmol/L 10/11/2024 5:45 PM EDT [facility] CO2, Plasma 19(L) 22 - 29 mmol/L 10/11/2024 5:45 PM EDT [facility] Anion Gap 12 6 - 16 mmol/L 10/11/2024 5:45 PM EDT [facility] Total Calcium, Plasma 8.5(L) 8.9 - 10.2 mg/dL 10/11/2024 5:45 PM EDT [facility] eGFRcr 126.2 mL/min/1.7 3m*2 10/11/2024 5:45 PM EDT [facility] Comment:Reported eGFRcr in m L/min/1.73m2 is based the CKD-EPI 2020 equation that does not use a race coefficient. Blood Venous blood specimen / Unknown Venipuncture / Unknown 10/11/2024 4:57 PM EDT 10/11/2024 5:17 PM EDT us Noemí Ni MD LAB BLOOD ORDERABLES Final Resul t [facility] [address] [place] [address] * (ABNORMAL) Tissue Culture and Gram Stain (10/11/2024 2:27 PM EDT) Culture Light Growth 10/14/2024 1:08 PM EDT [facility] Culture Corynebacterium striatum group(A) 10/14/2024 1:08 PM EDT [facility] Comment: This isolate has been identified using the FDA Approved Zebtaber CA System The organism value for this result has been updated. These results have been appended to the previously preliminary verified report. Gram Stain Result No organisms seen 10/14/2024 1:08 PM EDT [facility] Gram Stain Result No polymorphonuclear leukocytes seen 10/14/2024 1:08 PM EDT [facility] Tissue Structure of right buttock [...] MICROBIOLOGY - GENERAL ORDER SABA Final Result [facility] [address] [place] [address] * Anaerobic Culture (10/11/2024 2:27 PM EDT) Culture No anaerobes isolated 10/15/2024 2:43 PM EDT [facility] Tissue Structure of right buttock / Unknown 10/11/2024 2:27 PM EDT 10/11/2024 2:43 PM EDT Comment:Pre-op diagnosis: Decubitus ulcer of right ischium, stage IV (CMS/HCC) [L89.314] us Noemí Ni MD LAB MICROBIOLOGY - GENERAL ORDER SABA Final Result [facility] [address] [place] [address] * Surgical Pathology Exam (10/11/2024 2:23 PM EDT) Case Report Surgical Pathology Case: [id number] Authorizing Provider: Noemí Ni MD Collected: 10/11/2024 1423 Ordering Location: [facility] A OPERATING ROOM Received: 10/11/2024 1442 Pathologist: Luanne Liriano MD Specimen: Buttock, Right, 1) Right Ischial Pessure Ulcer - Permanent 10/16/2024 3:35 PM EDT [facility] Final Diagnosis A. RIGHT ISCHIAL PESSURE ULCER, DEBRIDEMENT: - ULCERATED SKIN, GRANULATION TISSUE, AND FIBROSIS. 10/16/2024 3:35 PM EDT [facility] at 1535 EDT Clinical Information Decubitus ulcer of right ischium, stage IV (CMS/HCC) [L89.314] 10/16/2024 3:35 PM EDT [facility] Gross Description A. 1) RIGHT ISCHIAL PESSURE ULCER - PERMANENT Received fresh and subsequently placed in formalin labeled Right Ischial Pessure Ulcer is an aggregate of skin and soft tissue measuring 6.4 x 4.5 x 1.7 cm. The skin surface is adams-pink with areas that are brown-carter and roughened. Marker Machine sections are submitted in cassette A1. Cold Time: <1m Eileen Alexandra 10/16/2024 3:35 PM EDT [facility] Tissue Structure of right buttock / Unknown 10/11/2024 2:23 PM EDT 10/11/2024 2:42 PM EDT Comment:Pre-op diagnosis: Decubitus ulcer of right ischium, stage IV (CMS/HCC) [L89.314] us Noemí Ni MD LAB PATHOLOGY ORDERABLES Final R esult [facility] [place] [address] * Peripheral IV (10/11/2024 12:35 PM EDT) Narrative Nathan [place] CRNA - 10/11/2024 12:35 PM EDT Nathan [place] CRNA 10/11/2024 12:48 PM Peripheral IV Date/Time: 10/11/2024 12:35 PM Inserted by: Nathan [place] CRNA Placement Needle size: 20 G Location: hand Local anesthetic: none Site prep: alcohol Technique: anatomical landmarks Attempts: 1 us Khris Alex MD ANESTHESIA ORDERABLES Final Re sult * CO AN ELECTIVE ENDOTRACHEAL AIRWAY, PB ANESTHESIA PLACEHOLDER (10/11/2024 12:22 PM EDT) Narrative Nathan [place] CRNA - 10/11/2024 12:22 PM EDT Nathan [place] CRNA 10/11/2024 12:43 PM Airway Date/Time: 10/11/2024 12:22 PM Reason: elective Airway not difficult General Information and Staff Patient location during procedure: OR MINE SHIFTER: Nathan [place] CRNA Performed: JOMAR Patient Condition Indications for airway management: anesthesia [...] Alex MD ANESTHESIA ORDERABLES Final Re sult from Last 3 Months Additional Health Concerns Infection Onset Date 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 Yes * Full Code Date Activated Date Inactivated Comments 08/24/2022 6:35 PM 08/25/2022 5:59 PM Question Answer Comments Patient has decision-making capacity? Yes Care Teams Product Finisher Relationship Specialty Start Date End Date Saul Mejia MD [address] [place] [phone] PCP - General 08/24/22
--- OUTSIDE RECORDS SUMMARY | 2024-11-03 12:49 | XMS_ITS | Encounter Summary ---
Author Organization Healthcare Address [address] [place] [address] Care Team Providers Care Data Quality Consultant Name Role Phone Saul Mejia MD Primary Care Provider [phone] Encounter Details Date Type Department Care Team (Latest Contact Info) Description 10/30/2024 Travel Social History Tobacco Use Types Packs/Day [...] to sleep or slept in a senior living (including now)? No 02/08/2023 Humiliation, Afraid, Rape, [...] any time in the past 12 m [facility], were you homeless or living in a senior living (including now)? No 10/12/2024 CAGE ASSESSMENT Answer [...] drink first t osito in the morning (EYE-SQL DATABASE ADMINISTRATOR) to steady your nerves or to get rid of a hangover? 0 08/25/2022 CAGE Questionnaire Score 0 023 Utilities Answer Date Recorded In the past 12 months has th e [employer], gas, oil, or water company threatened to [...] Description 11/15/2024 10:40 AM EDT Office Visit [facility] [address] [facility] 5th Floor [address] [place] [address] Noemí Ni MD [address] [phone] documented as of this encounter Visit Diagnoses [...] documented as of this encounter Care Teams Data Quality Consultant Relationship Specialty Start Date End Date Saul Mejia MD [address] [place] [phone] PCP - General 08/24/22 documented as of this encounter
--- OUTSIDE RECORDS SUMMARY | 2024-11-03 12:49 | XMS_ITS | Clinical Summary ---
Author Organization [facility] Address [address] [place], [place] [id number] Phone [email or web address] Care Team Providers Care Set And Exhibit Designer Name Role Phone Unavailable Primary Care Provider Unavailabl e Social History Tobacco Use Types Packs/Day Years Used Date Smoking Tobacco: Never Assessed Intimate Partner Violence Answer Date R ecorded Insults You Not on file 01/29/2021 Threatens You Not on file 01/29/2021 Screams at You Not on file 01/29/2021 Physically Hurt Not on file 01/29/2021 Intimate Partner Violence Score Not on file 01/29/2021 Stress Answer Date Recorded Stress in your Life Not on file 02/16/2024 Dealing with Stress 3 02/16/2024 Sex and Gender Information Value Date Recorded Sex Assigned at Not on file Legal Sex Male 12:59 PM CDT Gender Identity Not on file Sexual Orientation Not on file Last Filed Vital Signs Vital Sign Reading Time Taken Comments Blood Pressure - - Pulse - - Temperature 37.1 C (98.8 F) 02/06/2021 10:06 AM EDT Respiratory Rate - - Oxygen Saturation - - Inhaled Oxygen Concentration - - Weight - - Height - - Body Mass Index - - Plan of Treatment Health Maintenance Due Date Last Done Comments Dental Cleaning/Exam 1990 HIV Screening 1990 Hepatitis C Screening 1990 Annual Preventive Exam 2008 Hep B Infection Screening - Triple Screen 2008 Hepatitis B Immunization (1 of 3 - 19+ 3-dose series) 2009 Tetanus Diphtheria and Pertu ssis Immunization (1 - Tdap) 2009 Covid-19 Immunization (1 - 2 024-25 season) 2023 Influenza Immunization (#1) 2024 HIB Immunization Aged Out No longer e ligible based on patient's age to complete this topic HPV Immunization Aged Out No longer e ligible based on patient's age to complete this topic Hepatitis A Immunization Aged Out No longer eligible based on patient's age to complete this topic Pneumococcal: Ped (0 to 5 Yr s) and At-Risk Member (6 to 64 Yrs) Aged Out No longer e ligible based on patient's age to complete this topic Polio Immunization Aged Out No longer eligible based on patient's age to complete this topic Varicella Immunization Aged Out No lo nger eligible based on patient's age to complete this topic Insurance OPT OUT NO COPAY NB
--- OUTSIDE RECORDS SUMMARY | 2024-11-03 12:49 | XMS_ITS | Encounter Summary ---
Author Organization [facility] Address [address] [place] [address] Care Team Providers Care Full Charge Bookkeeper Name Role Phone Saul Mejia MD Primary Care Provider [phone] Encounter Details Date Type Department Care Team (Latest Contact Info) Description 10/10/2024 Travel Social History Tobacco Use Types Packs/Day [...] money to buy more. Never true 02/09/20 23 Within the past 12 months, t he [...] place to sleep or slept in a skilled nursing (including now)? No 02/08/2023 CAGE ASSESSMENT Answer [...] drink first t osito in the morning (EYE-JAVA DEVELOPMENT TEAM LEAD) to steady your nerves or to get [...] Description 11/15/2024 10:40 AM EDT Office Visit [facility] [address] [facility] 5th Floor [address] [place] [address] Noemí Ni MD [address] [facility] [address] [place] [address] documented as of this encounter Visit Diagnoses [...] documented as of this encounter Care Teams Full Charge Bookkeeper Relationship Specialty Start Date End Date Saul Mejia MD [address] [place] [phone] PCP - General 08/24/22 documented as of this encounter
--- OUTSIDE RECORDS SUMMARY | 2024-11-03 12:49 | XMS_ITS | Encounter Summary ---
Author Organization Healthcare Address [address] [place] [address] Care Team Providers Care Boiler Shop Mechanic Name Role Phone Saul Mjeia MD Primary Care Provider [phone] Encounter Details Date Type Department Care Team (Late st Contact Info) Description 11/02/2024 Telephone [place] [facility] [address] [facility] 5th Floor Wing [address], [address] [place] [address] Noemí Ni MD [facility] [address] Social History Tobacco Use Types Packs/Day Years [...] any time in the past 12 m [facility], were you homeless or living in a [...] drink first t osito in the morning (EYE-INTERNET MARKETING MANAGER) to steady your nerves or to get rid of a hangover? 0 08/25/2022 CAGE Questionnaire Score 0 023 Utilities Answer Date Recorded In the past 12 months has jaden e electric, gas, oil, or water company [...] No 02/09/2023 5:28 PM America Thompson * Do you have serious difficulty walking [...] Author Yes 02/09/2023 5:28 PM America Thompson documented as of this encounter Mental Status * Because of a physical, mental, or emotional condition, do you have serious difficulty concentrating, remembering, or making decisions? (5 years old or older) Answer Entry Date Author No 02/09/2023 5:28 PM Amercia Thompson documented in this encounter Miscellaneous Notes * Telephone Encounter - Maximiliano Gomez - 11/02/2024 11:09 AM EDT Spoke with pt and confirmed discharge follow up appointments. Pt is agreeable to times/date/locations/prep. documented in this encounter Plan of Treatment Upcoming Encounters Date Type Department Care Team (Late st Contact Info) Description 11/15/2024 10:40 AM EDT Office Visit [facility] [address] 5th Floor [address], [address] [place] [phone] Noemí Ni MD [address] [place] [phone] documented as of this encounter Visit Diagnoses [...] documented as of this encounter Care Teams Boiler Shop Mechanic Relationship Specialty Start Date End Date Saul Mejia MD [address] [place] [phone] PCP - General 08/24/22 documented as of this encounter
[2024-11-03 12:50] LABS: Microscopic, Urine URINE MICROSCOPIC (MICROSCOPIC)
[2024-11-03 13:17] LABS: Bilirubin,Urine Negative (Negative); Color,Urine YELLOW (Yellow); Glucose,Urine (UA) Negative (Negative); Ketones,Urine Negative (Negative); Leukocyte Esterase,Urine 3+ (Negative); PH,Urine 7.5 (5.0-8.5); Protein,Urine TRACE (Negative); Specific Gravity, Urine 1.015 (1.005-1.030); Urobilinogen,Urine 0.2 EU/dl (0.2)
[2024-11-03 13:24] LABS: WBC,Urine TNTC #/hpf (0-3)
[2024-11-03 13:25] LABS: Bacteria,Urine 4+ /lpf
--- OUTSIDE RECORDS SUMMARY | 2024-11-06 15:44 | XMS_ITS | Encounter Summary ---
Author Organization Healthcare Address [address] [place] [address] Care Team Providers Care Marshmallow Maker Name Role Phone Saul Mejia MD Primary Care Provider Encounter Details Date Type Department Care Team (Late st Contact Info) Description 11/06/2024 [facility]phone [facility] [address] [facility] 5th Floor Wing [address], [address] [place] [address] Lj Moreland, RN Social History Tobacco Use Types Packs/Day [...] place to sleep or slept in a assisted (including now)? No 02/08/2023 Humiliation, Afraid, Rape, [...] any time in the past 12 m [facility], were you homeless or living in a assisted (including now)? No 10/12/2024 CAGE ASSESSMENT Answer [...] drink first t osito in the morning (EYE-NUTS AND BOLTS ASSEMBLER) to steady your nerves or to get rid of a hangover? 0 08/25/2022 CAGE Questionnaire Score 0 023 Utilities Answer Date Recorded In the past 12 months has th [employer] electric, gas, oil, or water company threatened [...] PM America Thompson documented in this encounter Miscellaneous Notes * Telephone Encounter - Lj Moreland RN - 11/06/2024 8:41 AM EDT RN called pt re fax received from [employer] stating pt had fever, increased HR, and (+) urine cx.Per pt, PCP called in abx and he has improved. Pt requested next appt with Dr. Ni be r/s'd to telehealth. RN to reach out to provider. documented in this encounter Plan of Treatment Upcoming Encounters Date Type Department Care Team (Late st Contact Info) Description 11/15/2024 10:40 AM EDT [facility] [address] 5th Floor [address], [address] [place] [phone] Noemí Ni MD [address] [facility] 2nd [place] [phone] documented as of this encounter Visit Diagnoses [...] documented as of this encounter Care Teams Marshmallow Maker Relationship Specialty Start Date End Date Saul Mejia MD [address] [place] [phone] PCP - General 08/24/22 documented as of this encounter
--- OUTSIDE RECORDS SUMMARY | 2024-11-06 15:45 | XMS_ITS | Encounter Summary ---
Author Organization Healthcare Address [address] [place] [id number] Care Team Providers Care Learning Analyst Name Role Phone Saul Mejia MD Primary Care Provider [phone] Encounter Details Date Type Department Care Team (Late st Contact Info) Description 06/29/2023 Lab Requisition [facility] [address] [place] [address] Leida Griggs, CONCRETE MIXING PLANT SUPERINTENDENT [address] [address] Malignant neoplasm of appendix (CMS/HCC) [...] in a halfway (including now)? No 02/08/2023 CAGE ASSESSMENT Answer [...] drink first t osito in the morning (EYE-SUPERVISOR INSULATION) to steady your nerves or to get [...] Description 11/15/2024 10:40 AM EDT Office Visit [facility] [address] 5th Floor [address], [address] [place] [address] Noemí Ni MD [address] [place] [phone] documented as of this encounter Visit Diagnoses [...] documented as of this encounter Care Teams Learning Analyst Relationship Specialty Start Date End Date Saul Mejia MD [address] [place] [phone] PCP - General 08/24/22 documented as of this encounter
--- OUTSIDE RECORDS SUMMARY | 2024-11-06 15:45 | XMS_ITS | Clinical Summary ---
Author Organization [facility] Address [address] [place] [address] Care Team Providers Care Water Main Inspector Name Role Phone Ca Pan MD Primary Care Pro vider Allergies Active Allergy Reactions Criticality Noted Date Comments Latex Rash Low 09/02/2021 Sulfa Antibiotics Rash Low 09/02/2021 Vancomycin Itching,Rash,Swelling High 08/24/2022 Medications * This document contains information received from the source organization and may not represent a complete record from that organization. Catheters misc Use 1 each 4 (Four) Times a Day. 120 each 01/13/20 24 Active Catheters misc Use 1 each Daily. 30 each 01/13/20 24 Active clindamycin 1 % gel Apply 1 Application topically to the appropriate area as directed 2 (Two) Times a Day As Needed (rash). 60 g 11 03/16/20 24 Active oxybutynin XL (DITROPAN XL) 15 MG 24 hr tabletIndication s:Excessive sweating Take 1 tablet by mouth once daily 90 tablet 3 05/02/19 25 Active omeprazole (priLOSEC) 20 MG capsule Take 1 capsule by mouth Daily. 90 capsule 3 08/29/19 25 Active Catheters miscIndications: Neurogenic Bladder,Luja Coude Male Pocket Size 14 FR Use 1 each 4 (Four) Times a Day. Indications: Neurogenic Bladder, Luja Coude Male Pocket Size 14 FR 120 each 11 08/29/19 25 Active lamoTRIgine (LaMICtal) 100 MG tabletIndication s:Recurrent major depressive disorder, in partial remission,Sleep disturbance Take 1 tablet by mouth Every Night. 90 tablet 1 09/26/19 25 Active ciprofloxacin (CIPRO) 500 MG tablet Take 1 tablet by mouth 2 (Two) Times a Day for 7 days. 14 tablet 11/07/19 25 2024 Active atomoxetine (Strattera) 40 MG capsuleIndicatio ns:ADHD (attention deficit hyperactivity disorder), combined type Take 1 capsule by mouth Daily. 90 capsule 1 11/04/19 24 2024 Additional Information Patient not taking.Reported on 09/25/2024 nitrofurantoin, macrocrystal-mon ohydrate, (MACROBID) 100 MG capsule Take 1 capsule by mouth Every 12 (Twelve) Hours for 7 days. 14 capsule 11/04/19 25 2024 Discontinued Active Problems Problem Noted Date Diagnosed Date [...] 02/22/2024 ADHD 11/22/2023 Overview (11/22/2023): Following with [facility], on atomoxetine Assessment & Plan (08/28/2024 11:47 [...] Of the groin region, is using an [id number] zinc oxide paste. Offered referral to dermatology [...] catheter I can get them ordered through [employer]. Assessment & Plan (11/22/2023 1:52 PM EDT): [employer] supplies 14 straight #[id number] I&O 4x/day In and out caths 4 [...] would like to switch psychiatrists to the [facility] [place] He is on lamictal for mood, I [...] would like to switch psychiatrists to the [facility] in [place] He is on lamictal for mood, I [...] & Plan (11/22/2023 1:59 PM EDT): S/p ONLINE PROGRAM COORDINATOR shunt L1 paraplegic Has had CHAD procedure, gives himself enemas daily through ostomy Self cath female straight tip 8 fr 6 length, funnel end #[id number] - 30/month - DME through [facility] Wheelchair Bound Resolved Problems Problem Noted Date Diagnosed Date Resolved Date Decubitus ulcer of ischium, right, unspecified pressure ulcer stage 02/04/2023 024 Encounters * This document contains information received from the source organization and may not represent a complete record from that organization. Date Type Department Care Team Description 11/06/2024 Telephone [facility] [address] [phone] Ca Pan MD BACTERIAL INFECTION 11/03/2024 Telephone [facility] [address] [phone] Ari Patel Jr., [place] Antibiotic request 10/31/2024 Transitional Care Management Telephone [facility] [address] [place] [address] Cyndi Roberto RN 10/31/2024 Transitional Care Management Telephone [facility]counter [facility] [address] [place] [address] Cyndi Roberto RN 10/30/2024 Readmission Management [facility] [address] [place] [address] Chari Acosta RN 08/28/2024 11:00 AM EDT Office Visit [facility] [address] [place] [address] Ca Pan MD Anxiety (Primary Dx); Moderate episode of recurrent major depressive disorder; Attention deficit hyperactivity disorder (ADHD), predominantly inattentive type; Hidradenitis; Pressure injury of right buttock, stage 4; Gastroesophageal reflux disease without esophagitis; Neurogenic dysfunction of the urinary bladder 08/28/2024 Travel from Last 3 Months Immunizations Immunization Administration Dates Next Due COVID-19 (Picklive) Purple Cap Monovalent 02/21/20 21,07/19/2020,06/26/2020 Flu Vaccine [...] Description 03/01/2025 3:15 PM EST Office Visit [facility] [address] [phone] Manuel Harris MD [address] [facility] [address] [place] [address] Health Maintenance Due Date Last Done Comments [...] ve Non-Reacti ve 11/23/2023 1:27 AM EDT [facility] Blood Structure of left upper limb / Unknown Venipuncture / Unknown 11/22/2023 1:54 PM EDT 11/22/2023 1:54 PM EDT us Ca Pan MD LAB BLOOD ORDERAB LES Final Result [facility]
[address] [place] [address], from Last 3 Months or Most Recently Relevant to Health Maintenance Insurance MEDICARE ADVANTAGE HMO Care Teams Water Main Inspector Relationship Specialty Start Date End Date Ca Pan MD [address] [place] [address] PCP - General Internal Medicine 11/22/23
--- OUTSIDE RECORDS SUMMARY | 2024-11-06 15:45 | XMS_ITS | Encounter Summary ---
Author Organization [facility] Address [address] [place] [id number] Care Team Providers Care Candy Cooker Helper Name Role Phone Ca Pan MD Primary Care Pro vider Encounter Details Date Type Department Care Team (Late st Contact Info) Description 10/31/2024 Transitional Care Management Telephone Encounter [facility] [address] [place] [address] Cyndi Roberto RN Social History Tobacco [...] Description 03/01/2025 3:15 PM EST Office Visit [facility] [address] [facility] [address] [address] Manuel Harris MD [address] [address] documented as of this encounter Visit Diagnoses Not on filedocumented in this encounter Care Teams Candy Cooker Helper Relationship Specialty Start Date End Date Ca Pan MD [address] [facility] [address] [address] PCP - General Internal Medicine 11/22/23 documented as of this encounter
--- OUTSIDE RECORDS SUMMARY | 2024-11-06 15:46 | XMS_ITS | Encounter Summary ---
Author Organization [facility] Address [address] [place] [id number] Care Team Providers Care Telecommunications Cable Jointer Name Role Phone Ca Pan MD Primary Care Pro vider Encounter Details Date Type Department Care Team (Late st Contact Info) Description 10/31/2024 Transitional Care Management Telephone Encounter [facility] [address] [place] [phone] Cyndi Roberto RN Social History Tobacco [...] Call Center TCM Note Flowsheet Row Responses [facility] patient discharged from? Non-BH Does the patient have one of the following disease processes/diagnoses(primary or secondary)? Other TCM attempt successful? No Unsuccessful attempts Attempt 1 Cyndi Banks - Registered Nurse 10/31/2024, 10:46 EDT documented in this encounter Plan of Treatment Upcoming Encounters Date Type Department Care Team (Late st Contact Info) Description 03/01/2025 3:15 PM EST Office Visit [facility] [address] [address] Manuel Harris MD [address] [address] documented as of this encounter Visit Diagnoses Not on filedocumented in this encounter Care Teams Telecommunications Cable Jointer Relationship Specialty Start Date End Date Ca Pan MD [address] [address] PCP - General Internal Medicine 11/22/23 documented as of this encounter
--- OUTSIDE RECORDS SUMMARY | 2024-11-06 15:46 | XMS_ITS | Clinical Summary ---
Author Organization [facility] Address [address] [place] [address] Care Team Providers Care Refuse Laborer Name Role Phone Saul Mejia MD Primary Care Provider [phone] Allergies Active Allergy Reactions Criticality Noted Date [...] Encounters Date Type Department Care Team Description 11/06/2024 Telephone [facility] [address] [place] [address] [address], [address] [place] [address] Lj Moreland RN 11/02/2024 Telephone [facility] [address] [place] [address] D, [address] [place] [address] Noemí Ni MD 10/30/2024 Travel 10/17/[address] [facility] [address], [address] [place] [address] Noemí Ni MD HCN Clinical Concern/Question 10/13/2024 Travel 10/11/2024 12:09 PM EDT Anesthesia Event [facility] OPERATING ROOM [address] [place] [address] Khris Alex MD 10/11/2024 11:25 AM EDT - 10/11/2024 2:35 PM EDT Surgery [facility] OPERATING ROOM [address] [place] [phone] Noemí Ni MD Debridement Pressure right ischium, fasciocutneous flap closure 10/11/2024 9:17 AM EDT - 10/30/2024 4:07 PM EDT Hospital Encounter [facility] A Inpatient [address] [place] [id number] Noemí Ni MD Decubitus ulcer of right ischium, stage IV (CMS/HCC) Discharge Disposition: [place]Health [place] [facility] [place]/10/2024 Travel 09/08/[address] [facility] [address], [address] [place] [address] Noemí Ni MD HCN Clinical Concern/Question 08/25/2024 8:20 AM EDT Office Visit [facility] [address], [address] [place] [address] Noemí Ni MD Decubitus ulcer of right ischium, stage IV (CMS/HCC) (Primary Dx) 08/25/2024 Travel 08/18/2024 Travel 08/08/[address] [facility] [address], [address] [place] [address] Lj Moreland, RN 08/07/[address] [facility] [address], [address] [place] [address] Noemí Ni MD HCN - Patient Message [...] any time in the past 12 m [facility], were you homeless or living [...] drink first t osito in the morning (EYE-LIME SUPERVISOR) to steady your nerves or to [...] [place] [facility] [address] 5th Floor Wing D, [address] [place] [address] Noemí Ni MD [address] [place] [address] Health Maintenance Due Date Last Done Comments [facility]-HIV Screening 1990 [facility]-/Child/Adol SDOH Screenings 1990 [facility]-Varicella Vaccines (1 of 2 - 13+ 2-dose series) 2003 HPV Vaccines (1 - Male 3-dose series) 2005 [facility]-Hepatitis B Vaccines (1 of 3 - 19+ 3-dose series) 2009 [facility]-Medicare Annual Wellness (AWV) 10/09/2022 10/09/2021 [id number] Vaccine ( season) 2023 02/20/2021, 07/19/2020, 06/26/2020 [facility]-Depression Screening [...] AND TREAT Routine 10/20/2024 11:02 AM EDT IN NEG PRESSURE WOUND THERAPY NON DME >50 [...] ANESTHESIA PLACEHOLDER Routine 10/11/2024 12:22 PM EDT IN AN ELECTIVE ENDOTRACHEAL AIRWAY Routine 10/11/2024 12:22 PM EDT DEBRIDEMENT, PRESSURE ULCER 10/11/2024 11:59 AM EDT Decubitus ulcer of right ischium, stage IV (CMS/HCC) Special Needs methylene blue, rongeur, dolphin bed, 10 flat SATYA drains from Last 3 Months Results * IN NEG PRESSURE WOUND THERAPY NON DME >50 [...] - 1.20 mg/dL 10/19/2024 5:52 AM EDT [facility] eGFRcr 128.6 mL/min/1.7 3m*2 10/19/2024 5:52 AM EDT [facility] Comment:Reported eGFRcr in m L/min/1.73m2 is based the CKD-EPI 2020 equation that does not use a race coefficient. Blood Venous blood specimen / Unknown Venipuncture / Unknown 10/19/2024 4:43 AM EDT 10/19/2024 4:51 AM EDT us Noemí Ni MD LAB BLOOD ORDERABLES Final Resul t [facility] [address] [place] [address] * PERIPHERAL IV (SMARTFORM LINK) (10/17/2024 10:56 [...] - 40.0 ug/mL 10/16/2024 5:38 AM EDT [facility] Blood Venous blood specimen / Unknown Venipuncture / Unknown 10/16/2024 4:48 AM EDT 10/16/2024 5:10 AM EDT Narrative [facility] - 10/16/2024 5:38 AM EDT Therapeutic Peak level: 20-40ug/mL Supra-therapeutic Peak level: >40 ug/mL us Noemí Ni MD LAB BLOOD ORDERABLES Final Resul t [facility] [address] [place] [address] * Vancomycin, Trough, Plasma Please draw ~30 [...] - 20.0 ug/mL 10/16/2024 12:31 AM EDT [facility] Blood Venous blood specimen / Unknown Venipuncture / Unknown 10/15/2024 11:52 PM EDT 10/15/2024 11:59 PM EDT Narrative [facility] - 10/16/2024 12:31 AM EDT Therapeutic Trough level: 10-20ug/mL Supra-therapeutic Trough level: >20 ug/mL us Noemí Ni MD LAB BLOOD ORDERABLES Final Resul t Performing Organization Address [facility]/ZIP Co de Phone Number [facility] [address] [place] [address] * Multi Drug Resistance Test (10/11/2024 5:24 PM EDT) Culture No growth at day 1 10/12/2024 6:51 PM EDT [facility] Swab (Nares and Amy Rectal) 10/11/2024 5:24 PM EDT 10/11/2024 5:24 PM EDT Narrative [facility] - 10/12/2024 6:51 PM [...] MICROBIOLOGY - GENERAL ORDER SABA Final Result [facility] [address] [place] [address] * (ABNORMAL) Basic metabolic panel (10/11/2024 4:57 PM EDT) Glucose, Plasma 114(H) 74 - 99 mg/dL 10/11/2024 5:45 PM EDT [facility] BUN, Plasma 11 7 - 21 mg/dL 10/11/2024 5:45 PM EDT [facility] Creatinine, Plasma 0.66(L) 0.70 - 1.20 mg/dL 10/11/2024 5:45 PM EDT [facility] BUN/Creatinine Ratio 17 10/11/2024 5:45 PM EDT [facility] Sodium, Plasma 137 136 - 145 mmol/L 10/11/2024 5:45 PM EDT [facility] Potassium, Plasma 4.7 3.6 - 4.9 mmol/L 10/11/2024 5:45 PM EDT [facility] Chloride, Plasma 106 97 - 107 mmol/L 10/11/2024 5:45 PM EDT [facility] CO2, Plasma 19(L) 22 - 29 mmol/L 10/11/2024 5:45 PM EDT [facility] Anion Gap 12 6 - 16 mmol/L 10/11/2024 5:45 PM EDT [facility] Total Calcium, Plasma 8.5(L) 8.9 - 10.2 mg/dL 10/11/2024 5:45 PM EDT [facility] eGFRcr 126.2 mL/min/1.7 3m*2 10/11/2024 5:45 PM EDT [facility] Comment:Reported eGFRcr in m L/min/1.73m2 is based the CKD-EPI 2020 equation that does not use a race coefficient. Blood Venous blood specimen / Unknown Venipuncture / Unknown 10/11/2024 4:57 PM EDT 10/11/2024 5:17 PM EDT us Noemí Ni MD LAB BLOOD ORDERABLES Final Resul t [facility] [address] [place] [address] * (ABNORMAL) Tissue Culture and Gram Stain (10/11/2024 2:27 PM EDT) Culture Light Growth 10/14/2024 1:08 PM EDT [facility] Culture Corynebacterium striatum group(A) 10/14/2024 1:08 PM EDT [facility] Comment: This isolate has been identified using the FDA Approved MALDI [employer]ographic[employer] CA System The organism value for this result has been updated. These results have been appended to the previously preliminary verified report. Gram Stain Result No organisms seen 10/14/2024 1:08 PM EDT [facility] Gram Stain Result No polymorphonuclear leukocytes seen 10/14/2024 1:08 PM EDT [facility] Tissue Structure of right [...] FDA approved. Results for research use only. us Noemí Ni MD LAB MICROBIOLOGY - GENERAL ORDER SABA Final Result [facility] [address] [place] [address] * Anaerobic Culture (10/11/2024 2:27 PM EDT) Culture No anaerobes isolated 10/15/2024 2:43 PM EDT [facility] Tissue Structure of right buttock / Unknown 10/11/2024 2:27 PM EDT 10/11/2024 2:43 PM EDT Comment:Pre-op diagnosis: Decubitus ulcer of right ischium, stage IV (CMS/HCC) [L89.314] us Noemí Ni MD LAB MICROBIOLOGY - GENERAL ORDER SABA Final Result [facility] [address] [place] [address] * Surgical Pathology Exam (10/11/2024 2:23 PM EDT) Case Report Surgical Pathology Case: [id number] Authorizing Provider: Noemí Ni MD Collected: 10/11/2024 1423 Ordering Location: [facility] A OPERATING ROOM Received: 10/11/2024 1442 Pathologist: Luanne Liriano MD Specimen: Buttock, Right, 1) Right Ischial Pessure Ulcer - Permanent 10/16/2024 3:35 PM EDT [facility] Final Diagnosis A. RIGHT ISCHIAL PESSURE ULCER, DEBRIDEMENT: - ULCERATED SKIN, GRANULATION TISSUE, AND FIBROSIS. 10/16/2024 3:35 PM EDT [facility] at 1535 EDT Clinical Information Decubitus ulcer of right ischium, stage IV (CMS/HCC) [L89.314] 10/16/2024 3:35 PM EDT [facility] Gross Description A. 1) RIGHT ISCHIAL PESSURE ULCER - PERMANENT Received fresh and subsequently placed in formalin labeled Right Ischial Pessure Ulcer is an aggregate of skin and soft tissue measuring 6.4 x 4.5 x 1.7 cm. The skin surface is adams-pink with areas that are brown-carter and roughened. Ceo And Founder sections are submitted in cassette A1. Cold Time: <1m Eileen Alexandra 10/16/2024 3:35 PM EDT [facility] Tissue Structure of right buttock / Unknown 10/11/2024 2:23 PM EDT 10/11/2024 2:42 PM EDT Comment:Pre-op diagnosis: Decubitus ulcer of right ischium, stage IV (CMS/HCC) [L89.314] us Noemí Ni MD LAB PATHOLOGY ORDERABLES Final R esult [facility] [address] [place] [address] * Peripheral IV (10/11/2024 12:35 PM EDT) Narrative Nathan Hope CRNA - 10/11/2024 12:35 PM EDT Nathan Hope CRNA 10/11/2024 12:48 PM Peripheral IV Date/Time: 10/11/2024 12:35 PM Inserted by: Nathan Hope CRNA Placement Needle size: 20 G Location: hand Local anesthetic: none Site prep: alcohol Technique: anatomical landmarks Attempts: 1 us Khris Alex MD ANESTHESIA ORDERABLES Final Re sult * IN AN ELECTIVE ENDOTRACHEAL AIRWAY, PB ANESTHESIA PLACEHOLDER (10/11/2024 12:22 PM EDT) Narrative Nathan Hope CRNA - 10/11/2024 12:22 PM EDT Nathan Hope CRNA 10/11/2024 12:43 PM Airway Date/Time: 10/11/2024 12:22 PM Reason: elective Airway not difficult General Information and Staff Patient location during procedure: OR MANAGER EMPLOYEE RELATIONS: Nathan Hope CRNA Performed: JOMAR Patient Condition [...] Date Last Indicated MRSA 02/23/2023 02/23/2023 Insurance [facility] MEDIC[facility] Advance Directives * Full Code (Latest [...] Patient has decision-making capacity? Yes Care Teams Refuse Laborer Relationship Specialty Start Date End Date Saul Mejia MD [address] [place] [address] PCP - General 08/24/22
--- OUTSIDE RECORDS SUMMARY | 2024-11-06 15:46 | XMS_ITS | Encounter Summary ---
Author Organization [facility] Address [address] [place] [address] Care Team Providers Care Software Administrator Name Role Phone Ca Pan MD Primary Care Pro vider Encounter Details Date Type Department Care Team (Late st Contact Info) Description 10/30/2024 Readmission Management [facility] [address] [place] [phone] Juanis Acosta, RN Social History Tobacco [...] PM EDT Prep Survey Flowsheet Row Responses [facility] facility patient discharged from? Non-BH Is LACE score < 7 ? Non-BH Discharge Eligibility [facility] Date of Admission 10/11/24 Date of [...] Description 03/01/2025 3:15 PM EST Office Visit [facility] [address] [address] Manuel Harris MD [address] [address] documented as of this encounter Visit Diagnoses Not on filedocumented in this encounter Care Teams Software Administrator Relationship Specialty Start Date End Date Ca Pan MD [address] [address] PCP - General Internal Medicine 11/22/23 documented as of this encounter
--- OUTSIDE RECORDS SUMMARY | 2024-11-06 15:46 | XMS_ITS | Encounter Summary ---
Author Organization [facility] Address [address] [place] [address] Care Team Providers Care Audience Coordinator Name Role Phone Ca Pan MD Primary Care Pro vider Reason for Visit * Reason Onset Date Comments Med Refill 05/02/2024 Encounter Details Date Type Department Care Team (Late st Contact Info) Description 05/02/2024 Refill [facility] [address] [place] [address] Rosie Earl PA [address] [place] [address] Excessive sweating Social History Tobacco [...] 3:15 PM EST Office Visit [facility] [address] [address] Manuel Harris MD 2530 [facility] [address] [address] documented as of this encounter Visit Diagnoses Diagnosis Excessive sweating Generalized hyperhidrosis documented in this encounter Care Teams Audience Coordinator Relationship Specialty Start Date End Date Ca Pan MD 2530 [facility] [address] [address] PCP - General Internal Medicine 11/22/23 documented as of this encounter
--- OUTSIDE RECORDS SUMMARY | 2024-11-06 15:46 | XMS_ITS | Encounter Summary ---
Author Organization Healthcare Address [address] [place] [address] Care Team Providers Care Ecclesiastical Worker Name Role Phone Saul Mejia MD Primary Care Provider [phone] Reason for Visit * Reason Onset Date Comments HCN Clinical Concern/Question 10/17/2024 Encounter Details Date Type Department Care Team (Late st Contact Info) Description 10/17/2024 Telephone [facility] [address] [facility] 5th Floor Wing D, [address] [place] [address] Noemí Ni MD [address] [address] HCN Clinical Concern/Question Social History [...] place to sleep or slept in a fdc (including now)? No 02/08/2023 Humiliation, Afraid, Rape, [...] any time in the past 12 m [facility], were you homeless or living in a fdc (including now)? No 10/12/2024 CAGE ASSESSMENT Answer [...] drink first t osito in the morning (EYE-RESEARCHER) to steady your nerves or to get rid of a hangover? 0 08/25/2022 CAGE Questionnaire Score 0 023 Utilities Answer Date Recorded In the past 12 months has th [employer], gas, oil, or water [employer] threatened to shut off services in your [...] to see at room Best contact number: [phone] (mobile) Optimal time of day to reach [...] Description 11/15/2024 10:40 AM EDT Office Visit [facility] [address] [facility] 5th Floor Wing [address], [address] [place] [address] Noemí Ni MD [address] [place] [address] documented as of this encounter Visit [...] documented as of this encounter Care Teams Ecclesiastical Worker Relationship Specialty Start Date End Date Saul Mejia MD [address] [place] [phone] PCP - General 08/24/22 documented as of this encounter
--- OUTSIDE RECORDS SUMMARY | 2024-11-06 15:46 | XMS_ITS | Encounter Summary ---
Author Organization Healthcare Address [address] [place] [address] Care Team Providers Care Swim Coach Name Role Phone Saul Mejia MD Primary Care Provider [phone] Encounter Details Date Type Department Care Team (Late st Contact Info) Description 06/29/2023 Lab Requisition [facility] [address] [place] [address] Leida Griggs, GLUE JOINTER OPERATOR [address] [address] Malignant neoplasm of appendix (CMS/HCC) [...] in a mcfp (including now)? No 02/08/2023 CAGE ASSESSMENT Answer [...] drink first t osito in the morning (EYE-POLICE PATROL LIEUTENANT) to steady your nerves or to get [...] [facility] [address] 5th Floor Wing D, [address] [place] [address] Noemí Ni MD [address] [place] [address] documented as of this encounter Procedures Procedure Name Priority Date/Time Associated Diagnosis Comments HISTORICAL SURGICAL PATHOLOGY ADDENDUM Routine 06/29/2023 12:26 PM EDT Malignant neoplasm of appendix (CMS/HCC) documented in this encounter Results * Historical Surgical Pathology Addendum (06/29/2023 12:26 PM EDT) Historical Case Information Accessioned in error. 06/29/2023 12:26 PM EDT [facility] Case Report Historical Case Addendum/Amend ment Case: [id number] Authorizing Provider: Leida Griggs APRN Collected: Ordering Location: [facility] Received: 06/29/2023 1222 Pathologist: Kiah Gamez MD Specimen: [id number] 06/29/2023 12:26 PM EDT [facility] [...] F inal Result [facility] [address] [place] [address] documented in this encounter Visit Diagnoses Diagnosis [...] documented as of this encounter Care Teams Swim Coach Relationship Specialty Start Date End Date Saul Mejia MD [address] [place] [phone] PCP - General 08/24/22 documented as of this encounter
--- OUTSIDE RECORDS SUMMARY | 2024-11-06 15:46 | XMS_ITS | Encounter Summary ---
Author Organization Healthcare Address [address] [place] [address] Care Team Providers Care Pecan Mallow Dipper Name Role Phone Saul Mejia MD Primary [...] place to sleep or slept in a long term (including now)? No 02/08/2023 Humiliation, Afraid, Rape, [...] any time in the past 12 m [facility], were you homeless or living in a long term (including now)? No 10/12/2024 CAGE ASSESSMENT Answer [...] drink first t osito in the morning (EYE-COMPUTER ASSEMBLER) to steady your nerves or to get rid of a hangover? 0 08/25/2022 CAGE Questionnaire Score 0 023 Utilities Answer Date Recorded In the past 12 months has th e [employer], gas, oil, or water company threatened to [...] Date Author No 02/09/2023 5:28 PM EDT mAerica Gil documented in this encounter Plan of Treatment Upcoming Encounters Date Type Department Care Team (Late st Contact Info) Description 11/15/2024 10:40 AM EDT Office Visit [facility] [address] [facility] 5th Floor Wing D, [address] [place] [address] Noemí Ni MD [address] [phone] documented as of this encounter Visit Diagnoses [...] documented as of this encounter Care Teams Pecan Mallow Dipper Relationship Specialty Start Date End Date Saul Mejia MD [address] [place] [phone] PCP - General 08/24/22 documented as of this encounter
--- OUTSIDE RECORDS SUMMARY | 2024-11-06 15:47 | XMS_ITS | Encounter Summary ---
Author Organization [facility] Address [address] [place] [address] Care Team Providers Care Mold Maker Name Role Phone Saul Mejia MD Primary Care Provider [phone] Encounter Details Date Type Department Care Team [...] place to sleep or slept in a correction (including now)? No 02/08/2023 CAGE ASSESSMENT Answer [...] drink first t osito in the morning (EYE-DATA INTEGRITY ANALYST) to steady your nerves or to get [...] Description 11/15/2024 10:40 AM EDT Office Visit [facility] [address] [facility] 5th Floor Wing D, [address] [place] [address] Noemí Ni MD [address] [facility] [address] [place] [address] documented as of this encounter Visit Diagnoses [...] documented as of this encounter Care Teams Mold Maker Relationship Specialty Start Date End Date Saul Mejia MD [address] [place] [phone] PCP - General 08/24/22 documented as of this encounter
--- OUTSIDE RECORDS SUMMARY | 2024-11-06 15:47 | XMS_ITS | Encounter Summary ---
Author Organization Healthcare Address [address] [place] [address] Care Team Providers Care Youth Officer Name Role Phone Saul Mejia MD Primary Care Provider [phone] Encounter Details Date Type Department Care Team [...] place to sleep or slept in a retirement (including now)? No 02/08/2023 Humiliation, Afraid, Rape, [...] any time in the past 12 m [facility], were you homeless or living in a retirement (including now)? No 10/12/2024 CAGE ASSESSMENT Answer [...] drink first t osito in the morning (EYE-ELECTRICAL CHECKOUT MECHANIC) to steady your nerves or to get rid of a hangover? 0 08/25/2022 CAGE Questionnaire Score 0 023 Utilities Answer Date Recorded In the past 12 months has th e [email or web address], gas, oil, or water company threatened to [...] [facility] [address] [facility] 5th Floor Wing [address], [address] [place] [address] Noemí Ni MD [address] [phone] documented as of this encounter Visit Diagnoses [...] documented as of this encounter Care Teams Youth Officer Relationship Specialty Start Date End Date Saul Mejia MD [address] [place] [phone] PCP - General 08/24/22 documented as of this encounter
--- OUTSIDE RECORDS SUMMARY | 2024-11-06 15:47 | XMS_ITS | Encounter Summary ---
Author Organization [facility] Address [address] [place] [address] Care Team Providers Care Power Line Lineman Name Role Phone Ca Colon MD Primary Care Pro vider Reason for Visit * Reason Onset Date Comments Antibiotic request 11/03/2024 Encounter Details Date Type Department Care Team (Late st Contact Info) Description 11/03/2024 Telephone [facility] [address] [facility] [address] [phone] Ari Patel Jr., [place] Antibiotic request Social History Tobacco Use Types Packs/Day Years [...] PM EST documented as of this encounter Progress Notes * Ca Colon MD - 11/03/2024 2:41 PM EDTAddended by: CA COLON on: 11/03/2024 02:41 PM Modules accepted: Orders documented in this encounter Miscellaneous Notes * Telephone Encounter - Ca Colon MD - 11/03/2024 2:36 PM EDT Discussed his case with home health over the phone Per home [facility] he was discharged from hospital 4 days ago due to a sacral decubitus ulcer whichrequired a skin flap procedure He currently has a Law catheter in and per the nurse he has a low-grade fever, is not feeling well, with very cloudy and malodorous urine She collected a sample of the urine and has brought it to an outside lab for culture She is requesting an antibiotic be sent in for possible UTI Per home [facility] the patient has recently been on IV antibiotics while inpatient Unable to determine at this time if the patient is having a UTI since I have not seen him. If it gui urinary tract infection, given recent IV antibiotics, it is likely to be a multi drug-resistant organism. Will send in nitrofurantoin given his allergy to sulfa antibiotics and await results from culture. Per [facility] the culture results should be faxed to our office * Telephone Encounter - Ari Patel Jr., [place] - 11/03/2024 1:24 PM EDT Christel from [facility] called stating Sathish was having some urinary issue/symptoms after law placed. She sent off a urine culture and wanted to know if you wanted to send in an antibiotic? DSB documented in this encounter Plan of Treatment Upcoming Encounters Date Type Department Care Team (Late st Contact Info) Description 03/01/2025 3:15 PM EST Office Visit [facility] [address] [phone] Manuel Harris MD [address] [facility] [address] [place] [address] documented as of this encounter Visit Diagnoses Not on filedocumented in this encounter Care Teams Power Line Lineman Relationship Specialty Start Date End Date Ca Colon MD [address] [place] [address] PCP - General Internal Medicine 11/22/23 documented as of this encounter
--- OUTSIDE RECORDS SUMMARY | 2024-11-06 15:47 | XMS_ITS | Clinical Summary ---
Author Organization [facility] Address [address] [place], [place] [address] Phone [email or web address] Care Team Providers Care First Officer And Flight Instructor Name Role Phone Unavailable Primary Care Provider [...]
--- OUTSIDE RECORDS SUMMARY | 2024-11-06 15:47 | XMS_ITS | Encounter Summary ---
Author Organization [facility] Address [address] [place] [address] Care Team Providers Care Director Investor Relations Name Role Phone Ca Pan MD Primary Care Pro vider Reason for Visit * Reason Onset Date Comments BACTERIAL INFECTION 11/06/2024 Encounter Details Date Type Department Care Team (Late st Contact Info) Description 11/06/2024 Telephone [facility] [address] [facility] [employer] [facility] [address] [place] [address] Ca Pan MD [address] [facility] [employer] [facility] [address] [place], [place] [id number] BACTERIAL INFECTION Social History Tobacco Use Types Packs/Day Years [...] as of this encounter Miscellaneous Notes * Telephone Encounter - Janine Garcia MA - 11/06/2024 2:20 PM EDT Called pt and advised per Dr P, The previous antibiotic sent in for him he is resistant to. She sent in a new antibiotic based on his culture results. Discontinue nitrofurantoin Start ciprofloxacin Sent to [facility] [place] pharmacy Pt voiced that he understood. * Telephone Encounter - Ca Pan MD - 11/06/2024 1:48 PM EDT Please call patient and inform him: The previous antibiotic I sent in for him he is resistant to. I will send in a new antibiotic basedon his culture results. Discontinue nitrofurantoin Start ciprofloxacin Sent to [facility] Thank you! * Telephone Encounter - Ca Pan MD - 11/06/2024 12:22 PM EDT Please call patient and inform him that I have not received the urine culture results from home health so unfortunately there is nothing else I can do for his urinary tract infection. If he feels like it is worsening I recommend that he go to the emergency department. I cannot change the antibiotic at this time without those urine culture results. If he has the urine culture results please have him upload the results via [employer] so that I can adjust the antibiotics Please also see if he has the number for home health so that we can try to reach out to them to obtain the urine culture results If he would like to bring by another urine sample to our office to have a culture done I can but the culture takes 3 to 5 days to come back * Telephone Encounter - Jada Mancera RegSched Rep - 11/06/2024 11:13 AM EDT Caller: Sathish Padgett Relationship: PATIENT Best call back number: What is your medical concern? BACTERIAL INFECTION IS GETTING WORSE AND THE ANTIBIOTIC IS NOT WORKING. How long has this issue been going on? 11/03/24 Is your provider already aware of this issue? YES BUT NOT THAT RX ISN'T HELPING. Have you been treated for this issue? WITH nitrofurantoin, macrocrystal-monohydrate, (MACROBID) 100 MG capsule [[id number]] Order Details Dose: 100 mg Route: Oral Frequency: Every 12 Hours Scheduled Dispense Quantity: 14 capsule Refills: 0 Sig: Take 1 capsule by mouth Every 12 (Twelve) Hours for 7 days. Start Date: 11/03/24 End Date: 11/10/24 after 14 doses Written Date: 11/03/24 Expiration Date: 11/03/25 PATIENT REQUESTS AN IMMEDIATE CALL BACK PLEASE. THANK YOU documented in this encounter Plan of Treatment Upcoming Encounters Date Type Department Care Team (Late st Contact Info) Description 03/01/2025 3:15 PM EST Office Visit [facility] [address] [phone] Manuel Harris MD [address] [address] documented as of this encounter Visit Diagnoses Not on filedocumented in this encounter Care Teams Director Investor Relations Relationship Specialty Start Date End Date Ca Pan MD [address] [address] PCP - General Internal Medicine 11/22/23 documented as of this encounter
--- OUTSIDE RECORDS SUMMARY | 2024-11-06 15:47 | XMS_ITS | Encounter Summary ---
Author Organization Healthcare Address [address] [place] [address] Care Team Providers Care Restaurant Server Name Role Phone Saul Mejia MD Primary Care Provider [phone] Encounter Details Date Type Department Care Team (Late st Contact Info) Description 11/02/2024 Telephone [facility] [address] [facility] 5th Floor [address] [place] [address] Noemí Ni MD [facility] [address] Social History Tobacco Use Types [...] drink first t osito in the morning (EYE-MACHINE CEMENTER) to steady your nerves or to get [...] Description 11/15/2024 10:40 AM EDT Office Visit [facility] [address]th Floor [address] [place] [phone] Noemí Ni MD [address] [place] [phone] documented as of this encounter Visit Diagnoses [...] documented as of this encounter Care Teams Restaurant Server Relationship Specialty Start Date End Date Saul Mejia MD [address] [place] [phone] PCP - General 08/24/22 documented as of this encounter
--- OUTSIDE RECORDS SUMMARY | 2024-11-06 15:47 | XMS_ITS | Encounter Summary ---
Author Organization Healthcare Address [address] [place] [address] Care Team Providers Care Industrial Paramedic Name Role Phone Saul Mejia MD Primary Care Provider [phone] Reason for Visit * Reason Onset Date Comments [facility] Clinical Concern/Question 09/08/2024 Encounter Details Date Type Department Care Team (Late st Contact Info) Description 09/08/2024 Telephone [facility] [address] [facility] 5th Floor [address], [address] [place] [address] Noemí Regalado MD [address] [phone] [facility] Clinical Concern/Question Social History Tobacco Use [...] place to sleep or slept in a prison (including now)? No 02/08/2023 CAGE ASSESSMENT Answer [...] drink first t osito in the morning (EYE-SQUAD LEADER) to steady your nerves or to get [...] PM EDT RN advised a call to [phone] or [phone] facilitate surgical scheduling per MD note. Pt's mother read phone numbers back to RN for accuracy. RN explained MD will be notified as well to facilitate continuity of care. RN to message MD via [employer] secure chat. No other needs at this time. * Telephone Encounter - Kadi Cuevas - 09/08/2024 12:15 PM EDT Clinical Concern/Question Reason for Call: pt mother calling stating she had not heard about scheduling surgery with dr regalado yet and under impression she should have heard by now. Please call edith. Thanks ! Best contact number: Other: [phone] is moms number. Can call [phone] to get pt if you cannot reach [...] 11/15/2024 10:40 AM EDT Office Visit [facility] [address] [facility] 5th Floor [address] [place] [phone] Noemí Regalado MD [address] [facility] [address] [place] [phone] documented as of this encounter Visit Diagnoses [...] documented as of this encounter Care Teams Industrial Paramedic Relationship Specialty Start Date End Date Saul Mejia MD [address] [place] [phone] PCP - General 08/24/22 documented as of this encounter
--- OUTSIDE RECORDS SUMMARY | 2024-12-28 20:00 | XMS_ITS | Clinical Summary ---
Author Organization Unknown Care Team Providers [employer] Hazmat Driver Name Role Phone HOLLIS ERAZO, NELLY Unavailable Unavailable LYDIA RN, BENITA Unavailable Unavailable HAILEE LOZADAN, SHUBHAM Unavailable Unavailable KIM PT, JULIANNE Unavailable Unavailable SOL MUSIC INTERN, ANGELA Unavailable Unavailable FEEZOR OT, NAYE Unavailable Unavailable Payers Payer Name Policy Type Policy Number Effective Date Expira tion Date DELTAAUTH [id number] Problems Condition Name Condition Details Condition Category Status Onset Date Resolution Date Last Treatment Date Treating Clinician Comments PRESSURE ULCER OF RIGHT BUTTOCK, STAGE 4 Active 10-23 00:00: 00 MUSCLE WEAKNESS (GENERALIZE D) Active 11-01 00:00: 00 Allergies, Adverse Reactions, Alerts Allergy Name Allergy Type Status Severity Reaction(s) Onset Date Inactive Date Treating Clinician Comments ......SUL FA Propensity to adverse reactions Active 2024-10 11:11:4 7 .LATEX Propensity to adverse reactions Active 2024-10 11:11:5 8 Vital Signs Vital Name Observation Time Observation Value Commen ts Temperature 2024-11-03 16:17:00.000 98.1 [degF] Temperature 2024-11-02 17:19:00.000 100.3 [degF] Temperature 2024-11-01 12:17:00.000 98 [degF] Temperature 2024-10-31 11:30:00.000 99.9 [degF] Temperature 2024-10-31 11:30:00.000 99.9 [degF] Temperature 2024-10-31 11:29:00.000 99.9 [degF] BMI (%) 2024-10-31 11:02:30.000 34 kg/m2 Height 2024-10-31 11:02:04.000 62 [in_us] Pulse 2024-11-03 16:17:00.000 116 /min Pulse 2024-11-02 17:19:00.000 129 /min Pulse 2024-11-01 12:17:00.000 91 /min Pulse 2024-10-31 11:30:00.000 114 /min Pulse 2024-10-31 11:30:00.000 114 /min Pulse 2024-10-31 11:29:00.000 114 /min Respirations 2024-11-03 16:17:00.000 18 /min Respirations 2024-11-02 17:19:00.000 18 /min Respirations 2024-11-01 12:17:00.000 18 /min Respirations 2024-10-31 11:30:00.000 18 /min Respirations 2024-10-31 11:30:00.000 18 /min Respirations 2024-10-31 11:29:00.000 18 /min Weight (lbs) 2024-10-31 11:02:30.000 190 [lb_av] Systolic Blood Pressure 2024-11-03 16:17:00.000 128 mm [Hg] Systolic Blood Pressure 2024-11-02 17:19:00.000 113 mm [Hg] Systolic Blood Pressure 2024-11-01 12:17:00.000 121 mm [Hg] Systolic Blood Pressure 2024-10-31 11:30:00.000 124 mm [Hg] Systolic Blood Pressure 2024-10-31 11:30:00.000 124 mm [Hg] Systolic Blood Pressure 2024-10-31 11:29:00.000 124 mm [Hg] Diastolic Blood Pressure 2024-11-03 16:17:00.000 62 mm [Hg] Diastolic Blood Pressure 2024-11-02 17:19:00.000 74 mm [Hg] Diastolic Blood Pressure 2024-11-01 12:17:00.000 70 mm [Hg] Diastolic Blood Pressure 2024-10-31 11:30:00.000 76 mm [Hg] Diastolic Blood Pressure 2024-10-31 11:30:00.000 76 mm [Hg] Diastolic Blood Pressure 2024-10-31 11:29:00.000 74 mm [Hg] Plan of Treatment Planned Activity Planned Date Details Comments Future Scheduled Test PHYSICAL T HERAPIST TO EVALUATE FOR STRENGTHENING [code = PHYSICAL THERAPIST TO EVALUATE FOR STRENGTHENING] Future Scheduled Test OCCUPATION AL THERAPIST TO EVALUATE FOR SAFETY IN ADLS IADLS [code = OCCUPATIONAL THERAPIST TO EVALUATE FOR SAFETY IN ADLS IADLS] Future Scheduled Test MEDICAL SO CIAL SERVICES FOR EVALUATION TO ASSESS SOCIAL AND EMOTIONAL FACTORS RELATED TO THE PATIENT'S ILLNESS, NEED FOR CARE, RESPONSE TO TREATMENT AND ADJUSTMENT TO CARE. [code = MEDICAL IT ARCHITECTURE ANALYST FOR EVALUATION TO ASSESS SOCIAL AND EMOTIONAL FACTORS RELATED TO THE PATIENT'S ILLNESS, NEED FOR CARE, RESPONSE TO TREATMENT AND ADJUSTMENT TO CARE.] Future Scheduled Test FALL REDUC TION MANAGEMENT; RN TO ASSESS AND OBSERVE, DATA TECHNICIAN/FRENCH TRANSLATOR TO OBSERVE FALL RISK FACTORS AND EDUCATE PATIENT/CAREGIVER ON STRATEGIES TO MINIMIZE THE RISK OF FALLING. [code = FALL REDUCTION MANAGEMENT; RN TO ASSESS AND OBSERVE, DATA TECHNICIAN/FRENCH TRANSLATOR TO OBSERVE FALL RISK FACTORS AND EDUCATE PATIENT/CAREGIVER ON STRATEGIES TO MINIMIZE THE RISK OF FALLING.] Future Scheduled Test GENITOURIN YUMIKO MANAGEMENT; RN TO ASSESS AND TEACH, DATA TECHNICIAN/FRENCH TRANSLATOR TO OBSERVE AND TEACH RELATED TO ALTERED GENITOURINARY STATUS TO MINIMIZE COMPLICATIONS AND REDUCE HOSPITALIZATION. [code = GENITOURINARY MANAGEMENT; RN TO ASSESS AND TEACH, DATA TECHNICIAN/FRENCH TRANSLATOR TO OBSERVE AND TEACH RELATED TO ALTERED GENITOURINARY STATUS TO MINIMIZE COMPLICATIONS AND REDUCE HOSPITALIZATION.] Future Scheduled Test INDWELLING URINARY CATHETER MANAGEMENT; RN/DATA TECHNICIAN/FRENCH TRANSLATOR TO INSTRUCT PATIENT / CAREGIVER ON INDWELLING URINARY CATHETER MANAGEMENT INCLUDING CARE OF CATHETER, SIGN AND SYMPTOMS OF COMPLICATIONS, PERINEAL CARE, TUBE AND BAG PLACEMENT, PREVENTION OF INFECTION AND SKIN BREAKDOWN. [code = INDWELLING URINARY CATHETER MANAGEMENT; RN/DATA TECHNICIAN/FRENCH TRANSLATOR TO INSTRUCT PATIENT / CAREGIVER ON INDWELLING URINARY CATHETER MANAGEMENT INCLUDING CARE OF CATHETER, SIGN AND SYMPTOMS OF COMPLICATIONS, PERINEAL CARE, TUBE AND BAG PLACEMENT, PREVENTION OF INFECTION AND SKIN BREAKDOWN.] Future Scheduled Test INDWELLING URINARY CATHETER INSERTION; RN/DATA TECHNICIAN/FRENCH TRANSLATOR TO PERFORM INSERTION OF 16 FR INDWELLING CATHETER, INSTILL 10 CC OF STERILE WATER INTO BALLOON, SECURE TUBING WITH APPROPRIATE SECUREMENT DEVICE CHANGE EVERY 4 WEEKS AND PRN FOR LEAKAGE, BLOCKAGE, DISLODGEMENT, OR MALFUNCTION. DUE TO B E CHANGED NEAR 11/30 [code = INDWELLING URINARY CATHETER INSERTION; RN/DATA TECHNICIAN/FRENCH TRANSLATOR TO PERFORM INSERTION OF 16 FR INDWELLING CATHETER, INSTILL 10 CC OF STERILE WATER INTO BALLOON, SECURE TUBING WITH APPROPRIATE SECUREMENT DEVICE CHANGE EVERY 4 WEEKS AND PRN FOR LEAKAGE, BLOCKAGE, DISLODGEMENT, OR MALFUNCTION. DUE TO B E CHANGED NEAR 11/30] Future Scheduled Test RN TO OBSE RVE, ASSESS, EVALUATE, AND DEVELOP AN INDIVIDUALIZED PLAN OF CARE. AGENCY MAY ACCEPT ORDERS FROM CONSULTING PHYSICIANS DR ISHAN SELBY RN TO OBSERVE AND ASSESS, DATA TECHNICIAN/FRENCH TRANSLATOR TO OBSERVE FOR RISK FOR FALLS AND INSTRUCT IN FALL PREVENTION, HOME SAFETY, MEDICATION MANAGEMENT, INFECTION PREVENTION, AND NUTRITION MANAGEMENT. RN/DATA TECHNICIAN/FRENCH TRANSLATOR NURSE MAY PERFORM O2 SATURATION LEVEL ON ADMISSION AND PRN FOR RN TO ASSESS/DATA TECHNICIAN TO OBSERVE PATIENT, WITH NOTIFICATION TO THE PHYSICIAN IF SATURATION IS 90% IN THE ABSENCE OF MORE SPECIFIC PARAMETERS FROM THE PHYSICIAN. AGENCY MAY PERFORM A RESUMPTION OF CARE VISIT FOLLOWING ANY HOSPITAL ADMISSION. RN/DATA TECHNICIAN/FRENCH TRANSLATOR TO MONITOR CO-MORBID CONDITIONS LISTED ON THE PLAN OF CARE AND ANY NEW CONDITIONS THAT PRESENT THEMSELVES DURING THIS EPISODE TO IDENTIFY CHANGES AND INTERVENE TO MINIMIZE COMPLICATIONS. [code = RN TO OBSERVE, ASSESS, EVALUATE, AND DEVELOP AN INDIVIDUALIZED PLAN OF CARE. AGENCY MAY ACCEPT ORDERS FROM CONSULTING PHYSICIANS DR ISHAN SELBY RN TO OBSERVE AND ASSESS, DATA TECHNICIAN/FRENCH TRANSLATOR TO OBSERVE FOR RISK FOR FALLS AND INSTRUCT IN FALL PREVENTION, HOME SAFETY, MEDICATION MANAGEMENT, INFECTION PREVENTION, AND NUTRITION MANAGEMENT. RN/DATA TECHNICIAN/FRENCH TRANSLATOR NURSE MAY PERFORM O2 SATURATION LEVEL ON ADMISSION AND PRN FOR RN TO ASSESS/DATA TECHNICIAN TO OBSERVE PATIENT, WITH NOTIFICATION TO THE PHYSICIAN IF SATURATION IS 90% IN THE ABSENCE OF MORE SPECIFIC PARAMETERS FROM THE PHYSICIAN. AGENCY MAY PERFORM A RESUMPTION OF CARE VISIT FOLLOWING ANY HOSPITAL ADMISSION. RN/DATA TECHNICIAN/FRENCH TRANSLATOR TO MONITOR CO-MORBID CONDITIONS LISTED ON THE PLAN OF CARE AND ANY NEW CONDITIONS THAT PRESENT THEMSELVES DURING THIS EPISODE TO IDENTIFY CHANGES AND INTERVENE TO MINIMIZE COMPLICATIONS.] Future Scheduled Test RN/DATA TECHNICIAN/FRENCH TRANSLATOR TO PERFORM/TEACH INCISION CARE TO R ISCHIAL IRRIGATE/CLEANSE WITH WOUND CLEANSER KEEP CLEAN AND DRY MAY APPLY SKIN BARRIER TO PERIWOUND PRN TO PREVENT MACERATION AND PROTECT PERIWOUND ISAIAH [code = RN/DATA TECHNICIAN/FRENCH TRANSLATOR TO PERFORM/TEACH INCISION CARE TO R ISCHIAL IRRIGATE/CLEANSE WITH WOUND CLEANSER KEEP CLEAN AND DRY MAY APPLY SKIN BARRIER TO PERIWOUND PRN TO PREVENT MACERATION AND PROTECT PERIWOUND ISAIAH] Future Scheduled Test RN/DATA TECHNICIAN/FRENCH TRANSLATOR TO PERFORM/TEACH PATIENT/CAREGIVER WOUND CARE TO BILATERAL GROIN CREASES OPEN WOUNDS FROM HS IRRIGATE/CLEANSE WITH DIAL SOAP MAY APPLY SKIN BARRIER TO PERIWOUND PRN TO PREVENT MACERATION AND PROTECT PERIWOUND COVER WITH POLYMEM AND ABD CHANGE DRESSING EVERY DAY AND PRN FOR SOILED [code = RN/DATA TECHNICIAN/FRENCH TRANSLATOR TO PERFORM/TEACH PATIENT/CAREGIVER WOUND CARE TO BILATERAL GROIN CREASES OPEN WOUNDS FROM HS IRRIGATE/CLEANSE WITH DIAL SOAP MAY APPLY SKIN BARRIER TO PERIWOUND PRN TO PREVENT MACERATION AND PROTECT PERIWOUND COVER WITH POLYMEM AND ABD CHANGE DRESSING EVERY DAY AND PRN FOR SOILED] Future Scheduled Test RISK FOR H OSPITALIZATION; RN TO ASSESS/TEACH, FRENCH TRANSLATOR/DATA TECHNICIAN TO OBSERVE/TEACH PATIENT/CAREGIVER ON RISK FOR HOSPITALIZATION/EMERGENCY ROOM VISITS, TEACH SIGNS AND SYMPTOMS THAT PUT PATIENT AT RISK, WHEN TO NOTIFY NURSE/PHYSICIAN OF COMPLICATIONS/DECLINE, AND WHEN TO CALL 911. [code = RISK FOR HOSPITALIZATION; RN TO ASSESS/TEACH, FRENCH TRANSLATOR/DATA TECHNICIAN TO OBSERVE/TEACH PATIENT/CAREGIVER ON RISK FOR HOSPITALIZATION/EMERGENCY ROOM VISITS, TEACH SIGNS AND SYMPTOMS THAT PUT PATIENT AT RISK, WHEN TO NOTIFY NURSE/PHYSICIAN OF COMPLICATIONS/DECLINE, AND WHEN TO CALL 911.] Future Scheduled Test URINARY MO LECULAR TESTING PROTOCOL UP TO 2 PRN RN/DATA TECHNICIAN/FRENCH TRANSLATOR VISITS MAY BE PERFORMED FOR S/S OF UTI. RN TO ASSESS, DATA TECHNICIAN/FRENCH TRANSLATOR TO OBSERVE INITIATION OF UTI PROTOCOL. RN/FRENCH TRANSLATOR/DATA TECHNICIAN TO INSTRUCT PATIENT AND/OR CAREGIVER ON S/S OF UTI TO REPORT TO RN/FRENCH TRANSLATOR/DATA TECHNICIAN IF NEW OR WORSENING SYMPTOMS. DRINK PLENTY OF WATER THROUGHOUT THE DAY TO MAINTAIN HYDRATION (UNLESS CONTRAINDICATED.) URINATE WHEN THE URGE IS FELT, DO NOT WAIT. WASH GENITALS DAILY. WIPE FROM FRONT TO BACK AFTER HAVING A BOWEL MOVEMENT. RN/FRENCH TRANSLATOR/DATA TECHNICIAN TO OBTAIN URINE SPECIMEN FOR MOLECULAR URINE TESTING BY OPTION 1 OR OPTION 2 (OPTION 1) RN/FRENCH TRANSLATOR/DATA TECHNICIAN TO OBTAIN URINE SPECIMEN FOR U/A WITH REFLEX TO UTI PANEL (MOLECULAR) VIA CLEAN CATCH URINE AND IF UNABLE TO OBTAIN MAY PERFORM AN IN AND OUT CATH. IF PATIENT HAS INDWELLING CATHETER MAY OBTAIN FROM SAMPLING PORT. (OPTION 2) RN/FRENCH TRANSLATOR/DATA TECHNICIAN TO OBTAIN URINE SPECIMEN FOR UTI PANEL (MOLECULAR) VIA SWAB COLLECTION METHOD FROM ADULT BRIEF/DIAPER OR PAD IF PATIENT IS INCONTINENT. INCLUDE ANTIBIOTIC/ANTIFUNGAL RESISTANCE TESTING INCLUDE URINALYSIS (ONLY FOR CLEAN CATCH/ IN AND OUT CATH) NOTIFY PROVIDER OF RESULTS AND OBTAIN FURTHER ORDERS. [code = URINARY MOLECULAR TESTING PROTOCOL UP TO 2 PRN RN/DATA TECHNICIAN/FRENCH TRANSLATOR VISITS MAY BE PERFORMED FOR S/S OF UTI. RN TO ASSESS, DATA TECHNICIAN/FRENCH TRANSLATOR TO OBSERVE INITIATION OF UTI PROTOCOL. RN/FRENCH TRANSLATOR/DATA TECHNICIAN TO INSTRUCT PATIENT AND/OR CAREGIVER ON S/S OF UTI TO REPORT TO RN/FRENCH TRANSLATOR/DATA TECHNICIAN IF NEW OR WORSENING SYMPTOMS. DRINK PLENTY OF WATER THROUGHOUT THE DAY TO MAINTAIN HYDRATION (UNLESS CONTRAINDICATED.) URINATE WHEN THE URGE IS FELT, DO NOT WAIT. WASH GENITALS DAILY. WIPE FROM FRONT TO BACK AFTER HAVING A BOWEL MOVEMENT. RN/FRENCH TRANSLATOR/DATA TECHNICIAN TO OBTAIN URINE SPECIMEN FOR MOLECULAR URINE TESTING BY OPTION 1 OR OPTION 2 (OPTION 1) RN/FRENCH TRANSLATOR/DATA TECHNICIAN TO OBTAIN URINE SPECIMEN FOR U/A WITH REFLEX TO UTI PANEL (MOLECULAR) VIA CLEAN CATCH URINE AND IF UNABLE TO OBTAIN MAY PERFORM AN IN AND OUT CATH. IF PATIENT HAS INDWELLING CATHETER MAY OBTAIN FROM SAMPLING PORT. (OPTION 2) RN/FRENCH TRANSLATOR/DATA TECHNICIAN TO OBTAIN URINE SPECIMEN FOR UTI PANEL (MOLECULAR) VIA SWAB COLLECTION METHOD FROM ADULT BRIEF/DIAPER OR PAD IF PATIENT IS INCONTINENT. INCLUDE ANTIBIOTIC/ANTIFUNGAL RESISTANCE TESTING INCLUDE URINALYSIS (ONLY FOR CLEAN CATCH/ IN AND OUT CATH) NOTIFY PROVIDER OF RESULTS AND OBTAIN FURTHER ORDERS. ] Future Scheduled Test URINARY CU LTURE AND SENSITIVITY PROTOCOL UP TO 2 PRN RN/DATA TECHNICIAN/FRENCH TRANSLATOR VISITS MAY BE PERFORMED FOR S/S OF UTI. RN TO ASSESS, DATA TECHNICIAN/FRENCH TRANSLATOR TO OBSERVE INITIATION OF UTI PROTOCOL. RN/FRENCH TRANSLATOR/DATA TECHNICIAN TO INSTRUCT PATIENT AND/OR CAREGIVER ON S/S OF UTI TO REPORT TO RN/DATA TECHNICIAN/FRENCH TRANSLATOR IF NEW OR WORSENING SYMPTOMS. DRINK PLENTY OF WATER THROUGHOUT THE DAY TO MAINTAIN HYDRATION (UNLESS CONTRAINDICATED.) URINATE WHEN THE URGE IS FELT, DO NOT WAIT. WASH GENITALS DAILY. WIPE FROM FRONT TO BACK AFTER HAVING A BOWEL MOVEMENT. RN/FRENCH TRANSLATOR/DATA TECHNICIAN TO OBTAIN URINE SPECIMEN FOR UA WITH C/S VIA CLEAN CATCH URINE AND IF UNABLE TO OBTAIN MAY PERFORM AN IN AND OUT CATH. IF PATIENT HAS INDWELLING CATHETER MAY OBTAIN FROM SAMPLING PORT. NOTIFY PROVIDER OF RESULTS AND OBTAIN FURTHER ORDERS. [code = URINARY CULTURE AND SENSITIVITY PROTOCOL UP TO 2 PRN RN/DATA TECHNICIAN/FRENCH TRANSLATOR VISITS MAY BE PERFORMED FOR S/S OF UTI. RN TO ASSESS, DATA TECHNICIAN/FRENCH TRANSLATOR TO OBSERVE INITIATION OF UTI PROTOCOL. RN/FRENCH TRANSLATOR/DATA TECHNICIAN TO INSTRUCT PATIENT AND/OR CAREGIVER ON S/S OF UTI TO REPORT TO RN/DATA TECHNICIAN/FRENCH TRANSLATOR IF NEW OR WORSENING SYMPTOMS. DRINK PLENTY OF WATER THROUGHOUT THE DAY TO MAINTAIN HYDRATION (UNLESS CONTRAINDICATED.) URINATE WHEN THE URGE IS FELT, DO NOT WAIT. WASH GENITALS DAILY. WIPE FROM FRONT TO BACK AFTER HAVING A BOWEL MOVEMENT. RN/FRENCH TRANSLATOR/DATA TECHNICIAN TO OBTAIN URINE SPECIMEN FOR UA WITH C/S VIA CLEAN CATCH URINE AND IF UNABLE TO OBTAIN MAY PERFORM AN IN AND OUT CATH. IF PATIENT HAS INDWELLING CATHETER MAY OBTAIN FROM SAMPLING PORT. NOTIFY PROVIDER OF RESULTS AND OBTAIN FURTHER ORDERS. ] Future Scheduled Test PHYSICAL T HERAPY EVALUATION PERFORMED. NO ADDITIONAL VISITS REQUIRED. PROVIDED SKILLED INTERVENTION INCLUDING HEP [code = PHYSICAL THERAPY EVALUATION PERFORMED. NO ADDITIONAL VISITS REQUIRED. PROVIDED SKILLED INTERVENTION INCLUDING HEP] Future Scheduled Test OCCUPATION AL THERAPY EVALUATION PERFORMED. NO ADDITIONAL VISITS REQUIRED. PROVIDED SKILLED INTERVENTION INCLUDING EDUCATED CAREGIVER ON HOW TO USE FELIPE LIFT, REVIEWED BUE HEP, EDUCATED ON IMPORTANCE OF ASSISTING WITH ADLS FROM BED [code = OCCUPATIONAL THERAPY EVALUATION PERFORMED. NO ADDITIONAL VISITS REQUIRED. PROVIDED SKILLED INTERVENTION INCLUDING EDUCATED CAREGIVER ON HOW TO USE FELIPE LIFT, REVIEWED BUE HEP, EDUCATED ON IMPORTANCE OF ASSISTING WITH ADLS FROM BED] Goal Patient Goal - TO HEAL AND G ET BETTER Goal Provider Goal - A PLAN OF CARE WILL BE ESTABLISHED THAT MEETS THE PATIENTS NEEDS. PATIENT WILL DEMONSTRATE OXYGEN SATURATION WITHIN NORMAL LIMITS OR PATIENTS OPTIMAL LEVEL ESTABLISHED BY THE PHYSICIAN THROUGHOUT CARE. CHANGES TO CO-MORBID CONDITIONS AND ANY NEW CONDITIONS WILL BE IDENTIFIED AND REPORTED TO THE PHYSICIAN. Goal Provider Goal - PATIENT/CAREGIVER WILL VERBALIZE UNDERSTANDING OF SIGNS AND SYMPTOMS THAT PUT THE PATIENT AT RISK FOR HOSPITALIZATION /EMERGENCY ROOM VISITS, WHEN TO NOTIFY NURSE/PHYSICIAN OF COMPLICATIONS/DECLINE AND WHEN TO CALL 911. Goal Provider Goal - PATIENT / CAREGIVER WILL VERBALIZE / DEMONSTRATE ABILITY TO PERFORM WOUND CARE. WOUND STATUS WILL IMPROVE EVIDENCED BY A DECREASE IN SIZE, DRAINAGE, ABSENCE OF INFECTION, AND DECREASED PAIN BY 60 DAYS Goal Provider Goal - PATIENT / CAREGIVER WILL VERBALIZE/DEMONSTRATE ABILITY TO PERFORM WOUND CARE. WOUND STATUS WILL IMPROVE EVIDENCED BY A DECREASE IN SIZE, DRAINAGE, ABSENCE OF INFECTION, AND DECREASED PAIN BY 60 DAYS Goal Provider Goal - PATIENT / CAREGIVER WILL VERBALIZE/DEMONSTRATE UNDERSTANDING OF MEASURES TO MANAGE ALTERED GENITOURINARY STATUS BY END OF EPISODE. Goal Provider Goal - PATIENT/CAREGIVER WILL VERBALIZE/DEMONSTRATE UNDERSTANDING OF CARE AND MANAGEMENT OF INDWELLING CATHETER BY 60 DAYS Goal Provider Goal - PATIENT WILL VERBALIZE/TOLERATE CATHETER CHANGE BY 30 DAYS Goal Provider Goal - PATIENT/CAREGIVER WILL VERBALIZE/DEMONSTRATE UNDERSTANDING OF FALL RISK FACTORS AND IMPLEMENT STRATEGIES TO MINIMIZE FALL RISK. PATIENT/CAREGIVER WILL VERBALIZE/DEMONSTRATE AN ABILITY TO ADHERE TO FALL REDUCTION SELF-MANAGEMENT AND LIFE-STYLE CHANGES BY 60 DAYS Goal Provider Goal - Goal Provider Goal - Goal Provider Goal - Goal Provider Goal - PATIENT / CAREGIVER WITHIN 1 VISIT WILL BE ABLE TO VERBALIZE / DEMONSTRATE UNDERSTANDING OF HEP AND RESTRICTIONS Goal Provider Goal - PATIENT / CAREGIVER WITHIN 1 VISIT WILL BE ABLE TO VERBALIZE / DEMONSTRATE UNDERSTANDING OF FELIPE LIFT TRANSFERS, USE OF THERABAND FOR BUE STRENGTH, CAREGIVER SETTING UP ADL UTENSILS FOR [place] TO ASSIST WITH DAILY Encounters Start Date/Time End Date/Time Encounter Type Admission Type Attending [facility] Care Department Encounter ID Discharge Date Discharge Status Discharge Condition Discharge Reason Percent Goals Met 2024-10-31 00:00:00 2024-12-29 00:00:00 Outpatient BENITA KRAMER [facility] [id number] [id number]
--- OUTSIDE RECORDS SUMMARY | 2024-12-28 20:00 | XMS_ITS | Clinical Summary ---
Author Organization Unknown Care Team Providers Care Demolition Expert Name Role Phone HOLLIS ERAZO, NELLY Unavailable Unavailable LYDIA RN, BENITA Unavailable Unavailable HAILEE LOZADAN, SHUBHAM Unavailable Unavailable KIM PT, JULIANNE Unavailable Unavailable SOL GUNNER'S MATE, ANGELA Unavailable Unavailable FEEZOR OT, NAYE Unavailable Unavailable Payers Payer Name Policy Type Policy Number Effective Date Expira tion Date DELTAAUTH [id number] Problems Condition Name Condition Details Condition Category [...] AND ADJUSTMENT TO CARE. [code = MEDICAL PERFUME COMPOUNDER FOR EVALUATION TO ASSESS SOCIAL AND EMOTIONAL FACTORS RELATED TO THE PATIENT'S ILLNESS, NEED FOR CARE, RESPONSE TO TREATMENT AND ADJUSTMENT TO CARE.] Future Scheduled Test FALL REDUC TION MANAGEMENT; RN TO ASSESS AND OBSERVE, HOTBED OPERATOR/PRINCIPAL TECHNICAL SPECIALIST TO OBSERVE FALL RISK FACTORS AND EDUCATE PATIENT/CAREGIVER ON STRATEGIES TO MINIMIZE THE RISK OF FALLING. [code = FALL REDUCTION MANAGEMENT; RN TO ASSESS AND OBSERVE, HOTBED OPERATOR/PRINCIPAL TECHNICAL SPECIALIST TO OBSERVE FALL RISK FACTORS AND EDUCATE PATIENT/CAREGIVER ON STRATEGIES TO MINIMIZE THE RISK OF FALLING.] Future Scheduled Test GENITOURIN YUMIKO MANAGEMENT; RN TO ASSESS AND TEACH, HOTBED OPERATOR/PRINCIPAL TECHNICAL SPECIALIST TO OBSERVE AND TEACH RELATED TO ALTERED GENITOURINARY STATUS TO MINIMIZE COMPLICATIONS AND REDUCE HOSPITALIZATION. [code = GENITOURINARY MANAGEMENT; RN TO ASSESS AND TEACH, HOTBED OPERATOR/PRINCIPAL TECHNICAL SPECIALIST TO OBSERVE AND TEACH RELATED TO ALTERED GENITOURINARY STATUS TO MINIMIZE COMPLICATIONS AND REDUCE HOSPITALIZATION.] Future Scheduled Test INDWELLING URINARY CATHETER MANAGEMENT; RN/HOTBED OPERATOR/PRINCIPAL TECHNICAL SPECIALIST TO INSTRUCT PATIENT / CAREGIVER ON INDWELLING URINARY CATHETER MANAGEMENT INCLUDING CARE OF CATHETER, SIGN AND SYMPTOMS OF COMPLICATIONS, PERINEAL CARE, TUBE AND BAG PLACEMENT, PREVENTION OF INFECTION AND SKIN BREAKDOWN. [code = INDWELLING URINARY CATHETER MANAGEMENT; RN/HOTBED OPERATOR/PRINCIPAL TECHNICAL SPECIALIST TO INSTRUCT PATIENT / CAREGIVER ON INDWELLING URINARY CATHETER MANAGEMENT INCLUDING CARE OF CATHETER, SIGN AND SYMPTOMS OF COMPLICATIONS, PERINEAL CARE, TUBE AND BAG PLACEMENT, PREVENTION OF INFECTION AND SKIN BREAKDOWN.] Future Scheduled Test INDWELLING URINARY CATHETER INSERTION; RN/HOTBED OPERATOR/PRINCIPAL TECHNICAL SPECIALIST TO PERFORM INSERTION OF 16 FR INDWELLING CATHETER, INSTILL 10 CC OF STERILE WATER INTO BALLOON, SECURE TUBING WITH APPROPRIATE SECUREMENT DEVICE CHANGE EVERY 4 WEEKS AND PRN FOR LEAKAGE, BLOCKAGE, DISLODGEMENT, OR MALFUNCTION. DUE TO B E CHANGED NEAR 11/30 [code = INDWELLING URINARY CATHETER INSERTION; RN/HOTBED OPERATOR/PRINCIPAL TECHNICAL SPECIALIST TO PERFORM INSERTION OF 16 FR INDWELLING [...] ISHAN SELBY RN TO OBSERVE AND ASSESS, HOTBED OPERATOR/PRINCIPAL TECHNICAL SPECIALIST TO OBSERVE FOR RISK FOR FALLS AND INSTRUCT IN FALL PREVENTION, HOME SAFETY, MEDICATION MANAGEMENT, INFECTION PREVENTION, AND NUTRITION MANAGEMENT. RN/HOTBED OPERATOR/PRINCIPAL TECHNICAL SPECIALIST NURSE MAY PERFORM O2 SATURATION LEVEL ON ADMISSION AND PRN FOR RN TO ASSESS/HOTBED OPERATOR TO OBSERVE PATIENT, WITH NOTIFICATION TO THE PHYSICIAN IF SATURATION IS 90% IN THE ABSENCE OF MORE SPECIFIC PARAMETERS FROM THE PHYSICIAN. AGENCY MAY PERFORM A RESUMPTION OF CARE VISIT FOLLOWING ANY HOSPITAL ADMISSION. RN/HOTBED OPERATOR/PRINCIPAL TECHNICAL SPECIALIST TO MONITOR CO-MORBID CONDITIONS LISTED ON THE PLAN OF CARE AND ANY NEW CONDITIONS THAT PRESENT THEMSELVES DURING THIS EPISODE TO IDENTIFY CHANGES AND INTERVENE TO MINIMIZE COMPLICATIONS. [code = RN TO OBSERVE, ASSESS, EVALUATE, AND DEVELOP AN INDIVIDUALIZED PLAN OF CARE. AGENCY MAY ACCEPT ORDERS FROM CONSULTING PHYSICIANS DR ISHAN SELBY RN TO OBSERVE AND ASSESS, HOTBED OPERATOR/PRINCIPAL TECHNICAL SPECIALIST TO OBSERVE FOR RISK FOR FALLS AND INSTRUCT IN FALL PREVENTION, HOME SAFETY, MEDICATION MANAGEMENT, INFECTION PREVENTION, AND NUTRITION MANAGEMENT. RN/HOTBED OPERATOR/PRINCIPAL TECHNICAL SPECIALIST NURSE MAY PERFORM O2 SATURATION LEVEL ON ADMISSION AND PRN FOR RN TO ASSESS/HOTBED OPERATOR TO OBSERVE PATIENT, WITH NOTIFICATION TO THE PHYSICIAN IF SATURATION IS 90% IN THE ABSENCE OF MORE SPECIFIC PARAMETERS FROM THE PHYSICIAN. AGENCY MAY PERFORM A RESUMPTION OF CARE VISIT FOLLOWING ANY HOSPITAL ADMISSION. RN/HOTBED OPERATOR/PRINCIPAL TECHNICAL SPECIALIST TO MONITOR CO-MORBID CONDITIONS LISTED ON THE PLAN OF CARE AND ANY NEW CONDITIONS THAT PRESENT THEMSELVES DURING THIS EPISODE TO IDENTIFY CHANGES AND INTERVENE TO MINIMIZE COMPLICATIONS.] Future Scheduled Test RN/HOTBED OPERATOR/PRINCIPAL TECHNICAL SPECIALIST TO PERFORM/TEACH INCISION CARE TO R ISCHIAL IRRIGATE/CLEANSE WITH WOUND CLEANSER KEEP CLEAN AND DRY MAY APPLY SKIN BARRIER TO PERIWOUND PRN TO PREVENT MACERATION AND PROTECT PERIWOUND ISAIAH [code = RN/HOTBED OPERATOR/PRINCIPAL TECHNICAL SPECIALIST TO PERFORM/TEACH INCISION CARE TO R ISCHIAL IRRIGATE/CLEANSE WITH WOUND CLEANSER KEEP CLEAN AND DRY MAY APPLY SKIN BARRIER TO PERIWOUND PRN TO PREVENT MACERATION AND PROTECT PERIWOUND ISAIAH] Future Scheduled Test RN/HOTBED OPERATOR/PRINCIPAL TECHNICAL SPECIALIST TO PERFORM/TEACH PATIENT/CAREGIVER WOUND CARE TO BILATERAL GROIN CREASES OPEN WOUNDS FROM HS IRRIGATE/CLEANSE WITH DIAL SOAP MAY APPLY SKIN BARRIER TO PERIWOUND PRN TO PREVENT MACERATION AND PROTECT PERIWOUND COVER WITH POLYMEM AND ABD CHANGE DRESSING EVERY DAY AND PRN FOR SOILED [code = RN/HOTBED OPERATOR/PRINCIPAL TECHNICAL SPECIALIST TO PERFORM/TEACH PATIENT/CAREGIVER WOUND CARE TO BILATERAL GROIN CREASES OPEN WOUNDS FROM HS IRRIGATE/CLEANSE WITH DIAL SOAP MAY APPLY SKIN BARRIER TO PERIWOUND PRN TO PREVENT MACERATION AND PROTECT PERIWOUND COVER WITH POLYMEM AND ABD CHANGE DRESSING EVERY DAY AND PRN FOR SOILED] Future Scheduled Test RISK FOR H OSPITALIZATION; RN TO ASSESS/TEACH, PRINCIPAL TECHNICAL SPECIALIST/HOTBED OPERATOR TO OBSERVE/TEACH PATIENT/CAREGIVER ON RISK FOR HOSPITALIZATION/EMERGENCY ROOM VISITS, TEACH SIGNS AND SYMPTOMS THAT PUT PATIENT AT RISK, WHEN TO NOTIFY NURSE/PHYSICIAN OF COMPLICATIONS/DECLINE, AND WHEN TO CALL 911. [code = RISK FOR HOSPITALIZATION; RN TO ASSESS/TEACH, PRINCIPAL TECHNICAL SPECIALIST/HOTBED OPERATOR TO OBSERVE/TEACH PATIENT/CAREGIVER ON RISK FOR HOSPITALIZATION/EMERGENCY ROOM VISITS, TEACH SIGNS AND SYMPTOMS THAT PUT PATIENT AT RISK, WHEN TO NOTIFY NURSE/PHYSICIAN OF COMPLICATIONS/DECLINE, AND WHEN TO CALL 911.] Future Scheduled Test URINARY MO LECULAR TESTING PROTOCOL UP TO 2 PRN RN/HOTBED OPERATOR/PRINCIPAL TECHNICAL SPECIALIST VISITS MAY BE PERFORMED FOR S/S OF UTI. RN TO ASSESS, HOTBED OPERATOR/PRINCIPAL TECHNICAL SPECIALIST TO OBSERVE INITIATION OF UTI PROTOCOL. RN/PRINCIPAL TECHNICAL SPECIALIST/HOTBED OPERATOR TO INSTRUCT PATIENT AND/OR CAREGIVER ON S/S OF UTI TO REPORT TO RN/PRINCIPAL TECHNICAL SPECIALIST/HOTBED OPERATOR IF NEW OR WORSENING SYMPTOMS. DRINK PLENTY OF WATER THROUGHOUT THE DAY TO MAINTAIN HYDRATION (UNLESS CONTRAINDICATED.) URINATE WHEN THE URGE IS FELT, DO NOT WAIT. WASH GENITALS DAILY. WIPE FROM FRONT TO BACK AFTER HAVING A BOWEL MOVEMENT. RN/PRINCIPAL TECHNICAL SPECIALIST/HOTBED OPERATOR TO OBTAIN URINE SPECIMEN FOR MOLECULAR URINE TESTING BY OPTION 1 OR OPTION 2 (OPTION 1) RN/PRINCIPAL TECHNICAL SPECIALIST/HOTBED OPERATOR TO OBTAIN URINE SPECIMEN FOR U/A WITH REFLEX TO UTI PANEL (MOLECULAR) VIA CLEAN CATCH URINE AND IF UNABLE TO OBTAIN MAY PERFORM AN IN AND OUT CATH. IF PATIENT HAS INDWELLING CATHETER MAY OBTAIN FROM SAMPLING PORT. (OPTION 2) RN/PRINCIPAL TECHNICAL SPECIALIST/HOTBED OPERATOR TO OBTAIN URINE SPECIMEN FOR UTI PANEL (MOLECULAR) VIA SWAB COLLECTION METHOD FROM ADULT BRIEF/DIAPER OR PAD IF PATIENT IS INCONTINENT. INCLUDE ANTIBIOTIC/ANTIFUNGAL RESISTANCE TESTING INCLUDE URINALYSIS (ONLY FOR CLEAN CATCH/ IN AND OUT CATH) NOTIFY PROVIDER OF RESULTS AND OBTAIN FURTHER ORDERS. [code = URINARY MOLECULAR TESTING PROTOCOL UP TO 2 PRN RN/HOTBED OPERATOR/PRINCIPAL TECHNICAL SPECIALIST VISITS MAY BE PERFORMED FOR S/S OF UTI. RN TO ASSESS, HOTBED OPERATOR/PRINCIPAL TECHNICAL SPECIALIST TO OBSERVE INITIATION OF UTI PROTOCOL. RN/PRINCIPAL TECHNICAL SPECIALIST/HOTBED OPERATOR TO INSTRUCT PATIENT AND/OR CAREGIVER ON S/S OF UTI TO REPORT TO RN/PRINCIPAL TECHNICAL SPECIALIST/HOTBED OPERATOR IF NEW OR WORSENING SYMPTOMS. DRINK PLENTY OF WATER THROUGHOUT THE DAY TO MAINTAIN HYDRATION (UNLESS CONTRAINDICATED.) URINATE WHEN THE URGE IS FELT, DO NOT WAIT. WASH GENITALS DAILY. WIPE FROM FRONT TO BACK AFTER HAVING A BOWEL MOVEMENT. RN/PRINCIPAL TECHNICAL SPECIALIST/HOTBED OPERATOR TO OBTAIN URINE SPECIMEN FOR MOLECULAR URINE TESTING BY OPTION 1 OR OPTION 2 (OPTION 1) RN/PRINCIPAL TECHNICAL SPECIALIST/HOTBED OPERATOR TO OBTAIN URINE SPECIMEN FOR U/A WITH REFLEX TO UTI PANEL (MOLECULAR) VIA CLEAN CATCH URINE AND IF UNABLE TO OBTAIN MAY PERFORM AN IN AND OUT CATH. IF PATIENT HAS INDWELLING CATHETER MAY OBTAIN FROM SAMPLING PORT. (OPTION 2) RN/PRINCIPAL TECHNICAL SPECIALIST/HOTBED OPERATOR TO OBTAIN URINE SPECIMEN FOR UTI PANEL (MOLECULAR) VIA SWAB COLLECTION METHOD FROM ADULT BRIEF/DIAPER OR PAD IF PATIENT IS INCONTINENT. INCLUDE ANTIBIOTIC/ANTIFUNGAL RESISTANCE TESTING INCLUDE URINALYSIS (ONLY FOR CLEAN CATCH/ IN AND OUT CATH) NOTIFY PROVIDER OF RESULTS AND OBTAIN FURTHER ORDERS. ] Future Scheduled Test URINARY CU LTURE AND SENSITIVITY PROTOCOL UP TO 2 PRN RN/HOTBED OPERATOR/PRINCIPAL TECHNICAL SPECIALIST VISITS MAY BE PERFORMED FOR S/S OF UTI. RN TO ASSESS, HOTBED OPERATOR/PRINCIPAL TECHNICAL SPECIALIST TO OBSERVE INITIATION OF UTI PROTOCOL. RN/PRINCIPAL TECHNICAL SPECIALIST/HOTBED OPERATOR TO INSTRUCT PATIENT AND/OR CAREGIVER ON S/S OF UTI TO REPORT TO RN/HOTBED OPERATOR/PRINCIPAL TECHNICAL SPECIALIST IF NEW OR WORSENING SYMPTOMS. DRINK PLENTY OF WATER THROUGHOUT THE DAY TO MAINTAIN HYDRATION (UNLESS CONTRAINDICATED.) URINATE WHEN THE URGE IS FELT, DO NOT WAIT. WASH GENITALS DAILY. WIPE FROM FRONT TO BACK AFTER HAVING A BOWEL MOVEMENT. RN/PRINCIPAL TECHNICAL SPECIALIST/HOTBED OPERATOR TO OBTAIN URINE SPECIMEN FOR UA WITH C/S VIA CLEAN CATCH URINE AND IF UNABLE TO OBTAIN MAY PERFORM AN IN AND OUT CATH. IF PATIENT HAS INDWELLING CATHETER MAY OBTAIN FROM SAMPLING PORT. NOTIFY PROVIDER OF RESULTS AND OBTAIN FURTHER ORDERS. [code = URINARY CULTURE AND SENSITIVITY PROTOCOL UP TO 2 PRN RN/HOTBED OPERATOR/PRINCIPAL TECHNICAL SPECIALIST VISITS MAY BE PERFORMED FOR S/S OF UTI. RN TO ASSESS, HOTBED OPERATOR/PRINCIPAL TECHNICAL SPECIALIST TO OBSERVE INITIATION OF UTI PROTOCOL. RN/PRINCIPAL TECHNICAL SPECIALIST/HOTBED OPERATOR TO INSTRUCT PATIENT AND/OR CAREGIVER ON S/S OF UTI TO REPORT TO RN/HOTBED OPERATOR/PRINCIPAL TECHNICAL SPECIALIST IF NEW OR WORSENING SYMPTOMS. DRINK PLENTY OF WATER THROUGHOUT THE DAY TO MAINTAIN HYDRATION (UNLESS CONTRAINDICATED.) URINATE WHEN THE URGE IS FELT, DO NOT WAIT. WASH GENITALS DAILY. WIPE FROM FRONT TO BACK AFTER HAVING A BOWEL MOVEMENT. RN/PRINCIPAL TECHNICAL SPECIALIST/HOTBED OPERATOR TO OBTAIN URINE SPECIMEN FOR UA WITH [...] End Date/Time Encounter Type Admission Type Attending [facility] Care Department Encounter ID Discharge Date Discharge Status Discharge Condition Discharge Reason Percent Goals Met 2024-10-31 00:00:00 2024-12-29 00:00:00 Outpatient BENITA KRAMER [facility] [id number] [id number]
== END 2024-11-03 23:59 | disposition home or self-care (01) ==
PROVIDERS: Visit Provider Surgery Plastic and Reconstructive Surgery
DX: L89.314 Pressure ulcer of right buttock, stage 4 (principal)
CPT/HCPCS: 81001; 87086; 87088; 87186